=== PATIENT | female | born 1945 | race Caucasian/White ===

== ENCOUNTER 2019-05-09 19:53 | Emergency (ER) | payer MEDICARE, SELFPAY ==
[2019-05-09 19:53] VITALS: BP 207/94; PULSE 78; RESP 18; TEMP 36.8; O2SAT 99; BMI 25.8
== END 2019-05-09 21:29 | disposition left against medical advice (07) ==
PROVIDERS: Emergency Provider Family Medicine; Family Provider Internal Medicine
DX: Z53.21 Procedure and treatment not carried out due to patient leaving prior to being seen by health care provider (principal)
CPT/HCPCS: 99281

== ENCOUNTER 2019-05-12 04:22 | Inpatient (IN) | payer MEDICARE, SELFPAY ==
[2019-05-12] VITALS (8 sets, daily range): BP systolic 152–194; BP diastolic 70–98; PULSE 74–85; RESP 16–18; TEMP 36.7–37.2; O2SAT 95–98; BMI 25.1
--- NOTE | 2019-05-12 04:33 | ED_ITS ---
Entered by Umm Espinoza, acting as scribe for Kam Raya DO HPI - Nausea/Vomiting/Diarrhea General: Chief complaint: Nausea/Vomiting/Diarrhea Stated complaint: NAUSEA, VOMITING, ZACHERY Time Seen by Provider: 05/12/19 04:41 Source: EMS Mode of arrival: EMS Limitations: no limitations History of Present Illness: HPI Narrative: 73 yo f came to the er by [facility] for nausea and vomiting. Onset was 2 days ago. Pt states that she has n/v/d, RLQ and LLQ pain. MD elicited complaint: nausea, vomiting, diarrhea and other (fever) Onset (ago): day(s) (2 days ago) Associated nausea: Yes Pain consistency: constant Severity: mild Quality: sharp Exacerbating factors: none Relieving factors: none Associated symtoms: Reports nausea; Denies anxiety, change in vision, chest pain, dizziness, dysuria, epistaxis, headache(s) or palpitations Review of Systems Const: Reports: fever; Denies: chills Eyes: Denies: change in vision ENMT: Denies: nose bleeds Card: Denies: chest pain or palpitations Resp: Denies: shortness of breath, productive cough, non-productive cough or wheezing GI: Reports: nausea, vomiting and diarrhea : Denies: painful urination Musc: Denies: neck pain, back pain, redness or joint warmth Skin/Breast: Denies: rash, itching or redness Neuro: Denies: headache or dizziness Psych: Denies: anxiety PFSH ED PFSH: Statuses (acute, chronic, etc) shown below reflect problem list status as previously entered and may not be historically accurate Social History Smoking and tobacco status: former smoker Physical Exam Const: GENERAL APPEARANCE: well developed ORIENTATION/CONSCIOUSNESS: Yes oriented to person, Yes oriented to place and Yes oriented to time HENMT: COMMON NORMALS: external ears normal and external nose normal NOSE: external nose normal and no nasal discharge EXTERNAL EAR: Yes external ears normal Eye: COMMON NORMALS: PERRL, EOMs intact bilaterally and conjunctivae normal EYELID: eyelids normal CONJUNCTIVA: Yes conjunctivae normal PUPIL: Yes PERRL Neck/C-Spine: COMMON NORMALS: full ROM GENERAL: No tracheal deviation CERVICAL SPINE: Yes normal cervical lordosis and No cervical spine tenderness Chest: COMMONS NORMALS: inspection of chest normal CHEST: No tenderness Resp: COMMON NORMALS: clear to auscultation bilaterally EFFORT & INSPECTION: No tachypneic, No respiratory distress, No retractions, No uses accessory muscles and No tracheal deviation AUSCULTATION: clear to auscultation bilaterally, no rhonchi, no wheezes and lung sounds not diminished Cardio: COMMON NORMALS: regular rate and regular rhythm RATE: regular rate RHYTHM: regular rhythm HEART SOUNDS: no murmurs PERIPHERAL PULSES: radial pulses present GI: INSPECTION: No abdominal distension AUSCULTATION: No hyperactive bowel sounds and No hypoactive bowel sounds PALPATION: Yes tender Details: LLQ, RLQ, LUQ and RUQ, No guarding, No rigid and No rebound tenderness present PERCUSSION: no dullness to percussion and no tympanic to percussion : COMMON NORMALS: Yes no CVA tenderness BLADDER/KIDNEY EXAM: Yes no CVA tenderness Back/Pelvis: COMMON NORMALS: no CVA tenderness Neuro: SENSORIUM/ORIENTATION: Yes oriented to person, Yes oriented to place and Yes oriented to time Psych: COMMON NORMALS: mental status grossly normal Skin: COMMON NORMALS: no rashes or lesions noted GENERAL SKIN EXAM: no rashes or lesions noted Course ED course: 73-year-old lady with intractable nausea/vomiting/diarrhea/belly pain. She is significantly hypokalemic with a potassium of 2.7. She has a leukocytosis. CT shows fluid-filled loops of small bowel, with some wall thickening, likely a bad enteritis. Given the amount of hypokalemia she has with her findings on CT and symptoms, she will be observed for enteritis. Consultations: Consultation #1: janny Time: 06:29 Vital Signs: Vital signs: Vital Signs Temperature 98.8 F 05/12/19 04:24 Pulse Rate 84 05/12/19 05:43 Respiratory Rate 16 05/12/19 05:43 Blood Pressure 185/98 05/12/19 05:43 Pulse Oximetry 95 05/12/19 05:43 MDM - Nausea/Vomiting/Diarrhea Lab Data: Labs: Lab Results 05/12/19 05/12/19 05/12/19 Range/Units 04:55 04:55 05:38 WBC 12.5 H (4.0-10.0) 10^3/ uL RBC 5.30 (4.1-5.3) 10^6/u L Hgb 15.6 H (11.5-15.3) g/dL Hct 47.0 (37.0-47.0) % MCV 88.7 (81-99) fL MCH 29.4 (28.0-34.0) pg MCHC 33.2 (30.0-36.0) g/dL RDW 14.5 (12.1-15.1) % Plt Count 274 (130-400) 10^3/c mm MPV 9.6 (7.4-10.4) fL Neut % (Auto) 78.4 % Lymph % (Auto) 16.1 % Benson % (Auto) 4.5 % Eos % (Auto) 0.2 % Baso % (Auto) 0.5 % Neut # (Auto) 9.8 H (1.8-7.7) 10^3/u L Lymph # (Auto) 2.0 (0.8-4.8) 10^3/u L Benson # (Auto) 0.6 (0.2-0.9) 10^3/u L Eos # (Auto) 0.0 (0.0-0.8) 10^3/u L Baso # (Auto) 0.1 (0.0-0.1) 10^3/u L Nucleated RBC % (a uto) 0 % Nucleated RBCs # 0.0 /100WBC Sodium 139 (136-145) mmol/L Potassium 2.7 L* (3.5-5.1) mmol/L Chloride 93 L (98-107) mmol/L Carbon Dioxide 24 (22-29) mmol/L Anion Gap 24.7 H (5-19) BUN 13 (8-23) mg/dL Creatinine 0.6 (0.5-0.9) mg/dL Glucose 221 H (74-106) mg/dL Calcium 10.5 (8.5-10.5) mg/dL Total Bilirubin 0.6 (0.15-1.2) mg/dL AST 22 (0-32) U/L ALT 21 (0-33) U/L Alkaline Phosphata se 67 (35-105) IU/L C-Reactive Protein 4.1 (0.0-4.9) mg/L Total Protein 8.2 (6.6-8.7) g/dL Albumin 5.3 H (3.5-5.2) g/dL Globulin 2.9 (1.3-4.6) g/dL Lipase 37 (13-60) U/L Urine Color Yellow (Yellow) Urine Appearance Clear (CLEAR) Urine pH 5 (5-7) Ur Specific Gravit y 1.015 (1.005-1.030) Urine Protein 1+ H (Negative) Urine Glucose (UA) 1+ (Normal) Urine Ketones 2+ H (Negative) Urine Occult Blood 2+ H (Negative) Urine Nitrate Negative (Negative) Urine Bilirubin Neg (NEGATIVE) Urine Urobilinogen Norm (Negative) mg/dL Ur Leukocyte Jelena ase Negative (Negative) Urine RBC 5-10 H (0-2) /hpf Urine WBC 5-10 H (0-5) /hpf Ur Squamous Epith Cells 5-10 H (0-5) Amorphous Sediment Not Reportable Urine Bacteria 1+ H (NONE) Hyaline Casts Rare Urine Mucus Trace Urine Yeast Trace Discharge Plan Discharge Patient Disposition: Placed in Observation Clinical Impression: Gastroenteritis, Hypokalemia due to excessive gastrointestinal loss of potassium Condition: Stable Referrals: Tonio Rubi DO [Family Provider] - Coding Level of Care Code ED Automation Engineering Technician for Chg Fwd The documentation recorded by the Alexis flores Stephanie Lyn, accurately reflects the service I personally performed and the decisions made by Elver thompson Jeremy John, DO May 12, 2019 04:22
--- NOTE | 2019-05-12 04:49 | CTR_ITS ---
PROCEDURE INFORMATION: Exam: CT Abdomen And Pelvis With Contrast Exam date and time: 05/12/2019 5:23 AM Age: 73 years old Clinical indication: Nausea and vomiting; Abdominal pain; Acute; Prior surgery; Surgery date: 6+ months; Surgery type: Hysterectomy, appendectomy; Additional info: Abd pain TECHNIQUE: Imaging protocol: Computed tomography of the abdomen and pelvis with intravenous contrast. Total DLP: 512.23 mGy-cm Radiation optimization: All CT scans at this facility use at least one of these dose optimization techniques: automated exposure control; mA and/or kV adjustment per patient size (includes targeted exams where dose is matched to clinical indication); or iterative reconstruction. Contrast material: [id number]; Contrast volume: 95 ml; Contrast route: 20G; COMPARISON: CT abdomen pelvis w con* [id number] 02/25/2019 2:00 PM FINDINGS: Lungs: There is a 6.5 mm calcified granuloma seen in the left posterior costophrenic recess. Liver: Normal. No mass. Gallbladder and bile ducts: Normal. No calcified stones. No ductal dilation. Pancreas: Normal. No ductal dilation. Spleen: Normal. No splenomegaly. Adrenals: Normal. No mass. Kidneys and ureters: Normal. No hydronephrosis. Stomach and bowel: Nondilated fluid-filled loops of small bowel could represent mild ileus. There is gastric wall thickening although the stomach is nondistended. Appendix: Status post appendectomy. Intraperitoneal space: Unremarkable. No free air. No significant fluid collection. Vasculature: Calcifications are seen within the thoracic and abdominal aorta, iliac and femoral arteries bilaterally. Lymph nodes: Unremarkable. No enlarged lymph nodes. Bladder: Unremarkable as visualized. Reproductive: Status post hysterectomy. Bones/joints: Unremarkable. No acute fracture. Soft tissues: Unremarkable. CT/CT abdomen pelvis w con* [id number] IMPRESSION: 1. Nondilated fluid-filled loops of small bowel may represent a mild ileus. 2. There is mild gastric wall thickening although the stomach is nondistended. 3. Calcified granuloma in the left posterior costophrenic recess. Radiation Dose CTDIVOL = (mGy): DLP = 512.23 (mGy-cm)
[2019-05-12 05:05] LABS: Basophils # 0.1 10^3/uL (0.0-0.1); Basophils % 0.5 %; Eosinophils % 0.2 %; Hemoglobin 15.6 g/dL (11.5-15.3); Lymphocytes % 16.1 %; Mean Corpuscular HGB Conc 33.2 g/dL (30.0-36.0); Mean Corpuscular Hemoglobin 29.4 pg (28.0-34.0); Mean Corpuscular Volume 88.7 fL (81-99); Mean Platelet Volume 9.6 fL (7.4-10.4); Monocytes # 0.6 10^3/uL (0.2-0.9); Monocytes % 4.5 %; Neutrophils # 9.8 10^3/uL (1.8-7.7); Neutrophils % 78.4 %; Nucleated Red Blood Cells % 0 %; Platelet Count 274 10^3/cmm (130-400); Red Cell Distribution Width 14.5 % (12.1-15.1); White Blood Count 12.5 10^3/uL (4.0-10.0)
[2019-05-12 05:17] LABS: Alanine Aminotransferase 21 U/L (0-33); Albumin Level 5.3 g/dL (3.5-5.2); Alkaline Phosphatase 67 IU/L (35-105); Anion Gap 24.7 (5-19); Aspartate Amino Transferase 22 U/L (0-32); Blood Urea Nitrogen 13 mg/dL (8-23); Calcium 10.5 mg/dL (8.5-10.5); Carbon Dioxide 24 mmol/L (22-29); Chloride 93 mmol/L (98-107); Globulin 2.9 g/dL (1.3-4.6); Glucose 221 mg/dL (74-106); Lipase 37 U/L (13-60); Sodium 139 mmol/L (136-145); Total Bilirubin 0.6 mg/dL (0.15-1.2); Total Protein 8.2 g/dL (6.6-8.7)
[2019-05-12] MEDS: morphine 4 mg/mL SDV 1 mL IVP (05:22)
[2019-05-12] MEDS: sodium chloride 0.9% 1,000 ML 999 ML IV (05:23)
[2019-05-12] MEDS: ondansetron 2 mg/ML SDV 2 mL 4 MG IVP (05:23)
[2019-05-12 05:25] LABS: Potassium 2.7 mmol/L (3.5-5.1)
[2019-05-12] MEDS: iohexol 300 mg/mL 100 mL Btl IV (05:48)
[2019-05-12] MEDS: potassium chloride oral liq 20 mEq/15 mL UDC 40 MEQ PO (06:00)
[2019-05-12 06:06] LABS: C Reactive Protein 4.1 mg/L (0.0-4.9)
[2019-05-12 06:09] LABS: Add Urine Microscopic? YES; Bilirubin Urine Neg (NEGATIVE); Blood Urine 2+ (Negative); Glucose Urine UA 1+ (Normal); Ketones Urine 2+ (Negative); Leukocyte Esterase Urine Negative (Negative); Nitrate Urine Negative (Negative); Protein Urine 1+ (Negative); Specific Gravity, Urine 1.015 (1.005-1.030); Urine Appearance Clear (CLEAR); Urine Color Yellow (Yellow); Urobilinogen Urine Norm (Negative); pH Urine 5 (5-7)
[2019-05-12 06:20] LABS: Hyaline Casts Urine RARE; Mucus Urine TRACE
[2019-05-12 06:22] LABS: Bacteria Urine 1+
[2019-05-12 06:23] LABS: Add Urine Culture? Yes
[2019-05-12] MEDS: D5-NS 0.45% + KCL 20 mEq 20 MEQ/1,000 ML BAG 100 MEQ IV ×2 (07:52→17:44)
[2019-05-12] MEDS: metoprolol tartrate 25 mg Tablet PO ×2 (10:29→17:43)
[2019-05-12] MEDS: amlodipine 10 mg Tablet PO (10:29)
[2019-05-12] MEDS: cefTRIAXone 1,000 MG in sodium chloride 0.9% (plus) 50 ML 100 MG IV (10:37)
[2019-05-12] MEDS: chlorthalidone 25 mg Tablet PO (10:37)
--- NOTE | 2019-05-12 12:35 | PM.HP ---
Providers/Chief Complaint Admitting Physician: Shelley Clinton MD Primary Care Provider: ED TEMP Chief Complaint: enteritis,hypokalemia History of Present Illness Kelsey Hall is a 73 year old female with a past medical history of hypertension, depression and anxiety, sciatica on chronic opiate therapy who presents to the emergency room due to complaints of nausea, vomiting and abdominal pain and diarrhea. Patient states that she saw her primary care provider on Tuesday, was diagnosed with upper respiratory tract infection, was sent home on antibiotics, and stated that her respiratory tract symptoms somewhat improved. But roughly 48 hours ago started to develop nausea, vomiting, diarrhea, and diffuse abdominal pain. Denies fevers, chills, lightheadedness, dizziness. But does feel dehydrated. Patient was admitted a few months ago for similar symptoms, was diagnosed with an ileus, improved with IV hydration, and sent home. Patient in addition states that she has right flank pain, with some dysuria. Denies hematuria. Patient's last meal was last night. Review of Systems Const: Denies: fever, chills or change in appetite Eyes: Denies: change in vision ENMT: Denies: nasal congestion Card: Denies: chest pain or palpitations Resp: Denies: shortness of breath or productive cough GI: Reports: abdominal pain, nausea, vomiting and diarrhea; Denies: vomiting blood, difficulty swallowing, bloating, cramping, belching, excessive passing of gas, change in stool character, blood in stool or black tarry stool : Reports: flank pain and painful urination; Denies: difficulty urinating, urinary frequency, urinary urgency, urinary hesitancy or urinary dribbling Musc: Denies: neck pain or back pain Skin/Breast: Denies: rash Neuro: Denies: headache Endo: Denies: excessive urination or excessive thirst Medications/Allergies Allergies Allergy/AdvReac Type Severity Reaction Status Date / Time No Known Allergies Allergy Verified 05/09/19 19:58 Additional Medication Information Additional Medication Information: Morphine extended release 15 mg in the morning, 30 mg at night Metoprolol 25 twice daily Chlorthalidone 25 mg once daily Norvasc 10 mg once daily Klor-Con 40 mg once daily PFSH Acute PFSH: Statuses (acute, chronic, etc) shown below reflect problem list status as previously entered and may not be historically accurate Medical History (Updated 05/12/19 @ 12:44 by Edi Soriano MD) Chronically on opiate therapy (Acute) Depression with anxiety (Acute) Hypertension (Acute) Ileus (Acute) Sciatica (Acute) Surgical History (Updated 05/12/19 @ 12:43 by Edi Soriano MD) H/O bilateral breast reduction surgery (Acute) H/O: hysterectomy (Acute) History of appendectomy (Acute) Family History (Updated 05/12/19 @ 12:42 by Edi Soriano MD) Other CAD (coronary artery disease) Social History (Updated 05/12/19 @ 12:42 by Edi Soriano MD) Smoking and tobacco status: former smoker Alcohol intake: never Substance/Drug Use: never Vitals/I&O/Wt Last Vital Signs Temp 98.0 F 05/12/19 07:43 Pulse 84 05/12/19 07:43 Resp 18 05/12/19 07:43 BP 180/70 05/12/19 07:43 Pulse Ox 97 05/12/19 07:43 Weight last 48 hrs Weight 64.41 kg Physical Exam Const: COMMON NORMALS: no apparent distress and oriented x3 GENERAL APPEARANCE: cooperative and comfortable HENMT: COMMON NORMALS: normocephalic HEAD & SCALP: normocephalic Eye: COMMON NORMALS: PERRL, EOMs intact bilaterally and no papilledema GENERAL EYE: normal appearance of both eyes PUPIL: Yes PERRL DIRECT OPHTHALMOSCOPY: Yes no papilledema Neck/C-Spine: COMMON NORMALS: full ROM, no lymphadenopathy, no JVD and thyroid normal THYROID: thyroid normal Lymph: LYMPHATIC: no lymphadenopathy noted Resp: COMMON NORMALS: normal respiratory effort, no retractions, no use of accessory muscles and clear to auscultation bilaterally AUSCULTATION: clear to auscultation bilaterally Cardio: COMMON NORMALS: no JVD, regular rate, regular rhythm, S1 normal heart sound, S2 normal heart sound, no gallops, no clicks and no murmurs RATE: regular rate RHYTHM: regular rhythm HEART SOUNDS: S1 normal and S2 normal GI: COMMON NORMALS: normal to inspection, nondistended, normoactive bowel sounds, soft to palpation, no hepatosplenomegaly and no masses INSPECTION: Yes abdominal distension AUSCULTATION: Yes normoactive bowel sounds PALPATION: Yes soft, Yes tender (Generalized), No guarding, No rigid and Yes no hepatosplenomegaly Back/Pelvis: GENERAL BACK: Yes CVA tenderness CVA tenderness: left Extremity: COMMON NORMALS: normal to inspection, full ROM and no pedal edema Neuro: COMMON NORMALS: oriented x3, CN's II-XII intact bilaterally, moves all extremities and no focal motor deficits Psych: COMMON NORMALS: mental status grossly normal, thought process normal and cooperative THOUGHT PROCESS: normal thought process Data : 05/12/19 04:55 05/12/19 04:55 CT Abd/Pel: Radiologist's impression: PROCEDURE INFORMATION: Exam: CT Abdomen And Pelvis With Contrast Exam date and time: 05/12/2019 5:23 AM Age: 73 years old Clinical indication: Nausea and vomiting; Abdominal pain; Acute; Prior surgery; Surgery date: 6+ months; Surgery type: Hysterectomy, appendectomy; Additional info: Abd pain TECHNIQUE: Imaging protocol: Computed tomography of the abdomen and pelvis with intravenous contrast. Total DLP: 512.23 mGy-cm Radiation optimization: All CT scans at this facility use at least one of these dose optimization techniques: automated exposure control; mA and/or kV adjustment per patient size (includes targeted exams where dose is matched to clinical indication); or iterative reconstruction. Contrast material: [id number]; Contrast volume: 95 ml; Contrast route: 20G; COMPARISON: CT abdomen pelvis w con* [id number] 02/25/2019 2:00 PM FINDINGS: Lungs: There is a 6.5 mm calcified granuloma seen in the left posterior costophrenic recess. Liver: Normal. No mass. Gallbladder and bile ducts: Normal. No calcified stones. No ductal dilation. Pancreas: Normal. No ductal dilation. Spleen: Normal. No splenomegaly. Adrenals: Normal. No mass. Kidneys and ureters: Normal. No hydronephrosis. Stomach and bowel: Nondilated fluid-filled loops of small bowel could represent mild ileus. There is gastric wall thickening although the stomach is nondistended. Appendix: Status post appendectomy. Intraperitoneal space: Unremarkable. No free air. No significant fluid collection. Vasculature: Calcifications are seen within the thoracic and abdominal aorta, iliac and femoral arteries bilaterally. Lymph nodes: Unremarkable. No enlarged lymph nodes. Bladder: Unremarkable as visualized. Reproductive: Status post hysterectomy. Bones/joints: Unremarkable. No acute fracture. Soft tissues: Unremarkable. CT/CT abdomen pelvis w con* [id number] IMPRESSION: 1. Nondilated fluid-filled loops of small bowel may represent a mild ileus. 2. There is mild gastric wall thickening although the stomach is nondistended. 3. Calcified granuloma in the left posterior costophrenic recess A&P Assessment and plan (1) Ileus: -Ileus likely secondary to adhesions given past surgical history of appendectomy and hysterectomy -Plan: -Continue clear liquid diet -IV fluids -Recheck potassium levels -We will check a C. 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 (6) Hypertension: Status: Acute Code(s): I10 - Essential (primary) hypertension (7) Hypokalemia due to excessive gastrointestinal loss of potassium: Status: Acute Code(s): E87.6 - Hypokalemia (8) Gastroenteritis: Status: Acute Code(s): K52.9 - Noninfective gastroenteritis and colitis, unspecified Attestations Medical Necessity Statement*: Patient requires hospitalization, observation, less than 2 midnights, for ileus, hypokalemia, pyelonephritis Coding Level of Care Code Acute Manager Bar for g Fwd Diagnoses Ileus K56.7 Left flank pain R10.9 Depression with anxiety F41.8 Sciatica M54.30 Chronically on opiate therapy Z79.891 Hypertension I10 Hypokalemia due to excessive gastrointestinal loss of potassium E87.6 Gastroenteritis K52.9
[2019-05-12 12:37] LABS: Estmated Average Glucose 117; Hemoglobin A1C 5.7 % (4.0-6.0)
[2019-05-12 13:08] LABS: Alanine Aminotransferase 18 U/L (0-33); Albumin Level 4.7 g/dL (3.5-5.2); Alkaline Phosphatase 56 IU/L (35-105); Anion Gap 18.1 (5-19); Aspartate Amino Transferase 20 U/L (0-32); Blood Urea Nitrogen 7 mg/dL (8-23); Calcium 9.6 mg/dL (8.5-10.5); Carbon Dioxide 25 mmol/L (22-29); Chloride 99 mmol/L (98-107); Globulin 2.6 g/dL (1.3-4.6); Glucose 179 mg/dL (74-106); Phosphorus 2.7 mg/dL (2.5-4.5); Potassium 3.1 mmol/L (3.5-5.1); Sodium 139 mmol/L (136-145); Total Bilirubin 0.4 mg/dL (0.15-1.2); Total Protein 7.3 g/dL (6.6-8.7)
[2019-05-12] MEDS: morphine ER (12 HR) 30 mg tablet PO (17:43)
[2019-05-13] VITALS (9 sets, daily range): BP systolic 128–173; BP diastolic 68–109; PULSE 58–76; RESP 17–24; TEMP 36.7–37.1; O2SAT 92–97
[2019-05-13] MEDS: D5-NS 0.45% + KCL 20 mEq 20 MEQ/1,000 ML BAG 100 MEQ IV ×3 (03:27→23:19)
[2019-05-13 05:53] LABS: Basophils # 0.1 10^3/uL (0.0-0.1); Basophils % 0.6 %; Eosinophils # 0.2 10^3/uL (0.0-0.8); Eosinophils % 1.9 %; Hematocrit 44.9 % (37.0-47.0); Hemoglobin 14.4 g/dL (11.5-15.3); Lymphocytes # 3.2 10^3/uL (0.8-4.8); Lymphocytes % 35.9 %; Mean Corpuscular HGB Conc 32.1 g/dL (30.0-36.0); Mean Corpuscular Hemoglobin 30.3 pg (28.0-34.0); Mean Corpuscular Volume 94.3 fL (81-99); Mean Platelet Volume 9.7 fL (7.4-10.4); Monocytes # 0.8 10^3/uL (0.2-0.9); Monocytes % 9.1 %; Neutrophils # 4.7 10^3/uL (1.8-7.7); Neutrophils % 52.3 %; Nucleated Red Blood Cells % 0 %; Platelet Count 232 10^3/cmm (130-400); Red Blood Count 4.76 10^6/uL (4.1-5.3); Red Cell Distribution Width 14.8 % (12.1-15.1)
[2019-05-13] MEDS: morphine ER (12 HR) 15 mg Tablet PO (06:06)
[2019-05-13 06:16] LABS: Alanine Aminotransferase 21 U/L (0-33); Albumin Level 4.8 g/dL (3.5-5.2); Alkaline Phosphatase 57 IU/L (35-105); Anion Gap 17.1 (5-19); Aspartate Amino Transferase 28 U/L (0-32); Blood Urea Nitrogen 6 mg/dL (8-23); Calcium 9.6 mg/dL (8.5-10.5); Carbon Dioxide 27 mmol/L (22-29); Chloride 97 mmol/L (98-107); Globulin 3.1 g/dL (1.3-4.6); Glucose 135 mg/dL (74-106); Potassium 3.1 mmol/L (3.5-5.1); Sodium 138 mmol/L (136-145); Total Bilirubin 0.5 mg/dL (0.15-1.2); Total Protein 7.9 g/dL (6.6-8.7)
[2019-05-13] MEDS: chlorthalidone 25 mg Tablet PO (09:09)
[2019-05-13] MEDS: docusate sodium 100 mg Capsule PO (09:09)
[2019-05-13] MEDS: amlodipine 10 mg Tablet PO (09:09)
[2019-05-13] MEDS: metoprolol tartrate 25 mg Tablet PO ×2 (09:09→17:30)
[2019-05-13] MEDS: polyethylene glycol 3350 Pkt 17 gm PO (09:09)
[2019-05-13] MEDS: potassium chloride premix 40 MEQ/100 ML PREMIX 25 MEQ IV (09:15)
[2019-05-13] MEDS: cefTRIAXone 1,000 MG in sodium chloride 0.9% (plus) 50 ML 100 MG IV (10:45)
--- NOTE | 2019-05-13 11:10 | PM.PN ---
Subjective Subjective: Interval history: Patient states that she is doing better this morning, states that she has not had a bowel movement yet, no abdominal pain, no lightheadedness, no dizziness Vitals/I&O/Wt Last Vital Signs Temp 98.2 F 05/13/19 11:03 Pulse 64 05/13/19 11:03 Resp 18 05/13/19 11:03 BP 173/109 05/13/19 11:03 Pulse Ox 96 05/13/19 11:03 05/12/19 05/13/19 05/13/19 22:59 06:59 14:59 Intake Total 1466.667 / 1756.667 971.667 / 2728.334 120 / 120 Balance 1466.667 / 1756.667 971.667 / 2728.334 120 / 120 Weight last 48 hrs Weight 64.41 kg Physical Exam Const: COMMON NORMALS: no apparent distress and oriented x3 GENERAL APPEARANCE: cooperative and comfortable HENMT: COMMON NORMALS: normocephalic HEAD & SCALP: normocephalic Eye: COMMON NORMALS: PERRL, EOMs intact bilaterally and no papilledema GENERAL EYE: normal appearance of both eyes PUPIL: Yes PERRL DIRECT OPHTHALMOSCOPY: Yes no papilledema Neck/C-Spine: COMMON NORMALS: full ROM, no lymphadenopathy, no JVD and thyroid normal THYROID: thyroid normal Lymph: LYMPHATIC: no lymphadenopathy noted Resp: COMMON NORMALS: normal respiratory effort, no retractions, no use of accessory muscles and clear to auscultation bilaterally AUSCULTATION: clear to auscultation bilaterally Cardio: COMMON NORMALS: no JVD, regular rate, regular rhythm, S1 normal heart sound, S2 normal heart sound, no gallops, no clicks and no murmurs RATE: regular rate RHYTHM: regular rhythm HEART SOUNDS: S1 normal and S2 normal GI: COMMON NORMALS: normal to inspection, nondistended, normoactive bowel sounds, soft to palpation, no hepatosplenomegaly and no masses AUSCULTATION: Yes normoactive bowel sounds PALPATION: Yes soft, Yes tender (Generalized), No guarding, No rigid and Yes no hepatosplenomegaly Neuro: COMMON NORMALS: oriented x3 Data : 05/13/19 05:05 05/13/19 05:05 Micro: Microbiology 01/25/20 05:38 Urine Culture - Preliminary Urine,Clean Catch A&P Assessment and plan (1) Ileus: -Ileus likely secondary to adhesions given past surgical history of appendectomy and hysterectomy -Plan: -Transition to soft GI -IV fluids -We will check a C. 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 (6) Hypertension: Status: Acute Code(s): I10 - Essential (primary) hypertension (7) Hypokalemia due to excessive gastrointestinal loss of potassium: Status: Acute Code(s): E87.6 - Hypokalemia (8) Gastroenteritis: Status: Acute Code(s): K52.9 - Noninfective gastroenteritis and colitis, unspecified Attestations Medical Necessity Statement*: Patient requires continued hospitalization due to ileus Coding Level of Care Code Acute Metrology Specialist for [facility] Fwd Diagnoses Ileus K56.7 Left flank pain R10.9 Depression with anxiety F41.8 Sciatica M54.30 Chronically on opiate therapy Z79.891 Hypertension I10 Hypokalemia due to excessive gastrointestinal loss of potassium E87.6 Gastroenteritis K52.9
[2019-05-13] MEDS: labetalol 5 mg/mL SDV 20mL 20 MG IVP (11:17)
--- NOTE | 2019-05-13 11:20 | PC.NURSE ---
PRN labetolol given IVP as ordered for elevated B/P. Will continue to monitor
--- NOTE | 2019-05-13 12:32 | PC.CHAP ---
Pastoral Care Encounter/Spiritual Assessment Type of Contact [] Declined hand cultivator visit [] Patient/Family/Request visit [] Outpatient visit [] Follow-up visit [] Physician referral [] Code/Alert [] Routine visit [] Staff referral [] Actively dying [x] Patient sleeping [] Family support [] [] Out of room [] Palliative care [] [] Receiving care in room [] Pre-surgical visit [] Trauma [] Long length of stay [] ICU visit [] Other: Relational/Emotional Strength [] Patient feels connected with others/family/visitors/staff [] Distress [] Loneliness/isolation [] Abandonment Spirituality of Patient [] Person of Eden [] Attends Baptism of their Eden [] Believes in Prayer [] Reads Bible or Orthodox materials [] There are Spiritual issues to be addressed Clinical Supervisor Interventions [] Prayer [] Active listening [] Non-anxious presence [] Spiritual/emotional support [] Crisis/trauma care [] Spiritual counseling [] Bereavement support [] Provided bereavement packet [] Provided Bible/devotional materials [] Provided toy/stuffed animal, coloring book to patient or family member [] Completed spiritual assessment [] Provided Communion [] Anointing/[place] [] Salvation [] Other: Impact on Illness or Injury [] Angry [] Fearful [] Anxious [] Often cries [] Exhaustion [] Unable to work [] Unable to attend scientologist [] Unable to walk/stand [] Unable to read [] Unable to drive [] Unable to eat/drink [] Unable to sleep [] Unable to be with family [] Other: Summary Patient needs follow up visit. Time spent with patient
[2019-05-13] MEDS: morphine ER (12 HR) 30 mg tablet PO (17:30)
[2019-05-13] MEDS: ondansetron 2 mg/ML SDV 2 mL 4 MG IVP (18:15)
[2019-05-14 04:00] VITALS: BP 115/72; PULSE 61; RESP 24; TEMP 36.9; O2SAT 96
[2019-05-14] MEDS: morphine ER (12 HR) 15 mg Tablet PO (05:35)
[2019-05-14 07:44] VITALS: BP 155/93; PULSE 62; RESP 18; TEMP 37.1; O2SAT 96
[2019-05-14] MEDS: polyethylene glycol 3350 Pkt 17 gm PO (08:26)
[2019-05-14] MEDS: chlorthalidone 25 mg Tablet PO (08:26)
[2019-05-14] MEDS: amlodipine 10 mg Tablet PO (08:26)
[2019-05-14] MEDS: metoprolol tartrate 25 mg Tablet PO (08:26)
[2019-05-14] MEDS: docusate sodium 100 mg Capsule PO (08:26)
[2019-05-14] MEDS: D5-NS 0.45% + KCL 20 mEq 20 MEQ/1,000 ML BAG 100 MEQ IV (08:28)
[2019-05-14] MEDS: cefTRIAXone 1,000 MG in sodium chloride 0.9% (plus) 50 ML 100 MG IV (09:47)
[2019-05-14 10:02] LABS: Basophils # 0.1 10^3/uL (0.0-0.1); Basophils % 0.7 %; Eosinophils # 0.2 10^3/uL (0.0-0.8); Eosinophils % 2.2 %; Hematocrit 43.5 % (37.0-47.0); Hemoglobin 14.1 g/dL (11.5-15.3); Lymphocytes # 2.4 10^3/uL (0.8-4.8); Lymphocytes % 28.4 %; Mean Corpuscular HGB Conc 32.4 g/dL (30.0-36.0); Mean Corpuscular Hemoglobin 30.5 pg (28.0-34.0); Mean Platelet Volume 9.7 fL (7.4-10.4); Monocytes # 0.7 10^3/uL (0.2-0.9); Neutrophils # 5.2 10^3/uL (1.8-7.7); Neutrophils % 60.5 %; Nucleated Red Blood Cells % 0 %; Platelet Count 231 10^3/cmm (130-400); Red Blood Count 4.63 10^6/uL (4.1-5.3); Red Cell Distribution Width 14.6 % (12.1-15.1); White Blood Count 8.6 10^3/uL (4.0-10.0)
[2019-05-14 10:16] LABS: Alanine Aminotransferase 31 U/L (0-33); Albumin Level 4.4 g/dL (3.5-5.2); Alkaline Phosphatase 57 IU/L (35-105); Anion Gap 17.4 (5-19); Aspartate Amino Transferase 35 U/L (0-32); Blood Urea Nitrogen 4 mg/dL (8-23); Calcium 9.4 mg/dL (8.5-10.5); Carbon Dioxide 24 mmol/L (22-29); Chloride 99 mmol/L (98-107); Globulin 3.2 g/dL (1.3-4.6); Glucose 138 mg/dL (74-106); Magnesium 1.9 mg/dL (1.7-2.3); Phosphorus 3.6 mg/dL (2.5-4.5); Potassium 3.4 mmol/L (3.5-5.1); Sodium 137 mmol/L (136-145); Total Bilirubin 0.4 mg/dL (0.15-1.2); Total Protein 7.6 g/dL (6.6-8.7)
[2019-05-14] MEDS: oxybutynin chloride XL 5 MG TABLET PO (11:24)
[2019-05-14 11:30] VITALS: BP 150/71; PULSE 61; RESP 18; TEMP 36.7; O2SAT 97
--- NOTE | 2019-05-14 12:14 | PC.CHAP ---
Pastoral Care Encounter/Spiritual Assessment Type of Contact [] Declined material engineer visit [] Patient/Family/Request visit [] Outpatient visit [x] Follow-up visit [] Physician referral [] Code/Alert [] Routine visit [] Staff referral [] Actively dying [] Patient sleeping [] Family support [] [] Out of room [] Palliative care [] [] Receiving care in room [] Pre-surgical visit [] Trauma [] Long length of stay [] ICU visit [] Other: Relational/Emotional Strength [x] Patient feels connected with others/family/visitors/staff [] Distress [] Loneliness/isolation [] Abandonment Spirituality of Patient [x] Person of Eden [x] Attends Yarsanism of their Eden [x] Believes in Prayer [x] Reads Bible or Mormon materials [] There are Spiritual issues to be addressed Disease Management Nurse Interventions [x] Prayer [x] Active listening [x] Non-anxious presence [] Spiritual/emotional support [] Crisis/trauma care [] Spiritual counseling [] Bereavement support [] Provided bereavement packet [] Provided Bible/devotional materials [] Provided toy/stuffed animal, coloring book to patient or family member [x] Completed spiritual assessment [] Provided Communion [] Anointing/[place] [] Salvation [] Other: Impact on Illness or Injury [] Angry [] Fearful [] Anxious [] Often cries [] Exhaustion [] Unable to work [] Unable to attend uatsdin [] Unable to walk/stand [] Unable to read [] Unable to drive [] Unable to eat/drink [] Unable to sleep [] Unable to be with family [] Other: Summary Retired, lives alone.Solitary life. Patient not too happy with room service (housekeeping) length of time to get help with personal care necessities. Time spent with patient 15 min.
[2019-05-14 12:37] VITALS: BP 150/71; PULSE 61; RESP 18; TEMP 36.7; O2SAT 97
[2019-05-14 15:11] VITALS: BP 150/71; PULSE 61; RESP 18; TEMP 36.7; O2SAT 97
--- NOTE | 2019-05-14 15:11 | PC.NURSE ---
Pt given written and verbal DC instructions. Education done
--- NOTE | 2019-05-14 20:07 | PM.DCS ---
Discharge Providers Date of Admission: 05/13/19 15:25 Date of Discharge: 05/14/19 Attending Provider at Admission: Shelley Clinton MD Attending Provider at Discharge: Edi Soriano MD Primary Care Provider: ED TEMP Diagnoses at Discharge Discharge Diagnosis (1) Ileus: Status: Acute (2) Left flank pain: Status: Acute (3) Depression with anxiety: Status: Acute (4) Sciatica: Status: Acute (5) Chronically on opiate therapy: Status: Acute (6) Hypertension: Status: Acute (7) Hypokalemia due to excessive gastrointestinal loss of potassium: Status: Acute (8) Gastroenteritis: Status: Acute Reason for Visit Reason for Visit: Reason For Visit: enteritis,hypokalemia Hospital Course Discharge Summary: Kelsey Hall is a 73 year old female with a past medical history of hypertension, depression and anxiety, sciatica on chronic opiate therapy who presents to the emergency room due to complaints of nausea, vomiting and abdominal pain and diarrhea. Patient was admitted for ileus likely secondary to adhesions given past surgical history of appendectomy and hysterectomy. She IV fluids, IV electrolytes, her C. difficile is negative, her diet was slowly advanced, she tolerated this well. She was discharged with instructions to drink plenty of electrolyte balance fluids, potassium 60 mEq once daily, use MiraLAX once daily until she has regular bowel movements (her CT of her abdomen shows moderate stool burden likely second to chronic opiates) and then use as needed, with a close follow-up with her primary care provider in 1 to 2 weeks. In addition patient left flank pain, likely secondary to UTI pyelonephritis, was de-escalated to Bactrim for 5 more days,, her urine cultures have been unremarkable so far. Patient also has some gastric wall thickening, patient should follow-up with general surgery for an EGD in 1 month. Physical Exam Const: COMMON NORMALS: no apparent distress and oriented x3 GENERAL APPEARANCE: cooperative and comfortable HENMT: COMMON NORMALS: normocephalic HEAD & SCALP: normocephalic Eye: COMMON NORMALS: PERRL, EOMs intact bilaterally and no papilledema GENERAL EYE: normal appearance of both eyes PUPIL: Yes PERRL DIRECT OPHTHALMOSCOPY: Yes no papilledema Neck/C-Spine: COMMON NORMALS: full ROM, no lymphadenopathy, no JVD and thyroid normal THYROID: thyroid normal Lymph: LYMPHATIC: no lymphadenopathy noted Resp: COMMON NORMALS: normal respiratory effort, no retractions, no use of accessory muscles and clear to auscultation bilaterally AUSCULTATION: clear to auscultation bilaterally Cardio: COMMON NORMALS: no JVD, regular rate, regular rhythm, S1 normal heart sound, S2 normal heart sound, no gallops, no clicks and no murmurs RATE: regular rate RHYTHM: regular rhythm HEART SOUNDS: S1 normal and S2 normal GI: COMMON NORMALS: normal to inspection, nondistended, normoactive bowel sounds, soft to palpation, no hepatosplenomegaly and no masses AUSCULTATION: Yes normoactive bowel sounds PALPATION: Yes soft, No guarding, No rigid and Yes no hepatosplenomegaly Extremity: COMMON NORMALS: normal to inspection, full ROM and no pedal edema Neuro: COMMON NORMALS: oriented x3 Psych: COMMON NORMALS: mental status grossly normal, thought process normal and cooperative THOUGHT PROCESS: normal thought process Discharge Data Data Completed and Pending: Completed Studies During Hospitalization Category Date Time Status CT abdomen pelvis w con* [id number] Urge nt Cat Scan 05/12/19 04:49 Completed Pending at discharge Category Date Time Status Urine Culture Sta t Lab 05/12/19 05:38 Results Labs from last 24 hours 05/14/19 05/14/19 09:35 09:35 WBC 8.6 RBC 4.63 Hgb 14.1 Hct 43.5 MCV 94.0 MCH 30.5 MCHC 32.4 RDW 14.6 Plt Count 231 MPV 9.7 Neut % (Auto) 60.5 Lymph % (Auto) 28.4 [place] % (Auto) 8.0 Eos % (Auto) 2.2 Baso % (Auto) 0.7 Neut # (Auto) 5.2 Lymph # (Auto) 2.4 [place] # (Auto) 0.7 Eos # (Auto) 0.2 Baso # (Auto) 0.1 Nucleated RBC % (a uto) 0 Nucleated RBCs # 0.0 Sodium 137 Potassium 3.4 L Chloride 99 Carbon Dioxide 24 Anion Gap 17.4 BUN 4 L Creatinine 0.6 Glucose 138 H Calcium 9.4 Phosphorus 3.6 Magnesium 1.9 Total Bilirubin 0.4 AST 35 H ALT 31 Alkaline Phosphata se 57 Total Protein 7.6 Albumin 4.4 Globulin 3.2 Vitals: Last Vital Signs Temp 98.0 F 05/14/19 15:11 Pulse 61 05/14/19 15:11 Resp 18 05/14/19 15:11 BP 150/71 05/14/19 15:11 Pulse Ox 97 05/14/19 15:11 Discharge Plan Discharge Patient Disposition: Home, Self-Care Condition: Stable Prescriptions: New polyethylene glycol 3350 [Miralax] 17 gram Powder In Packet 17 g PO DAILY 30 Days Qty: 30 RF: 0 chlorthalidone 25 mg Tablet 25 mg PO DAILY 30 Days Qty: 30 RF: 0 morphine 30 mg Tablet Extended Release 30 mg PO QPM 30 Days Qty: 1 RF: 0 amlodipine 10 mg Tablet 10 mg PO DAILY 30 Days Qty: 30 RF: 0 oxybutynin chloride 5 mg Tablet Extended Release 24hr 5 mg PO DAILY 30 Days Qty: 30 RF: 0 morphine 15 mg Tablet Extended Release 15 mg PO QAM 30 Days Qty: 30 RF: 1 metoprolol tartrate 25 mg Tablet 25 mg PO BID 30 Days Qty: 60 RF: 0 potassium chloride 20 mEq tablet,ER particles/crystals 60 meq PO DAILY 30 Days Qty: 90 RF: 0 ondansetron HCl [Zofran] 4 mg tablet 4 mg PO Q12H PRN (Reason: nausea and vomiting) 30 Days Qty: 60 RF: 0 Bactrim DS 800-160 mg tablet 1 tab PO BID 5 Days Qty: 10 RF: 0 Continued fluoxetine 20 mg Capsule 40 mg PO DAILY RF: 0 fluoxetine 20 mg Capsule 20 mg PO BEDTIME RF: 0 Changed lisinopril 20 mg Tablet 20 mg PO Q12H 30 Days Qty: 60 RF: 0 Discontinued duloxetine 30 mg Capsule,Delayed Release(Dr/Ec) 30 mg PO DAILY RF: 0 Discharge Orders: Discharge Order (Routine); Ordered 05/14/19 Ordered By: Edi Soriano Other Ambulatory Orders: Comprehensive Metabolic Panel (Routine) Timeframe: 2 Days Facility: [facility] - Location: Lab - Main Lab Ordered By: Edi Soriano Referrals: Manolo Gonzalez MD [Physician] - 1 month (You have an appointment with Dr. Clay on May 21 at 915am) Edi Soriano MD [Hospitalist] - 1 month (Call urgent care and make an appointment. [phone]) Tonio Rubi, DO [Family Provider] - (You have an appointment with Dr. Rubi on May 22 at 945am.) Discharge Diet: Advance as tolerated Discharge Activity: Resume usual activity Patient Instructions: Sulfamethoxazole/Trimethoprim (By mouth), Metoprolol (By mouth), Oxybutynin (By mouth), Potassium Chloride (By mouth), Chlorthalidone (By mouth), Amlodipine (By mouth), Ondansetron (By mouth), Polyethylene Glycol 3350 (By mouth), Morphine, Slow Release (By mouth), Dehydration (DC), Ileus (DC) Activity Restrictions/Additional Instructions: -Drink plenty of electrolyte balance fluids -Take antibiotics as prescribed for UTI -Please follow-up with Dr. Gonzalez for EGD -If you have lightheadedness, dizziness, recurrent abdominal pain please come back to emergency room -Please use oxybutynin for incontinence -Please follow-up with primary care provider for better titration of blood pressure medications Discharge Date/Time: 05/14/19 15:13 Discharge Attestations Time Spent in Discharge Care*: less than 30 min Quality Metrics Clinical Quality Measures During this hospital stay, did patient experience: None Coding Level of Care Code Acute Brand Strategist for Chg Fwd Diagnoses Ileus K56.7 Left flank pain R10.9 Depression with anxiety F41.8 Sciatica M54.30 Chronically on opiate therapy Z79.891 Hypertension I10 Hypokalemia due to excessive gastrointestinal loss of potassium E87.6 Gastroenteritis K52.9
== END 2019-05-14 15:13 | disposition home or self-care (01) | DRG 390 ==
LOC: ER 06:32 → MEDSURG 06:58
PROVIDERS: Admitting Provider Internal Medicine; Emergency Provider Emergency Medicine; Family Provider Internal Medicine; Visit Provider Family Medicine
DX: K56.7 Ileus, unspecified (principal); F41.8 Other specified anxiety disorders; E87.6 Hypokalemia; I10 Essential (primary) hypertension; M54.30 Sciatica, unspecified side; Z79.891 Long term (current) use of opiate analgesic; K52.9 Noninfective gastroenteritis and colitis, unspecified
CPT/HCPCS: 12345; 36415; 74177; 80053; 81001; 81003; 83036; 83690; 83735; 84100; 85025; 86140; 87086; 87106; 87493; 96374; 96375; 99282; G0378; J0696; J2270; J2405; J3480; J3490; J7030; Q9967

== ENCOUNTER 2019-05-30 10:53 | Outpatient (CLI) | payer MEDICARE, SELFPAY ==
--- NOTE | 2019-05-30 11:07 | FL_ITS ---
WS: [id number] DOUBLE CONTRAST UPPER GI EXAMINATION HISTORY: ABNORMAL FINDINGS ON CT COMPARISON: CT 05/12/2019. FLUOROSCOPY TIME: 1.5 minutes. Insurance Claims Adjuster film reveals normal distribution of gas throughout the GI tract. Mild constipation. No suspicio us masses or calcifications. Barium mixture traversed normally throughout the esophagus. No filling defects within the stomach. Du odenal bulb was normally distensible and pliable. No wall thickening of the stomach. No gastroesophageal reflux Small reducible hiatal hernia was noted. FL/FL upper GI w air [id number] IMPRESSION: 1. No wall thickening or mucosal thickening of the stomach. 2. Small reducible hiatal hernia. 3. No reflux.
== END 2019-05-30 10:54 | disposition home or self-care (01) ==
LOC: RAD 10:57
PROVIDERS: Family Provider Internal Medicine; PCP Internal Medicine; Visit Provider Surgery
DX: R93.89 Abnormal findings on diagnostic imaging of other specified body structures (principal); K44.9 Diaphragmatic hernia without obstruction or gangrene
CPT/HCPCS: 74246

== ENCOUNTER 2019-11-27 07:33 | Outpatient (CLI) | payer MEDICARE, SELFPAY ==
--- NOTE | 2019-11-27 07:35 | NM_ITS ---
WS: [id number] NUCLEAR MEDICINE HIDA SCAN CLINICAL INFORMATION: RUQ PAIN TECHNIQUE: Following intravenous administration of 7.9 mCi of technetium 99m mebrofenin, images of th e abdomen were obtained over the course of 60 minutes. Next, gallbladder ejection fraction was determ ined by obtaining preprandial and one-hour postprandial images of the gallbladder following oral ana luisa stion of Ensure. COMPARISON: None. FINDINGS: Normal hepatic uptake at 5 minutes. Normal common bile duct. Gallbladder is visualized by 15 minutes. No evidence of acute cholecystitis. Normal small bowel activity. No evidence of choledocholithiasis. Normal hepatic excretion. Gallbladder ejection fraction 96%. No evidence of chronic cholecystitis. NM/NM hepatobiliary w phar* [id number] IMPRESSION: 1. No evidence of acute or chronic cholecystitis. 2. Gallbladder ejection fraction 96% within normal limits.
== END 2019-11-27 07:34 | disposition home or self-care (01) ==
LOC: NM 07:34
PROVIDERS: Family Provider Internal Medicine; PCP Internal Medicine; Visit Provider Internal Medicine
DX: R10.11 Right upper quadrant pain (principal)
CPT/HCPCS: 78227; A9537

== ENCOUNTER 2020-06-11 12:02 | Outpatient (RCR) | payer MEDICARE, MEDICAID, SELFPAY | END 2020-06-15 23:59 | disposition home or self-care (01) | LOC: SPT 12:02 | PROVIDERS: Family Provider Internal Medicine; PCP Internal Medicine; Referring Provider Internal Medicine; Visit Provider Internal Medicine | DX: R53.1 Weakness (principal) | CPT/HCPCS: 97162 ==

== ENCOUNTER 2020-06-16 06:00 | Outpatient (RCR) | payer MEDICARE, SELFPAY | END 2020-07-16 23:59 | disposition home or self-care (01) | LOC: SPT 06:00 | PROVIDERS: PCP Internal Medicine; Referring Provider Internal Medicine; Visit Provider Internal Medicine | DX: R29.898 Other symptoms and signs involving the musculoskeletal system (principal) | CPT/HCPCS: 97110; 97112 ==

== ENCOUNTER 2020-07-17 06:00 | Outpatient (RCR) | payer MEDICARE, MEDICAID, SELFPAY | END 2020-08-15 23:59 | disposition home or self-care (01) | LOC: SPT 06:00 | PROVIDERS: PCP Internal Medicine; Referring Provider Internal Medicine; Visit Provider Internal Medicine | DX: R29.898 Other symptoms and signs involving the musculoskeletal system (principal) | CPT/HCPCS: 97110; 97112 ==

== ENCOUNTER 2020-07-31 14:17 | Outpatient (CLI) | payer MEDICARE, MEDICAID, SELFPAY ==
--- NOTE | 2020-07-31 | XR_ITS ---
WS: [id number] SCREENING DEXA SCAN [employer] CLINICAL INFORMATION: OSTEOPOROSIS COMPARISON: None. FINDINGS: The L1-L4 bone mineral density measures 0.765 g/cm2. This corresponds to a T score score of -3.5 and Z score of -1.8. Left femoral neck bone mineral density measures 0.693 g/cm2. This corresponds to a T score of -2.5 an d Z score of -0.7. Right femoral neck bone mineral density measures 0.711 g/cm2. This corresponds to a T score -2.4of an d Z score of -0.6. Mean femoral neck bone mineral density measures 0.702 g/cm2. This corresponds to a T score of -2.4 an d Z score of -0.7. XR/XR DEXA axial skeleton* [id number] IMPRESSION: Osteoporosis Patient's FRAX calculated 10 year probability for major osteoporotic fracture i s 30.3 % and osteoporotic hip fracture is 11.0%.
== END 2020-07-31 14:18 | disposition home or self-care (01) ==
LOC: RADWPI 14:18
PROVIDERS: PCP Internal Medicine; Visit Provider Internal Medicine
DX: M81.0 Age-related osteoporosis without current pathological fracture (principal)
CPT/HCPCS: 77080

== ENCOUNTER 2020-08-16 06:00 | Outpatient (RCR) | payer MEDICARE, MEDICAID, SELFPAY | END 2020-08-25 23:00 | disposition home or self-care (01) | LOC: SPT 06:00 | PROVIDERS: PCP Internal Medicine; Referring Provider Internal Medicine; Visit Provider Internal Medicine | DX: R29.898 Other symptoms and signs involving the musculoskeletal system (principal) | CPT/HCPCS: 97110; 97112 ==

== ENCOUNTER 2020-12-17 06:00 | Outpatient (RCR) | payer MEDICARE, MEDICAID, SELFPAY | END 2021-01-15 23:59 | disposition home or self-care (01) | LOC: SPT 06:00 | PROVIDERS: PCP Internal Medicine; Referring Provider Orthopaedic Surgery; Visit Provider Orthopaedic Surgery | DX: R53.1 Weakness (principal) | CPT/HCPCS: 97110; 97140; 97161 ==

== ENCOUNTER → 2020-12-17 09:24 | Outpatient (BNVA) | payer MEDICARE, MEDICAID, SELFPAY | PROVIDERS: PCP Internal Medicine; Referring Provider Internal Medicine; Visit Provider Orthopaedic Surgery | DX: S42.252A Displaced fracture of greater tuberosity of left humerus, initial encounter for closed fracture (principal); X58.XXXA Exposure to other specified factors, initial encounter | CPT/HCPCS: 73030 ==

== ENCOUNTER → 2021-01-13 09:52 | Outpatient (BNVA) | payer MEDICARE, MEDICAID, SELFPAY | PROVIDERS: PCP Internal Medicine; Visit Provider Orthopaedic Surgery | DX: S42.252A Displaced fracture of greater tuberosity of left humerus, initial encounter for closed fracture (principal); X58.XXXA Exposure to other specified factors, initial encounter | CPT/HCPCS: 73030 ==

== ENCOUNTER 2021-01-16 06:00 | Outpatient (RCR) | payer MEDICARE, MEDICAID, SELFPAY | END 2021-02-15 23:59 | disposition home or self-care (01) | LOC: SPT 06:00 | PROVIDERS: PCP Internal Medicine; Referring Provider Orthopaedic Surgery; Visit Provider Orthopaedic Surgery | DX: S43.005D Unspecified dislocation of left shoulder joint, subsequent encounter (principal) | CPT/HCPCS: 97110; 97140 ==

== ENCOUNTER 2021-01-16 10:29 | Outpatient (CLI) | payer MEDICARE, MEDICAID, SELFPAY ==
--- NOTE | 2021-01-16 10:34 | MM_ITS ---
WS: [id number] BILATERAL DIGITAL SCREENING MAMMOGRAPHY WITH CAD CLINICAL INFORMATION: SCREENING HISTORY: Screening mammogram. No current complaints. COMPARISON: [id number] TECHNIQUE: Bilateral CC and MLO views. FINDINGS: History of bilateral breast reduction. Scattered fibroglandular densities bilaterally. No suspicious focal mass, asymmetry, calcifications, or architectural distortion. No evidence of malignancy. Incidental punctate calcifications. Vascular calcifications. MM/[place] [id number] IMPRESSION: BI-RADS: 2-Benign FOLLOW UP: 1 Year Follow-up Recommend return to annual screening mammography.
== END 2021-01-16 10:30 | disposition home or self-care (01) ==
LOC: RADSHAW 10:32
PROVIDERS: PCP Internal Medicine; Visit Provider Internal Medicine
DX: Z12.31 Encounter for screening mammogram for malignant neoplasm of breast (principal)
CPT/HCPCS: 77067

== ENCOUNTER → 2021-02-24 09:05 | Outpatient (BNVA) | payer MEDICARE, MEDICAID, SELFPAY | PROVIDERS: PCP Internal Medicine; Visit Provider Orthopaedic Surgery | DX: M54.9 Dorsalgia, unspecified (principal); S42.252D Displaced fracture of greater tuberosity of left humerus, subsequent encounter for fracture with routine healing; X58.XXXD Exposure to other specified factors, subsequent encounter | CPT/HCPCS: 73030 ==

== ENCOUNTER 2021-03-17 06:00 | Outpatient (RCR) | payer MEDICARE, MEDICAID, SELFPAY | END 2021-03-17 23:59 | disposition home or self-care (01) | LOC: SPT 06:00 | PROVIDERS: PCP Internal Medicine; Referring Provider Orthopaedic Surgery; Visit Provider Orthopaedic Surgery | DX: S43.005A Unspecified dislocation of left shoulder joint, initial encounter (principal); X58.XXXA Exposure to other specified factors, initial encounter | CPT/HCPCS: 97161 ==

== ENCOUNTER → 2021-04-06 08:15 | Outpatient (BNVA) | payer MEDICARE, MEDICAID, SELFPAY | PROVIDERS: PCP Internal Medicine; Visit Provider Obstetrics & Gynecology | DX: R30.0 Dysuria (principal); R32 Unspecified urinary incontinence | CPT/HCPCS: 81000; 87077; 87086; 87184 ==

== ENCOUNTER → 2021-04-15 11:42 | Outpatient (BNVA) | payer MEDICARE, MEDICAID, SELFPAY | PROVIDERS: PCP Internal Medicine; Visit Provider Orthopaedic Surgery | DX: S42.252A Displaced fracture of greater tuberosity of left humerus, initial encounter for closed fracture (principal); X58.XXXA Exposure to other specified factors, initial encounter | CPT/HCPCS: 73030 ==

== ENCOUNTER → 2021-04-30 11:13 | Outpatient (BNVA) | payer MEDICARE, MEDICAID, SELFPAY | PROVIDERS: PCP Internal Medicine; Visit Provider Obstetrics & Gynecology | DX: R39.9 Unspecified symptoms and signs involving the genitourinary system (principal) | CPT/HCPCS: 81000 ==

== ENCOUNTER → 2021-05-14 14:43 | Outpatient (BNVA) | payer MEDICARE, MEDICAID, SELFPAY | PROVIDERS: PCP Internal Medicine; Visit Provider Obstetrics & Gynecology | DX: N39.3 Stress incontinence (female) (male) (principal); N81.10 Cystocele, unspecified; N81.6 Rectocele | CPT/HCPCS: 87635 ==

== ENCOUNTER 2021-05-19 15:38 | Observation (INO) | payer MEDICARE, MEDICAID, SELFPAY ==
[2021-05-18 07:56] VITALS: BMI 26.4
--- NOTE | 2021-05-18 08:47 | ECG_ITS ---
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
--- NOTE | 2021-05-18 09:18 | ANES.PREANE2 ---
Pre-Anesthetic Assessment Height/Weight: Height 1.6 m Weight 67.585 kg Operation Date: 05/19/21 09:55 Proposed Procedures p anterior repair [id number]/84999/n39.3/n81.10/n81.6(Not Applicable) - Etelvina Garrison MD s Posterior Repair(Not Applicable) - Etelvina Garrison MD s Sling(Not Applicable) - Etelvina Garrison MD Familial anesthetic complications: None Social No alcohol and No tobacco Exam alert, oriented x 3, clear to auscultation bilaterally and regular rate & rhythm Airway Mallampati: Class II Dentition: partials and other (implants removed) CV/HEM Hypertension None reported Hepatic None reported GI None reported Metabolic None reported Anesthetic Plan ASA status: 3 Anesthesia: General Risk of > 500 ml blood loss (7ml/kg in children): No Medications/Allergies Home Medications Medication Instructions Recorded Confirmed Last Taken Type lisinopril 20 mg tablet 20 mg PO Q12H 30 Days #60 tab 05/14/19 05/18/21 Unknown Rx hydrocodone 5 mg-acetaminophen 325 1 tab PO Q4H PRN 7 Days #30 tab 12/17/20 05/18/21 Unknown Rx mg tablet amlodipine 10 mg tablet 10 mg PO DAILY 04/06/21 05/18/21 Unknown History bupropion HCl 150 mg 24 hr tablet, 150 mg PO QAM 04/06/21 05/18/21 Unknown History extended release fluoxetine 20 mg capsule (Prozac) 40 mg PO DAILY cap 04/06/21 05/18/21 Unknown History metoprolol tartrate 25 mg tablet 12.5 mg PO BID 04/06/21 05/18/21 Unknown History omeprazole 20 mg capsule,delayed 20 mg PO DAILY 04/06/21 05/18/21 Unknown History release polyethylene glycol 3350 17 17 g PO DAILY 04/06/21 05/18/21 Unknown History gram/dose oral powder (Miralax) tolterodine 2 mg tablet (Detrol) 2 mg PO DAILY #30 tab 04/06/21 05/18/21 Unknown Rx clobetasol 0.05 % topical cream 1 applic TOPICAL BID 04/30/21 05/18/21 Unknown History Allergies Allergy/AdvReac Type Severity Reaction Status Date / Time No Known Allergies Allergy Verified 05/18/21 08:50 PFSH Anesthesia Medical History Chronically on opiate therapy Depression with anxiety GERD (gastroesophageal reflux disease) Hepatitis C without hepatic coma Hypertension Ileus Psoriasis Sciatica Tuberculosis Surgical History H/O bilateral breast reduction surgery H/O: hysterectomy History of appendectomy History of cataract surgery Hx of LASIK Family History Grandmother Breast cancer Maternal Denies family history of Diabetes CAD (coronary artery disease) Clotting disorder Hyperlipidemia Chronic kidney disease (CKD) Bleeding disorder Hypertension Stroke Social History Quit status (tobacco): has quit using tobacco Second hand smoke exposure: No Alcohol intake: never Adopted: No Caregiver/support person: No Lives independently: Yes Household members: family Housing: Apartment Marital status: Single service: No Current occupational status: retired Current occupational exposures/hazards: No Pets and animals: No History of recent travel: No Sexually active: No Current gender identity: Female Special sacha needs: No Agree to transfusion: No Financial difficulty paying for basics: Decline to Answer Data Anesthesia Cardiac Studies: No Data to Display
[2021-05-18 09:24] LABS: Basophils # 0.1 10^3/uL (0.0-0.1); Basophils % 0.7 %; Eosinophils # 0.2 10^3/uL (0.0-0.8); Eosinophils % 1.9 %; Hematocrit 39.9 % (37.0-47.0); Hemoglobin 13.1 g/dL (11.5-15.3); Lymphocytes % 24.7 %; Mean Corpuscular HGB Conc 32.8 g/dL (30.0-36.0); Mean Corpuscular Hemoglobin 30.6 pg (28.0-34.0); Mean Corpuscular Volume 93.2 fl (81-99); Mean Platelet Volume 9.5 fL (7.4-10.4); Monocytes # 0.7 10^3/uL (0.2-0.9); Monocytes % 8.9 %; Neutrophils # 5.11 10^3/uL (1.8-7.7); Neutrophils % 63.6 %; Nucleated Red Blood Cells % 0 %; Platelet Count 262 10^3/cmm (130-400); Red Blood Count 4.28 10^6/uL (4.1-5.3); Red Cell Distribution Width 14.6 % (12.1-15.1); White Blood Count 8.1 10^3/uL (4.0-10.0)
[2021-05-18 09:39] LABS: Anion Gap 18.2 (5-19); Blood Urea Nitrogen 20 mg/dL (8-23); Calcium 9.8 mg/dL (8.5-10.5); Carbon Dioxide 22 mmol/L (22-29); Chloride 102 mmol/L (98-107); Creatinine Clr Calc Pharmacy 54.3625; Glucose 145 mg/dL (65-115); Osmolality Calculated 293 mOsm/kg (285-295); Potassium 3.2 mmol/L (3.5-5.1); Sodium 139 mmol/L (136-145)
[2021-05-19] VITALS (17 sets, daily range): BP systolic 104–147; BP diastolic 63–109; PULSE 69–97; RESP 12–18; TEMP 36.2–36.7; O2SAT 15–97; BMI 26.4
--- NOTE | 2021-05-19 10:56 | P.ANESUD_ITS ---
Pre-Anesthetic Update Pre-Anesthetic Assessment: Date of Surgery/Procedure: 05/19/21 Preop Vivi gnosis: cystocele, rectocele, stress incontinence Proposed Procedure: Operation Date: 05/19/21 09:55 Proposed Procedures p anterior repair [id number]/75770/n39.3/n81.10/n81.6(Not Applicable) - Etelvina Garrison MD s Posterior Repair(Not Applicable) - Etelvina Garrison MD s Sling(Not Applicable) - Etelvina Garrison MD Any changes to Pre-Anesthetic Assessment?: No Last Intake: Intake Last Liquid Date 05/18/21 Last Liquid Time 23:00 Last Solid Date 05/18/21 Last Solid Time 23:00 Labs Last 48hrs: Short CBC 05/18/21 Range/Units 09:10 WBC 8.1 (4.0-10.0) 10^3/ uL Hgb 13.1 (11.5-15.3) g/dL Hct 39.9 (37.0-47.0) % MCV 93.2 (81-99) fl Plt Count 262 (130-400) 10^3/c mm Neut % (Auto) 63.6 % Neut # (Auto) 5.11 (1.8-7.7) 10^3/u L BMP 05/18/21 09:10 Sodium 139 Potassium 3.2 L Chloride 102 Carbon Dioxide 22 BUN 20 Creatinine 0.8 Glucose 145 H Calcium 9.8 Vitals: Temperature 97.4 F L 05/19/21 10:06 Temperature Source Temporal Artery S can 05/19/21 10:06 Pulse Rate 71 05/19/21 10:06 Respiratory Rate 16 05/19/21 10:06 Blood Pressure 141/81 05/19/21 10:06 Blood Pressure Ivana n 101 05/19/21 10:06 Pulse Oximetry 96 05/19/21 10:06 Oxygen Delivery Me thod 05/19/21 10:06 Exam: Pre-Anes Outpt Exam: alert, oriented x 3, clear to auscultation bilaterally and regular rate & rhythm Cardiac Studies: No Data to Display
--- NOTE | 2021-05-19 12:18 | P.HPUD_ITS ---
Surgery/Procedure H&P Update DATE OF PROCEDURE: May 19, 2021 DATE H&P PERFORMED: 05/14/21 H&P UPDATE INFORMATION: I have reviewed H&P completed within last 30 days, I have examined patient prior to procedure and No changes to prior documentation PREOP DIAGNOSIS: cystocele, rectocele, stress incontinence PRIMARY INDICATION FOR PROCEDURE: The patient has symptommatic cystocele and rectocele with mixed urinary i ncontinence with majority stress incontinence PLANNED PROCEDURE: Operation Date: 05/19/21 09:55 Proposed Procedures p anterior repair [id number]/n39.3/n81.10/n81.6(Not Applicable) - Etelvina Grarison MD s Posterior Repair(Not Applicable) - Etelvina Garrison MD s Sling(Not Applicable) - Etelvina Garrison MD Related Problem List Diagnoses (1) Cystocele: (2) Stress incontinence: (3) Rectocele:
[2021-05-19] MEDS: phenazopyridine 100 mg Tablet 200 MG PO (12:53)
[2021-05-19] MEDS: CELEcoxib 200 mg Capsule 400 MG PO (12:54)
[2021-05-19] MEDS: gabapentin 300 mg Capsule PO (12:55)
[2021-05-19] MEDS: acetaminophen 1,000 MG/100 ML PIGGYBACK 400 MG IV (12:59)
[2021-05-19] MEDS: ketorolac 30 mg/mL INJ IVP ×3 (13:01→21:25)
[2021-05-19 14:02] LABS: Basophils # 0.1 10^3/uL (0.0-0.1); Eosinophils # 0.1 10^3/uL (0.0-0.8); Eosinophils % 1.6 %; Hematocrit 36.7 % (37.0-47.0); Hemoglobin 12.1 g/dL (11.5-15.3); Lymphocytes # 1.8 10^3/uL (0.8-4.8); Lymphocytes % 28.7 %; Mean Corpuscular Hemoglobin 30.7 pg (28.0-34.0); Mean Corpuscular Volume 93.1 fl (81-99); Mean Platelet Volume 9.9 fL (7.4-10.4); Monocytes # 0.5 10^3/uL (0.2-0.9); Monocytes % 8.1 %; Neutrophils # 3.79 10^3/uL (1.8-7.7); Neutrophils % 60.4 %; Nucleated Red Blood Cells % 0 %; Platelet Count 237 10^3/cmm (130-400); Red Blood Count 3.94 10^6/uL (4.1-5.3); Red Cell Distribution Width 14.6 % (12.1-15.1); White Blood Count 6.3 10^3/uL (4.0-10.0)
[2021-05-19 14:26] LABS: Anion Gap 14.7 (5-19); Blood Urea Nitrogen 18 mg/dL (8-23); Calcium 8.2 mg/dL (8.5-10.5); Carbon Dioxide 25 mmol/L (22-29); Chloride 104 mmol/L (98-107); Creatinine Clr Calc Pharmacy 54.3625; Glucose 106 mg/dL (65-115); Osmolality Calculated 292 mOsm/kg (285-295); Potassium 3.7 mmol/L (3.5-5.1); Sodium 140 mmol/L (136-145)
--- NOTE | 2021-05-19 14:32 | P.OP_ITS ---
Operative Report Date of procedure: May 19, 2021 Pre-op diagnosis: Preop Diagnosis cystocele, rectocele, stress incontinence Post-op diagnosis: same Post-op findings: grade 1 cystocele, grade 1 rectocele, stress incontinence. Small vaginal foreign body in right vaginal sidewall. Procedure done: mid urethral sling, cystoscopy and removal of vaginal foreign body Implants: mid urethral sling Specimens removed/disposition: small vaginal sidewall foreign body sent to pathology Surgeon: umberto Anesthesia: General Estimated blood loss (mL): 5 IV fluids (mL): 800 Urine output (mL): 150 Complications: none Brief History: The patient presented with complaints of vaginal pain and urinary incontinence. She has to wear a diaper due to the severe nature of her incontinence. She reports that when her bladder was full, then she wasn't able to void. She wanted surgery to resolve her problem Procedure: The patient was taken to the operating room where general anesthesia was administered and found to be adequate. She was prepped and draped in the normal sterile fashion in the dorsal lithotomy position in [facility]. A salas catheter was placed. A weighted speculum was placed into the vagina and an Allis clamp was placed approximately 2 cm below the urethra and another placed approximately 3 cm distal from that. An incision was made between the 2. The tissue was sharply and bluntly dissected along the pubic ramus bilaterally. On palpation of the right vaginal side wall, there was a small, sharp mass palpated. I was able to free the mass which appeared to be a stone of some sort. It was sent to pathology. The sling was then placed on the left first by going through the incision and attaching the sling to the obturator foramen membrane . The right side was performed in a similar fashion, placing the applicator through the incision and attaching to the obturator foramen membrane. The Salas catheter was removed and the cystoscope advanced into the bladder. Pyridium was given and bilateral spill of orange fluid was noted from both ureteral orifices. There was no mesh noted to be in the bladder. The sling was tightened until there was no leakage with valsalva. The tag of suture was trimmed. The incision was repaired with 2-0 Vicryl in a running locked fashion. Vaginal packing was placed. The patient tolerated the procedure well. Sponge lap and needle counts were correct x3. She was taken to the recovery room in stable condition.
--- NOTE | 2021-05-19 14:51 | SUR.PHASEI ---
RECEIVED PATIENT FROM OR STAFF . PATIENT A+OX3 AIRWAY PATENT MEDICATED FOR PAIN BY NURSE FURNITURE DUSTER.NSR ON MONITOR. DARK URINE IN ROSALES.
[2021-05-19] MEDS: fentaNYL 50 mcg/mL INJ 2mL IVP (15:11)
[2021-05-19] MEDS: dextrose 5%-lactated ringers 1,000 ML 125 ML IV (16:20)
[2021-05-19] MEDS: lisinopril 20 mg Tablet PO (16:31)
--- NOTE | 2021-05-19 17:19 | ANE.PACU2 ---
Inpatient post-anesthesia follow up: Airway intact: Yes Vital signs: Temperature 97.8 F Pulse Rate 87 Respiratory Rate 17 Blood Pressure 129/85 Pulse Oximetry 95 Oxygen Delivery Me thod Room Air Oxygen Flow Rate Fraction of Inspir ed Oxygen Hydration adequate: Yes Nausea and vomiting: No Pain level: 6 Mental status: Baseline
[2021-05-19] MEDS: docusate sodium 100 mg Capsule PO (19:22)
[2021-05-19] MEDS: metoprolol tartrate 25 mg Tablet 12.5 MG PO (19:22)
[2021-05-20] MEDS: dextrose 5%-lactated ringers 1,000 ML 125 ML IV (00:04)
[2021-05-20] MEDS: ketorolac 30 mg/mL INJ IVP (02:56)
[2021-05-20] MEDS: HYDROcodone-acetaminophen 5-325 mg Tablet PO (03:47)
[2021-05-20 04:00] VITALS: BP 120/58; PULSE 68; TEMP 36.7; O2SAT 96
[2021-05-20 05:34] LABS: Hematocrit 33.8 % (37.0-47.0); Hemoglobin 10.8 g/dL (11.5-15.3); Mean Corpuscular Hemoglobin 30.9 pg (28.0-34.0); Mean Corpuscular Volume 96.8 fl (81-99); Mean Platelet Volume 9.3 fL (7.4-10.4); Platelet Count 182 10^3/cmm (130-400); Red Blood Count 3.49 10^6/uL (4.1-5.3); Red Cell Distribution Width 14.6 % (12.1-15.1); White Blood Count 7.2 10^3/uL (4.0-10.0)
[2021-05-20] MEDS: buPROPion XL (24 HR) 150 mg Tablet PO (06:13)
--- NOTE | 2021-05-20 07:04 | P.DS_ITS ---
Discharge Providers Date of Admission: 05/19/21 15:38 Date of Discharge: May 20, 2021 Attending Provider at Admission: Etelvina Garrison MD Attending Provider at Discharge: Etelvina Garrison MD Primary Care Provider: Tonio Rubi DO Diagnoses at Discharge Discharge Diagnosis (1) Cystocele: Status: Acute (2) Stress incontinence: Status: Acute (3) Rectocele: Status: Acute Reason for Visit Reason for Visit: stress icontinence, cystocele, rectocele Hospital Course Hospital Course The patient was admitted for surgery. she did well postoperatively and was ready for discharge. Physical Exam Narrative: EXAM NARRATIVE: The patient is doing well this morning. Packing and catheter have been removed. She verbalizes no complaints this morning Const: COMMON NORMALS: no acute distress, average body habitus, patient oriented x3, no limitations, healthy appearing, alert and well nourished GENERAL APPEARANCE: cooperative, comfortable, well kempt and well developed ORIENTATION/CONSCIOUSNESS: Yes awake, Yes oriented to person, Yes oriented to place and Yes oriented to time Resp: COMMON NORMALS: normal respiratory effort EFFORT & INSPECTION: Yes able to speak in complete sentences GI: COMMON NORMALS: Soft to palpation and non-tender PALPATION: Yes Soft to palpation : COMMON NORMALS: Yes normal external appearance and Yes normal appearance of the vagina Extremity: COMMON NORMALS: no calf tenderness Neuro: COMMON NORMALS: patient oriented x3 SENSORIUM/ORIENTATION: Yes alert, Yes oriented to person, Yes oriented to place and Yes oriented to time Psych: APPEARANCE: Yes well kempt Urinary Catheter Management: Black: Cath Placed During This Visit: yes, but has since been removed by the nurse Reason for Continuing Indwelling Catheter: Decision to DC Catheter Urinary Catheter Date of Insertion: 05/19/21 Urinary Catheter Time of Insertion: 13:39 Date Urinary Catheter Removed: 05/20/21 Time Urinary Catheter Discontinued: 06:15 Discharge Data Studies Completed and Pending Pending at discharge Category Date Time Status ES surgery / GI images Routine Exams 05/19/21 12:14 Ordered Pathology: Surgical [PTH] Routine Pth 05/19/21 14:38 Ordered Laboratory Results WBC 7.2 10^3/uL (4.0-10.0) 05/20/21 05:17 RBC 3.49 10^6/uL (4.1-5.3) L 05/20/21 05:17 Hgb 10.8 g/dL (11.5-15.3) L 05/20/21 05:17 Hct 33.8 % (37.0-47.0) L 05/20/21 05:17 MCV 96.8 fl (81-99) 05/20/21 05:17 MCH 30.9 pg (28.0-34.0) 05/20/21 05:17 MCHC 32.0 g/dL (30.0-36.0) 05/20/21 05:17 RDW 14.6 % (12.1-15.1) 05/20/21 05:17 Plt Count 182 10^3/cmm (130-400) 05/20/21 05:17 MPV 9.3 fL (7.4-10.4) 05/20/21 05:17 Neut % (Auto) 60.4 % 05/19/21 12:55 Lymph % (Auto) 28.7 % 05/19/21 12:55 [place] % (Auto) 8.1 % 05/19/21 12:55 Eos % (Auto) 1.6 % 05/19/21 12:55 Baso % (Auto) 1.0 % 05/19/21 12:55 Neut # (Auto) 3.79 10^3/uL (1.8-7.7) 05/19/21 12:55 Lymph # (Auto) 1.8 10^3/uL (0.8-4.8) 05/19/21 12:55 [place] # (Auto) 0.5 10^3/uL (0.2-0.9) 05/19/21 12:55 Eos # (Auto) 0.1 10^3/uL (0.0-0.8) 05/19/21 12:55 Baso # (Auto) 0.1 10^3/uL (0.0-0.1) 05/19/21 12:55 Nucleated RBC % (auto) 0 % 05/19/21 12:55 Nucleated RBCs # 0.0 /100WBC 05/19/21 12:55 Sodium 140 mmol/L (136-145) 05/19/21 12:55 Potassium 3.7 mmol/L (3.5-5.1) 05/19/21 12:55 Chloride 104 mmol/L (98-107) 05/19/21 12:55 Carbon Dioxide 25 mmol/L (22-29) 05/19/21 12:55 Anion Gap 14.7 (5-19) 05/19/21 12:55 BUN 18 mg/dL (8-23) 05/19/21 12:55 Creatinine 0.6 mg/dL (0.5-0.9) 05/19/21 12:55 GFR Calculation Not Reportable 05/19/21 12:55 Glucose 106 mg/dL (65-115) 05/19/21 12:55 Calculated Osmolality 292 mOsm/kg (285-295) 05/19/21 12:55 Calcium 8.2 mg/dL (8.5-10.5) L 05/19/21 12:55 Vitals Last Vital Signs Temp 98.0 F 05/20/21 04:00 Pulse 68 05/20/21 04:00 Resp 18 05/19/21 22:34 BP 120/58 05/20/21 04:00 Pulse Ox 96 05/20/21 04:00 Discharge Plan Discharge Patient Disposition: Home Condition: Stable Prescriptions: New ibuprofen 800 mg Tablet 800 mg PO Q8H Qty: 40 0RF hydrocodone-acetaminophen 5-325 mg Tablet 1 tab PO Q4H PRN (Reason: Moderate To Severe Pain) Qty: 30 0RF docusate sodium 100 mg Capsule 100 mg PO BID Qty: 60 0RF Continued polyethylene glycol 3350 [Miralax] 17 gram/dose powder 17 g PO DAILY 0RF metoprolol tartrate 25 mg tablet 12.5 mg PO BID 0RF omeprazole 20 mg capsule,delayed release(DR/EC) 20 mg PO DAILY 0RF bupropion HCl 150 mg tablet extended release 24 hr 150 mg PO QAM 0RF fluoxetine [Prozac] 20 mg capsule 40 mg PO DAILY 0RF amlodipine 10 mg tablet 10 mg PO DAILY 0RF tolterodine [Detrol] 2 mg tablet 2 mg PO DAILY Qty: 30 3RF clobetasol 0.05 % cream 1 applic topical BID 0RF lisinopril 20 mg Tablet 20 mg PO Q12H 30 Days Qty: 60 0RF Discharge Orders: Discharge Order (Routine); Ordered 05/20/21 Ordered By: Etelvina Garrison Patient Instructions: Opioid Safety Discharge Attestations Time Spent in Discharge Care*: less than 30 min Quality Metrics Clinical Quality Measures [ No reported AMI, CVA or VTE this stay] Coding Level of Care Code Acute Chg FW DC note Diagnoses Cystocele Stress incontinence N39.3 Rectocele N81.6
[2021-05-20] MEDS: metoprolol tartrate 25 mg Tablet 12.5 MG PO (08:34)
[2021-05-20] MEDS: fluoxetine 20 mg Capsule 40 MG PO (08:34)
[2021-05-20] MEDS: amlodipine 10 mg Tablet PO (08:35)
[2021-05-20] MEDS: docusate sodium 100 mg Capsule PO (08:35)
[2021-05-20] MEDS: pantoprazole DR 40 mg Tablet PO (08:35)
[2021-05-20 14:00] VITALS: BP 112/73; PULSE 120; RESP 18; TEMP 36.9
== END 2021-05-20 14:10 | disposition home or self-care (01) ==
LOC: OBGYN 15:39
PROVIDERS: Admitting Provider Obstetrics & Gynecology; PCP Internal Medicine; Visit Provider Obstetrics & Gynecology
PROC: (CPT 57288; 2021-05-19 09:45)
PROC: 0TJB8ZZ Inspection of Bladder, Via Natural or Artificial Opening Endoscopic (ICD-10-PCS; CPT 52000; 2021-05-19 09:45)
DX: N39.3 Stress incontinence (female) (male) (principal); N81.6 Rectocele; N81.10 Cystocele, unspecified; T19.2XXA Foreign body in vulva and vagina, initial encounter; X58.XXXA Exposure to other specified factors, initial encounter; I10 Essential (primary) hypertension; Z79.891 Long term (current) use of opiate analgesic; Z86.19 Personal history of other infectious and parasitic diseases; Z80.3 Family history of malignant neoplasm of breast; Z87.891 Personal history of nicotine dependence
CPT/HCPCS: 57288; 57415; 36415; 51702; 51798; 80048; 85025; 85027; 88300; 93005; C1713; G0378; J0690; J1885; J1940; J3010; J3490

== ENCOUNTER 2021-05-26 12:19 | Outpatient (CLI) | payer MEDICARE, MEDICAID, SELFPAY ==
[2021-05-26 12:36] VITALS: BP 115/79; PULSE 77; RESP 18; TEMP 36.5; O2SAT 98
[2021-05-26] MEDS: denosumab 60 mg SDV SUBCUT (12:40)
[2021-05-26 12:53] VITALS: BP 108/68; PULSE 73; RESP 18; TEMP 36.7; O2SAT 97
== END 2021-05-26 12:20 | disposition home or self-care (01) ==
LOC: ONCMED 12:24
PROVIDERS: PCP Internal Medicine; Visit Provider Internal Medicine
DX: M81.0 Age-related osteoporosis without current pathological fracture (principal)
CPT/HCPCS: 96372; J0897

== ENCOUNTER 2021-06-05 08:57 | Outpatient (CLI) | payer MEDICARE, MEDICAID, SELFPAY ==
--- NOTE | 2021-06-05 09:03 | MR_ITS ---
WS: [id number] MRI LEFT SHOULDER HISTORY: Fell 6 months ago with fracture greater tuberosity. COMPARISON: LEFT shoulder radiograph 04/15/2021 TECHNIQUE: Multiplanar sequences of the shoulder joint are submitted. Study was terminated early due to patient's pain and motion. Mild AC joint hypertrophy with arthritic changes encroaching upon the rotator cuff. Fluid in the suba cromial and subdeltoid bursa. No os acromion. There is increased fluid within the biceps tendon sheat h. The biceps tendon remains in normal position. There is mild muscle atrophy involving the supraspinatus and infraspinatus muscles. Supraspinatus ten don is completely torn and retracted nearly to the medial head of the humerus. There is increased T2 signal in the expected location of the distal supraspinatus tendon. Humeral head is high riding and n early abuts the undersurface of the acromion. Subscapularis tendon is intact. Only limited visualizat ion of the infraspinatus tendon. I think the majority infraspinatus tendon is intact. Small joint effusion at the humeral head. Narrowing of the glenohumeral joint. Moderate irregularity involving the cortical surface. No acute fracture is identified. MR/MR shoulder LT wo con* [id number] IMPRESSION: 1. Quality of this examination is limited by motion artifact. Study was termin ated early. 2. Complete tear of the supraspinatus tendon with retraction to nearly the med ial humeral head. 3. Mild AC joint arthritis. 4. Increase fluid in the biceps tendon sheath. 5. High riding humeral head and moderate glenohumeral joint arthritis.
== END 2021-06-05 08:58 | disposition home or self-care (01) ==
PROVIDERS: PCP Internal Medicine; Visit Provider Orthopaedic Surgery
DX: S42.252A Displaced fracture of greater tuberosity of left humerus, initial encounter for closed fracture (principal); X58.XXXA Exposure to other specified factors, initial encounter; M75.122 Complete rotator cuff tear or rupture of left shoulder, not specified as traumatic; M19.012 Primary osteoarthritis, left shoulder
CPT/HCPCS: 73221

== ENCOUNTER → 2021-06-19 13:33 | Outpatient (BNVA) | payer MEDICARE, MEDICAID, SELFPAY | PROVIDERS: PCP Internal Medicine; Visit Provider Obstetrics & Gynecology | DX: N39.46 Mixed incontinence (principal) | CPT/HCPCS: 81000 ==

== ENCOUNTER → 2021-07-22 10:54 | Outpatient (BNVA) | payer MEDICARE, MEDICAID, SELFPAY | PROVIDERS: PCP Internal Medicine; Visit Provider Orthopaedic Surgery | DX: S42.252D Displaced fracture of greater tuberosity of left humerus, subsequent encounter for fracture with routine healing (principal); M75.102 Unspecified rotator cuff tear or rupture of left shoulder, not specified as traumatic; X58.XXXD Exposure to other specified factors, subsequent encounter | CPT/HCPCS: 99213 ==

== ENCOUNTER 2021-11-10 07:59 | Day surgery (SDC) | payer MEDICARE, MEDICAID, SELFPAY ==
[2021-11-09 11:36] VITALS: BMI 25.3
[2021-11-10] VITALS (7 sets, daily range): BP systolic 101–135; BP diastolic 56–86; PULSE 73–87; RESP 16–19; TEMP 36.3–37.3; O2SAT 91–96
--- NOTE | 2021-11-10 08:32 | W.PM.OPSUD ---
Surgery/Procedure H&P Update DATE OF PROCEDURE: November 10, 2021 DATE H&P PERFORMED: 11/05/21 H&P UPDATE INFORMATION: I have reviewed H&P completed within last 30 days, I have examined patient prior to procedure and No changes to prior documentation PREOP DIAGNOSIS: eroded suture PLANNED PROCEDURE: Operation Date: 11/10/21 09:20 Proposed Procedures p Pelvic exam under anesthesia 24563,T81.89XA(Not Applicable) - Etelvnia Garrison MD Related Problem List Diagnoses (1) Eroded suture:
[2021-11-10] MEDS: acetaminophen 1,000 MG/100 ML PIGGYBACK 400 MG IV (08:42)
[2021-11-10] MEDS: sodium chloride 0.9% 1,000 ML 30 ML IV (08:42)
[2021-11-10 09:19] LABS: Basophils # 0.1 10^3/uL (0.0-0.1); Basophils % 1.4 %; Eosinophils # 0.6 10^3/uL (0.0-0.8); Eosinophils % 7.2 %; Hematocrit 40.8 % (37.0-47.0); Hemoglobin 13.2 g/dL (11.5-15.3); Lymphocytes # 1.9 10^3/uL (0.8-4.8); Mean Corpuscular HGB Conc 32.4 g/dL (30.0-36.0); Mean Corpuscular Hemoglobin 31.6 pg (28.0-34.0); Mean Corpuscular Volume 97.6 fl (81-99); Mean Platelet Volume 9.5 fL (7.4-10.4); Monocytes # 0.7 10^3/uL (0.2-0.9); Monocytes % 9.3 %; Neutrophils # 4.58 10^3/uL (1.8-7.7); Nucleated Red Blood Cells % 0 %; Platelet Count 258 10^3/cmm (130-400); Red Blood Count 4.18 10^6/uL (4.1-5.3); Red Cell Distribution Width 14.6 % (12.1-15.1); White Blood Count 7.9 10^3/uL (4.0-10.0)
[2021-11-10 09:32] LABS: Blood Urea Nitrogen 16 mg/dL (8-23); Calcium 9.3 mg/dL (8.5-10.5); Carbon Dioxide 26 mmol/L (22-29); Chloride 97 mmol/L (98-107); Glucose 131 mg/dL (65-115); Osmolality Calculated 291 mOsm/kg (285-295); Sodium 139 mmol/L (136-145)
[2021-11-10 09:38] LABS: Anion Gap 19.1 (5-19); Potassium 3.1 mmol/L (3.5-5.1)
--- NOTE | 2021-11-10 09:48 | ANES.PREANE2 ---
Pre-Anesthetic Assessment Height/Weight: Height 1.6 m Weight 64.864 kg Temp Pulse Resp BP Pulse Ox 97.4 F L 73 18 135/74 96 11/10/21 08:29 11/10/21 08:29 11/10/21 08:29 11/10/21 08:29 11/10/21 08:29 Preop Diagnosis: eroded suture Operation Date: 11/10/21 09:20 Proposed Procedures p Pelvic exam under anesthesia 86118,T81.89XA(Not Applicable) - Etelvina Garrison MD Familial anesthetic complications: NOne Was Beta Khushboo taken within 24 hours: N/A Was Clonidine taken within 24 hours: N/A Last intake: Intake Last Liquid Date 11/09/21 Last Liquid Time 23:00 Last Solid Date 11/09/21 Last Solid Time 23:00 Social No alcohol and No tobacco Exam alert, oriented x 3, clear to auscultation bilaterally and regular rate & rhythm Airway Mallampati: Class II Dentition: false CV/HEM Hypertension GI hx ileus Anesthetic Plan ASA status: 3 Anesthesia: MAC Risk of > 500 ml blood loss (7ml/kg in children): No Medications/Allergies Home Medications Medication Instructions Recorded Confirmed Last Taken Type bupropion HCl 150 mg 24 hr tablet, 150 mg PO QAM 04/06/21 11/10/21 11/09/21 History extended release fluoxetine 20 mg capsule (Prozac) 40 mg PO DAILY cap 04/06/21 11/10/21 11/09/21 History clobetasol 0.05 % topical cream 1 applic TOPICAL BID 04/30/21 11/09/21 05/17/21 History losartan 25 mg tablet 25 mg PO DAILY 11/05/21 11/10/21 11/09/21 History amlodipine 10 mg tablet 10 mg PO DAILY 11/09/21 11/10/21 11/09/21 History hydrochlorothiazide 12.5 mg capsule 12.5 mg PO QAM 11/09/21 11/10/21 11/09/21 History oxybutynin chloride 5 mg tablet 10 mg PO BID 11/09/21 11/10/21 11/09/21 History Allergies Allergy/AdvReac Type Severity Reaction Status Date / Time No Known Allergies Allergy Verified 11/09/21 11:33 Current Medications Generic Name Dose Route Start Last Admin Trade Name Freq PRN Reason Stop Dose Admin Sodium Chloride 1,000 mls @ 30 mls/hr 11/10/21 08:15 11/10/21 08:42 Sodium Chloride 0.9% IV 11/11/21 08:14 30 mls/hr .Q24H JARAD Administration PFSH Anesthesia Medical History Chronically on opiate therapy Depression with anxiety GERD (gastroesophageal reflux disease) Hepatitis C without hepatic coma Hypertension Ileus Psoriasis Sciatica Tuberculosis Surgical History H/O bilateral breast reduction surgery H/O: hysterectomy History of appendectomy History of cataract surgery Hx of LASIK Family History Grandmother Breast cancer Maternal Denies family history of Diabetes CAD (coronary artery disease) Clotting disorder Hyperlipidemia Chronic kidney disease (CKD) Bleeding disorder Hypertension Stroke Data Anesthesia : 11/10/21 08:35 11/10/21 08:35 Short CBC 11/10/21 Range/Units 08:35 WBC 7.9 (4.0-10.0) 10^3/uL Hgb 13.2 (11.5-15.3) g/dL Hct 40.8 (37.0-47.0) % MCV 97.6 (81-99) fl Plt Count 258 (130-400) 10^3/cmm Neut % (Auto) 58.0 % Neut # (Auto) 4.58 (1.8-7.7) 10^3/uL BMP 11/10/21 08:35 Sodium 139 Potassium 3.1 L Chloride 97 L Carbon Dioxide 26 BUN 16 Creatinine 0.7 Glucose 131 H Calcium 9.3 Cardiac Studies: No Data to Display
--- NOTE | 2021-11-10 11:27 | PM.OP ---
Operative Report Date of procedure: November 10, 2021 Pre-op diagnosis: Preop Diagnosis eroded suture Post-op diagnosis: same Post-op findings: normal vagina Procedure done: exam under anesthesia with removal of piece of suture. Normal vaginal exam after procedure Specimens removed/disposition: none Pathology: none sent Surgeon: Etelvina Garrison Anesthesia: MAC Estimated blood loss (mL): 0 IV fluids (mL): 400 Urine output (mL): 200 Complications: none Condition: stable Disposition: PACU Procedure: The patient was taken to the operating room where monitored anesthesia was administered to be adequate. She was prepped in the normal sterile fashion. A weighted speculum was placed into the vagina and the piece of suture identified. It was grasped with a peon and clipped with the [place] scissors. Exam after the procedure showed no palpable suture and a normal contour of the vagina. The patient tolerated the procedure well. Sponge lap and needle counts were correct x3. She was taken to the recovery room in stable condition.
--- NOTE | 2021-11-10 11:28 | SUR.PHASEI ---
1117 PT TO PACU AWAKE ALERT TALKATIVE DENIES PAIN ABDOMEN IS SOFT, NO DRESSING NOTED MONITOR IS SR NO ECTOPY IV TO LT WRIST #20 JELCO WITH NS 500ML UP AT KVO RATE PER GRAVITY, PT ID BANDS TO RT WRIST PT ID'D WITH 2 IDENTIFIERS, BILATERAL SCDS ON
--- NOTE | 2021-11-10 11:31 | P.DS_ITS ---
Discharge Providers Date of Admission: 11/10/21 Date of Discharge: November 10, 2021 Attending Provider at Discharge: Etelvina Garrison MD Primary Care Provider: Tonio Rubi DO Diagnoses at Discharge Discharge Diagnosis (1) Eroded suture: Status: Acute Reason for Visit Reason for Visit: Eroded Suture Hospital Course Hospital Course The patient was admitted for surgery. She did well postoperatively and was ready for discharge. Physical Exam Urinary Catheter Management: Straight: Cath Placed During This Visit: no Discharge Data Studies Completed and Pending Laboratory Results WBC 7.9 10^3/uL (4.0-10.0) 11/10/21 08:35 RBC 4.18 10^6/uL (4.1-5.3) 11/10/21 08:35 Hgb 13.2 g/dL (11.5-15.3) 11/10/21 08:35 Hct 40.8 % (37.0-47.0) 11/10/21 08:35 MCV 97.6 fl (81-99) 11/10/21 08:35 MCH 31.6 pg (28.0-34.0) 11/10/21 08:35 MCHC 32.4 g/dL (30.0-36.0) 11/10/21 08:35 RDW 14.6 % (12.1-15.1) 11/10/21 08:35 Plt Count 258 10^3/cmm (130-400) 11/10/21 08:35 MPV 9.5 fL (7.4-10.4) 11/10/21 08:35 Neut % (Auto) 58.0 % 11/10/21 08:35 Lymph % (Auto) 24.0 % 11/10/21 08:35 [place] % (Auto) 9.3 % 11/10/21 08:35 Eos % (Auto) 7.2 % 11/10/21 08:35 Baso % (Auto) 1.4 % 11/10/21 08:35 Neut # (Auto) 4.58 10^3/uL (1.8-7.7) 11/10/21 08:35 Lymph # (Auto) 1.9 10^3/uL (0.8-4.8) 11/10/21 08:35 [place] # (Auto) 0.7 10^3/uL (0.2-0.9) 11/10/21 08:35 Eos # (Auto) 0.6 10^3/uL (0.0-0.8) 11/10/21 08:35 Baso # (Auto) 0.1 10^3/uL (0.0-0.1) 11/10/21 08:35 Nucleated RBC % (auto) 0 % 11/10/21 08:35 Nucleated RBCs # 0.0 /100WBC 11/10/21 08:35 Sodium 139 mmol/L (136-145) 11/10/21 08:35 Potassium 3.1 mmol/L (3.5-5.1) L 11/10/21 08:35 Chloride 97 mmol/L (98-107) L 11/10/21 08:35 Carbon Dioxide 26 mmol/L (22-29) 11/10/21 08:35 Anion Gap 19.1 (5-19) H 11/10/21 08:35 BUN 16 mg/dL (8-23) 11/10/21 08:35 Creatinine 0.7 mg/dL (0.5-0.9) 11/10/21 08:35 GFR Calculation Not Reportable 11/10/21 08:35 Glucose 131 mg/dL (65-115) H 11/10/21 08:35 Calculated Osmolality 291 mOsm/kg (285-295) 11/10/21 08:35 Calcium 9.3 mg/dL (8.5-10.5) 11/10/21 08:35 Vitals Last Vital Signs Temp 99.2 F 11/10/21 11:17 Pulse 80 11/10/21 11:25 Resp 17 11/10/21 11:25 BP 105/59 11/10/21 11:25 Pulse Ox 91 11/10/21 11:25 Discharge Plan Discharge Patient Disposition: Home Condition: Stable Prescriptions: Continued bupropion HCl 150 mg tablet extended release 24 hr 150 mg PO QAM 0RF fluoxetine [Prozac] 20 mg capsule 40 mg PO DAILY 0RF Rx Instructions: take 1 in bedtime clobetasol 0.05 % cream 1 applic topical BID 0RF losartan 25 mg tablet 25 mg PO DAILY 0RF amlodipine 10 mg Tablet 10 mg PO DAILY 0RF oxybutynin chloride 5 mg tablet 10 mg PO BID 0RF hydrochlorothiazide 12.5 mg Capsule 12.5 mg PO QAM 0RF Discharge Orders: Discharge Order (Routine); Ordered 11/10/21 Ordered By: Etelvina Garrison Discharge Attestations Time Spent in Discharge Care*: less than 30 min Quality Metrics Clinical Quality Measures [ No reported AMI, CVA or VTE this stay] Coding Level of Care Code Acute Chg FW DC note Diagnoses Eroded suture T81.89XA
--- NOTE | 2021-11-10 13:59 | ANE.PACU2 ---
Inpatient post-anesthesia follow up: Airway intact: Yes Vital signs: Temperature 98.8 F Pulse Rate 84 Respiratory Rate 16 Blood Pressure 109/56 Pulse Oximetry 91 Oxygen Delivery Me thod Room Air Oxygen Flow Rate 8 Fraction of Inspir ed Oxygen Hydration adequate: Yes Nausea and vomiting: No Pain level: 1 Mental status: Baseline
== END 2021-11-10 12:29 | disposition home or self-care (01) ==
PROVIDERS: PCP Internal Medicine; Visit Provider Obstetrics & Gynecology
PROC: 8E0UXY7 Examination of Female Reproductive System (ICD-10-PCS; CPT 57410; principal; 2021-11-10 09:20)
DX: T81.89XA Other complications of procedures, not elsewhere classified, initial encounter (principal); I10 Essential (primary) hypertension; Z86.19 Personal history of other infectious and parasitic diseases
CPT/HCPCS: 57410; 36415; 51702; 80048; 85025; J2704; J3010; J7030

== ENCOUNTER 2021-12-02 12:40 | Outpatient (CLI) | payer MEDICARE, MEDICAID, SELFPAY ==
[2021-12-02 12:49] VITALS: BP 133/81; PULSE 80; RESP 18; TEMP 36.7; O2SAT 97
[2021-12-02] MEDS: denosumab 60 mg SDV SUBCUT (12:56)
[2021-12-02 13:03] VITALS: BP 126/67; PULSE 71; RESP 18; TEMP 36.6; O2SAT 96
== END 2021-12-02 12:41 | disposition home or self-care (01) ==
PROVIDERS: PCP Internal Medicine; Visit Provider Internal Medicine
DX: M81.0 Age-related osteoporosis without current pathological fracture (principal)
CPT/HCPCS: 96372; J0897

== ENCOUNTER → 2021-12-16 08:37 | Outpatient (BNVA) | payer MEDICARE, MEDICAID, SELFPAY | PROVIDERS: PCP Internal Medicine; Visit Provider Nurse Practitioner Family | DX: N39.41 Urge incontinence (principal); N39.0 Urinary tract infection, site not specified | CPT/HCPCS: 51798; 81003; 99203 ==

== ENCOUNTER → 2022-02-23 13:34 | Outpatient (BNVA) | payer MEDICARE, MEDICAID, SELFPAY | PROVIDERS: PCP Internal Medicine; Visit Provider Urology | DX: N39.46 Mixed incontinence (principal); N39.0 Urinary tract infection, site not specified; R33.9 Retention of urine, unspecified; R10.9 Unspecified abdominal pain; Z87.440 Personal history of urinary (tract) infections | CPT/HCPCS: 51798; 52000; 81003; 87077; 87086; 87186; 99214 ==

== ENCOUNTER → 2022-03-10 10:31 | Outpatient (BNVA) | payer MEDICARE, MEDICAID, SELFPAY | PROVIDERS: PCP Internal Medicine; Visit Provider Urology | DX: N39.41 Urge incontinence (principal); N30.20 Other chronic cystitis without hematuria; R33.8 Other retention of urine; R33.9 Retention of urine, unspecified | CPT/HCPCS: 81003; 99213 ==

== ENCOUNTER → 2022-04-07 13:49 | Outpatient (BNVA) | payer MEDICARE, MEDICAID, SELFPAY | PROVIDERS: PCP Internal Medicine; Visit Provider Urology | DX: N39.46 Mixed incontinence (principal); R33.8 Other retention of urine; Z87.440 Personal history of urinary (tract) infections; K59.09 Other constipation; N39.0 Urinary tract infection, site not specified | CPT/HCPCS: 51798; 81003; 99213 ==

== ENCOUNTER 2022-04-18 06:00 | Outpatient (RCR) | payer MEDICARE, MEDICAID, SELFPAY | END 2022-05-18 23:59 | disposition home or self-care (01) | LOC: SPT 06:00 | PROVIDERS: PCP Internal Medicine; Visit Provider Internal Medicine | DX: N39.498 Other specified urinary incontinence (principal); R29.6 Repeated falls | CPT/HCPCS: 97110; 97530 ==

== ENCOUNTER 2022-05-19 06:00 | Outpatient (RCR) | payer MEDICARE, MEDICAID, SELFPAY | END 2022-06-15 23:59 | disposition home or self-care (01) | LOC: SPT 06:00 | PROVIDERS: PCP Internal Medicine; Visit Provider Internal Medicine | DX: R29.6 Repeated falls (principal); N39.46 Mixed incontinence | CPT/HCPCS: 97110 ==

== ENCOUNTER 2022-06-16 06:00 | Outpatient (RCR) | payer MEDICARE, MEDICAID, SELFPAY | END 2022-07-16 23:59 | disposition home or self-care (01) | LOC: SPT 06:00 | PROVIDERS: PCP Internal Medicine; Visit Provider Internal Medicine | DX: R29.6 Repeated falls (principal); N39.46 Mixed incontinence | CPT/HCPCS: 97110 ==

== ENCOUNTER 2022-06-28 11:02 | Oncology outpatient (recurring) (ONCR) | payer MEDICARE, MEDICAID, SELFPAY ==
[2022-06-28 11:20] VITALS: BP 115/73; PULSE 91; RESP 16; TEMP 36.4; O2SAT 96
[2022-06-28] MEDS: denosumab 60 mg SDV SUBCUT (11:24)
== END 2022-07-16 23:59 | disposition home or self-care (01) ==
PROVIDERS: PCP Internal Medicine; Visit Provider Internal Medicine
DX: M81.0 Age-related osteoporosis without current pathological fracture (principal); Z79.899 Other long term (current) drug therapy
CPT/HCPCS: 96372; J0897

== ENCOUNTER → 2022-07-02 12:10 | Outpatient (BNVA) | payer MEDICARE, MEDICAID, SELFPAY | PROVIDERS: PCP Internal Medicine; Visit Provider Podiatrist Foot & Ankle Surgery | DX: S93.402A Sprain of unspecified ligament of left ankle, initial encounter (principal); M21.372 Foot drop, left foot; X58.XXXA Exposure to other specified factors, initial encounter | CPT/HCPCS: 99203 ==

== ENCOUNTER 2022-07-12 13:10 | Outpatient (CLI) | payer MEDICARE, MEDICAID, SELFPAY ==
--- NOTE | 2022-07-12 13:20 | MR_ITS ---
WS: [id number] MRI LUMBAR SPINE WITH CONTRAST TECHNIQUE: Sagittal T1, T2 and STIR imaging. Axial T1 and T2 imaging. Post gadolinium imaging was obt ained. CLINICAL INFORMATION: RIGHT LEG WEAKNESS COMPARISON: MRI 2018 FINDINGS: Mild lumbar curve. No acute compression. No high-grade central canal stenosis. L1-L2: Mild annular bulging. Mild facet arthropathy. Spinal canal foramen are patent. L2-L3: Mild annular bulging with slight effacement of the ventral thecal sac. Mild facet arthropathy. Small LEFT foraminal protrusion with mild LEFT foraminal narrowing. This is slightly progressed comp ared to previous. L3-L4: Mild annular bulging with slight narrowing of the subarticular recess bilaterally. Small LEFT foraminal protrusion with mild LEFT foraminal narrowing. This is unchanged from previous. L4-L5: Mild annular bulging with impingement RIGHT subarticular recess and traversing RIGHT L5 nerve root. This appears progressed compared to previous. Mild facet arthropathy. Mild RIGHT foraminal narr owing. LEFT foramen is patent. L5-S1: Mild annular bulging with slight effacement of ventral thecal sac. Mild facet arthropathy. Spi nal canal and foramen are patent. Visualized pelvic bony structures: Normal. Paravertebral soft tissues: Normal. MR/MR lumbar spine wo/w con [id number] IMPRESSION: 1. Mild annular bulging L4-L5 impinges the RIGHT subarticular recess and trave rsing RIGHT L5 nerve root. Recommend correlation with RIGHT L5 nerve root sympt oms. This is slightly progressed compared to previous. Mild RIGHT L4-L5 foramin al narrowing. 2. Small LEFT foraminal protrusion L2-L3 and L3-L4 with mild LEFT foraminal na rrowing at these levels respectively. This appears slightly progressed at L2-L3 compared to previous.
[2022-07-12] MEDS: gadobenate dimeglumine 20 mL vial IV (14:06)
== END 2022-07-12 13:11 | disposition home or self-care (01) ==
LOC: RAD 13:15
PROVIDERS: PCP Internal Medicine; Visit Provider Internal Medicine
DX: R53.1 Weakness (principal); M51.26 Other intervertebral disc displacement, lumbar region
CPT/HCPCS: 72158; A9577

== ENCOUNTER → 2022-07-13 08:50 | Outpatient (BNVA) | payer MEDICARE, MEDICAID, SELFPAY | PROVIDERS: PCP Internal Medicine; Referring Provider Internal Medicine; Visit Provider Specialist | DX: G24.8 Other dystonia (principal); I69.398 Other sequelae of cerebral infarction; G62.9 Polyneuropathy, unspecified | CPT/HCPCS: 99205 ==

== ENCOUNTER → 2022-07-13 08:50 | Outpatient (BNVA) | payer MEDICARE, MEDICAID, SELFPAY | PROVIDERS: PCP Internal Medicine; Referring Provider Internal Medicine; Visit Provider Specialist | DX: I63.9 Cerebral infarction, unspecified (principal); R53.83 Other fatigue; I69.398 Other sequelae of cerebral infarction; R25.2 Cramp and spasm; R29.90 Unspecified symptoms and signs involving the nervous system; G24.9 Dystonia, unspecified; G62.9 Polyneuropathy, unspecified; G82.20 Paraplegia, unspecified | CPT/HCPCS: 36415; 82607; 82746; 85651 ==

== ENCOUNTER → 2022-07-15 13:45 | Outpatient (BNVA) | payer MEDICARE, MEDICAID, SELFPAY | PROVIDERS: PCP Internal Medicine; Visit Provider Urology | DX: R33.8 Other retention of urine (principal) | CPT/HCPCS: 51798; 99213 ==

== ENCOUNTER 2022-07-17 06:00 | Outpatient (RCR) | payer MEDICARE, MEDICAID, SELFPAY | END 2022-08-15 23:59 | disposition home or self-care (01) | LOC: SPT 06:00 | PROVIDERS: PCP Internal Medicine; Visit Provider Internal Medicine | DX: R29.6 Repeated falls (principal); N39.46 Mixed incontinence | CPT/HCPCS: 97110 ==

== ENCOUNTER → 2022-07-20 13:05 | Outpatient (BNVA) | payer MEDICARE, MEDICAID, SELFPAY | PROVIDERS: PCP Internal Medicine; Referring Provider Internal Medicine; Visit Provider Orthopaedic Surgery | DX: M48.062 Spinal stenosis, lumbar region with neurogenic claudication (principal) | CPT/HCPCS: 99204 ==

== ENCOUNTER 2022-08-02 08:53 | Outpatient (CLI) | payer MEDICARE, MEDICAID, SELFPAY ==
--- NOTE | 2022-08-02 08:45 | MR_ITS ---
WS: [id number] MRI CERVICAL SPINE NONCONTRAST TECHNIQUE: Sagittal T1, T2 and STIR imaging. Axial T2, gradient, and fiesta imaging. CLINICAL INFORMATION: I69.398 - Other sequelae of cerebral infarction COMPARISON: None. FINDINGS: Multiple chronic lacunar infarcts partially visualized in the cerebellum. Straightening of the normal cervical lordosis. Slight anterolisthesis C5-C6 and C6-C7. Cord signal is normal. No high-grade central canal stenosis. C2-C3: Mild facet arthropathy. Mild RIGHT and no significant LEFT foraminal narrowing. Spinal canal i s patent. C3-C4: Disc osteophytic ridging. Moderate facet arthropathy. Mild bilateral bony foraminal narrowing. C4-C5: Disc osteophyte complex endplate ridging. Moderate facet arthropathy. Mild bilateral bony fora carolynn narrowing. C5-C6: Slight anterolisthesis. Moderate LEFT and no significant RIGHT foraminal narrowing. Moderate f acet arthropathy. Spinal canal is patent. C6-C7: RIGHT pericentral disc osteophyte protrusion. Spinal canal is patent. Mild facet arthropathy. Mild LEFT and no RIGHT foraminal narrowing. Spinal canal is patent. C7-T1: Normal. Visualized brain stem structures: Normal. Prevertebral soft tissues: Normal. MR/MR cervical spin wo con* [id number] IMPRESSION: 1. Straightening of the normal cervical lordosis. Slight anterolisthesis C5 on C6 and C6 on C7. 2. Cord signal is normal. 3. Tiny RIGHT pericentral disc osteophyte protrusion C6-C7. Spinal canal remai ns patent. 4. Mild to moderate bony foraminal narrowing worse at bilateral C3-C4, LEFT C5 -C6, and LEFT C6-C7 5. Mild to moderate facet arthropathy worse at C3-C4, C4-C5, and C5-C6.
--- NOTE | 2022-08-02 09:30 | MR_ITS ---
WS: [id number] MRI THORACIC SPINE WITHOUT CONTRAST TECHNIQUE: Sagittal T1, T2 and STIR imaging. Axial T2 imaging. Noncontrast imaging obtained. CLINICAL INFORMATION: I69.398 - Other sequelae of cerebral infarction COMPARISON: None. FINDINGS: Mild thoracic kyphosis. No acute compression. No high-grade central canal stenosis. Cord signal is no rmal. Mild to moderate facet arthropathy lower thoracic spine. Normal caliber thoracic aorta. Adrenal glands are normal. Normal paravertebral soft tissues. Mild chr onic anterior wedging worse at T6-T8. Tiny shallow central protrusion T7-T8. Mild disc bulging in the lower thoracic spine at T10-T11 T11-T 12. Small esophageal hiatal hernia. MR/MR thoracic spin wo con* [id number] IMPRESSION: 1. Mild thoracic kyphosis. No acute compression. No high-grade central canal s tenosis. Cord signal is normal. 2. Mild chronic anterior wedging worse at T6-T8. 3. Tiny shallow central protrusion T7-T8. Mild disc bulging in the lower thora cic spine at T10-T11 and T11-T12. 4. Mild to moderate facet arthropathy lower thoracic spine.
--- NOTE | 2022-08-02 10:15 | MR_ITS ---
WS: [id number] MRI HEAD WITHOUT CONTRAST TECHNIQUE: Sagittal T1, T2 axial, T2 axial FLAIR, axial and coronal T1 images, axial susceptibility w eighted imaging, axial diffusion weighted images, and coronal T2 images were obtained. CLINICAL INFORMATION: I63.9 - Cerebral infarction, unspecified COMPARISON: MRI 2018 FINDINGS: No evidence of restricted diffusion to suggest acute ischemia. Ventricular system and basal cisterns are patent. Moderate small vessel changes. Moderate parenchymal volume loss. Small vessel changes in the reece. Tiny chronic lacunar infarcts in the cerebellum. Normal vascular flow voids at the skull base. No extra-axial fluid collections. Normal posterior nasopharynx. Normal parapharyngeal fat. Chronic lacunar infarct adjacent to the LEFT frontal horn. No hemosiderin on susceptibly weighted images. Moderate symmetric atrophy temporal lob es and hippocampal formations. Normal optic chiasm and pituitary infundibulum. No other suspicious fi ndings. MR/MR head wo con* [id number] IMPRESSION: 1. No evidence of restricted diffusion to suggest acute ischemia. 2. Moderate small vessel changes with moderate parenchymal volume loss. Small vessel changes in the reece. 3. Small vessel changes and parenchymal volume loss progressed compared to 4 1 3,018. 4. Tiny chronic lacunar infarcts in the cerebellum bilaterally. 5. Moderate symmetric atrophy temporal lobes and hippocampal formations. 6. No hemosiderin on susceptibly weighted images.
== END 2022-08-02 08:54 | disposition home or self-care (01) ==
LOC: RAD 08:58
PROVIDERS: PCP Internal Medicine; Visit Provider Specialist
DX: I69.398 Other sequelae of cerebral infarction (principal); R25.2 Cramp and spasm; I63.9 Cerebral infarction, unspecified; M40.294 Other kyphosis, thoracic region; M51.24 Other intervertebral disc displacement, thoracic region; M51.34 Other intervertebral disc degeneration, thoracic region; M50.223 Other cervical disc displacement at C6-C7 level; M47.812 Spondylosis without myelopathy or radiculopathy, cervical region
CPT/HCPCS: 70551; 72141; 72146

== ENCOUNTER → 2022-08-10 11:23 | Outpatient (BNVA) | payer MEDICARE, MEDICAID, SELFPAY | PROVIDERS: PCP Internal Medicine; Visit Provider Orthopaedic Surgery | DX: M48.062 Spinal stenosis, lumbar region with neurogenic claudication (principal) | CPT/HCPCS: 99214 ==

== ENCOUNTER → 2022-08-12 09:21 | Outpatient (BNVA) | payer MEDICARE, MEDICAID, SELFPAY | PROVIDERS: PCP Internal Medicine; Visit Provider Anesthesiology Pain Medicine | DX: M48.062 Spinal stenosis, lumbar region with neurogenic claudication (principal); M47.814 Spondylosis without myelopathy or radiculopathy, thoracic region; G62.9 Polyneuropathy, unspecified | CPT/HCPCS: 99205 ==

== ENCOUNTER 2022-08-16 06:00 | Outpatient (RCR) | payer MEDICARE, MEDICAID, SELFPAY | END 2022-09-15 15:21 | disposition home or self-care (01) | LOC: SPT 06:00 | PROVIDERS: PCP Internal Medicine; Visit Provider Internal Medicine | DX: N39.498 Other specified urinary incontinence (principal); R29.6 Repeated falls | CPT/HCPCS: 97110 ==

== ENCOUNTER 2022-08-16 14:41 | Outpatient (CLI) | payer MEDICARE, MEDICAID, SELFPAY ==
--- NOTE | 2022-08-16 14:15 | USCV_ITS ---
Kelsey Hall Age: 77 Gender: F : 1945 Exam Date: 08/16/2022 15:01 Ordering Phys: Eric Tamayo DO Technologist: AMBER [place]am Location[place] [facility] [place]: RT LEG PAIN, SWELLING, REDNESS Risk Factors: Previous Vascular Surgery: RIGHT LEFT BP: 116.0 / 65.00 BP: 105.0/ 72.00 0 0 Waveform Velocity (cm/s) Velocity (cm/s) Waveform Triphasic 76.3 Iliac Prox Triphasic 75.1 Iliac Mid Triphasic 69.5 Iliac Distal Triphasic DIRECTORY ASSISTANCE OPERATOR 83.7 Triphasic 74.3 SFA Prox Triphasic 83.7 SFA Mid Triphasic 58.2 SFA Dist Triphasic 49.7 POP Triphasic 74.3 DOG POUND ATTENDANT Triphasic 54.7 DPA 1.2 ALEJANDRO FINDINGS Resting ALEJANDRO 1.2 on the right side Normal arterial Doppler waveforms and velocities Intimal thickening in the femoral and iliac arteries CONCLUSIONS No evidence of any significant arterial obstruction, on the right side. Intimal thickening and minimal plaques in the iliac and femoral arteries on the right side Dr Dahiana Boyle MD [facility] (Electronically Signed) Final Date: 17 Aug 2022 19:12 S
== END 2022-08-16 14:42 | disposition home or self-care (01) ==
PROVIDERS: PCP Internal Medicine; Visit Provider Orthopaedic Surgery
DX: M79.604 Pain in right leg (principal); M79.89 Other specified soft tissue disorders
CPT/HCPCS: 93926

== ENCOUNTER → 2022-09-06 12:43 | Outpatient (BNVA) | payer MEDICARE, MEDICAID, SELFPAY | PROVIDERS: PCP Internal Medicine; Visit Provider Anesthesiology Pain Medicine | DX: M54.16 Radiculopathy, lumbar region (principal); M48.062 Spinal stenosis, lumbar region with neurogenic claudication | CPT/HCPCS: 64483; 64484; J1100; J3490 ==

== ENCOUNTER → 2022-09-20 13:05 | Outpatient (BNVA) | payer MEDICARE, MEDICAID, SELFPAY | PROVIDERS: PCP Internal Medicine; Visit Provider Anesthesiology Pain Medicine | DX: M54.16 Radiculopathy, lumbar region (principal); M48.062 Spinal stenosis, lumbar region with neurogenic claudication | CPT/HCPCS: 64483; 64484; J1100; J3490 ==

== ENCOUNTER → 2022-10-04 10:53 | Outpatient (BNVA) | payer MEDICARE, MEDICAID, SELFPAY | PROVIDERS: PCP Internal Medicine; Visit Provider Anesthesiology Pain Medicine | DX: Z09 Encounter for follow-up examination after completed treatment for conditions other than malignant neoplasm (principal); M48.062 Spinal stenosis, lumbar region with neurogenic claudication; M47.814 Spondylosis without myelopathy or radiculopathy, thoracic region; G62.9 Polyneuropathy, unspecified | CPT/HCPCS: 99214 ==

== ENCOUNTER → 2022-10-11 10:03 | Outpatient (BNVA) | payer MEDICARE, MEDICAID, SELFPAY | PROVIDERS: PCP Internal Medicine; Visit Provider Urology | DX: N39.0 Urinary tract infection, site not specified (principal); N39.46 Mixed incontinence; K59.09 Other constipation | CPT/HCPCS: 81003; 99213 ==

== ENCOUNTER → 2022-10-14 10:20 | Outpatient (BNVA) | payer MEDICARE, MEDICAID, SELFPAY | PROVIDERS: PCP Internal Medicine; Visit Provider Specialist | DX: G24.8 Other dystonia (principal); M48.062 Spinal stenosis, lumbar region with neurogenic claudication; G62.9 Polyneuropathy, unspecified; G82.20 Paraplegia, unspecified; M47.12 Other spondylosis with myelopathy, cervical region; Z86.73 Personal history of transient ischemic attack (TIA), and cerebral infarction without residual deficits | CPT/HCPCS: 64642; 99215; J0585 ==

== ENCOUNTER → 2022-11-01 14:50 | Outpatient (BNVA) | payer MEDICARE, MEDICAID, SELFPAY | PROVIDERS: PCP Internal Medicine; Visit Provider Anesthesiology Pain Medicine | DX: M54.16 Radiculopathy, lumbar region (principal); M48.062 Spinal stenosis, lumbar region with neurogenic claudication; G62.9 Polyneuropathy, unspecified; M47.814 Spondylosis without myelopathy or radiculopathy, thoracic region | CPT/HCPCS: 64483; 64484; J1100; J3490 ==

== ENCOUNTER → 2022-11-16 09:56 | Outpatient (BNVA) | payer MEDICARE, MEDICAID, SELFPAY | PROVIDERS: PCP Internal Medicine; Visit Provider Anesthesiology Pain Medicine | DX: M51.17 Intervertebral disc disorders with radiculopathy, lumbosacral region (principal); M48.062 Spinal stenosis, lumbar region with neurogenic claudication; G62.9 Polyneuropathy, unspecified; M47.814 Spondylosis without myelopathy or radiculopathy, thoracic region | CPT/HCPCS: 99214 ==

== ENCOUNTER → 2022-12-07 10:19 | Outpatient (BNVA) | payer MEDICARE, MEDICAID, SELFPAY | PROVIDERS: PCP Internal Medicine; Visit Provider Orthopaedic Surgery | DX: M48.062 Spinal stenosis, lumbar region with neurogenic claudication (principal); Z79.891 Long term (current) use of opiate analgesic; Z01.818 Encounter for other preprocedural examination | CPT/HCPCS: 36415; 72100; 80053; 83036; 85025; 99214 ==

== ENCOUNTER → 2022-12-21 10:08 | Outpatient (BNVA) | payer MEDICARE, MEDICAID, SELFPAY | PROVIDERS: PCP Internal Medicine; Visit Provider Anesthesiology Pain Medicine | DX: M48.062 Spinal stenosis, lumbar region with neurogenic claudication (principal); G62.9 Polyneuropathy, unspecified; M47.814 Spondylosis without myelopathy or radiculopathy, thoracic region | CPT/HCPCS: 99214 ==

== ENCOUNTER → 2023-01-05 09:37 | Outpatient (BNVA) | payer MEDICARE, MEDICAID, SELFPAY | PROVIDERS: PCP Internal Medicine; Visit Provider Family Medicine | DX: Z01.818 Encounter for other preprocedural examination (principal); Z79.899 Other long term (current) drug therapy | CPT/HCPCS: 80048 ==

== ENCOUNTER → 2023-01-06 16:02 | Outpatient (BNVA) | payer MEDICARE, MEDICAID, SELFPAY | PROVIDERS: PCP Internal Medicine; Visit Provider Family Medicine | DX: Z01.818 Encounter for other preprocedural examination (principal); Z79.899 Other long term (current) drug therapy | CPT/HCPCS: 81003; 87077; 87086; 87184 ==

== ENCOUNTER 2023-01-07 17:01 | Observation (INO) | payer MEDICARE, MEDICAID, SELFPAY ==
[2023-01-06 10:33] VITALS: BMI 24.3
[2023-01-07] VITALS (21 sets, daily range): BP systolic 99–157; BP diastolic 60–94; PULSE 70–99; RESP 12–26; TEMP 36.1–36.8; O2SAT 90–100
--- NOTE | 2023-01-07 | XR_ITS ---
WS: [id number] XR lumbar spine 1V [id number] REASON FOR EXAM: OR PIC, Decompression at L4-5 FINDINGS: Surgical instrument overlying the left L4-L5 interspace. IMPRESSION: Intraoperative localization in the lumbar spine as above.
--- NOTE | 2023-01-07 09:40 | W.PM.OPSUD ---
Surgery/Procedure H&P Update DATE OF PROCEDURE: January 07, 2023 DATE H&P PERFORMED: 01/05/22 H&P UPDATE INFORMATION: I have reviewed H&P completed within last 30 days, I have examined patient prior to procedure and No changes to prior documentation PREOP DIAGNOSIS: Lumbar stenosis with neurogenic claudication PLANNED PROCEDURE: Operation Date: 01/07/23 11:25 Proposed Procedures p Standing on the left , 00221:bilateral decompression at L4-5, M48.062: Lumbar stenosis with neurogenic claudication(Bilateral) - Eric Tamayo DO
--- NOTE | 2023-01-07 10:19 | ANES.PREANE2 ---
Pre-Anesthetic Assessment Height/Weight: Height 1.6 m Weight 62.142 kg Temp Pulse Resp BP Pulse Ox O2 Del Method 97.6 F 84 18 133/94 95 Room Air 01/07/23 09:56 01/07/23 09:56 01/07/23 09:56 01/07/23 09:56 01/07/23 09:56 01/07/23 10:00 Preop Diagnosis: Lumbar stenosis with neurogenic claudication Operation Date: 01/07/23 11:25 Proposed Procedures p Standing on the left , [address]:bilateral decompression at L4-5, M48.062: Lumbar stenosis with neurogenic claudication(Bilateral) - Eric Tamayo, DO Was Beta Khushboo taken within 24 hours: N/A Was Clonidine taken within 24 hours: N/A Last intake: Intake Last Liquid Date 01/06/23 Last Liquid Time 21:00 Last Solid Date 01/06/23 Last Solid Time 21:00 Social No alcohol and No tobacco Exam alert, oriented x 3, clear to auscultation bilaterally and regular rate & rhythm Airway Submandibular: within normal limits Cervical ROM: within normal limits Mallampati: Class II Dentition: false Comments: Comments: Upper & lower dentures History/ROS No significant history except as noted and No significant complaints CV/HEM Hypertension Neuropsych Depression Anesthetic Plan ASA status: 3 Anesthesia: General Risk of > 500 ml blood loss (7ml/kg in children): No Medications/Allergies Home Medications Medication Instructions Recorded Confirmed Last Taken Type bupropion HCl 150 mg 24 hr tablet, 150 mg PO QAM 04/06/21 01/07/23 01/06/23 History extended release fluoxetine 20 mg capsule (Prozac) 40 mg PO DAILY 04/06/21 01/07/23 01/06/23 History clobetasol 0.05 % topical cream 1 applic topical BID 04/30/21 01/07/23 01/06/23 History losartan 25 mg tablet 25 mg PO DAILY 11/05/21 01/07/23 01/06/23 History amlodipine 10 mg tablet 10 mg PO DAILY 11/09/21 01/07/23 01/06/23 20:00 History hydrochlorothiazide 12.5 mg capsule 12.5 mg PO QAM 11/09/21 01/07/23 01/06/23 History oxybutynin chloride 5 mg tablet 10 mg PO BID 11/09/21 01/07/23 01/06/23 History methenamine hippurate 1 gram tablet 1 g PO BID Recurrent UTI #60 tabs 04/07/22 01/07/23 01/06/23 Rx Ottobeileen AFO #1 ea 07/02/22 01/07/23 Unknown Rx magnesium oxide 500 mg capsule 500 mg PO DAILY 10/11/22 01/07/23 01/06/23 History potassium chloride 20 mEq 20 meq PO DAILY 10/11/22 01/07/23 01/06/23 History tablet,extended release onabotulinumtoxinA 100 unit 400 unit SUBCUT ONCE #4 ea 12/16/22 01/07/23 01/06/23 Rx solution for injection (Botox) Allergies Allergy/AdvReac Type Severity Reaction Status Date / Time No Known Allergies Allergy Verified 01/06/23 10:31 [facility] Anesthesia Medical History Chronically on opiate therapy Depression with anxiety GERD (gastroesophageal reflux disease) Hepatitis C without hepatic coma Hypertension Ileus Incomplete bladder emptying Psoriasis Recurrent UTI Sciatica Tuberculosis Surgical History H/O bilateral breast reduction surgery H/O: hysterectomy History of appendectomy History of bladder suspension procedure History of cataract surgery Hx of LASIK Family History Grandmother Breast cancer Maternal Mother , IN HER 50'S No problems noted. Father , IN HIS 50'S Yellow fever Denies family history of Diabetes CAD (coronary artery disease) Clotting disorder Hyperlipidemia Chronic kidney disease (CKD) Bleeding disorder Hypertension Stroke Social History Smoking and tobacco status: former smoker Alcohol intake: never Substance/Drug Use: never Lives independently: Yes Household members: spouse Marital status: Current occupational status: retired Do you think of yourself as: Straight/Heterosexual Data Anesthesia Cardiac Studies: No Data to Display
[2023-01-07] MEDS: sodium chloride 0.9% 1,000 ML 30 ML IV (10:23)
[2023-01-07] MEDS: ceFAZolin 2,000 MG in sodium chloride 0.9% (plus) 50 ML 100 MG IV (12:20)
[2023-01-07] MEDS: lidocaine-epi 1% 20 mL INJ INJECTION (12:58)
--- NOTE | 2023-01-07 13:36 | P.OP_ITS ---
Operative Report Date of procedure: January 07, 2023 Pre-op diagnosis: Lumbar stenosis with neurogenic claudication Post-op diagnosis: same Procedure done: L4-5 laminectomy with partial facetectomies Surgeon: Eric Tamayo DO Qa Reviewer: None Estimated blood loss (mL): 10 Procedure: L4-5 laminectomy with partial facetectomies Patient is brought to the operative suite. After undergoing anesthesia they are placed in the prone position. All areas of impingement are well padded. Patient is then prepped and draped in the normal sterile fashion. A skin incision is made over the L4-5 level. This is confirmed under c-arm guidance. A series of dilators are passed and the tubular retractor is docked on the L4 lamina. A bovie is used to clear the soft tissue off the lamina and the L 4/5 facet joint. A high speed gerson is then used to perform the laminectomy and take down the medial aspect of the L 4/5 facet joint. A kerrison rongeure was then used to take down the remaining lamina and smooth the edged of the laminectomy up to the point where the ligamentum flavum attaches. Attention was then brought to the medial aspect of the facet joint. The remaining medial aspect of the superior and inferior aspect of the facet joint w ere taken down with the kerrison from the pedicle of L4 to L 5. The facet joint had significant hypertrophy. Attention was then brought to the Ligamentum Flavum. The ligament was taken down from the lamina of L4 to L5 and out medially to the remaining facet joint. The ligament was thick. The dura was then exposed. The dura was in good repair. The L4 nerve was then traced with a curette out the L4/5 foramen and found to be adequately decompressed. The L5 nerve was traced with a curette around the L5 pedicle. The lateral recess was opened with a kerrison helping to further decompress the L5 nerve. The tubular retractor was then tilted to the contralateral side. The bovie was used to take down the soft tissue on the spinous process. The high speed gerson was used to take down the spinous process and then the contralateral lamina of L4. The kerrison rongeur was used to take down the remaining lamina to the point where the ligamentum flavum attached and the ligamentum flavum was taken down from L4 to L5. The kerrison rongeur was then used to reach across and take down the medial aspect of the contralateral L4/5 facet joint.The currete was used to trace the contralateral L4 nerve out the L4 foramen to make sure it was decompressed adequatesly and the L5 was traced around the L5 pedicle. The lateral recess was opened further with the kerrison to ensure the L5 is adequately decompressed. Wound is then irrigated copiously with saline and surgiflo is used to stop any bleeding. The tubular retractor is removed and the wound is closed with vicryl and monocryl suture. Glue is then used to protect the wound. A sterile dressing is then placed. Patient was then placed in the supine position and transferred to the PACU in stable condition.
[2023-01-07] MEDS: ipratropium-albuterol 3 mL Neb INHALATION (13:41)
--- NOTE | 2023-01-07 13:55 | ANE.PACU2 ---
Inpatient post-anesthesia follow up: Airway intact: Yes Vital signs: Temperature 97.6 F Pulse Rate 84 Respiratory Rate 18 Blood Pressure 133/94 Pulse Oximetry 95 Oxygen Delivery Me thod Room Air Oxygen Flow Rate 6 Fraction of Inspir ed Oxygen Hydration adequate: Yes Nausea and vomiting: No Pain level: 1 Mental status: Baseline
[2023-01-07] MEDS: fentaNYL 50 mcg/mL INJ 2mL IVP (13:58)
--- NOTE | 2023-01-07 16:06 | SUR.PHASEII ---
16:00 O2 sat 90% on room air.Pt still with c/o back pain. Doctor Belkis informed. OK to admit observation for pain control and low O2 saturation. Family informed.
--- NOTE | 2023-01-07 16:26 | SUR.PHASEII ---
16:26 REPORT CALLED TO MIKY AWAD. PATIENT ALERT AND ORIENTED. INFORMED OF ADMISSION. RESTING WITHEYES CLOSED BUT AWAKES AND STATES STILL WITH BACK PAIN. ROM AND SENSATION ALL 4 EXTREMITIES.
[2023-01-07] MEDS: oxybutynin 5 mg Tablet 10 MG PO (18:05)
[2023-01-07] MEDS: HYDROcodone-acetaminophen 5-325 mg Tablet PO ×2 (18:05→23:00)
[2023-01-08] VITALS (8 sets, daily range): BP systolic 90–120; BP diastolic 47–70; PULSE 72–81; RESP 15–18; TEMP 36.6–37.2; O2SAT 90–96
[2023-01-08] MEDS: buPROPion XL (24 HR) 150 mg Tablet PO (05:52)
[2023-01-08] MEDS: hydroCHLOROthiazide 25 mg Tablet 12.5 MG PO (05:53)
[2023-01-08] MEDS: HYDROcodone-acetaminophen 5-325 mg Tablet PO ×3 (05:54→16:40)
--- NOTE | 2023-01-08 08:25 | PM.PN ---
Subjective Subjective: Patient was admitted yesterday because of pain and inability to keep sats above 92% without oxygen. At this point she is off her nasal cannula and appears to be satting well. At this point she is still having back pain. Patient also is retaining urine. At this point she has a Black in Vitals/I&O/Wt Last Vital Signs Temp 98.3 F 01/08/23 07:43 Pulse 73 01/08/23 07:43 Resp 16 01/08/23 07:43 BP 96/57 01/08/23 07:43 Pulse Ox 93 01/08/23 07:43 O2 Del Method Room Air 01/08/23 04:00 O2 Flow Rate 2 01/07/23 19:30 01/07/23 01/08/23 01/08/23 22:59 06:59 14:59 Intake Total 1240 / 1315 120 / 120 Output Total 400 / 402 250 / 652 Balance 840 / 913 -250 / 663 120 / 120 Weight last 48 hrs Weight 137 lb Physical Exam Narrative: She has 5 5 strength Urinary Catheter Management: Black: Cath Placed During This Visit: yes Reason for Continuing Indwelling Catheter: Acute Urinary Retention or Obstruction Urinary Catheter Date of Insertion: 01/07/23 Urinary Catheter Time of Insertion: 18:56 A&P Assessment and plan (1) Encounter for postoperative care: Patient is status post L4-5 laminectomy with partial facetectomies. Plan at this point is to remove the Black and see if she can urinate without the Black. If she cannot we will place a Black back. We will plan on discharging with the Black she is to be discharged today. Attestations Medical Necessity Statement*: Okay to discharge today Coding Level of Care Code Acute Code for Chg Fwd Diagnoses Encounter for postoperative care Z48.89
--- NOTE | 2023-01-08 08:28 | PM.DCS ---
Discharge Providers Date of Admission: 01/07/23 17:01 Date of Discharge: January 08, 2023 Attending Provider at Admission: Eric Tamayo DO Attending Provider at Discharge: Eric Tamayo DO Primary Care Provider: Tonio Rubi DO Diagnoses at Discharge Discharge Diagnosis (1) Encounter for postoperative care: Status: Acute Reason for Visit Reason for Visit: M48.062 Hospital Course Hospital Course Patient was admitted for pain control and inability keep her sats above 92%. This point she is doing well she did have retention of urine and Black was placed. We will attempt to remove the Black and see if she can urinate on her own. If not we will place the Black back. Physical Exam Urinary Catheter Management: Black: Cath Placed During This Visit: yes Reason for Continuing Indwelling Catheter: Acute Urinary Retention or Obstruction Urinary Catheter Date of Insertion: 01/07/23 Urinary Catheter Time of Insertion: 18:56 Discharge Data Studies Completed and Pending Completed Studies During Hospitalization Category Date Time Status XR lumbar spine 1V 16108 Routine Exams 01/07/23 Completed Vitals Last Vital Signs Temp 98.3 F 01/08/23 07:43 Pulse 73 01/08/23 07:43 Resp 16 01/08/23 07:43 BP 96/57 01/08/23 07:43 Pulse Ox 93 01/08/23 07:43 O2 Del Method Room Air 01/08/23 04:00 O2 Flow Rate 2 01/07/23 19:30 Discharge Plan Discharge Patient Disposition: Home Condition: Stable Prescriptions: New hydrocodone-acetaminophen 5-325 mg tablet 1 - 2 tab PO .Q4-6H Qty: 40 0RF Continued bupropion HCl 150 mg tablet extended release 24 hr 150 mg PO QAM fluoxetine [Prozac] 20 mg capsule 40 mg PO DAILY Rx Instructions: take 1 in bedtime clobetasol 0.05 % cream 1 applic topical BID (DME) Bran GRIMM See Rx Instructions .Route .MEDSUPPLY Qty: 1 0RF Rx Instructions: As directed by ISABELLA&O losartan 25 mg tablet 25 mg PO DAILY methenamine hippurate 1 gram tablet 1 g PO BID Qty: 60 12RF Rx Instructions: 1 pill twice a day with 1 g vitamin C each dose magnesium oxide 500 mg capsule 500 mg PO DAILY potassium chloride 20 mEq tablet extended release 20 meq PO DAILY Botox 100 unit recon soln 400 unit SUBCUT ONCE Qty: 4 0RF amlodipine 10 mg Tablet 10 mg PO DAILY oxybutynin chloride 5 mg tablet 10 mg PO BID hydrochlorothiazide 12.5 mg Capsule 12.5 mg PO QAM Discharge Orders: Discharge Order (Routine); Ordered 01/08/23 Ordered By: Eric Tamayo Referrals: Eric Tamayo, DO [Physician] - Discharge Diet: Advance as tolerated Discharge Activity: Limit activity as instructed Patient Instructions: Post Anesthesia Care Activity Restrictions/Additional Instructions: Thank you for [facility] for your care! The following is a list of instructions, from your provider, to follow upon your discharge to ensure you have the optimal recovery from your recent injury orsurgery. Follow-up care is a guillaume part of your treatment and safety. Be sure to make and go to all appointments, and call your doctor if you are having problems. If you do not already have a follow-up appointment made, call Dr. Tamayo office in the next 1-3 days to make follow up appointment for 2 weeks at [phone]. It is also a good idea to know your test results and keep a list of the medicines you take. Medications will be prescribed for you at your provider's discretion. These medications are to be used as instructed; if they are taken more often that prescribed they will not be refilled early and in most cases will not be refilled at all. > When a refill is needed,you should contact kacey torres 2-3 business days before your prescription runs out. Medications will NOT be refilled by client care consultant providers after hours! > Many pain medications contain Tylenol (Acetaminophen). Do not consume more than 4,000 mg of Tylenol per day in total with any combination ofmedications. > Pain medications can cause constipation. Please use an over the counter stool softener as directed, while taking pain medications. Consulty our local pharmacist with questions or recommendations on stool softeners. If constipation persists, contact our office or your primary care provider. > While under our care,you are not to receive pain medications or other controlled substances from any other provider unless our office is notified and approves. Any attempts to do so will result in refusal to prescribe any further pain medications and possible dismissal from our practice. ? Your wound and/or dressing should remain clean and dry for 2 days after surgery. On postoperative day 2 (48 hours after your surgery) the dressing (if present) should be removed and it is okay to shower and get the incision wet. Pad dry afterwards. No further dressing should be required from that point on. Do not put any creams or ointments on theincision > It is normal for there to be a small amount of discharge (bloody or blood tinged) present from a surgical wound for the first 1-3days. > The wound should be examined twice a day for signs of infection. Mild redness or bruising is to be expected but indications that an infection maybe starting would include; An increase in redness, swelling, or discharge, a foul odor present around the incision, and/or a fever greater than 101 ?F ? Showering is permitted, however we ask that you do not take a bath, sit in a whirlpool / Jacuzzi, or go swimming for 1 month. For only the first 2 days after surgery, lt wilt be necessary for you to cover your wound/dressing with plastic and tape to keep it dry. ? Walking is essential for the healing process after surgery. We would like you to slowly advance your walking. This should be done on relatively flat clear ground (inside or out) or can be done on a treadmill. Remember this goal does not have to happen all at once, slowly increase your distance and duration. This can be broken into more more than one walk per day as tolerated. Patients who walk as directed after surgery rarely require Physical Therapy. In the unlikely event this issue arises your provider will direct hospital staff to make the appropriate arrangements. ? No lifting over 5 pounds {a gallon of milk) or bending/twisting until further notice. Each of these activities places an unnecessary amount of stress onto the body and can impede the delicate healing process. > Instead of bending at the waist, keep your back straight and bend at the knees. > Instead of twisting your torso, keep your back straight and turn your entire body with your feet. ? You may sleep in any position which makes you comfortable. Many patients find comfort sleeping in a reclining chair. It is not abnormal to have difficulty sleeping for the first several weeks following your surgery. We recommend trying Benadry! or Tylenol PM as directed to help with your sleeping difficulties. Both medications are over the counter and available withoutprescription. ? NO SMOKING!!! Smoking dramatically increases the probability of developing postoperative wound infections. ? Common complaints after lumbar and/or thoracic spine surgery include, but are not limited to: numbness and/or tingling in the legs, pain around the incision and surrounding tissues, muscle spasms, or stiffness of the middle to low back. Contact our office if these symptoms persist or if an acute change occurs. ? No driving for the first 3-5days, and not while taking narcotics until seen at your follow-up appointment and cleared. There are no restrictions for riding on short trips, however if you take a longer trip, arrangements should be made to make regular stops to get out of the vehicle and stretch . ? Swelling is an unfortunate event that will take place with any surgery and is the primary source of your postoperative discomfort. While walking and regular approved activities helps control inflammation, there are additional steps you can take to minimizeswelling. > Place ice over the surgical site and surrounding tissue for twenty minutes, followed by applying a low/medium heat (heating pad) for an additional twenty minutes every 1-2 hours as needed for painrelief. > You may use of over the counter anti-inflammatory medications (Ibuprofen, Motrin, Aleve, Advil, etc) as directed on the package label. These types of medicines wm significantly reduce the amount of discomfort you experience after surgery from swelling. It should be noted that if you have and allergy to any of these medications, or a history of ulcers or kidney disease you should consult you primary care provider prior to starting these medications. Discharge Attestations Time Spent in Discharge Care*: less than 30 min Quality Metrics Clinical Quality Measures [ No reported AMI, CVA or VTE this stay] Coding Level of Care Code Acute Code for Chg Fwd Diagnoses Encounter for postoperative care Z48.89
[2023-01-08] MEDS: oxybutynin 5 mg Tablet 10 MG PO ×2 (08:45→16:39)
[2023-01-08] MEDS: losartan 50 mg Tablet 25 MG PO (08:45)
[2023-01-08] MEDS: amlodipine 10 mg Tablet PO (08:45)
[2023-01-08] MEDS: potassium chloride ER 20 mEq Tablet PO (08:45)
[2023-01-08] MEDS: fluoxetine 20 mg Capsule 40 MG PO (09:02)
[2023-01-09 04:00] VITALS: BP 103/63; PULSE 78; RESP 18; TEMP 37.2; O2SAT 92
[2023-01-09] MEDS: hydroCHLOROthiazide 25 mg Tablet 12.5 MG PO (05:24)
[2023-01-09] MEDS: buPROPion XL (24 HR) 150 mg Tablet PO (05:24)
[2023-01-09] MEDS: HYDROcodone-acetaminophen 5-325 mg Tablet PO ×3 (05:24→14:18)
[2023-01-09 08:00] VITALS: BP 100/61; PULSE 61; RESP 16; TEMP 37.6; O2SAT 96
[2023-01-09] MEDS: losartan 50 mg Tablet 25 MG PO (09:25)
[2023-01-09] MEDS: oxybutynin 5 mg Tablet 10 MG PO ×2 (09:25→17:03)
[2023-01-09] MEDS: potassium chloride ER 20 mEq Tablet PO (09:25)
[2023-01-09] MEDS: fluoxetine 20 mg Capsule 40 MG PO (09:26)
[2023-01-09] MEDS: amlodipine 10 mg Tablet PO (09:26)
[2023-01-09 12:00] VITALS: BP 90/60; PULSE 87; RESP 16; O2SAT 94
[2023-01-09 16:00] VITALS: BP 94/59; PULSE 74; RESP 16; TEMP 36.8; O2SAT 89
--- NOTE | 2023-01-09 16:07 | P.PN_ITS ---
Subjective Subjective: Patient set up for 2 hours today doing well pain controlled with most part. Planning on going to the long term tomorrow. Vitals/I&O/Wt Last Vital Signs Temp 99.7 F H 01/09/23 08:00 Pulse 87 01/09/23 12:00 Resp 16 01/09/23 12:00 BP 90/60 01/09/23 12:00 Pulse Ox 94 01/09/23 12:00 O2 Del Method Room Air 01/08/23 08:51 O2 Flow Rate 2 01/07/23 19:30 01/09/23 01/09/23 01/09/23 06:59 14:59 22:59 Intake Total 120 / 960 480 / 480 Balance 120 / 960 480 / 480 Physical Exam Narrative: Resting comfortably in bed Urinary Catheter Management: Black: Cath Placed During This Visit: yes Reason for Continuing Indwelling Catheter: Acute Urinary Retention or Obstruction Urinary Catheter Date of Insertion: 01/09/23 Urinary Catheter Time of Insertion: 04:35 A&P Assessment and plan (1) Encounter for postoperative care: Postop day 2 lumbar decompression. Plan to go to long term tomorrow. Attestations Medical Necessity Statement*: Pain control Coding Level of Care Code Acute Code for Chg Fwd Diagnoses Encounter for postoperative care Z48.89
[2023-01-09 19:23] VITALS: BP 96/62; PULSE 82; RESP 18; TEMP 37; O2SAT 90
[2023-01-09 23:19] VITALS: BP 117/68; PULSE 83; RESP 17; TEMP 37.3; O2SAT 90
[2023-01-10 03:58] VITALS: BP 117/71; PULSE 85; RESP 17; TEMP 36.9; O2SAT 90
[2023-01-10] MEDS: buPROPion XL (24 HR) 150 mg Tablet PO (05:28)
[2023-01-10] MEDS: hydroCHLOROthiazide 25 mg Tablet 12.5 MG PO (05:28)
[2023-01-10 07:15] VITALS: BP 107/67; PULSE 80; RESP 16; TEMP 37.1; O2SAT 92
[2023-01-10] MEDS: fluoxetine 20 mg Capsule 40 MG PO (09:48)
[2023-01-10] MEDS: potassium chloride ER 20 mEq Tablet PO (09:48)
[2023-01-10] MEDS: amlodipine 10 mg Tablet PO (09:48)
[2023-01-10] MEDS: oxybutynin 5 mg Tablet 10 MG PO ×2 (09:48→17:51)
[2023-01-10] MEDS: HYDROcodone-acetaminophen 5-325 mg Tablet PO ×2 (09:48→14:11)
[2023-01-10] MEDS: losartan 50 mg Tablet 25 MG PO (09:49)
[2023-01-10 12:00] VITALS: BP 98/62; PULSE 84; RESP 15; TEMP 37; O2SAT 92
[2023-01-10 16:00] VITALS: BP 92/52; PULSE 74; RESP 15; TEMP 37; O2SAT 89
[2023-01-10 19:45] VITALS: BP 94/60; PULSE 80; RESP 16; TEMP 37.6; O2SAT 94
[2023-01-11 00:37] VITALS: BP 111/68; PULSE 78; RESP 16; TEMP 36.9; O2SAT 92
[2023-01-11 03:29] VITALS: BP 104/64; PULSE 75; RESP 17; TEMP 37.2; O2SAT 94
[2023-01-11] MEDS: hydroCHLOROthiazide 25 mg Tablet 12.5 MG PO (05:28)
[2023-01-11] MEDS: buPROPion XL (24 HR) 150 mg Tablet PO (05:28)
--- NOTE | 2023-01-11 07:47 | P.DS_ITS ---
Discharge Providers Date of Admission: 01/07/23 17:01 Date of Discharge: January 11, 2023 Attending Provider at Admission: Eric Tamayo DO Attending Provider at Discharge: Eric Tamayo DO Primary Care Provider: Tonio Rubi DO Diagnoses at Discharge Discharge Diagnosis (1) Encounter for postoperative care: Status: Acute Reason for Visit Reason for Visit: M48.062 Hospital Course Hospital Course Patient was admitted for pain control and inability keep her sats above 92%. This point she is doing well she did have retention of urine and Black was placed. We will attempt to remove the Black and see if she can urinate on her own. If not we will place the Black back. She is having confusion and pain control issues this is why we sent her to the snf Physical Exam Urinary Catheter Management: Black: Cath Placed During This Visit: yes Reason for Continuing Indwelling Catheter: Acute Urinary Retention or Obstruction Urinary Catheter Date of Insertion: 01/09/23 Urinary Catheter Time of Insertion: 04:35 Discharge Data Studies Completed and Pending Completed Studies During Hospitalization Category Date Time Status XR lumbar spine 1V [id number] Routine Exams 01/07/23 Completed Vitals Last Vital Signs Temp 98.9 F 01/11/23 03:29 Pulse 75 01/11/23 03:29 Resp 17 01/11/23 03:29 BP 104/64 01/11/23 03:29 Pulse Ox 94 01/11/23 03:29 O2 Del Method Room Air 01/11/23 03:29 O2 Flow Rate 2 01/07/23 19:30 Discharge Plan Discharge Patient Disposition: Xfer SNF Condition: Stable Prescriptions: New hydrocodone-acetaminophen 5-325 mg tablet 1 - 2 tab PO .Q4-6H Qty: 40 0RF Continued bupropion HCl 150 mg tablet extended release 24 hr 150 mg PO QAM fluoxetine [Prozac] 20 mg capsule 40 mg PO DAILY Rx Instructions: take 1 in bedtime clobetasol 0.05 % cream 1 applic topical BID (DME) Bran AFO See Rx Instructions .Route .MEDSUPPLY Qty: 1 0RF Rx Instructions: As directed by ISABELLA&O losartan 25 mg tablet 25 mg PO DAILY methenamine hippurate 1 gram tablet 1 g PO BID Qty: 60 12RF Rx Instructions: 1 pill twice a day with 1 g vitamin C each dose magnesium oxide 500 mg capsule 500 mg PO DAILY potassium chloride 20 mEq tablet extended release 20 meq PO DAILY Botox 100 unit recon soln 400 unit SUBCUT ONCE Qty: 4 0RF amlodipine 10 mg Tablet 10 mg PO DAILY oxybutynin chloride 5 mg tablet 10 mg PO BID hydrochlorothiazide 12.5 mg Capsule 12.5 mg PO QAM Discharge Orders: Discharge Order (Routine); Ordered 01/11/23 Ordered By: Eric Tamayo Referrals: [facility] [Outside] Eric Tamayo DO [Physician] - 01/18/23 10:30 am () Tonio Rubi DO [Primary Care Provider] - 01/10/23 10:00 am Discharge Diet: Advance as tolerated Discharge Activity: Limit activity as instructed Patient Instructions: Hydrocodone/Acetaminophen (By mouth), Kyphoplasty (DC), Post Anesthesia Care Activity Restrictions/Additional Instructions: Thank you for [facility] for your care! The following is a list of instructions, from your provider, to follow upon your discharge to ensure you have the optimal recovery from your recent injury orsurgery. Follow-up care is a guillaume part of your treatment and safety. Be sure to make and go to all appointments, and call your doctor if you are having problems. If you do not already have a follow-up appointment made, call Dr. Tamayo office in the next 1-3 days to make follow up appointment for 2 weeks at [phone]. It is also a good idea to know your test results and keep a list of the medicines you take. Medications will be prescribed for you at your provider's discretion. These medications are to be used as instructed; if they are taken more often that prescribed they will not be refilled early and in most cases will not be refilled at all. > When a refill is needed,you should contact kacey torres 2-3 business days before your prescription runs out. Medications will NOT be refilled by waterfront director providers after hours! > Many pain medications contain Tylenol (Acetaminophen). Do not consume more than 4,000 mg of Tylenol per day in total with any combination ofmedications. > Pain medications can cause constipation. Please use an over the counter stool softener as directed, while taking pain medications. Consulty our local pharmacist with questions or recommendations on stool softeners. If constipation persists, contact our office or your primary care provider. > While under our care,you are not to receive pain medications or other controlled substances from any other provider unless our office is notified and approves. Any attempts to do so will result in refusal to prescribe any further pain medications and possible dismissal from our practice. ? Your wound and/or dressing should remain clean and dry for 2 days after surgery. On postoperative day 2 (48 hours after your surgery) the dressing (if present) should be removed and it is okay to shower and get the incision wet. Pad dry afterwards. No further dressing should be required from that point on. Do not put any creams or ointments on theincision > It is normal for there to be a small amount of discharge (bloody or blood tinged) present from a surgical wound for the first 1-3days. > The wound should be examined twice a day for signs of infection. Mild redness or bruising is to be expected but indications that an infection maybe starting would include; An increase in redness, swelling, or discharge, a foul odor present around the incision, and/or a fever greater than 101 ?F ? Showering is permitted, however we ask that you do not take a bath, sit in a whirlpool / Jacuzzi, or go swimming for 1 month. For only the first 2 days after surgery, lt wilt be necessary for you to cover your wound/dressing with plastic and tape to keep it dry. ? Walking is essential for the healing process after surgery. We would like you to slowly advance your walking. This should be done on relatively flat clear ground (inside or out) or can be done on a treadmill. Thao mber this goal does not have to happen all at once, slowly increase your distance and duration. This can be broken into more more than one walk per day as tolerated. Patients who walk as directed after surgery rarely require Physical Therapy. In the unlikely event this issue arises your provider will direct hospital staff to make the appropriate arrangements. ? No lifting over 5 pounds {a gallon of milk) or bending/twisting until further notice. Each of these activities places an unnecessary amount of stress onto the body and can impede the delicate healing process. > Instead of bending at the waist, keep your back straight and bend at the knees. > Instead of twisting your torso, keep your back straight and turn your entire body with your feet. ? You may sleep in any position which makes you comfortable. Many patients find comfort sleeping in a reclining chair. It is not abnormal to have difficulty sleeping for the first several weeks following your surgery. We recommend trying Benadry! or Tylenol PM as directed to help with your sleeping difficulties. Both medications are over the counter and available withoutprescription. ? NO SMOKING!!! Smoking dramatically increases the probability of developing postoperative wound infections. ? Common complaints after lumbar and/or thoracic spine surgery include, but are not limited to: numbness and/or tingling in the legs, pain around the incision and surrounding tissues, muscle spasms, or stiffness of the middle to low back. Contact our office if these symptoms persist or if an acute change occurs. ? No driving for the first 3-5days, and not while taking narcotics until seen at your follow-up appointment and cleared. There are no restrictions for riding on short trips, however if you take a longer trip, arrangements should be made to make regular stops to get out of the vehicle and stretch . ? Swelling is an unfortunate event that will take place with any surgery and is the primary source of your postoperative discomfort. While walking and regular approved activities helps control inflammation, there are additional steps you can take to minimizeswelling. > Place ice over the surgical site and surrounding tissue for twenty minutes, followed by applying a low/medium heat (heating pad) for an additional twenty minutes every 1-2 hours as needed for painrelief. > You may use of over the counter anti-inflammatory medications (Ibuprofen, Motrin, Aleve, Advil, etc) as directed on the package label. These types of medicines wm significantly reduce the amount of discomfort you experience after surgery from swelling. It should be noted that if you have and allergy to any of these medications, or a history of ulcers or kidney disease you should consult you primary care provider prior to starting these medications. Discharge Attestations Time Spent in Discharge Care*: less than 30 min Quality Metrics Clinical Quality Measures [ No reported AMI, CVA or VTE this stay] Coding Level of Care Code Acute Code for Chg Fwd Diagnoses Encounter for postoperative care Z48.89
[2023-01-11 08:00] VITALS: BP 96/57; PULSE 70; RESP 19; TEMP 36.4; O2SAT 92
[2023-01-11] MEDS: oxybutynin 5 mg Tablet 10 MG PO (08:44)
[2023-01-11] MEDS: fluoxetine 20 mg Capsule 40 MG PO (08:44)
[2023-01-11] MEDS: potassium chloride ER 20 mEq Tablet PO (08:44)
[2023-01-11] MEDS: HYDROcodone-acetaminophen 5-325 mg Tablet PO (08:45)
[2023-01-11 08:59] VITALS: BP 96/57
[2023-01-11 10:06] LABS: SARS Covid-2 Antigen negative (Negative)
[2023-01-11 11:26] VITALS: BP 103/66; PULSE 80; RESP 19; TEMP 36.2; O2SAT 94
== END 2023-01-11 12:17 | disposition skilled nursing facility (03) ==
LOC: MEDSURG 17:01
PROVIDERS: Admitting Provider Orthopaedic Surgery; PCP Internal Medicine; Visit Provider Orthopaedic Surgery
PROC: (CPT 63005; principal; 2023-01-07 11:25)
DX: M48.062 Spinal stenosis, lumbar region with neurogenic claudication (principal); Z48.89 Encounter for other specified surgical aftercare; I10 Essential (primary) hypertension; K21.9 Gastro-esophageal reflux disease without esophagitis; Z86.19 Personal history of other infectious and parasitic diseases; Z87.891 Personal history of nicotine dependence
CPT/HCPCS: 63047; 51702; 72020; 76000; 87426; 97110; 97116; 97161; 97166; 97530; 97535; A7003; G0378; J0690; J1100; J2405; J2704; J2710; J3010; J3490; J7030

== ENCOUNTER → 2023-01-18 15:06 | Outpatient (BNVA) | payer MEDICARE, MEDICAID, SELFPAY | PROVIDERS: PCP Internal Medicine; Visit Provider Orthopaedic Surgery | DX: Z47.89 Encounter for other orthopedic aftercare (principal) | CPT/HCPCS: 99024 ==

== ENCOUNTER → 2023-01-27 13:29 | Outpatient (BNVA) | payer MEDICARE, MEDICAID, SELFPAY | PROVIDERS: PCP Internal Medicine; Visit Provider Specialist | DX: G24.8 Other dystonia (principal); G82.20 Paraplegia, unspecified | CPT/HCPCS: 64642 ==

== ENCOUNTER → 2023-02-15 11:25 | Outpatient (BNVA) | payer MEDICARE, MEDICAID, SELFPAY | PROVIDERS: PCP Internal Medicine; Visit Provider Orthopaedic Surgery | DX: M79.672 Pain in left foot (principal); Z47.89 Encounter for other orthopedic aftercare | CPT/HCPCS: 99024; 99213 ==

== ENCOUNTER → 2023-02-21 10:28 | Outpatient (BNVA) | payer MEDICARE, MEDICAID, SELFPAY | PROVIDERS: PCP Internal Medicine; Visit Provider Anesthesiology Pain Medicine | DX: M48.062 Spinal stenosis, lumbar region with neurogenic claudication (principal); G62.9 Polyneuropathy, unspecified; M47.814 Spondylosis without myelopathy or radiculopathy, thoracic region | CPT/HCPCS: 99214 ==

== ENCOUNTER → 2023-03-01 10:23 | Outpatient (BNVA) | payer MEDICARE, MEDICAID, SELFPAY | PROVIDERS: PCP Internal Medicine; Visit Provider Podiatrist Foot & Ankle Surgery | DX: M79.672 Pain in left foot (principal); M21.372 Foot drop, left foot; M25.372 Other instability, left ankle | CPT/HCPCS: 73630; 99213 ==

== ENCOUNTER → 2023-04-05 13:04 | Outpatient (BNVA) | payer MEDICARE, MEDICAID, SELFPAY | PROVIDERS: PCP Internal Medicine; Visit Provider Orthopaedic Surgery | DX: M48.062 Spinal stenosis, lumbar region with neurogenic claudication (principal); Z47.89 Encounter for other orthopedic aftercare | CPT/HCPCS: 72100; 99024 ==

== ENCOUNTER 2023-04-28 10:52 | Outpatient (RCR) | payer OTHER, MEDICAID, SELFPAY | END 2023-05-12 23:59 | disposition home or self-care (01) | LOC: SPT 10:52 | PROVIDERS: PCP Internal Medicine; Visit Provider Orthopaedic Surgery | DX: G82.20 Paraplegia, unspecified (principal); R26.9 Unspecified abnormalities of gait and mobility; M62.81 Muscle weakness (generalized); G24.8 Other dystonia; G62.9 Polyneuropathy, unspecified | CPT/HCPCS: 64642; 97110; 97161; 99213 ==

== ENCOUNTER 2023-05-12 18:29 | Emergency (ER) | payer OTHER, MEDICAID, SELFPAY ==
[2023-05-12 18:34] VITALS: BP 129/78; PULSE 90; O2SAT 98; BMI 21.6
[2023-05-12 18:42] VITALS: BP 129/78; PULSE 89; RESP 18; O2SAT 93
--- NOTE | 2023-05-12 18:53 | ED_ITS ---
HPI - Back Pain/Injury General: Chief Complaint: Back Pain/Injury Stated Complaint: back pain Time Seen by Provider: 05/12/23 18:32 History of Present Illness: Patient presents to the ER by EMS with complaints of low back pain since falling multiple times today. Patient denies hitting her head or neck pain loss of consciousness etc. Patient does have a history of disc surgery in her low back approximately a year ago. Patient's back was significantly better up until she fell today. Patient fell multiple times today. Patient does see Dr. Diop secondary to neurologic disorders and gait disturbances. EMS gave the patient 100 mcg of fentanyl on route and patient's pain is much improved currently. Review of Systems General: Reports: 10 or more systems reviewed and unremarkable except in HPI and below PFSH ED PFSH: Medical History Incomplete bladder emptying Recurrent UTI Tuberculosis Psoriasis GERD (gastroesophageal reflux disease) Hepatitis C without hepatic coma Depression with anxiety Ileus Sciatica Chronically on opiate therapy Hypertension Surgical History History of bladder suspension procedure History of cataract surgery Hx of LASIK H/O: hysterectomy History of appendectomy H/O bilateral breast reduction surgery Family History Grandmother Breast cancer Maternal Mother , IN HER 50'S No problems noted. Father , IN HIS 50'S Yellow fever Denies family history of Diabetes CAD (coronary artery disease) Clotting disorder Hyperlipidemia Chronic kidney disease (CKD) Bleeding disorder Hypertension Stroke Social History Smoking and tobacco/nicotine status: former use of tobacco/nicotine Alcohol intake: never Substance/Drug Use: never Lives independently: Yes Household members: spouse Marital status: Current occupational status: retired Do you think of yourself as: Straight/Heterosexual Physical Exam Const: COMMON NORMALS: no acute distress, average body habitus, patient oriented x3, no limitations, healthy appearing, alert and well nourished HENMT: COMMON NORMALS: normocephalic, atraumatic, hearing grossly normal bilaterally, external ears normal, EAC's normal, Normal external nose present, moist oral mucous membranes and oropharynx normal HEAD & SCALP: normocephalic and atraumatic NOSE: Normal external nose present EXTERNAL EAR: Yes external ears normal EXTERNAL AUDITORY CANAL: EAC's normal Neck/C-Spine: COMMON NORMALS: full ROM, no lymphadenopathy, supple, no meningeal signs, no JVD and Thyroid normal THYROID: Thyroid normal Chest: COMMONS NORMALS: normal inspection of the chest and normal palpation of entire chest wall Resp: COMMON NORMALS: normal respiratory effort, No retractions, No use of accessory muscles and clear to auscultation bilaterally AUSCULTATION: clear to auscultation bilaterally Cardio: COMMON NORMALS: no JVD, regular rate, regular rhythm, S1 normal heart sound present, S2 normal heart sound present, No gallops present (Cardio), No clicks present (Cardio) and No murmurs present (Cardio) RATE: regular rate RHYTHM: regular rhythm HEART SOUNDS: S1 normal heart sound present and S2 normal heart sound present GI: COMMON NORMALS: Normal to inspection, nondistended, normoactive bowel sounds present, Soft to palpation, non-tender, No hepatosplenomegaly present and no masses PALPATION: Yes Soft to palpation and Yes No hepatosplenomegaly present Back/Pelvis: OTHER: Tenderness to palpation over lumbar spine paraspinals.. No obvious crepitus deformity or point tenderness. Neuro: COMMON NORMALS: patient oriented x3 SENSORIUM/ORIENTATION: Yes alert MENINGEAL SIGNS: Yes no meningeal signs Course Vital Signs: Vital signs: Vital Signs Pulse Rate 87 05/12/23 22:07 Respiratory Rate 18 05/12/23 18:42 Blood Pressure 123/67 05/12/23 22:07 Pulse Oximetry 95 05/12/23 22:07 Oxygen Delivery Me thod Room Air 05/12/23 22:07 Oxygen Flow Rate 2 05/12/23 18:34 MDM - Back Pain/Injury Medical Decision Making Patient had lumbar spine x-ray that showed probable L3 vertebral compression fracture, lumbar spine CT showed the same thing as well as some spinal stenosis. UA showed patient has urinary tract infection. Patient was given Cipro 500 mg p.o. in ER for this. Patient be discharged home with a prescription for hyd rocodone and Cipro. Patient to follow-up with her PCP within the next 7 days for further evaluation and treatment. Differential Diagnosis Unlikely lumbar radiculopathy, sciatica, strain of lumbar region, renal colic, pyelonephritis, thoracic back pain, AAA or discitis Medical Records I reviewed the patient's medical records. Labs I reviewed the patient's lab results. Radiology Impressions Lumbar Spine X-Ray 05/12/23 18:53 IMPRESSION: 1. L3 vertebral body compression fracture suspected without retropulsion of bony fragments, CT could further characterize this. 2. Multilevel sviu-fw-rqaaohvc largely posterior disc space narrowing throughout spine. 3. Scattered vascular calcifications. 4. Mild lumbar spine dextrocurvature. Lumbar Spine CT 05/12/23 21:37 IMPRESSION: 1. L3 vertebral body compression fracture involving the superior endplate without retropulsion of bony fragments appears acute. 2. Constipation. 3. L1-L2 broad-based disc bulge with mild spinal canal narrowing. 4. L2-L3 broad-based disc bulge with mild spinal canal and bilateral foraminal narrowing. 5. L3-L4 broad-based disc bulge with moderate spinal canal and yfpq-uy-taturivv bilateral foraminal narrowing. 6. L4-L5 broad-based disc bulge with moderate spinal canal bilateral foraminal narrowing. Laboratory Results Urine Color Yellow (Yellow) 05/12/23 19:03 Urine Appearance Cloudy (CLEAR) A 05/12/23 19:03 Urine pH 7 (5-7) 05/12/23 19:03 Ur Specific Henderson 1.015 (1.005-1.030) 05/12/23 19:03 Urine Protein Neg (Negative) 05/12/23 19:03 Urine Glucose (UA) Norm (Normal) 05/12/23 19:03 Urine Ketones 1+ (Negative) H 05/12/23 19:03 Urine Blood 2+ (Negative) H 05/12/23 19:03 Urine Nitrate Positive (Negative) H 05/12/23 19:03 Urine Bilirubin Neg (Negative) 05/12/23 19:03 Urine Urobilinogen Norm mg/dL (Negative) 05/12/23 19:03 Ur Leukocyte Esterase Negative (Negative) 05/12/23 19:03 Urine RBC 0-4 /hpf (0-2) H 05/12/23 19:03 Urine WBC 5-10 /hpf (0-5) H 05/12/23 19:03 Ur Squamous Epith Cells 0-4 /hpf (0-5) H 05/12/23 19:03 Triple Phos Crystals 5-10 /hpf H 05/12/23 19:03 Amorphous Sediment Trace /hpf 05/12/23 19:03 Urine Bacteria 4+ /hpf (NONE) H 05/12/23 19:03 Urine Mucus 1+ /hpf 05/12/23 19:03 All radiology interpretation(s) finalized by discharge Discharge Plan Discharge Patient Disposition: Home Clinical Impression: Closed compression fracture of lumbar vertebra Qualifiers: Encounter type: initial encounter Lumbar vertebra fracture level: L3 Qualified Code(s): S32.030A - Wedge compression fracture of third lumbar vertebra, initial encounter for closed fracture Urinary tract infection Qualifiers: Urinary tract infection type: acute cystitis Hematuria presence: with hematuria Qualified Code(s): N30.01 - Acute cystitis with hematuria Condition: Stable Prescriptions: New ciprofloxacin HCl 500 mg tablet 500 mg PO Q12H Qty: 20 0RF hydrocodone-acetaminophen 5-325 mg tablet 1 tab PO Q8H PRN (Reason: pain) Qty: 14 0RF No Action bupropion HCl 150 mg tablet extended release 24 hr 150 mg PO QAM fluoxetine [Prozac] 20 mg capsule 40 mg PO DAILY Rx Instructions: take 1 in bedtime clobetasol 0.05 % cream 1 applic topical BID (DME) Ottobeileen AFO See Rx Instructions .Route .MEDSUPPLY Qty: 1 0RF Rx Instructions: As directed by ISABELLA&O (DME) FAITH balance brace See Rx Instructions .Route .MEDSUPPLY Qty: 1 0RF Rx Instructions: As directed losartan 25 mg tablet 25 mg PO DAILY methenamine hippurate 1 gram tablet 1 g PO BID Qty: 60 12RF Rx Instructions: 1 pill twice a day with 1 g vitamin C each dose magnesium oxide 500 mg capsule 500 mg PO DAILY potassium chloride 20 mEq tablet extended release 20 meq PO DAILY Botox 100 unit recon soln 400 unit IM ONCE Qty: 4 0RF amlodipine 10 mg Tablet 10 mg PO DAILY oxybutynin chloride 5 mg tablet 10 mg PO BID hydrochlorothiazide 12.5 mg Capsule 12.5 mg PO QAM hydrocodone-acetaminophen 5-325 mg tablet 1 - 2 tab PO .Q4-6H Qty: 40 0RF hydrocodone-acetaminophen 5-325 mg tablet 1 - 2 tab PO .Q4-6H Qty: 40 0RF Discharge Orders: Discharge ED (Routine); Ordered 05/12/23 Ordered By: Ross Adan Referrals: Tonio Rubi DO [Primary Care Provider] - 1 week Patient Instructions: Vertebral Compression Fracture (ED), Opioid Safety, Pain Management, Urinary Tract Infection - Women Activity Restrictions/Additional Instructions: Your x-rays and CT scan showed an L3 compression fracture of your lumbar vertebra, your urinalysis showed you do have a urinary tract infection. Please take all your medicine as directed. Please follow-up with your family practice physician within next 7 days for further evaluation and treatment. 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
--- NOTE | 2023-05-12 18:53 | XRR_ITS ---
PROCEDURE INFORMATION: Exam: XR Lumbosacral Spine Exam date and time: 05/12/2023 7:20 PM Age: 77 years old Clinical indication: Low back pain; Additional info: Fall, back pain, HX of surgery TECHNIQUE: Imaging protocol: Radiologic exam of the lumbosacral spine. Views: 2 or 3 views. COMPARISON: CR XR hip BI m 5V wo/w pel* [id number] 12/01/2020 12:01 PM FINDINGS: Bones/joints: L3 vertebral body compression fracture suspected without retropulsion of bony fragments, CT could further characterize this. Multilevel ziux-tt-qqdqxoxe largely posterior disc space narrowing throughout spine. Mild lumbar spine dextrocurvature. Soft tissues: Unremarkable. Vasculature: Scattered vascular calcifications. XR/XR lumbar spine 2-3V* [id number] IMPRESSION: 1. L3 vertebral body compression fracture suspected without retropulsion of bony fragments, CT could further characterize this. 2. Multilevel tmzi-fi-jdwiwpoi largely posterior disc space narrowing throughout spine. 3. Scattered vascular calcifications. 4. Mild lumbar spine dextrocurvature.
--- NOTE | 2023-05-12 19:06 | PC.NURSE ---
Patient helped onto bedpan to urinate. Patient's briefs also changed. Pt settled back into bed, 2 side rails up, and call light with in reach with no current needs at this time.
[2023-05-12 19:23] LABS: Specific Gravity, Urine 1.015 (1.005-1.030); Urine Appearance Cloudy (CLEAR); Urine Color Yellow (Yellow); pH Urine 7 (5-7)
[2023-05-12 19:24] LABS: Add Urine Microscopic? YES; Bilirubin Urine Neg (Negative); Blood Urine 2+ (Negative); Glucose Urine UA Norm (Normal); Ketones Urine 1+ (Negative); Leukocyte Esterase Urine Negative (Negative); Nitrate Urine Positive (Negative); Protein Urine Neg (Negative); Urobilinogen Urine Norm (Negative)
[2023-05-12 19:26] LABS: Add Urine Culture? Yes; Amorphous Sediment Urine TRACE /hpf; Bacteria Urine 4+ /hpf; Mucus Urine 1+ /hpf; RBC Urine 0-4 /hpf (0-2); Squamous Epithelial Cell Urine 0-4 /hpf (0-5)
[2023-05-12 20:25] VITALS: BP 118/75; PULSE 84; O2SAT 94
--- NOTE | 2023-05-12 21:37 | CTR_ITS ---
PROCEDURE INFORMATION: Exam: CT Lumbar Spine Without Contrast Exam date and time: 05/12/2023 9:57 PM Age: 77 years old Clinical indication: Abnormal findings; Abnormal xray or scan of thoracolumbar spine; Prior surgery; Surgery date: 1-6 months; Surgery type: Patient says she had surgery on her low back in December 2022- doesnt know what kind; Additional info: Abnormal l3 on xray, fall lbp TECHNIQUE: Imaging protocol: Computed tomography of the lumbar spine without contrast. Radiation optimization: All CT scans at this facility use at least one of these dose optimization techniques: automated exposure control; mA and/or kV adjustment per patient size (includes targeted exams where dose is matched to clinical indication); or iterative reconstruction. COMPARISON: MR lumbar spine wo/w con [id number] 07/12/2022 1:36 PM RADIATION DOSE METRICS: Total DLP (mGy-cm): 422.72 FINDINGS: Bones/joints: L3 vertebral body compression fracture involving the superior endplate without retropulsion of bony fragments appears acute. L1-L2: L1-L2 broad-based disc bulge with mild spinal canal narrowing. L2-L3: L2-L3 broad-based disc bulge with mild spinal canal and bilateral foraminal narrowing. L3-L4: L3-L4 broad-based disc bulge with moderate spinal canal and cegl-bn-wuwusyey bilateral foraminal narrowing. L4-L5: L4-L5 broad-based disc bulge with moderate spinal canal bilateral foraminal narrowing. L5-S1: No significant disc bulge or herniation. No severe spinal canal stenosis. No significant neural foraminal narrowing. Stomach and bowel: Constipation. Soft tissues: Unremarkable. CT/CT lumbar spine wo con* [id number] IMPRESSION: 1. L3 vertebral body compression fracture involving the superior endplate without retropulsion of bony fragments appears acute. 2. Constipation. 3. L1-L2 broad-based disc bulge with mild spinal canal narrowing. 4. L2-L3 broad-based disc bulge with mild spinal canal and bilateral foraminal narrowing. 5. L3-L4 broad-based disc bulge with moderate spinal canal and olxz-zb-kgqoyvnw bilateral foraminal narrowing. 6. L4-L5 broad-based disc bulge with moderate spinal canal bilateral foraminal narrowing.
[2023-05-12 22:07] VITALS: BP 123/67; PULSE 87; O2SAT 95
--- NOTE | 2023-05-12 23:19 | PC.NURSE ---
When explaining to patient that patient was up for discharge, patient stated that she couldn't have her son Leonides take her home because she wasn't able to walk and she wouldn't be able to pee at home. This nurse educated the patient that she was up for discharge, that she would be able to call the fire department for a lift assist into the home, and that she would be sent home with a bedpan if she wanted. This nurse spoke with son Leonides on the phone and explained all of these things; Leonides verbalized understanding. Son to come fruit picker patient and help transport home.
[2023-05-12] MEDS: ciprofloxacin 500 mg Tablet PO (23:38)
[2023-05-12] MEDS: HYDROcodone-acetaminophen 5-325 mg Tablet 1 TAB PO (23:47)
--- NOTE | 2023-05-16 12:54 | PC.SOCIAL ---
ER information faxed to [facility] @ this time per Desiree @ [facility] request.
== END 2023-05-13 00:45 | disposition home or self-care (01) ==
PROVIDERS: Emergency Provider Emergency Medicine; PCP Internal Medicine
DX: S32.030A Wedge compression fracture of third lumbar vertebra, initial encounter for closed fracture (principal); N30.01 Acute cystitis with hematuria; Z87.891 Personal history of nicotine dependence; Z87.440 Personal history of urinary (tract) infections; Z86.19 Personal history of other infectious and parasitic diseases; I10 Essential (primary) hypertension; W19.XXXA Unspecified fall, initial encounter
CPT/HCPCS: 72100; 72131; 81001; 87077; 87086; 87186; 99284

== ENCOUNTER → 2023-05-17 11:00 | Outpatient (BNVA) | payer OTHER, MEDICAID, SELFPAY | PROVIDERS: PCP Internal Medicine; Visit Provider Orthopaedic Surgery | DX: S32.030A Wedge compression fracture of third lumbar vertebra, initial encounter for closed fracture (principal); X58.XXXA Exposure to other specified factors, initial encounter | CPT/HCPCS: 36415; 80053; 85025; 99214 ==

== ENCOUNTER 2023-05-20 08:24 | Day surgery (SDC) | payer MEDICARE, MEDICAID, SELFPAY ==
[2023-05-20] VITALS (14 sets, daily range): BP systolic 130–164; BP diastolic 75–93; PULSE 82–100; RESP 13–19; TEMP 36.1–37.2; O2SAT 93–97
--- NOTE | 2023-05-20 | XR_ITS ---
WS: [id number] XR lumbar spine 1V [id number] REASON FOR EXAM: YOSEF PICS FINDINGS: Vertebroplasty of L3 from right posterior oblique approach. Methylmethacrylate extends transversely across the full width of the vertebral body. IMPRESSION: Vertebroplasty L3 as above.
[2023-05-20] MEDS: scopolamine 1.5 Patch 1 PATCH TRANSDERMA (09:14)
[2023-05-20] MEDS: sodium chloride 0.9% 1,000 ML 30 ML IV (09:14)
--- NOTE | 2023-05-20 09:27 | ANES.PREANE2 ---
Pre-Anesthetic Assessment Height/Weight: Height 1.6 m Weight 54.885 kg Temp Pulse Resp BP Pulse Ox O2 Del Method 98.9 F 82 18 135/83 96 Room Air 05/20/23 08:30 05/20/23 08:30 05/20/23 08:30 05/20/23 08:30 05/20/23 08:30 05/20/23 08:54 Preop Diagnosis: L3 compression fracture Operation Date: 05/20/23 10:10 Proposed Procedures p Kyphoplasty/L3(Not Applicable) - Eric Tamayo, Familial anesthetic complications: None Was Beta Khushboo taken within 24 hours: N/A Was Clonidine taken within 24 hours: N/A Last intake: Intake Last Liquid Date 05/19/23 Last Liquid Time 23:45 Last Solid Date 05/19/23 Last Solid Time 23:45 Social No alcohol and No tobacco Exam alert, oriented x 3, clear to auscultation bilaterally and regular rate & rhythm Airway Mallampati: Class II Dentition: other (No олег) CV/HEM Hypertension Neuropsych Cerebrovascular Accident Anesthetic Plan ASA status: 2 Anesthesia: General Risk of > 500 ml blood loss (7ml/kg in children): No Medications/Allergies Home Medications Medication Instructions Recorded Confirmed Last Taken Type bupropion HCl 150 mg 24 hr tablet, 150 mg PO QAM 04/06/21 05/19/23 01/06/23 History extended release fluoxetine 20 mg capsule (Prozac) 40 mg PO DAILY 04/06/21 05/20/23 05/19/23 History clobetasol 0.05 % topical cream 1 applic topical BID 04/30/21 05/19/23 01/06/23 History losartan 25 mg tablet 25 mg PO DAILY 11/05/21 05/19/23 01/06/23 History amlodipine 10 mg tablet 10 mg PO DAILY 11/09/21 05/20/23 05/19/23 History hydrochlorothiazide 12.5 mg capsule 12.5 mg PO QAM 11/09/21 05/20/23 05/19/23 History oxybutynin chloride 5 mg tablet 10 mg PO BID 11/09/21 05/20/23 05/19/23 History methenamine hippurate 1 gram tablet 1 g PO BID Recurrent UTI #60 tabs 04/07/22 05/20/23 05/19/23 Rx [place] AFO #1 ea 07/02/22 05/19/23 Unknown Rx magnesium oxide 500 mg capsule 500 mg PO DAILY 10/11/22 05/20/23 05/19/23 History potassium chloride 20 mEq 20 meq PO DAILY 10/11/22 05/20/23 05/19/23 History tablet,extended release hydrocodone 5 mg-acetaminophen 325 1 - 2 tab PO .Q4-6H #40 tabs 01/07/23 05/20/23 05/19/23 Rx mg tablet FAITH balance brace #1 ea 03/01/23 05/19/23 Unknown Rx ciprofloxacin HCl 500 mg tablet 500 mg PO Q12H #20 tabs 05/12/23 05/20/23 05/19/23 Rx Allergies Allergy/AdvReac Type Severity Reaction Status Date / Time No Known Allergies Allergy Verified 05/20/23 08:38 Current Medications Generic Name Dose Route Start Last Admin Trade Name Freq PRN Reason Stop Dose Admin Sodium Chloride 1,000 mls @ 30 mls/hr 05/20/23 08:30 05/20/23 09:14 Sodium Chloride 0.9% IV 05/21/23 08:29 30 mls/hr .Q24H JARAD Administration PFSH Anesthesia Medical History Incomplete bladder emptying Recurrent UTI Tuberculosis Psoriasis GERD (gastroesophageal reflux disease) Hepatitis C without hepatic coma Depression with anxiety Ileus Sciatica Chronically on opiate therapy Hypertension Surgical History History of bladder suspension procedure History of cataract surgery Hx of LASIK H/O: hysterectomy History of appendectomy H/O bilateral breast reduction surgery Family History Grandmother Breast cancer Maternal Mother , IN HER 50'S No problems noted. Father , IN HIS 50'S Yellow fever Denies family history of Diabetes CAD (coronary artery disease) Clotting disorder Hyperlipidemia Chronic kidney disease (CKD) Bleeding disorder Hypertension Stroke Social History Smoking and tobacco/nicotine status: former use of tobacco/nicotine Alcohol intake: never Substance/Drug Use: never Lives independently: Yes Household members: spouse Marital status: Current occupational status: retired Do you think of yourself as: Straight/Heterosexual Data Anesthesia Cardiac Studies: No Data to Display
[2023-05-20] MEDS: fentaNYL 50 mcg/mL INJ 2mL IVP ×4 (09:31→12:56)
--- NOTE | 2023-05-20 09:52 | ANES.PREANE2 ---
Pre-Anesthetic Assessment Height/Weight: Height 1.6 m Weight 54.885 kg Temp Pulse Resp BP Pulse Ox O2 Del Method 98.9 F 82 18 135/83 96 Room Air 05/20/23 08:30 05/20/23 08:30 05/20/23 08:30 05/20/23 08:30 05/20/23 08:30 05/20/23 08:54 Preop Diagnosis: L3 compression fracture Operation Date: 05/20/23 10:10 Proposed Procedures p Kyphoplasty/L3(Not Applicable) - Eric Tamayo, Familial anesthetic complications: None Was Beta Khushboo taken within 24 hours: N/A Was Clonidine taken within 24 hours: N/A Last intake: Intake Last Liquid Date 05/19/23 Last Liquid Time 23:45 Last Solid Date 05/19/23 Last Solid Time 23:45 Social No alcohol and No tobacco Exam alert, oriented x 3, clear to auscultation bilaterally and regular rate & rhythm Airway Mallampati: Class II Dentition: other (no teeth) CV/HEM Hypertension Neuropsych Cerebrovascular Accident Anesthetic Plan ASA status: 3 Anesthesia: General Risk of > 500 ml blood loss (7ml/kg in children): No Medications/Allergies Home Medications Medication Instructions Recorded Confirmed Last Taken Type bupropion HCl 150 mg 24 hr tablet, 150 mg PO QAM 04/06/21 05/19/23 01/06/23 History extended release fluoxetine 20 mg capsule (Prozac) 40 mg PO DAILY 04/06/21 05/20/23 05/19/23 History clobetasol 0.05 % topical cream 1 applic topical BID 04/30/21 05/19/23 01/06/23 History losartan 25 mg tablet 25 mg PO DAILY 11/05/21 05/19/23 01/06/23 History amlodipine 10 mg tablet 10 mg PO DAILY 11/09/21 05/20/23 05/19/23 History hydrochlorothiazide 12.5 mg capsule 12.5 mg PO QAM 11/09/21 05/20/23 05/19/23 History oxybutynin chloride 5 mg tablet 10 mg PO BID 11/09/21 05/20/23 05/19/23 History methenamine hippurate 1 gram tablet 1 g PO BID Recurrent UTI #60 tabs 04/07/22 05/20/23 05/19/23 Rx [place] AFO #1 ea 07/02/22 05/19/23 Unknown Rx magnesium oxide 500 mg capsule 500 mg PO DAILY 10/11/22 05/20/23 05/19/23 History potassium chloride 20 mEq 20 meq PO DAILY 10/11/22 05/20/23 05/19/23 History tablet,extended release hydrocodone 5 mg-acetaminophen 325 1 - 2 tab PO .Q4-6H #40 tabs 01/07/23 05/20/23 05/19/23 Rx mg tablet FAITH balance brace #1 ea 03/01/23 05/19/23 Unknown Rx ciprofloxacin HCl 500 mg tablet 500 mg PO Q12H #20 tabs 05/12/23 05/20/23 05/19/23 Rx Allergies Allergy/AdvReac Type Severity Reaction Status Date / Time No Known Allergies Allergy Verified 05/20/23 08:38 Current Medications Generic Name Dose Route Start Last Admin Trade Name Freq PRN Reason Stop Dose Admin Fentanyl 50 mcg 05/20/23 08:30 05/20/23 09:31 Fentanyl 50 Mcg/Ml Inj 2ml IVP 50 mcg Q10M PRN Administration Preop Pain Sodium Chloride 1,000 mls @ 30 mls/hr 05/20/23 08:30 05/20/23 09:14 Sodium Chloride 0.9% IV 05/21/23 08:29 30 mls/hr .Q24H JARAD Administration PFSH Anesthesia Medical History Incomplete bladder emptying Recurrent UTI Tuberculosis Psoriasis GERD (gastroesophageal reflux disease) Hepatitis C without hepatic coma Depression with anxiety Ileus Sciatica Chronically on opiate therapy Hypertension Surgical History History of bladder suspension procedure History of cataract surgery Hx of LASIK H/O: hysterectomy History of appendectomy H/O bilateral breast reduction surgery Family History Grandmother Breast cancer Maternal Mother , IN HER 50'S No problems noted. Father , IN HIS 50'S Yellow fever Denies family history of Diabetes CAD (coronary artery disease) Clotting disorder Hyperlipidemia Chronic kidney disease (CKD) Bleeding disorder Hypertension Stroke Social History Smoking and tobacco/nicotine status: former use of tobacco/nicotine Alcohol intake: never Substance/Drug Use: never Lives independently: Yes Household members: spouse Marital status: Current occupational status: retired Do you think of yourself as: Straight/Heterosexual Data Anesthesia Cardiac Studies: No Data to Display
--- NOTE | 2023-05-20 11:07 | W.PM.OPSUD ---
Surgery/Procedure H&P Update DATE OF PROCEDURE: May 20, 2023 DATE H&P PERFORMED: 05/17/23 H&P UPDATE INFORMATION: I have reviewed H&P completed within last 30 days, I have examined patient prior to procedure and No changes to prior documentation PREOP DIAGNOSIS: L3 compression fracture PLANNED PROCEDURE: Operation Date: 05/20/23 10:10 Proposed Procedures p Kyphoplasty/L3(Not Applicable) - Eric Tamayo, DO
[2023-05-20] MEDS: ceFAZolin 2,000 MG in sodium chloride 0.9% (plus) 50 ML 100 MG IV (11:47)
[2023-05-20] MEDS: lidocaine-epi 1% 20 mL INJ INJECTION (12:12)
--- NOTE | 2023-05-20 12:42 | PM.OP ---
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 Biplanar fluoroscopy was brought in to identify the L3 compression fracture. Patient was then prepped and draped normal sterile fashion. Skin incision made of the L3 pedicle. The awl was inserted using AP and lateral fluoroscopy through the pedicle on the left side. Once the awl was inserted then the drill was inserted followed by the balloon. Balloon was inflated and then deflated. Drip was then removed. Then the void that was created from the cement. There is a good fill of cement throughout the vertebral body. AP lateral fluoroscopy ensured the cement was in good position. Wounds irrigated closed with nylon stitch. Sterile dressings applied patient transferred to PACU in stable condition.
[2023-05-20] MEDS: HYDROmorphone 1 mg/mL INJ 1 mL 0.5 MG IVP (13:03)
--- NOTE | 2023-05-20 14:01 | PM.PACU ---
PACU note Narrative: patient following commands but will not verbalize. Moves all extremeties. Had received narcotics in PACU approximately 30 minutes ago. Will attempt to give narcan and see if she improves. If not would plan on stroke activation. Exam: somnolent, arousable
--- NOTE | 2023-05-20 14:05 | PM.PACU ---
PACU note Narrative: upon telling patient that we were going to administer something to reverse the narcotic, she began talking to the nurse. Upon my arrival again she was conversant, able to tell me her name and . When I asked her why she had not responded to me 5 minutes ago she said I don't know . No further diagnostic intervention planned.
[2023-05-20] MEDS: HYDROcodone-acetaminophen 5-325 mg Tablet 2 TAB PO (14:09)
--- NOTE | 2023-05-20 15:04 | PC.NURSE ---
upon receiving pt from pacu pt was not responding verballu, followed directions, normal gaze, vss. Anesthesia notified. After his assessment we agreed to try narcan and if that did not illicit a verbal respinse from pt we would activate a stroke alert. I informed pt that I was going to reverse all of her pain medication if she did not tell me her name. She promptly gave me her name, and location. narcan was wasted and anesthesia notified of pts improvement.
--- NOTE | 2023-05-20 15:08 | ANE.PACU2 ---
Inpatient post-anesthesia follow up: Vital signs: Temperature 97.5 F Pulse Rate 84 Respiratory Rate 18 Blood Pressure 130/81 Pulse Oximetry 96 Oxygen Delivery Me thod Room Air Oxygen Flow Rate 2 Fraction of Inspir ed Oxygen Hydration adequate: Yes Nausea and vomiting: No Pain level: controlled Mental status: Baseline Additional Comments: no apparent anesthetic complications noted.
== END 2023-05-20 14:50 | disposition home or self-care (01) ==
PROVIDERS: PCP Internal Medicine; Visit Provider Orthopaedic Surgery
PROC: (CPT 22514; principal; 2023-05-20 10:00)
DX: S32.030A Wedge compression fracture of third lumbar vertebra, initial encounter for closed fracture (principal); X58.XXXA Exposure to other specified factors, initial encounter; I10 Essential (primary) hypertension; Z86.73 Personal history of transient ischemic attack (TIA), and cerebral infarction without residual deficits; Z87.891 Personal history of nicotine dependence; Z86.19 Personal history of other infectious and parasitic diseases
CPT/HCPCS: 22514; 72020; 76000; J0690; J1100; J1170; J2405; J2704; J3010; J3490; J7030

== ENCOUNTER 2023-05-20 23:52 | Emergency (ER) | payer OTHER, MEDICAID, SELFPAY ==
[2023-05-20 23:56] VITALS: BP 141/78; PULSE 75; RESP 16; TEMP 36.8; O2SAT 92
[2023-05-21] MEDS: HYDROcodone-acetaminophen 5-325 mg Tablet 1 TAB PO (00:38)
--- NOTE | 2023-05-21 00:38 | W.ED.EXTPRO ---
HPI - Extremity Problem General: Chief complaint: Extremity Injury, Lower Stated complaint: LEG PAIN Time Seen by Provider: 05/20/23 23:58 History of Present Illness: Patient presents to the ER today by EMS from the longterm. Patient is unsure why she is even here. Patient says she had kyphoplasty today. Nursing stated the longterm when they gave report stated that her leg felt heavy and numb. When patient was asked about this he said well they put concrete in the back and needs the heart and doesnt it patient has good sensation and good movement of her lower extremity at this time. Patient is asking for Sprite. Review of Systems General: Reports: 10 or more systems reviewed and unremarkable except in HPI and below PFSH ED PFSH: Medical History Incomplete bladder emptying Recurrent UTI Tuberculosis Psoriasis GERD (gastroesophageal reflux disease) Hepatitis C without hepatic coma Depression with anxiety Ileus Sciatica Chronically on opiate therapy Hypertension Surgical History History of bladder suspension procedure History of cataract surgery Hx of LASIK H/O: hysterectomy History of appendectomy H/O bilateral breast reduction surgery Family History Grandmother Breast cancer Maternal Mother , IN HER 50'S No problems noted. Father , IN HIS 50'S Yellow fever Denies family history of Diabetes CAD (coronary artery disease) Clotting disorder Hyperlipidemia Chronic kidney disease (CKD) Bleeding disorder Hypertension Stroke Social History Smoking and tobacco/nicotine status: former use of tobacco/nicotine Alcohol intake: never Substance/Drug Use: never Lives independently: Yes Household members: spouse Marital status: Current occupational status: retired Do you think of yourself as: Straight/Heterosexual Physical Exam Const: COMMON NORMALS: no acute distress, average body habitus, patient oriented x3, no limitations, healthy appearing, alert and well nourished Neck/C-Spine: COMMON NORMALS: no JVD Chest: COMMONS NORMALS: normal inspection of the chest and normal palpation of entire chest wall Resp: COMMON NORMALS: normal respiratory effort, No retractions, No use of accessory muscles and clear to auscultation bilaterally AUSCULTATION: clear to auscultation bilaterally Cardio: COMMON NORMALS: no JVD, regular rate, regular rhythm, S1 normal heart sound present, S2 normal heart sound present, No gallops present (Cardio), No clicks present (Cardio) and No murmurs present (Cardio) RATE: regular rate RHYTHM: regular rhythm HEART SOUNDS: S1 normal heart sound present and S2 normal heart sound present GI: COMMON NORMALS: Normal to inspection, nondistended, normoactive bowel sounds present, Soft to palpation, non-tender, No hepatosplenomegaly present and no masses PALPATION: Yes Soft to palpation and Yes No hepatosplenomegaly present Extremity: NARRATIVE EXTREMITY EXAM: Patient has good range of motion and sensation in her bilateral lower extremities. Neuro: COMMON NORMALS: patient oriented x3 SENSORIUM/ORIENTATION: Yes alert Course Vital Signs: Vital signs: Vital Signs Temperature 98.2 F 05/20/23 23:56 Pulse Rate 75 05/20/23 23:56 Respiratory Rate 16 05/20/23 23:56 Blood Pressure 141/78 05/20/23 23:56 Pulse Oximetry 92 05/20/23 23:56 Oxygen Delivery Me thod Room Air 05/20/23 23:56 MDM - Extremity (Nontraumatic) Medical Decision Making Patient kyphoplasty today done on her lumbar vertebra. custodial sent her over here for further evaluation. She is declining any complaints at this time. Except that she wants a Sprite and a pain pill. Patient was given a Sprite and hydrocodone 5 mg pill and will be discharged back to the longterm. Differential Diagnosis Unlikely herpes zoster, gout, cellulitis, superficial thrombophlebitis, deep venous thrombosis of upper extremity, lower extremity edema or deep vein thrombosis of lower extremity Medical Records I reviewed the patient's medical records. Lab Data I reviewed the patient's lab results. No radiology studies performed this visit Discharge Plan Discharge Patient Disposition: Home Clinical Impression: Closed compression fracture of L3 vertebra Qualifiers: Encounter type: sequela Qualified Code(s): S32.030S - Wedge compression fracture of third lumbar vertebra, sequela Condition: Stable Prescriptions: No Action bupropion HCl 150 mg tablet extended release 24 hr 150 mg PO QAM fluoxetine [Prozac] 20 mg capsule 40 mg PO DAILY Rx Instructions: take 1 in bedtime clobetasol 0.05 % cream 1 applic topical BID (DME) [place] AFO See Rx Instructions .Route .MEDSUPPLY Qty: 1 0RF Rx Instructions: As directed by ISABELLA&O (DME) MARCELL balance brace See Rx Instructions .Route .MEDSUPPLY Qty: 1 0RF Rx Instructions: As directed losartan 25 mg tablet 25 mg PO DAILY methenamine hippurate 1 gram tablet 1 g PO BID Qty: 60 12RF Rx Instructions: 1 pill twice a day with 1 g vitamin C each dose magnesium oxide 500 mg capsule 500 mg PO DAILY potassium chloride 20 mEq tablet extended release 20 meq PO DAILY hydrocodone-acetaminophen 5-325 mg tablet 1 - 2 tab PO .Q4-6H PRN (Reason: pain) 7 Days Qty: 40 0RF amlodipine 10 mg Tablet 10 mg PO DAILY oxybutynin chloride 5 mg tablet 10 mg PO BID hydrochlorothiazide 12.5 mg Capsule 12.5 mg PO QAM hydrocodone-acetaminophen 5-325 mg tablet 1 - 2 tab PO .Q4-6H Qty: 40 0RF ciprofloxacin HCl 500 mg tablet 500 mg PO Q12H Qty: 20 0RF Discharge Orders: Discharge ED (Routine); Ordered 05/21/23 Ordered By: Ross Adan Referrals: Tonio Rubi DO [Primary Care Provider] - 1 week Patient Instructions: Opioid Safety, Pain Management Activity Restrictions/Additional Instructions: Please take your pain medicine as directed. Please follow-up with your physician as previously recommended. Coding Level of Care Code ED Slot Supervisor for Umair Sorto
[2023-05-21 01:14] VITALS: BP 122/77; PULSE 76; RESP 16; O2SAT 92
== END 2023-05-21 01:41 | disposition home or self-care (01) ==
PROVIDERS: Emergency Provider Emergency Medicine; PCP Internal Medicine
DX: S32.030A Wedge compression fracture of third lumbar vertebra, initial encounter for closed fracture (principal); Z87.891 Personal history of nicotine dependence; Z86.19 Personal history of other infectious and parasitic diseases; I10 Essential (primary) hypertension; X58.XXXA Exposure to other specified factors, initial encounter
CPT/HCPCS: 99283

== ENCOUNTER → 2023-06-03 08:41 | Outpatient (BNVA) | payer MEDICARE, MEDICAID, SELFPAY | PROVIDERS: PCP Internal Medicine; Visit Provider Orthopaedic Surgery | DX: Z47.89 Encounter for other orthopedic aftercare; M25.552 Pain in left hip | CPT/HCPCS: 73502; 99214 ==

== ENCOUNTER 2023-06-06 08:44 | Inpatient (IN) | payer OTHER, MEDICAID, SELFPAY ==
[2023-06-06] VITALS (13 sets, daily range): BP systolic 126–155; BP diastolic 75–89; PULSE 90–102; RESP 16–19; TEMP 36.4–37; O2SAT 93–98; BMI 21.0
--- NOTE | 2023-06-06 08:49 | XRR_ITS ---
PROCEDURE INFORMATION: Exam: XR Left Hip Exam date and time: 06/06/2023 9:00 AM Age: 77 years old Clinical indication: Injury or trauma; Fall; Blunt trauma (contusions or hematomas); Left; Hip TECHNIQUE: Imaging protocol: Radiologic exam of the left hip. Views: 2 or 3 views hip with pelvis when performed. COMPARISON: CR XR hip LT 2-3V wo/w pel* [id number] 06/03/2023 10:11 AM FINDINGS: Bones/joints: There is fracture of the left proximal femur. Stebbins bones are osteopenic. Soft tissues: Unremarkable. XR/XR hip LT 2-3V wo/w pel* [id number] IMPRESSION: Fracture of the left proximal femur.
--- NOTE | 2023-06-06 09:27 | XRR_ITS ---
PROCEDURE INFORMATION: Exam: XR Chest Exam date and time: 06/06/2023 9:31 AM Age: 77 years old Clinical indication: Cough and dyspnea; Additional info: Dyspnea/cough TECHNIQUE: Imaging protocol: Radiologic exam of the chest. Views: 1 view. COMPARISON: CR XR chest 2V* [id number] 12/07/2021 4:12 PM FINDINGS: Lungs: Unremarkable. No consolidation. Pleural spaces: Unremarkable. No pleural effusion. No pneumothorax. Heart/Mediastinum: Unremarkable. No cardiomegaly. Bones/joints: The bones are osteopenic. XR/XR chest 1V portable [id number] IMPRESSION: No acute cardiopulmonary disease.
--- NOTE | 2023-06-06 09:36 | ECG_ITS ---
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 Measurements Intervals [place] Rate: 86 P: 64 AK: 187 QRS: 45 QRSD: 75 T: 43 QT: 389 QTc: 467 Interpretive Statements SINUS RHYTHM Compared to ECG 05/18/2021 09:03:52 No significant changes Electronically Signed On 06-06-2023 9:48:52 SWITCHBOARD MANAGER by Jayjay Mari M.D. [email or web address]
[2023-06-06 09:43] LABS: Basophils # 0.1 10^3/uL (0.0-0.1); Basophils % 0.5 %; Eosinophils % 0.3 %; Hematocrit 40.7 % (36-47); Lymphocytes # 1.8 10^3/uL (0.8-4.8); Lymphocytes % 14.6 %; Mean Corpuscular HGB Conc 31.7 g/dL (30-55); Mean Corpuscular Hemoglobin 29.5 pg (27-33); Mean Corpuscular Volume 92.9 fl (85-98); Mean Platelet Volume 10.3 fL (7.4-10.4); Monocytes # 0.8 10^3/uL (0.2-0.9); Monocytes % 6.4 %; Neutrophils # 9.77 10^3/uL (1.8-7.7); Neutrophils % 77.7 %; Nucleated Red Blood Cells % 0 %; Platelet Count 305 10^3/cmm (157-399); Red Blood Count 4.38 10^6/uL (3.85-5.65); Red Cell Distribution Width 15.1 % (12.1-15.1); White Blood Count 12.58 10^3/uL (3.29-11.43)
[2023-06-06 09:53] LABS: INR 1.09 (0.8-1.2); Partial Thromboplastin Time 25.7 SECONDS (23.9-36.7)
--- NOTE | 2023-06-06 09:55 | ED_ITS ---
HPI - Extremity Problem 2 General: Chief complaint: Extremity Injury, Lower Stated complaint: left hip pain post fall Time Seen by Provider: 06/06/23 08:49 Source: patient Mode of arrival: ambulatory History of Present Illness: 77-year-old female presents emergency ro om via EMS had a ground-level mechanical fall she leaned back against a door it was not supported in any way she lost her balance and went down she is a severe pain in her left hip. She denies striking her head no loss consciousness MD Complaint: joint pain Associated symptoms: Deny arthralgias, chest pain, fever(s), myalgias, rash or short of breath Review of Systems 2 Const: Denies: fever(s) Card: Denies: chest pain Resp: Denies: dyspnea GI: Denies: abdominal pain : Denies: dysuria, urinary frequency or urinary urgency Musc: Denies: neck pain or back pain Skin/Breast: Denies: rash PFSH ED 2 PFSH: Medical History Incomplete bladder emptying Recurrent UTI Tuberculosis Psoriasis GERD (gastroesophageal reflux disease) Hepatitis C without hepatic coma Depression with anxiety Ileus Sciatica Chronically on opiate therapy Hypertension Surgical History History of bladder suspension procedure History of cataract surgery Hx of LASIK H/O: hysterectomy History of appendectomy H/O bilateral breast reduction surgery Family History Grandmother Breast cancer Maternal Mother , IN HER 50'S No problems noted. Father , IN HIS 50'S Yellow fever Denies family history of Diabetes CAD (coronary artery disease) Clotting disorder Hyperlipidemia Chronic kidney disease (CKD) Bleeding disorder Hypertension Stroke Social History Smoking and tobacco/nicotine status: former use of tobacco/nicotine Alcohol intake: never Substance/Drug Use: never Lives independently: Yes Household members: spouse Marital status: Current occupational status: retired Do you think of yourself as: Straight/Heterosexual Physical Exam 2 Const: COMMON NORMALS: no acute distress GENERAL APPEARANCE: cooperative and comfortable ORIENTATION/CONSCIOUSNESS: Yes awake, Yes oriented to person, Yes oriented to place and Yes oriented to time HENMT: COMMON NORMALS: normocephalic, atraumatic and hearing grossly normal bilaterally HEAD & SCALP: normocephalic and atraumatic Resp: COMMON NORMALS: normal respiratory effort, No retractions, No use of accessory muscles and clear to auscultation bilaterally AUSCULTATION: clear to auscultation bilaterally Cardio: COMMON NORMALS: regular rate, regular rhythm and No murmurs present (Cardio) RATE: regular rate RHYTHM: regular rhythm GI: COMMON NORMALS: Soft to palpation and No hepatosplenomegaly present A USCULTATION: Yes normoactive bowel sounds PALPATION: Yes Soft to palpation, No Tenderness to palpation present (GI), No Guarding due to palpation present (GI) and Yes No hepatosplenomegaly present Extremity: COMMON NORMALS: normal to inspection, capillary refill normal, no clubbing, cyanosis or edema, no calf tenderness and no pedal edema Neuro: SENSORIUM/ORIENTATION: Yes oriented to person, Yes oriented to place and Yes oriented to time Skin: COMMON NORMALS: no rashes or lesions noted GENERAL SKIN EXAM: no rashes or lesions noted Course 2 Vital Signs: Vital signs: Vital Signs Temperature 97.6 F 06/06/23 08:47 Pulse Rate 100 06/06/23 10:40 Respiratory Rate 18 06/06/23 11:50 Blood Pressure 151/89 06/06/23 11:19 Pulse Oximetry 95 06/06/23 11:50 Oxygen Delivery Me thod Room Air 06/06/23 11:19 MDM - Extremity (Nontraumatic) Medical Decision Making Plain film looks like fracture of the base of the femoral neck patient was holding her left hip flexed and knee flexed and for comfort. Under conscious sedation the leg was extended and placed in a knee immobilizer CT done shows it actually has an intertrochanteric fracture. Prior to this had discussed Dr. Hoffman she has that we reduce it and get the CT. Will admit she has eaten just an hour or 2 before she got here plan is to do this potentially do procedure tomorrow hospitalist admit Medical Records I reviewed the patient's medical records. Lab Data I reviewed the patient's lab results. 06/06/23 08:55 06/06/23 08:55 Radiology Impressions Hip/Pelvis X-Ray 06/06/23 08:49 IMPRESSION: Fracture of the left proximal femur. Chest X-Ray 06/06/23 09:27 IMPRESSION: No acute cardiopulmonary disease. Laboratory Results WBC 12.58 10^3/uL (3.29-11.43) H 06/06/23 08:55 RBC 4.38 10^6/uL (3.85-5.65) 06/06/23 08:55 Hgb 12.90 g/dL (11.27-16.99) 06/06/23 08:55 Hct 40.7 % (36-47) 06/06/23 08:55 MCV 92.9 fl (85-98) 06/06/23 08:55 MCH 29.5 pg (27-33) 06/06/23 08:55 MCHC 31.7 g/dL (30-55) 06/06/23 08:55 RDW 15.1 % (12.1-15.1) 06/06/23 08:55 Plt Count 305 10^3/cmm (157-399) 06/06/23 08:55 MPV 10.3 fL (7.4-10.4) 06/06/23 08:55 Neut % (Auto) 77.7 % 06/06/23 08:55 Lymph % (Auto) 14.6 % 06/06/23 08:55 Creek % (Auto) 6.4 % 06/06/23 08:55 Eos % (Auto) 0.3 % 06/06/23 08:55 Baso % (Auto) 0.5 % 06/06/23 08:55 Neut # (Auto) 9.77 10^3/uL (1.8-7.7) H 06/06/23 08:55 Lymph # (Auto) 1.8 10^3/uL (0.8-4.8) 06/06/23 08:55 Creek # (Auto) 0.8 10^3/uL (0.2-0.9) 06/06/23 08:55 Eos # (Auto) 0.0 10^3/uL (0.0-0.8) 06/06/23 08:55 Baso # (Auto) 0.1 10^3/uL (0.0-0.1) 06/06/23 08:55 Nucleated RBC % (auto) 0 % 06/06/23 08:55 Nucleated RBCs # 0.0 /100WBC 06/06/23 08:55 PT 14.40 SECONDS (12.1-14.9) 06/06/23 08:55 INR 1.09 (0.8-1.2) 06/06/23 08:55 APTT 25.7 SECONDS (23.9-36.7) 06/06/23 08:55 Sodium 140 mmol/L (136-145) 06/06/23 08:55 Potassium 3.5 mmol/L (3.5-5.1) 06/06/23 08:55 Chloride 101 mmol/L (98-107) 06/06/23 08:55 Carbon Dioxide 26 mmol/L (22-29) 06/06/23 08:55 Anion Gap 16.5 (5-19) 06/06/23 08:55 BUN 13 mg/dL (8-23) 06/06/23 08:55 Creatinine 0.6 mg/dL (0.5-0.9) 06/06/23 08:55 GFR Calculation Not Reportable 06/06/23 08:55 Glucose 116 mg/dL (65-115) H 06/06/23 08:55 Calculated Osmolality 291 mOsm/kg (285-295) 06/06/23 08:55 Calcium 8.5 mg/dL (8.5-10.5) 06/06/23 08:55 Total Bilirubin 0.2 mg/dL (0.15-1.2) 06/06/23 08:55 AST 21 U/L (0-32) 06/06/23 08:55 ALT 18 U/L (0-33) 06/06/23 08:55 Alkaline Phosphatase 138 U/L (35-105) H 06/06/23 08:55 Total Protein 6.9 g/dL (6.6-8.7) 06/06/23 08:55 Albumin 3.9 g/dL (3.5-5.2) 06/06/23 08:55 Globulin 3.0 g/dL (1.3-4.6) 06/06/23 08:55 All radiology interpretation(s) finalized by discharge Discharge Plan Discharge Patient Disposition: Admitted As Inpatient Admit Provider: Timo Johnson Clinical Impression: Closed intertrochanteric fracture of left hip Condition: Stable Coding Level of Care Code ED 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
--- NOTE | 2023-06-06 09:57 | CT_ITS ---
WS: [id number] NONCONTRAST CT LEFT HIP TECHNIQUE: Noncontrast CT LEFT hip with coronal and sagittal reformatted images. CLINICAL INFORMATION: fx L hip COMPARISON: None. DLP: 268.[address] scans at [facility] use at least one of these dose optimization techniques: automated e xposure control; mA and/or kV adjustment per patient size (includes targeted exams where dose is matc hed to clinical indication); or iterative reconstruction. FINDINGS: Slightly comminuted intertrochanteric LEFT hip fracture. Slight varus angulation. Mild anterior angul ation of the proximal fragment with slight impaction. Slightly comminuted greater trochanteric fractu re component. Soft tissue edema about the LEFT hip. Normal LEFT pubic rami. Normal LEFT acetabulum. Black catheter. IMPRESSION: 1. Slightly comminuted intertrochanteric LEFT hip fracture.
[2023-06-06 10:00] LABS: Alanine Aminotransferase 18 U/L (0-33); Albumin Level 3.9 g/dL (3.5-5.2); Alkaline Phosphatase 138 U/L (35-105); Anion Gap 16.5 (5-19); Aspartate Amino Transferase 21 U/L (0-32); Blood Urea Nitrogen 13 mg/dL (8-23); Calcium 8.5 mg/dL (8.5-10.5); Carbon Dioxide 26 mmol/L (22-29); Chloride 101 mmol/L (98-107); Creatinine Clr Calc Pharmacy 47.7369; Glucose 116 mg/dL (65-115); Osmolality Calculated 291 mOsm/kg (285-295); Potassium 3.5 mmol/L (3.5-5.1); Sodium 140 mmol/L (136-145); Total Bilirubin 0.2 mg/dL (0.15-1.2); Total Protein 6.9 g/dL (6.6-8.7)
--- NOTE | 2023-06-06 10:21 | P.HP_ITS ---
Providers/Chief Complaint 2 Admitting Physician: Timo Johnson MD Primary Care Provider: Tonio Rubi DO Chief Complaint: left hip pain post fall History of Present Illness Kelsey Hall is a 77 year old female currently residing at [facility] [place] who presents to the hospital after mechanical fall. She is not for sure if she has any other injuries. She denies any syncope. She had received some pain medicine when I had evaluated her. From the emergency department note, she apparently fell after leaning up against the door. She denied striking her head or having any head or neck pain. I discussed her case with the nursing facility as well who confirms the above report. Did have a kyphoplasty, L3, on May 20. Currently on some prednisone for back pain. This is a tapered dose. Review of Systems 2 General: Reports: 10 or more systems reviewed and unremarkable except in HPI and below Card: Denies: chest pain Resp: Denies: dyspnea Medications/Allergies Home Medications Medication Instructions Recorded Confirmed Last Taken Type bupropion HCl 150 mg 24 hr tablet, 150 mg PO QAM 04/06/21 06/03/23 01/06/23 History extended release fluoxetine 20 mg capsule (Prozac) 40 mg PO DAILY 04/06/21 06/03/23 05/19/23 History clobetasol 0.05 % topical cream 1 applic topical BID 04/30/21 06/03/23 01/06/23 History losartan 25 mg tablet 25 mg PO DAILY 11/05/21 06/03/23 01/06/23 History amlodipine 10 mg tablet 10 mg PO DAILY 11/09/21 06/03/23 05/19/23 History hydrochlorothiazide 12.5 mg capsule 12.5 mg PO QAM 11/09/21 06/03/23 05/19/23 History oxybutynin chloride 5 mg tablet 10 mg PO BID 11/09/21 06/03/23 05/19/23 History methenamine hippurate 1 gram tablet 1 g PO BID Recurrent UTI #60 tabs 04/07/22 06/03/23 05/19/23 Rx [place] AFO #1 ea 07/02/22 06/03/23 Unknown Rx magnesium oxide 500 mg capsule 500 mg PO DAILY 10/11/22 06/03/23 05/19/23 History potassium chloride 20 mEq 20 meq PO DAILY 10/11/22 06/03/2305/19/24 History tablet,extended release hydrocodone 5 mg-acetaminophen 325 1 - 2 tab PO .Q4-6H #40 tabs 01/07/23 06/03/23 05/19/23 Rx mg tablet FAITH balance brace #1 ea 03/01/23 06/03/23 Unknown Rx ciprofloxacin HCl 500 mg tablet 500 mg PO Q12H #20 tabs 05/12/23 06/03/23 05/19/23 Rx hydrocodone 5 mg-acetaminophen 325 1 - 2 tab PO .Q4-6H PRN pain 7 05/20/23 06/03/23 Unknown Rx mg tablet days #40 tabs prednisone 20 mg tablet 20 mg PO DAILY #15 tabs 06/03/23 06/03/23 Unknown Rx Allergies Allergy/AdvReac Type Severity Reaction Status Date / Time No Known Allergies Allergy Verified 06/06/23 08:54 PFSH Acute 2 PFSH: Medical History Incomplete bladder emptying Recurrent UTI Tuberculosis Psoriasis GERD (gastroesophageal reflux disease) Hepatitis C without hepatic coma Depression with anxiety Ileus Sciatica Chronically on opiate therapy Hypertension Surgical History History of bladder suspension procedure History of cataract surgery Hx of LASIK H/O: hysterectomy History of appendectomy H/O bilateral breast reduction surgery Family History Grandmother Breast cancer Maternal Mother , IN HER 50'S No problems noted. Father , IN HIS 50'S Yellow fever Denies family history of Diabetes CAD (coronary artery disease) Clotting disorder Hyperlipidemia Chronic kidney disease (CKD) Bleeding disorder Hypertension Stroke Social History Smoking and tobacco/nicotine status: former use of tobacco/nicotine Alcohol intake: never Substance/Drug Use: never Lives independently: Yes Household members: spouse Marital status: Current occupational status: retired Do you think of yourself as: Straight/Heterosexual Vitals/I&O/Wt Last Vital Signs Temp 97.6 F 06/06/23 08:47 Pulse 92 06/06/23 08:47 BP 151/89 06/06/23 08:47 Pulse Ox 94 06/06/23 08:47 O2 Del Method Room Air 06/06/23 08:47 Weight last 48 hrs Weight 53.977 kg Physical Exam 2 Narrative: General exam is a white female, who is just received narcotics, that is able to tell me she has some left hip pain. HEENT: Atraumatic normocephalic. Oropharynx clear. Neck is supple no lymphadenopathy thyromegaly Cardiovascular regular rate and rhythm, no murmur Lungs clear no wheezing or crackles Abdomen is soft, positive bowel sounds, no obvious organomegaly Extremities no cyanosis clubbing or edema. She has her left leg flexed, and under her right. Distal pulses intact Skin no rash Neuro no obvious focal deficits Data 06/06/23 08:55 06/06/23 08:55 Other Labs: EKG demonstrates normal sinus rhythm, normal axis, no acute changes per my read Chest x-ray no infiltrate. I reviewed this personally Pelvis x-ray lef proximal femur fracture. I reviewed this personally CMP is normal with exception of alk phos of 138 Urinalysis is ordered and pending A&P Assessment and plan (1) Closed left hip fracture: Patient presents with mechanical fall, sustaining left hip fracture CT is going to be performed to guide surgery Orthopedic consultation Pain control Nausea control Hydration No direct contraindications to surgery (2) Hypertension: Will evaluate her medications. Likely hold losartan prior to surgery. (3) Recurrent UTI: Check urinalysis. If UTI is present initiate antibiotics, in the form of ceftriaxone Plan Other medical problems as outlined in past medical history. She was recently on steroids for some back pain. Considering this has been a short taper dose will discontinue at this time. Allow natural , after reviewing nursing facility records, and speaking with television newscast director at [facility] for DVT prophylaxis. Pharmacological anticoagulation to occur after discussion with orthopedics. As she might be a candidate for spinal anesthesia, and I do not know the exact timing of her surgery, we will hold off on pharmacological currently. Attestations 2 Medical Necessity Statement*: Will need greater than 2 midnight stay for evaluation and treatment of hip fracture Diagnoses Closed left hip fracture S72.002A Hypertension I10 Recurrent UTI N39.0 Time Spent (min) 45
[2023-06-06] MEDS: fentaNYL 50 mcg/mL INJ 2mL 25 MCG IVP (10:27)
[2023-06-06] MEDS: etomidate 2 mg/mL INJ SDV 10 mL 10 MG IVP (10:27)
--- NOTE | 2023-06-06 10:44 | PC.PHAR ---
PT IS FROM [facility] [place] 06/06/23
[2023-06-06 11:13] LABS: Add Urine Microscopic? YES; Bacteria Urine 1+ /hpf; Bilirubin Urine Neg (Negative); Blood Urine Neg (Negative); Glucose Urine UA Norm (Normal); Ketones Urine 1+ (Negative); Leukocyte Esterase Urine 1+ (Negative); Nitrate Urine Negative (Negative); Protein Urine Neg (Negative); RBC Urine 0-4 /hpf (0-2); Squamous Epithelial Cell Urine 0-4 /hpf (0-5); Sulfosalicylic Acid Urine Positive (Negative); Urine Appearance Cloudy (CLEAR); Urine Color Yellow (Yellow); Urobilinogen Urine 1 mg/dL (Negative); WBC Urine 0-4 /hpf (0-5); pH Urine 8 (5-7)
[2023-06-06 11:14] LABS: Add Urine Culture? No; Amorphous Sediment Urine 4+ /hpf
[2023-06-06] MEDS: morphine 4 mg/mL SDV 1 mL 2 MG IVP ×3 (11:50→23:33)
[2023-06-06] MEDS: sodium chloride 0.9% 1,000 ML 75 ML IV (11:50)
[2023-06-06] MEDS: oxyCODONE 5 mg IR Tab/Cap PO ×2 (13:16→19:39)
--- NOTE | 2023-06-06 13:35 | P.CONIM_ITS ---
Providers/Reason For Consult 2 Consulting Physician/Specialty*: Yasmin Reeves MD Reason for Consult*: Intertrochanteric fracture left hip Requesting Physician: MD Tomas Cunningham MD Attending Physician: Timo Johnson MD Primary Care Provider: Tonio Rubi DO History of Present Illness History of Present Illness Kelsey Hall is a 77 year old female who resides at [facility]. She presented to the hospital following a mechanical fall. According to the patient, she thought that she was leaning up against the wall or a door, and she fell as there was no wall or door present. She denied hitting her head. She had a kyphoplasty on May 20, and she is currently taking prednisone for back pain. This is a prednisone taper. She presented to the emergency department with the hip in a flexed position and the knee flexed as well. This was able to be straightened following sedation. Initial imaging demonstrated what appeared to be an intertrochanteric hip fracture on lateral, but AP was not able to be interpreted. Therefore, a CT scan was obtained and demonstrated an intertrochanteric hip fracture. On my review of the imaging, I have some concern that there may be a subcapital component as well, but this is nondisplaced. Review of Systems 2 General: Reports: 10 or more systems reviewed and unremarkable except in HPI and below Const: Denies: fever(s) Eyes: Denies: photophobia Card: Denies: chest pain Resp: Denies: dyspnea GI: Denies: abdominal pain : Denies: dysuria, urinary frequency or urinary urgency Musc: Denies: neck pain, back pain or joint warmth Skin/Breast: Denies: rash Medications/Allergies Home Medications Medication Instructions Recorded Confirmed Last Taken Type bupropion HCl 150 mg 24 hr tablet, 150 mg PO QAM 04/06/21 06/06/23 01/06/23 History extended release fluoxetine 20 mg capsule (Prozac) See Rx Instructions .Route .COMPLEX 04/06/21 06/06/23 05/19/23 History clobetasol 0.05 % topical cream 1 applic topical BID 04/30/21 06/06/23 01/06/23 History [place] AFO #1 ea 07/02/22 06/06/23 Unknown Rx FAITH balance brace #1 ea 03/01/23 06/06/23 Unknown Rx hydrocodone 5 mg-acetaminophen 325 1 - 2 tab PO .Q4-6H PRN pain 7 05/20/23 06/06/23 Unknown Rx mg tablet days #40 tabs amlodipine 5 mg tablet 5 mg PO DAILY 06/06/23 06/06/23 Unknown History bisacodyl 10 mg rectal suppository 10 mg MO DAILY PRN Constipation 06/06/23 06/06/23 Unknown History (Dulcolax (bisacodyl)) halobetasol propionate 0.01 1 applic topical BID 06/06/23 06/06/23 Unknown History %-tazarotene 0.045 % lotion (Duobrii) magnesium hydroxide 400 mg/5 mL 30 ml PO DAILY PRN Constipation 06/06/23 06/06/23 Unknown History oral suspension (Milk of Magnesia) magnesium oxide 400 mg PO DAILY 06/06/23 06/06/23 Unknown History omeprazole 20 mg capsule,delayed 20 mg PO DAILY 06/06/23 06/06/23 Unknown History release prednisone 20 mg tablet See Rx Instructions .Route .COMPLEX 06/06/23 06/06/23 Unknown History sodium phosphates 19 gram-7 118 ml MO DAILY PRN Constipation 06/06/23 06/06/23 Unknown History gram/118 mL enema (Fleet Enema) solifenacin 5 mg tablet 5 mg PO DAILY 06/06/23 06/06/23 Unknown History Allergies Allergy/AdvReac Type Severity Reaction Status Date / Time No Known Allergies Allergy Verified 06/06/23 08:54 Current Medications Generic Name Dose Route Start Last Admin Trade Name Freq PRN Reason Stop Dose Admin Sodium Chloride 1,000 mls @ 75 mls/hr 06/06/23 11:34 06/06/23 11:50 Sodium Chloride 0.9% IV 75 mls/hr .[id number] JARAD Administration Morphine Sulfate 2 mg 06/06/23 11:34 06/06/23 11:50 Morphine 4 Mg/Ml Sdv 1 Ml IVP 2 mg Q4H PRN Administration SEVERE PAIN Oxycodone HCl 5 mg 06/06/23 11:34 06/06/23 13:16 Oxycodone 5 Mg Ir Tab/Cap PO 5 mg Q6H PRN Administration SEVERE PAIN PFSH Acute 2 PFSH: Medical History Incomplete bladder emptying Recurrent UTI Tuberculosis Psoriasis GERD (gastroesophageal reflux disease) Hepatitis C without hepatic coma Depression with anxiety Ileus Sciatica Chronically on opiate therapy Hypertension Surgical History History of bladder suspension procedure History of cataract surgery Hx of LASIK H/O: hysterectomy History of appendectomy H/O bilateral breast reduction surgery Family History Grandmother Breast cancer Maternal Mother , IN HER 50'S No problems noted. Father , IN HIS 50'S Yellow fever Denies family history of Diabetes CAD (coronary artery disease) Clotting disorder Hyperlipidemia Chronic kidney disease (CKD) Bleeding disorder Hypertension Stroke Social History Smoking and tobacco/nicotine status: former use of tobacco/nicotine Alcohol intake: never Substance/Drug Use: never Lives independently: Yes Household members: spouse Marital status: Current occupational status: retired Do you think of yourself as: Straight/Heterosexual Dietary Habits: Current diet type/program: regular Caffeine: Yes High- fat food intake: 2 times daily Daily servings fruits/vegetables: 0-1 Daily servings of milk/calcium: 0-1 Eating out: rarely or never Reads food labels: usually or always During the past year weight has: remained stable Exercise: What type of physical activity do you participate in?: walking P hysical activity functional status: independent ambulation How many days of moderate to strenuous exercise, like a brisk walk, did you do in the last 7 days: 2 Safety: Seatbelt use: always Helmet use: No Drive intoxicated or ride with intoxicated intermodal owner operator truck driver?: never Home Safety: Water heater temperature set < 120 degrees: No Working smoke detector in home: Yes Fire extinguisher in home: No Carbon monoxide detector in home: Yes Firearms in home: Yes NHANES Social Connection/Isolation: Are you now , , , , never or living with a partner?: In a typical week, how many times do you talk on the telephone with family, friends, or neighbors?: Three or More Times per Week How often do you get together with friends or relatives?: Three or More Times per Week Do you belong to any clubs or organizations such as jain groups unions, fraternal or athletic groups, or school groups?: No Social isolation score (0-1 are the most socially isolated patients): 2 Social isolation score reviewed/action taken: No Vitals/I&O/Wt Last Vital Signs Temp 98.4 F 06/06/23 12:00 Pulse 92 06/06/23 12:00 Resp 18 06/06/23 13:16 BP 131/75 06/06/23 12:00 Pulse Ox 95 06/06/23 13:16 O2 Del Method Room Air 06/06/23 12:51 Weight last 48 hrs Weight 127 lb Weight 119 lb Physical Exam 2 Const: COMMON NORMALS: no acute distress, average body habitus, patient oriented x3 and alert GENERAL APPEARANCE: cooperative and comfortable O RIENTATION/CONSCIOUSNESS: Yes awake HENMT: COMMON NORMALS: normocephalic and atraumatic HEAD & SCALP: n ormocephalic and atraumatic Eye: GENERAL EYE: appearance normal, both eyes and all related structures Chest: COMMONS NORMALS: normal inspection of the chest Resp: COMMON NORMALS: normal respiratory effort EFFORT & INSPECTION: Yes able to speak in complete sentences and Yes symmetric chest movement Extremity: LEFT LOWER EXTREMITY: Yes hip joint (Pain with any examination of the hip.) Left hip: Yes inspection (No significant bruising.), Yes palpation (Pain to light touch.), Yes ROM (Not evaluated secondary to fracture.) and Yes neurovascular exam (Intact distally.) Neuro: COMMON NORMALS: patient oriented x3 SENSORIUM/ORIENTATION: Yes alert Psych: COMMON NORMALS: mental status grossly normal APPEARANCE: Yes grossly normal ATTITUDE: Yes calm and Yes engaged ATTENTION/CONCENTRATION: Yes attention grossly intact Skin: COMMON NORMALS: no rashes or lesions noted GENERAL SKIN EXAM: no rashes or lesions noted Urinary Catheter Management: Black: Cath Placed During This Visit: yes Urinary Catheter Date of Insertion: 06/06/23 Urinary Catheter Time of Insertion: 10:38 Data 06/06/23 08:55 06/06/23 08:[address]: My impression: CT is evaluated and interpreted by me. The CT demonstrates an intertrochanteric hip fracture. There is some concern that there may be some extension into the subcapital area, but this is nondisplaced. This fracture primarily involves the intertrochanteric area with some displacement. Xray Ortho: My impression: X-rays were evaluated, and it was difficult to assess the left hip as the patient held her leg in a flexed position at the hip and knee. Lateral demonstrated what appeared to be an intertrochanteric hip fracture. It was obvious there was a hip fracture on AP, but it was impossible to determine whether this was subcapital or intertrochanteric. Therefore, the above CT was requested. A&P Assessment and plan (1) Closed intertrochanteric fracture of left hip: Kelsey Hall is a 77 year old female who resides at [facility]. She presented to the hospital following a mechanical fall. According to the patient, she thought that she was leaning up against the wall or a door, and she fell as there was no wall or door present. She denied hitting her head. She had a kyphoplasty on May 20, and she is currently taking prednisone for back pain. This is a prednisone taper. She presented to the emergency department with the hip in a flexed position and the knee flexed as well. This was able to be straightened following sedation. Initial imaging demonstrated what appeared to be an intertrochanteric hip fracture on lateral, but AP was not able to be interpreted. Therefore, a CT scan was obtained and demonstrated an intertrochanteric hip fracture. On my review of the imaging, I have some concern that there may be a subcapital component as well, but this is nondisplaced. After discussion with the patient, we have elected to proceed with trochanteric nail. She is in agreement with this. Risks and complications were discussed with the patient. Consents will be signed, and questions were answered. The patient will likely be scheduled for surgery tomorrow given that she has no medical issues to preclude proceeding with surgical intervention. Qualifiers: Encounter type: initial encounter Fracture alignment: displaced Qualified Code(s): S72.142A - Displaced intertrochanteric fracture of left femur, initial encounter for closed fracture Coding Level of Care Code 88577 Diagnoses Closed displaced intertrochanteric fracture of left femur, initial encounter S72.142A Encounter type: initial encounter Fracture alignment: displaced
[2023-06-06] MEDS: cyclobenzaprine 10 mg Tablet PO (15:33)
[2023-06-06] MEDS: docusate sodium 100 mg Capsule PO (17:20)
[2023-06-06] MEDS: fluoxetine 20 mg Capsule PO (20:51)
[2023-06-07] VITALS (35 sets, daily range): BP systolic 84–141; BP diastolic 50–84; PULSE 73–105; RESP 10–24; TEMP 36.4–37.6; O2SAT 89–100
[2023-06-07] MEDS: sodium chloride 0.9% 1,000 ML 75 ML IV (01:00)
[2023-06-07] MEDS: cyclobenzaprine 10 mg Tablet PO ×2 (02:21→13:27)
[2023-06-07] MEDS: oxyCODONE 5 mg IR Tab/Cap PO ×2 (03:42→10:04)
[2023-06-07 04:30] LABS: Basophils % 0.2 %; Eosinophils % 0.1 %; Hematocrit 37.3 % (36-47); Lymphocytes # 1.4 10^3/uL (0.8-4.8); Lymphocytes % 12.7 %; Mean Corpuscular HGB Conc 31.9 g/dL (30-55); Mean Corpuscular Hemoglobin 29.7 pg (27-33); Mean Platelet Volume 9.6 fL (7.4-10.4); Monocytes # 0.9 10^3/uL (0.2-0.9); Monocytes % 7.9 %; Neutrophils # 8.72 10^3/uL (1.8-7.7); Neutrophils % 78.6 %; Nucleated Red Blood Cells % 0 %; Platelet Count 198 10^3/cmm (157-399); Red Blood Count 4.01 10^6/uL (3.85-5.65); Red Cell Distribution Width 14.9 % (12.1-15.1); White Blood Count 11.08 10^3/uL (3.29-11.43)
[2023-06-07 04:54] LABS: Albumin Level 3.7 g/dL (3.5-5.2); Alkaline Phosphatase 124 U/L (35-105); Aspartate Amino Transferase 12 U/L (0-32); Blood Urea Nitrogen 10 mg/dL (8-23); Calcium 8.2 mg/dL (8.5-10.5); Carbon Dioxide 26 mmol/L (22-29); Chloride 101 mmol/L (98-107); Creatinine Clr Calc Pharmacy 49.0436; Globulin 2.6 g/dL (1.3-4.6); Glucose 112 mg/dL (65-115); Magnesium 2.1 mg/dL (1.7-2.3); Osmolality Calculated 286 mOsm/kg (285-295); Sodium 138 mmol/L (136-145); Total Bilirubin 0.3 mg/dL (0.15-1.2); Total Protein 6.3 g/dL (6.6-8.7)
[2023-06-07] MEDS: fluoxetine 20 mg Capsule 40 MG PO (05:05)
[2023-06-07] MEDS: buPROPion XL (24 HR) 150 mg Tablet PO (05:05)
[2023-06-07 05:06] LABS: Alanine Aminotransferase 16 U/L (0-33)
[2023-06-07] MEDS: morphine 4 mg/mL SDV 1 mL 2 MG IVP ×2 (07:44→13:27)
[2023-06-07] MEDS: pantoprazole DR 40 mg Tablet PO (07:44)
[2023-06-07] MEDS: amlodipine 5 mg Tablet PO (07:44)
--- NOTE | 2023-06-07 07:50 | PC.NURSE ---
Verbal order received from Dr. Gregg Johnson to increase NS to 100mls/hr
--- NOTE | 2023-06-07 08:39 | P.PN_ITS ---
Subjective 2 Subjective: Some pain this morning. Denies any other complaints. Surgery planned for today. Medications: Reviewed: Yes Vitals/I&O/Wt Last Vital Signs Temp 97.8 F 06/07/23 08:00 Pulse 80 06/07/23 08:00 Resp 15 06/07/23 08:00 BP 141/81 06/07/23 08:00 Pulse Ox 95 06/07/23 08:00 O2 Del Method Room Air 06/07/23 08:00 06/06/23 06/07/23 06/07/23 22:59 06:59 14:59 Intake Total 360 / 360 987.5 / 1347.5 512.5 / 512.5 Output Total 800 / 800 800 / 1600 Balance -440 / -440 187.5 / -252.5 512.5 / 512.5 Weight last 48 hrs Weight 57.606 kg Weight 57.606 kg Weight 53.977 kg Physical Exam 2 Narrative: General exam is a white female, no distress Neck is supple no lymphadenopathy thyromegaly Cardiovascular regular rate and rhythm, no murmur Lungs clear no wheezing or crackles Abdomen is soft, positive bowel sounds, no obvious organomegaly Extremities no cyanosis clubbing or edema. Knee immobilizer noted Urinary Catheter Management: Black: Cath Placed During This Visit: yes Reason for Continuing Indwelling Catheter: Other Urinary Catheter Date of Insertion: 06/06/23 Urinary Catheter Time of Insertion: 10:38 Data 06/07/23 04:23 06/07/23 04:23 A&P Assessment and plan (1) Closed left hip fracture: Patient presents with mechanical fall, sustaining left hip fracture Orthopedic consultation appreciated Pain control Nausea control Hydration No direct contraindications to surgery Surgery planned for today CBC, BMP tomorrow to evaluate electrolytes following surgery and to evaluate for postoperative anemia. (2) Hypertension: Hold losartan prior to surgery (3) Recurrent UTI: Urinalysis with 0-4 white blood cells on evaluation Plan Other medical problems as outlined in past medical history. She was recently on steroids for some back pain. Considering this has been a short taper dose this was discontinued on admission Allow natural , after reviewing nursing facility records, and speaking with director of graduate medical education at [facility] for DVT prophylaxis. Pharmacological anticoagulation to occur after surgery Attestations 2 Medical Necessity Statement*: Needs continued hospital stay for definitive treatment of hip fracture Diagnoses Closed left hip fracture S72.002A Hypertension I10 Recurrent UTI N39.0 Time Spent (min) 21
--- NOTE | 2023-06-07 09:40 | PC.CHAP ---
Pastoral Care Encounter/Spiritual Assessment Type of Contact [] Declined fig caprifier visit [] Patient/Family/Request visit [] Outpatient visit [] Follow-up visit [] Physician referral [] Code/Alert [x] Routine visit [] Staff referral [] Actively dying [] Patient sleeping [] Family support [] [] Out of room [] Palliative care [] [] Receiving care in room [] Pre-surgical visit [] Trauma [] Long length of stay [] ICU visit [] Other: Relational/Emotional Strength [x] Patient feels connected with others/family/visitors/staff [] Distress [] Loneliness/isolation [] Abandonment Spirituality of Patient [x] Person of Eden [] Attends Sabianist of their Eden [x] Believes in Prayer [] Reads Bible or Mandaeism materials [] There are Spiritual issues to be addressed Gravel Screener Interventions [x] Prayer [x] Active listening [] Non-anxious presence [x] Spiritual/emotional support [] Crisis/trauma care [] Spiritual counseling [] Bereavement support [] Provided bereavement packet [] Provided Bible/devotional materials [] Provided toy/stuffed animal, coloring book to patient or family member [] Provided Communion [] Anointing/[place] [] Salvation [x] Completed spiritual assessment [] Other: Impact on Illness or Injury [] Angry [] Fearful [] Anxious [] Often cries [] Exhaustion [] Unable to work [] Unable to attend taoism [] Unable to walk/stand [] Unable to read [] Unable to drive [] Unable to eat/drink [] Unable to sleep [] Unable to be with family [] Patient intubated [] Other: Summary Time spent with patient 5 min
[2023-06-07] MEDS: sodium chloride 0.9% 1,000 ML 100 ML IV (13:27)
--- NOTE | 2023-06-07 14:35 | PC.NURSE ---
Patient to surgery at this time.
[2023-06-07] MEDS: sodium chloride 0.9% 1,000 ML 30 ML IV (14:47)
[2023-06-07] MEDS: acetaminophen 1,000 MG/100 ML PIGGYBACK 400 MG IV (14:47)
[2023-06-07] MEDS: pregabalin 150 mg Capsule 300 MG PO (14:50)
[2023-06-07] MEDS: CELEcoxib 200 mg Capsule 400 MG PO (14:50)
[2023-06-07] MEDS: gabapentin 300 mg Capsule PO (14:50)
--- NOTE | 2023-06-07 14:57 | PC.NURSE ---
pt was 92% on room air. o2 at 2 l nasal cannula put on pt.
--- NOTE | 2023-06-07 15:03 | P.ANESASSM_ITS ---
Pre-Anesthetic Assessment Height/Weight: Height 1.6 m Weight 57.606 kg Temp Pulse Resp BP Pulse Ox O2 Del Method O2 Flow Rate 98.3 F 97 18 125/74 97 Nasal Cannula 2 06/07/23 14:56 06/07/23 14:56 06/07/23 14:56 06/07/23 14:56 06/07/23 14:56 06/07/23 14:56 06/07/23 14:56 Operation Date: 06/07/23 15:15 Proposed Procedures p GAMMA NAIL(Not Applicable) - Yasmin Reeves MD Familial anesthetic complications: None Was Beta Khushboo taken within 24 hours: N/A Was Clonidine taken within 24 hours: N/A Last intake: > 8 hrs Social No alcohol and No tobacco Exam alert, oriented x 3, clear to auscultation bilaterally and regular rate & rhythm Airway Mallampati: Class II Dentition: other (no teeth) CV/HEM Hypertension GI Gastroesophageal Reflux Disease Neuropsych Cerebrovascular Accident spastic diplegia lower extremities Anesthetic Plan ASA status: 3 Anesthesia: General Risk of > 500 ml blood loss (7ml/kg in children): No Medications/Allergies Home Medications Medication Instructions Recorded Confirmed Last Taken Type bupropion HCl 150 mg 24 hr tablet, 150 mg PO QAM 04/06/21 06/06/23 01/06/23 History extended release fluoxetine 20 mg capsule (Prozac) See Rx Instructions .Route .COMPLEX 04/06/21 06/06/23 05/19/23 History clobetasol 0.05 % topical cream 1 applic topical BID 04/30/21 06/06/23 01/06/23 History [place] AFO #1 ea 07/02/22 06/06/23 Unknown Rx FAITH balance brace #1 ea 03/01/23 06/06/23 Unknown Rx hydrocodone 5 mg-acetaminophen 325 1 - 2 tab PO .Q4-6H PRN pain 7 05/20/23 06/06/23 Unknown Rx mg tablet days #40 tabs amlodipine 5 mg tablet 5 mg PO DAILY 06/06/23 06/06/23 Unknown History bisacodyl 10 mg rectal suppository 10 mg AR DAILY PRN Constipation 06/06/23 06/06/23 Unknown History (Dulcolax (bisacodyl)) halobetasol propionate 0.01 1 applic topical BID 06/06/23 06/06/23 Unknown History %-tazarotene 0.045 % lotion (Duobrii) magnesium hydroxide 400 mg/5 mL 30 ml PO DAILY PRN Constipation 06/06/23 06/06/23 Unknown History oral suspension (Milk of Magnesia) magnesium oxide 400 mg PO DAILY 06/06/23 06/06/23 Unknown History omeprazole 20 mg capsule,delayed 20 mg PO DAILY 06/06/23 06/06/23 Unknown History release prednisone 20 mg tablet See Rx Instructions .Route .COMPLEX 06/06/23 06/06/23 Unknown History sodium phosphates 19 gram-7 118 ml AR DAILY PRN Constipation 06/06/23 06/06/23 Unknown History gram/118 mL enema (Fleet Enema) solifenacin 5 mg tablet 5 mg PO DAILY 06/06/23 06/06/23 Unknown History Allergies Allergy/AdvReac Type Severity Reaction Status Date / Time No Known Allergies Allergy Verified 06/06/23 08:54 Current Medications Generic Name Dose Route Start Last Admin Trade Name Freq PRN Reason Stop Dose Admin Amlodipine Besylate 5 mg 06/07/23 09:00 06/07/23 07:44 Amlodipine 5 Mg Tablet PO 5 mg DAILY JARAD Administration Bupropion HCl 150 mg 06/07/23 06:00 06/07/23 05:05 Bupropion Xl (24 Hr) 150 Mg Tablet PO 150 mg QAM JARAD Administration Cyclobenzaprine HCl 10 mg 06/06/23 14:34 06/07/23 13:27 Cyclobenzaprine 10 Mg Tablet PO 10 mg TID PRN Administration MUSCLE SPASMS Docusate Sodium 100 mg 06/06/23 18:00 06/07/23 07:45 Docusate Sodium 100 Mg Capsule PO Not Given BID JARAD Fluoxetine HCl 40 mg 06/07/23 06:00 06/07/23 05:05 Fluoxetine 20 Mg Capsule PO 40 mg QAM JARAD Administration Fluoxetine HCl 20 mg 06/06/23 21:00 06/06/23 20:51 Fluoxetine 20 Mg Capsule PO 20 mg BEDTIME JARAD Administration Sodium Chloride 1,000 mls @ 100 mls/hr 06/06/23 11:34 06/07/23 13:27 Sodium Chloride 0.9% IV 100 mls/hr .Q10H JARAD Administration Sodium Chloride 1,000 mls @ 30 mls/hr 06/07/23 14:45 06/07/23 14:47 Sodium Chloride 0.9% IV 06/08/23 14:44 30 mls/hr .Q24H JARAD Administration Morphine Sulfate 2 mg 06/06/23 11:34 06/07/23 13:27 Morphine 4 Mg/Ml Sdv 1 Ml IVP 2 mg Q4H PRN Administration SEVERE PAIN Oxycodone HCl 5 mg 06/06/23 11:34 06/07/23 10:04 Oxycodone 5 Mg Ir Tab/Cap PO 5 mg Q6H PRN Administration SEVERE PAIN Pantoprazole Sodium 40 mg 06/07/23 09:00 06/07/23 07:[address] 40 Mg Tablet PO 40 mg DAILY JARAD Administration PFSH Anesthesia Medical History Incomplete bladder emptying Recurrent UTI Tuberculosis Psoriasis GERD (gastroesophageal reflux disease) Hepatitis C without hepatic coma Depression with anxiety Ileus Sciatica Chronically on opiate therapy Hypertension Surgical History History of bladder suspension procedure History of cataract surgery Hx of LASIK H/O: hysterectomy History of appendectomy H/O bilateral breast reduction surgery Family History Grandmother Breast cancer Maternal Mother , IN HER 50'S No problems noted. Father , IN HIS 50'S Yellow fever Denies family history of Diabetes CAD (coronary artery disease) Clotting disorder Hyperlipidemia Chronic kidney disease (CKD) Bleeding disorder Hypertension Stroke Social History Smoking and tobacco/nicotine status: former use of tobacco/nicotine Alcohol intake: never Substance/Drug Use: never Lives independently: Yes Household members: spouse Marital status: Current occupational status: retired Do you think of yourself as: Straight/Heterosexual Data Anesthesia 06/07/23 04:23 06/07/23 04:23 Short CBC 06/06/23 06/07/23 Range/Units 08:55 04:23 WBC 12.58 H 11.08 (3.29-11.43) 10^3/uL Hgb 12.90 11.90 (11.27-16.99) g/dL Hct 40.7 37.3 (36-47) % MCV 92.9 93.0 (85-98) fl Plt Count 305 198 D (157-399) 10^3/cmm Neut % (Auto) 77.7 78.6 % Neut # (Auto) 9.77 H 8.72 H (1.8-7.7) 10^3/uL BMP 06/06/23 06/07/23 08:55 04:23 Sodium 140 138 Potassium 3.5 4.0 Chloride 101 101 Carbon Dioxide 26 26 BUN 13 10 Creatinine 0.6 0.5 Glucose 116 H 112 Calcium 8.5 8.2 L Liver Function 06/06/23 06/07/23 Range/Units 08:55 04:23 Total Bilirubin 0.2 0.3 (0.15-1.2) mg/dL AST 21 12 (0-32) U/L ALT 18 16 (0-33) U/L Alkaline Phosphatase 138 H 124 H (35-105) U/L Albumin 3.9 3.7 (3.5-5.2) g/dL Urine 06/06/23 Range/Units 10:25 Urine Color Yellow (Yellow) Urine Appearance Cloudy A (CLEAR) Urine pH 8 H (5-7) Ur Specific [place] 1.010 (1.005-1.030) Urine Protein Neg (Negative) Urine Glucose (UA) Norm (Normal) Urine Ketones 1+ H (Negative) Urine Nitrate Negative (Negative) Urine Bilirubin Neg (Negative) Ur Leukocyte Esterase 1+ H (Negative) Urine RBC 0-4 H (0-2) /hpf Urine WBC 0-4 H (0-5) /hpf Coags 06/06/23 08:55 PT 14.40 INR 1.09 APTT 25.7 Cardiac Studies: 2 No Data to Display
--- NOTE | 2023-06-07 15:44 | P.HPUD_ITS ---
Surgery/Procedure H&P Update DATE OF PROCEDURE: June 07, 2023 DATE H&P PERFORMED: 06/06/23 H&P UPDATE INFORMATION: I have reviewed H&P completed within last 30 days, I have examined patient prior to procedure, No changes to prior documentation and H&P is in [facility] [place] on date indicated PLANNED PROCEDURE: Operation Date: 06/07/23 15:15 Proposed Procedures p GAMMA NAIL(Not Applicable) - Ysamin Reeves MD Related Problem List Diagnoses (1) Closed intertrochanteric fracture of left hip: Qualifiers: Encounter type: initial encounter Fracture alignment: displaced Qualified Code(s): S72.142A - Displaced intertrochanteric fracture of left femur, initial encounter for closed fracture
[2023-06-07] MEDS: ceFAZolin 2,000 MG in sodium chloride 0.9% (plus) 50 ML 100 MG IV (15:46)
[2023-06-07] MEDS: BUPivacaine 0.5% INJ 10 mL INJECTION (16:31)
[2023-06-07] MEDS: lidocaine-epi 1% 20 mL INJ 10 ML INJECTION (16:31)
[2023-06-07] MEDS: ceFAZolin 1,000 mg SDV 1000 MG IRRIGATION (16:31)
--- NOTE | 2023-06-07 16:55 | XR_ITS ---
WS: [id number] Examination: XR hip LT 2-3V wo/w pel* [id number] Reason for Exam: OR PICS Date: June 07, 2023 Comparison: None. Findings: 2 intraoperative images were obtained with 143.3 seconds of fluoroscopy. The dap is 0.379 mGy/sq cm. IMPRESSION: Images demonstrate fixation of the intertrochanteric fracture which appears well aligned Please see intraoperative note for full explanation of findings and the procedure.
--- NOTE | 2023-06-07 17:11 | PM.OP ---
Operative Report Date of procedure: June 07, 2023 Pre-op diagnosis: Left intertrochanteric hip fracture, displaced Post-op diagnosis: Left intertrochanteric hip fracture, displaced Post-op findings: Left intertrochanteric hip fracture with slight comminution Procedure done: Open reduction internal fixation left intertrochanteric hip fracture Implants: The [place] gamma 3 trochanteric nail system with a size 11 mm x 180 mm x 125 degree gamma 3 trochanteric nail with a 10.5 mm x 80 mm lag screw and a 5 mm x 32.5 mm fully threaded distal locking screw Specimens removed/disposition: None Surgeon: Yasmin Reeves MD Field Test Engineer: None Anesthesia: General (Per LMA, ASA 3) Estimated blood loss (mL): 50 IV fluids (mL): 1,000 Urine output (mL): 200 Complications: None Findings: Slightly comminuted left intertrochanteric hip fracture Condition: stable Disposition: PACU (Then return to floor for postoperative rehabilitation and pain management.) Brief History: Kelsey Hall is a 77 year old female who resides at [facility] [place] [facility] [place]. She presented to the hospital following a mechanical fall. According to the patient, she thought that she was leaning up against the wall or a door, and she fell as there was no wall or door present. She denied hitting her head. She had a kyphoplasty on May 20, and she is currently taking prednisone for back pain. This is a prednisone taper. She presented to the emergency department with the hip in a flexed position and the knee flexed as well. This was able to be straightened following sedation. Initial imaging demonstrated what appeared to be an intertrochanteric hip fracture on lateral, but AP was not able to be interpreted. Therefore, a CT scan was obtained and demonstrated an intertrochanteric hip fracture. On my review of the imaging, I have some concern that there may be a subcapital component as well, but this is nondisplaced. Plans for the surgical procedure were discussed with the patient. She was consented for the surgery given the opportunity to ask questions. Consents were signed and questions were answered. Procedure: Patient is brought to the operating theater. After undergoing adequate general anesthesia per LMA, ASA 3, the patient was transferred to the fracture table, positioned on the table and fluoroscopic guidance obtained throughout the surgical procedure. Prior to the commencement of the surgical procedure, a surgical pause was performed. At the time of the surgical pause, we confirmed the site and side of surgery as well as preoperative surgical markings and appropriate and timely administration of IV antibiotics, Ancef 2 g. Availability of equipment was also confirmed. Fluoroscopy was used to confirm the fracture was appropriately reduced in both AP and lateral planes. An incision was then made slightly above the greater trochanter to allow access to the greater trochanter. An awl was used to enter the greater trochanter and a guidewire was subsequently placed. Once the guidewire was confirmed to be in appropriate position in AP and lateral planes, reaming was accomplished over this to allow for the proximal diameter of the nail. Guidewire was then removed, an attempt was made to pass the trochanteric nail. It was too tight in the femoral canal, and therefore reaming was required. The reamers were opened and reaming was accomplished to a size 13 to allow for passage of the size 11 x 125 degree nail. An 11 mm x 180 mm x 125 degree nail was placed into appropriate position with positioning being confirmed in AP and lateral planes on the x-ray. It passed without difficulty. Guidewire was then passed through the jigging system into the femoral head. We wanted to be center or slightly inferior and posterior to center. Guidewire was placed into appropriate position. Once the guidewire was in appropriate position and this position was confirmed by x-ray. This was then measured and we chose a 80 mm lag screw. We reamed to allow for the lag screw to be placed. The 80 mm lag screw was then passed into the femoral head through the trochanteric nail. This was passed uneventfully and again position was confirmed in AP and lateral planes. Compression was obtained under fluoroscopic guidance. The set screw was then placed in position, tightened completely, and subsequently backed off one-quarter turn. The construct was left in position and attention was directed distally. Cannulas were again used to determine appropriate placement for the distal screw. This was placed in position without difficulty. It was measured off of the drill. The appropriate length screw was then obtained and placed in position without difficulty. Once the screw was in position, we confirmed appropriate placement of the components, and we removed the jigging system. Attention was then directed to closure. The hip was copiously irrigated with normal saline with antibiotics. Following this it was dried and closed. Tensor fascia brandyn was closed proximally with 0 Vicryl in an interrupted fashion. Subcutaneous tissues were closed with 2-0 Monocryl, and the skin was closed with a continuous 3-0 Monocryl subcuticular stitch. This was then covered with Tegaderm. The patient was removed from the fracture table and returned to recovery in satisfactory condition. The patient will be discharged to the floor for postoperative rehabilitation and pain management. There were no specimens obtained. Related Problem List Diagnoses (1) Closed intertrochanteric fracture of left hip:
[2023-06-07] MEDS: naloxone 0.4 mg/ml SDV 0.200000000000000011 MG IVP ×2 (17:25→19:17)
--- NOTE | 2023-06-07 19:50 | ANE.PACU2 ---
Inpatient post-anesthesia follow up: Airway intact: Yes Vital signs: Temperature 97.8 F Pulse Rate 94 Respiratory Rate 17 Blood Pressure 103/70 Pulse Oximetry 96 Oxygen Delivery Me thod [ Nasal Cannula Current Rate & Del michelle] Oxygen Delivery Me thod Nasal Cannula Oxygen Flow Rate [ Current Rate 3 & Delivery] Oxygen Flow Rate 3 Fraction of Inspir ed Oxygen Hydration adequate: Yes Nausea and vomiting: Yes Pain level: 1 Mental status: Altered (resting arouses to voice and stimuli)
--- NOTE | 2023-06-07 20:09 | CTR_ITS ---
PROCEDURE INFORMATION: Exam: CT Head Without Contrast Exam date and time: 06/07/2023 8:26 PM Age: 77 years old Clinical indication: Altered mental status/memory loss; Prior surgery; Surgery date: Post-operative (0-2 days); Surgery type: Hip; Additional info: Post opt mental staus change and unequal pupils. , Pupils unequal and dilated. Barely reactive. TECHNIQUE: Imaging protocol: Computed tomography of the head without contrast. Radiation optimization: All CT scans at this facility use at least one of these dose optimization techniques: automated exposure control; mA and/or kV adjustment per patient size (includes targeted exams where dose is matched to clinical indication); or iterative reconstruction. COMPARISON: MR head wo con* [id number] 08/02/2022 10:21 AM RADIATION DOSE METRICS: Total DLP (mGy-cm): 1145.1 FINDINGS: Brain: Subcortical and periventricular white matter changes consistent with small-vessel ischemic disease in the appropriate clinical setting. Small-vessel ischemic disease. Cerebral ventricles: No ventriculomegaly. Paranasal sinuses: Visualized sinuses are unremarkable. No fluid levels. Mastoid air cells: Visualized mastoid air cells are well aerated. Bones/joints: Unremarkable. No acute fracture. Soft tissues: Unremarkable. CT/CT head wo con* [id number] IMPRESSION: 1. No acute intracranial abnormality. 2. Small-vessel ischemic disease.
--- NOTE | 2023-06-07 20:12 | PC.NURSE ---
This nurse assessed the pt upon arrival from pacu. The pt only responds to painful stimuli and will not obey any commands or open eyes. Upon further assessment pupils are noted to be unequal and barely reactive. pt is on 3l nasal cannula saturating in the low 90s, placed on cont pulse ox. Dr. Jones was immediately notified and orders were received for a stat head CT w/o contrast, acucheck NOW, and ABG. RT was notified and assesed the pt. Charge nurse was also notified of the pts current condition. Orders were received to not a code stroke by Dr. Brown at this time.
[2023-06-07 20:15] LABS: ABG PCO2 40.5 mmHg (35-45); ABG PH Result 7.37 (7.35-7.45); Alveolar-Arterial Oxygen Gradi 4.8 mmHg (5-10); Arterial Blood Gas Hematocrit 34.3 % (37-47); Blood Gas Allen Test Pos; Blood Gas Sample Site Radial, right; Blood Gas Sample Type Arterial; Carboxyhemoglobin 0.7 %THgb (0.4-20.1); HCO3 ABG 23.2 mmol/L (22-26); HGB O2 Sat 91.1 % (95-100); Ionized Calcium Level - ABG 1.1 mmol/L (1.1-1.4); Methemoglobin 0.6 % (0.4-1.5); Oxygen Device NC; Oxygen Saturation ABG 92.4; PO2 ABG 63.6 mmHg (80.0-100.0); Potassium Level - ABG 3.3 mmol/L (3.5-5.0); Total Hemoglobin 11.2 g/dL (12-16)
[2023-06-07 20:27] LABS: Glucose Point of Care 137 mg/dL (70-110)
[2023-06-07] MEDS: naloxone 0.4 mg/ml SDV 0.100000000000000006 MG IVP (21:35)
--- NOTE | 2023-06-07 22:58 | PC.NURSE ---
This nurse called pts sonLeonides to report pts condition since surgery. All questions and concerns were answered.
[2023-06-08] VITALS (8 sets, daily range): BP systolic 97–120; BP diastolic 52–76; PULSE 75–96; RESP 16–19; TEMP 36.5–36.6; O2SAT 91–96
[2023-06-08] MEDS: ceFAZolin 2,000 MG in sodium chloride 0.9% (plus) 50 ML 100 MG IV ×3 (00:37→16:16)
[2023-06-08 05:12] LABS: Basophils % 0.3 %; Eosinophils # 0.1 10^3/uL (0.0-0.8); Eosinophils % 0.8 %; Hematocrit 31.3 % (36-47); Lymphocytes % 9.9 %; Mean Corpuscular Hemoglobin 29.7 pg (27-33); Mean Corpuscular Volume 95.7 fl (85-98); Monocytes # 0.5 10^3/uL (0.2-0.9); Monocytes % 4.8 %; Neutrophils # 8.04 10^3/uL (1.8-7.7); Neutrophils % 83.9 %; Nucleated Red Blood Cells % 0 %; Platelet Count 146 10^3/cmm (157-399); Red Blood Count 3.27 10^6/uL (3.85-5.65); Red Cell Distribution Width 15.1 % (12.1-15.1); White Blood Count 9.59 10^3/uL (3.29-11.43)
[2023-06-08 05:35] LABS: Anion Gap 11.7 (5-19); Blood Urea Nitrogen 9 mg/dL (8-23); Calcium 7.4 mg/dL (8.5-10.5); Carbon Dioxide 26 mmol/L (22-29); Chloride 105 mmol/L (98-107); Creatinine Clr Calc Pharmacy 49.0436; Glucose 109 mg/dL (65-115); Osmolality Calculated 287 mOsm/kg (285-295); Potassium 3.7 mmol/L (3.5-5.1); Sodium 139 mmol/L (136-145)
[2023-06-08] MEDS: sodium chloride 0.9% 1,000 ML 100 ML IV ×2 (05:43→16:16)
--- NOTE | 2023-06-08 07:11 | PC.NURSE ---
Pt opens eyes to verbal stimuli this morning. Bilateral pupils are reactive to light, brisk. Slightly dilated at this time. [place] are equal and strong. Pt's speech is still garbled most of the time. Am able to understand when she says yes and no . Will continue to monitor closely.
[2023-06-08] MEDS: aspirin 325 mg EC Tablet PO (08:30)
[2023-06-08] MEDS: docusate sodium 100 mg Capsule PO ×2 (08:31→17:08)
[2023-06-08] MEDS: pantoprazole DR 40 mg Tablet PO (08:31)
--- NOTE | 2023-06-08 08:57 | PM.PN ---
Subjective Subjective: Patient reports she is doing well. No complaints this morning. Following surgery yesterday she was lethargic, and a CT of her head was done and an ABG. Lethargy was likely secondary to medication effect which is since resolved. She reports some left hip pain. Medications: Reviewed: Yes Vitals/I&O/Wt Last Vital Signs Temp 97.8 F 06/08/23 08:00 Pulse 95 06/08/23 08:00 Resp 16 06/08/23 08:00 BP 108/60 06/08/23 08:00 Pulse Ox 95 06/08/23 08:00 O2 Del Method Nasal Cannula 06/08/23 08:00 O2 Flow Rate 3 06/08/23 07:09 06/07/23 06/08/23 06/08/23 22:59 06:59 14:59 Intake Total 1400 / 2400.0 1050 / 3450.0 0 / 0 Output Total 950 / 950 300 / 1250 Balance 450 / 1450.0 750 / 2200.0 0 / 0 Weight last 48 hrs Weight 60.838 kg Weight 57.606 kg Weight 57.606 kg Physical Exam Narrative: General exam is a white female, conversant and alert Neck is supple no lymphadenopathy thyromegaly Cardiovascular regular rate and rhythm, no murmur Lungs clear no wheezing or crackles Abdomen is soft, positive bowel sounds, no obvious organomegaly Extremities no cyanosis clubbing or edema. Left hip with dressing clean and dry. Dorsiflexion of the left foot without difficulty Urinary Catheter Management: Black: Cath Placed During This Visit: yes Reason for Continuing Indwelling Catheter: Other Urinary Catheter Date of Insertion: 06/06/23 Urinary Catheter Time of Insertion: 10:38 Data 06/08/23 04:45 06/08/23 04:45 A&P Assessment and plan (1) Closed left hip fracture: Patient presents with mechanical fall, sustaining left hip fracture Orthopedic consultation appreciated Pain control She is postoperative day #1 status post ORIF CBC, BMP tomorrow to evaluate electrolytes following surgery and to evaluate for postoperative anemia. (2) Hypertension: Continue to hold losartan (3) Recurrent UTI: Urinalysis with 0-4 white blood cells on evaluation Plan Acute postoperative blood loss anemia. Hemoglobin 9.7 this morning. No need for transfusion. Patient asymptomatic. Recheck tomorrow. Other medical problems as outlined in past medical history. She was recently on steroids for some back pain. Considering this has been a short taper dose this was discontinued on admission Allow natural , after reviewing nursing facility records, and speaking with music education director at [facility] for DVT prophylaxis. Surgery is placed on aspirin, full dose following hip surgery for DVT prophylaxis. Continue SCDs. Attestations Medical Necessity Statement*: Needs continued hospital stay for close monitoring following hip fracture surgery, with need for therapy sessions, close monitoring of hemoglobin. Diagnoses Closed left hip fracture S72.002A Hypertension I10 Recurrent UTI N39.0 Time Spent (min) 24
[2023-06-08] MEDS: oxyCODONE 5 mg IR Tab/Cap PO (11:02)
[2023-06-08] MEDS: acetaminophen 500 mg Tablet 1000 MG PO ×2 (12:08→20:45)
--- NOTE | 2023-06-08 13:18 | PC.SOCIAL ---
Pg 2 IMM Explained to pt Pg 2 IMM. No questions voiced. Provided pt a copy. Initialed, dated, & timed a copy & placed in chart.
--- NOTE | 2023-06-08 13:52 | P.PN_ITS ---
Vitals/I&O/Wt Last Vital Signs Temp 97.8 F 06/08/23 08:00 Pulse 95 06/08/23 08:00 Resp 18 06/08/23 11:02 BP 120/76 06/08/23 10:57 Pulse Ox 94 06/08/23 11:02 O2 Del Method Nasal Cannula 06/08/23 08:00 O2 Flow Rate 3 06/08/23 07:09 06/07/23 06/08/23 06/08/23 22:59 06:59 14:59 Intake Total 1400 / 2400.0 1050 / 3450.0 170 / 170 Output Total 950 / 950 300 / 1250 Balance 450 / 1450.0 750 / 2200.0 170 / 170 Weight last 48 hrs Weight 134 lb 2 oz Weight 127 lb Physical Exam 2 Urinary Catheter Management: Black: Cath Placed During This Visit: yes, but has since been removed by the nurse Reason for Continuing Indwelling Catheter: Perioperative Use in Selected Surgeries Urinary Catheter Date of Insertion: 06/06/23 Urinary Catheter Time of Insertion: 10:38 Date Urinary Catheter Removed: 06/08/23 Time Urinary Catheter Discontinued: 09:47 Data 06/09/23 05:06 06/09/23 05:06 Attestations 2 Medical Necessity Statement*: Postoperative care following open reduction internal fixation left hip fracture Coding Level of Care Code Acute Code for Chg Noreen
--- NOTE | 2023-06-08 14:32 | PC.NURSE ---
Pt has only voided very small amounts since salas removed this am. Unable to void on BSC x2 times. Bladder scan shows 560ml residual. Dr. Johnson advised. Will replace salas.
[2023-06-08] MEDS: fluoxetine 20 mg Capsule PO (20:46)
[2023-06-09] VITALS (7 sets, daily range): BP systolic 112–124; BP diastolic 66–74; PULSE 80–89; RESP 16–19; TEMP 36.4–36.7; O2SAT 93–97
[2023-06-09] MEDS: oxyCODONE 5 mg IR Tab/Cap PO ×2 (02:22→08:33)
[2023-06-09] MEDS: sodium chloride 0.9% 1,000 ML 100 ML IV (02:51)
[2023-06-09] MEDS: acetaminophen 500 mg Tablet 1000 MG PO (04:12)
[2023-06-09] MEDS: buPROPion XL (24 HR) 150 mg Tablet PO (05:21)
[2023-06-09] MEDS: fluoxetine 20 mg Capsule 40 MG PO (05:21)
[2023-06-09 05:35] LABS: Basophils % 0.3 %; Eosinophils # 0.2 10^3/uL (0.0-0.8); Hematocrit 29.6 % (36-47); Lymphocytes # 1.2 10^3/uL (0.8-4.8); Lymphocytes % 15.9 %; Mean Corpuscular HGB Conc 32.1 g/dL (30-55); Mean Corpuscular Hemoglobin 29.8 pg (27-33); Mean Corpuscular Volume 92.8 fl (85-98); Mean Platelet Volume 10.6 fL (7.4-10.4); Monocytes # 0.6 10^3/uL (0.2-0.9); Monocytes % 7.6 %; Neutrophils # 5.53 10^3/uL (1.8-7.7); Neutrophils % 73.7 %; Nucleated Red Blood Cells % 0 %; Platelet Count 148 10^3/cmm (157-399); Red Blood Count 3.19 10^6/uL (3.85-5.65); Red Cell Distribution Width 15.1 % (12.1-15.1)
[2023-06-09 05:53] LABS: Anion Gap 14.1 (5-19); Blood Urea Nitrogen 8 mg/dL (8-23); Calcium 7.6 mg/dL (8.5-10.5); Carbon Dioxide 25 mmol/L (22-29); Chloride 104 mmol/L (98-107); Creatinine Clr Calc Pharmacy 50.9221; Glucose 113 mg/dL (65-115); Osmolality Calculated 289 mOsm/kg (285-295); Potassium 3.1 mmol/L (3.5-5.1); Sodium 140 mmol/L (136-145)
[2023-06-09] MEDS: pantoprazole DR 40 mg Tablet PO (08:32)
[2023-06-09] MEDS: potassium chloride ER 20 mEq Tablet 40 MEQ PO (08:32)
[2023-06-09] MEDS: aspirin 325 mg EC Tablet PO (08:32)
[2023-06-09] MEDS: docusate sodium 100 mg Capsule PO (08:32)
[2023-06-09] MEDS: amlodipine 5 mg Tablet PO (08:33)
--- NOTE | 2023-06-09 09:15 | P.DS_ITS ---
Discharge Providers Date of Admission: 06/06/23 11:34 Date of Discharge: June 09, 2023 Attending Provider at Admission: Timo Johnson MD Attending Provider at Discharge: Timo Johnson MD Primary Care Provider: Tonio Rubi DO Diagnoses at Discharge Discharge Diagnosis (1) Closed left hip fracture: Status: Acute (2) Hypertension: Status: Acute (3) Recurrent UTI: Status: Acute Reason for Visit Reason for Visit: left hip pain post fall Hospital Course Hospital Course Kelsey is a 77-year-old white female currently residing in a nursing facility who was brought in for fall and sustaining a left hip fracture. She had no loss of consciousness, no other obvious injuries during this mechanical fall. Orthopedics was consulted, and ORIF occurred on June 07. Postsurgery was complicated by lethargy. ABG and CT scan head were performed with no concerning findings and this was thought to be secondary to medication effect. She returned to her baseline mental status, continue to recover, and was ready for discharge by June 09. Discharge hemoglobin 9.5. She was given opportunity ask questions, and agreed with the plan. Orthopedics intends her to use aspirin as her DVT prophylaxis, 325 mg daily for 1 month. Physical Exam Narrative: General exam no distress Neck is supple Cardiovascular regular rate and rhythm Lungs clear Abdomen is soft Extremities no cyanosis clubbing edema, left hip dressing clean and dry Urinary Catheter Management: Black: Cath Placed During This Visit: yes, but has since been removed by the nurse Reason for Continuing Indwelling Catheter: Acute Urinary Retention or Obstruction Urinary Catheter Date of Insertion: 06/08/23 Urinary Catheter Time of Insertion: 15:02 Date Urinary Catheter Removed: 06/08/23 Time Urinary Catheter Discontinued: 09:47 Discharge Data Studies Completed and Pending Completed Studies During Hospitalization Category Date Time Status CT head wo con* 60609 Routine Cat Scan 06/07/23 20:[address] hip LT wo con* 10965 Stat Cat Scan 06/06/23 09:57 Completed XR chest 1V portable [id number] Stat Exams 06/06/23 09:27 Completed XR hip LT 2-3V wo/w pel* [id number] Routine Exams 06/07/23 16:55 Completed XR hip LT 2-3V wo/w pel* [id number] Stat Exams 06/06/23 08:49 Completed Pending at discharge Category Date Time Status SARS Covid-2 Antigen Stat Lab 06/09/23 08:00 Received Radiology Impressions Chest X-Ray 06/06/23 09:27 IMPRESSION: No acute cardiopulmonary disease. Head CT 06/07/23 20:09 IMPRESSION: 1. No acute intracranial abnormality. 2. Small-vessel ischemic disease. Laboratory Results WBC 7.50 10^3/uL (3.29-11.43) 06/09/23 05:06 RBC 3.19 10^6/uL (3.85-5.65) L 06/09/23 05:06 Hgb 9.50 g/dL (11.27-16.99) L 06/09/23 05:06 Hct 29.6 % (36-47) L 06/09/23 05:06 MCV 92.8 fl (85-98) 06/09/23 05:06 MCH 29.8 pg (27-33) 06/09/23 05:06 MCHC 32.1 g/dL (30-55) 06/09/23 05:06 RDW 15.1 % (12.1-15.1) 06/09/23 05:06 Plt Count 148 10^3/cmm (157-399) L 06/09/23 05:06 MPV 10.6 fL (7.4-10.4) H 06/09/23 05:06 Neut % (Auto) 73.7 % 06/09/23 05:06 Lymph % (Auto) 15.9 % 06/09/23 05:06 [place] % (Auto) 7.6 % 06/09/23 05:06 Eos % (Auto) 2.0 % 06/09/23 05:06 Baso % (Auto) 0.3 % 06/09/23 05:06 Neut # (Auto) 5.53 10^3/uL (1.8-7.7) 06/09/23 05:06 Lymph # (Auto) 1.2 10^3/uL (0.8-4.8) 06/09/23 05:06 [place] # (Auto) 0.6 10^3/uL (0.2-0.9) 06/09/23 05:06 Eos # (Auto) 0.2 10^3/uL (0.0-0.8) 06/09/23 05:06 Baso # (Auto) 0.0 10^3/uL (0.0-0.1) 06/09/23 05:06 Nucleated RBC % (auto) 0 % 06/09/23 05:06 Nucleated RBCs # 0.0 /100WBC 06/09/23 05:06 PT 14.40 SECONDS (12.1-14.9) 06/06/23 08:55 INR 1.09 (0.8-1.2) 06/06/23 08:55 APTT 25.7 SECONDS (23.9-36.7) 06/06/23 08:55 Specimen Type Arterial 06/07/23 20:04 Sample Site Radial, right 06/07/23 20:04 ABG pH 7.37 (7.35-7.45) 06/07/23 20:04 ABG pCO2 40.5 mmHg (35-45) 06/07/23 20:04 ABG pO2 63.6 mmHg (80.0-100.0) L 06/07/23 20:04 ABG HCO3 23.2 mmol/L (22-26) 06/07/23 20:04 ABG O2 Saturation 92.4 06/07/23 20:04 ABG Base Excess -2.0 mmol/L (-2.0-2.0) 06/07/23 20:04 Aung Test Pos 06/07/23 20:04 A-a O2 Gradient 4.8 mmHg (5-10) L 06/07/23 20:04 Hematocrit 34.3 % (37-47) L 06/07/23 20:04 Hgb O2 Saturation 91.1 % (95-100) L 06/07/23 20:04 Carboxyhemoglobin 0.7 %THgb (0.4-20.1) 06/07/23 20:04 Methemoglobin 0.6 % (0.4-1.5) 06/07/23 20:04 Total Hemoglobin 11.2 g/dL (12-16) L 06/07/23 20:04 Sodium 139.0 mmol/L (131-143) 06/07/23 20:04 Potassium 3.3 mmol/L (3.5-5.0) L 06/07/23 20:04 Glucose 128.0 mg/dL (70-115) H 06/07/23 20:04 Ionized Calcium 1.1 mmol/L (1.1-1.4) 06/07/23 20:04 O2 Delivery Device Nc 06/07/23 20:04 O2 Liters/Min 2.0 % 06/07/23 20:04 Software Lead ID [email or web address] 06/07/23 20:04 Sodium 140 mmol/L (136-145) 06/09/23 05:06 Potassium 3.1 mmol/L (3.5-5.1) L 06/09/23 05:06 Chloride 104 mmol/L (98-107) 06/09/23 05:06 Carbon Dioxide 25 mmol/L (22-29) 06/09/23 05:06 Anion Gap 14.1 (5-19) 06/09/23 05:06 BUN 8 mg/dL (8-23) 06/09/23 05:06 Creatinine 0.5 mg/dL (0.5-0.9) 06/09/23 05:06 GFR Calculation Not Reportable 06/09/23 05:06 Glucose 113 mg/dL (65-115) 06/09/23 05:06 POC Glucose 137 mg/dL (70-110) H 06/07/23 20:13 Calculated Osmolality 289 mOsm/kg (285-295) 06/09/23 05:06 Calcium 7.6 mg/dL (8.5-10.5) L 06/09/23 05:06 Magnesium 2.1 mg/dL (1.7-2.3) 06/07/23 04:23 Total Bilirubin 0.3 mg/dL (0.15-1.2) 06/07/23 04:23 AST 12 U/L (0-32) 06/07/23 04:23 ALT 16 U/L (0-33) 06/07/23 04:23 Alkaline Phosphatase 124 U/L (35-105) H 06/07/23 04:23 Total Protein 6.3 g/dL (6.6-8.7) L 06/07/23 04:23 Albumin 3.7 g/dL (3.5-5.2) 06/07/23 04:23 Globulin 2.6 g/dL (1.3-4.6) 06/07/23 04:23 Urine Color Yellow (Yellow) 06/06/23 10:25 Urine Appearance Cloudy (CLEAR) A 06/06/23 10:25 Urine pH 8 (5-7) H 06/06/23 10:25 Ur Specific [place] 1.010 (1.005-1.030) 06/06/23 10:25 Urine Protein Neg (Negative) 06/06/23 10:25 Urine Glucose (UA) Norm (Normal) 06/06/23 10:25 Urine Ketones 1+ (Negative) H 06/06/23 10:25 Urine Blood Neg (Negative) 06/06/23 10:25 Urine Nitrate Negative (Negative) 06/06/23 10:25 Urine Bilirubin Neg (Negative) 06/06/23 10:25 Prot Sulfosalicylic Acd Positive (Negative) 06/06/23 10:25 Urine Urobilinogen 1 mg/dL (Negative) H 06/06/23 10:25 Ur Leukocyte Esterase 1+ (Negative) H 06/06/23 10:25 Urine RBC 0-4 /hpf (0-2) H 06/06/23 10:25 Urine WBC 0-4 /hpf (0-5) H 06/06/23 10:25 Ur Squamous Epith Cells 0-4 /hpf (0-5) H 06/06/23 10:25 Triple Phos Crystals 5-10 /hpf H 06/06/23 10:25 Amorphous Sediment 4+ /hpf 06/06/23 10:25 Urine Bacteria 1+ /hpf (NONE) H 06/06/23 10:25 Vitals Last Vital Signs Temp 97.8 F 06/09/23 07:29 Pulse 80 06/09/23 07:29 Resp 16 06/09/23 08:33 BP 124/71 06/09/23 07:29 Pulse Ox 97 06/09/23 07:29 O2 Del Method Room Air 06/09/23 07:29 O2 Flow Rate 2 06/08/23 14:01 Discharge Plan Discharge Patient Disposition: Xfer SNF Condition: Stable Prescriptions: New aspirin 325 mg Tablet,Delayed Release (Dr/Ec) 325 mg PO DAILY Qty: 30 0RF docusate sodium 100 mg Capsule 100 mg PO BID Qty: 60 0RF oxycodone 5 mg Tablet 5 mg PO Q6H PRN (Reason: Severe Pain) Qty: 20 0RF Continued bupropion HCl 150 mg tablet extended release 24 hr 150 mg PO QAM fluoxetine [Prozac] 20 mg capsule See Rx Instructions .ROUTE .COMPLEX Rx Instructions: TAKE 2 CAPSULES (40 MG) IN THE MORNING AND 1 CAPSULE (20MG) AT BEDTIME. clobetasol 0.05 % cream 1 applic topical BID (DME) [place] AFO See Rx Instructions .Route .MEDSUPPLY Qty: 1 0RF Rx Instructions: As directed by ISABELLA&O (DME) FAITH balance brace See Rx Instructions .Route .MEDSUPPLY Qty: 1 0RF Rx Instructions: As directed hydrocodone-acetaminophen 5-325 mg tablet 1 - 2 tab PO .Q4-6H PRN (Reason: pain) 7 Days Qty: 40 0RF Milk of Magnesia 400 mg/5 mL Suspension 30 ml PO DAILY PRN (Reason: Constipation) Dulcolax (bisacodyl) 10 mg Suppository 10 mg [place] DAILY PRN (Reason: Constipation) Fleet Enema 19-7 gram/118 mL Enema 118 ml [place] DAILY PRN (Reason: Constipation) omeprazole 20 mg Capsule,Delayed Release(Dr/Ec) 20 mg PO DAILY solifenacin 5 mg tablet 5 mg PO DAILY magnesium oxide 400 mg magnesium Tablet 400 mg PO DAILY Duobrii 0.01-0.045 % Lotion 1 applic TOPICAL BID Discontinued prednisone 20 mg tablet See Rx Instructions .ROUTE .COMPLEX Rx Instructions: TAKE 3 TABLETS BY MOUTH DAILY FOR 3 DAYS, 2 TABLETS DAILY FOR 2 DAYS, 1 TABLET DAILY FOR 2 DAYS, THEN DISCONTINUE amlodipine 5 mg Tablet 5 mg PO DAILY Discharge Orders: Discharge Order (Routine); Ordered 06/09/23 Ordered By: Timo Johnson Referrals: [facility] [Outside] Yasmin Reeves MD [Physician] - 06/21/23 8:00 am Tonio Rubi DO [Primary Care Provider] - 4-7 days Discharge Diet: Cardiac Discharge Activity: Limit activity as instructed Activity Restrictions/Additional Instructions: Transfer to [facility] facility Follow-up with primary care provider there in 3 to 5 days Aspirin 3 and 25 mg daily for 30 days Norvasc has been discontinued Check with orthopedics prior to discharge, further instructions and weightbearing per them as well as follow-up. Discharge Attestations Time Spent in Discharge Care*: greater than 30 min Quality Metrics Clinical Quality Measures [ No reported AMI, CVA or VTE this stay] Coding Level of Care Code 68432 Total time (in minutes) for Discharge: 34 Diagnoses Closed left hip fracture S72.002A Hypertension I10 Recurrent UTI N39.0
[2023-06-09 09:29] LABS: SARS Covid-2 Antigen negative (Negative)
== END 2023-06-09 11:58 | disposition skilled nursing facility (03) | DRG 482 ==
LOC: ER 09:57 → MEDSURG 12:46
PROVIDERS: Specialist; Student in an Organized Health Care Education/Training Program; Admitting Provider Internal Medicine; Emergency Provider Family Medicine; PCP Internal Medicine; Visit Provider Internal Medicine
PROC: 0QH736Z Insertion of Intramedullary Internal Fixation Device into Left Upper Femur, Percutaneous Approach (ICD-10-PCS; CPT 27245; principal; 2023-06-07 14:55)
DX: S72.142A Displaced intertrochanteric fracture of left femur, initial encounter for closed fracture (principal); W18.30XA Fall on same level, unspecified, initial encounter; Y92.129 Unspecified place in nursing home as the place of occurrence of the external cause; R33.9 Retention of urine, unspecified; L40.9 Psoriasis, unspecified; K21.9 Gastro-esophageal reflux disease without esophagitis; F41.9 Anxiety disorder, unspecified; F32.A Depression, unspecified; I10 Essential (primary) hypertension; Z66 Do not resuscitate; Z11.52 Encounter for screening for COVID-19; Z86.19 Personal history of other infectious and parasitic diseases; Z87.891 Personal history of nicotine dependence; Z87.440 Personal history of urinary (tract) infections
CPT/HCPCS: 36415; 36416; 36600; 51702; 70450; 71045; 73502; 73700; 76000; 80048; 80051; 80053; 81001; 82330; 82805; 82962; 83735; 85014; 85018; 85025; 85610; 85730; 87426; 93005; 94762; 94799; 96374; 97110; 97161; 97167; 97530; 97760; 99285; C1713; C1776; J0131; J0690; J2270; J2310; J2405; J2704; J3010; J3490; J7030; P9045

== ENCOUNTER → 2023-06-21 08:07 | Outpatient (BNVA) | payer OTHER, MEDICAID, SELFPAY | PROVIDERS: PCP Internal Medicine; Visit Provider Orthopaedic Surgery | DX: S72.142A Displaced intertrochanteric fracture of left femur, initial encounter for closed fracture (principal); Z98.890 Other specified postprocedural states; X58.XXXA Exposure to other specified factors, initial encounter | CPT/HCPCS: 99024 ==

== ENCOUNTER → 2023-06-29 10:14 | Outpatient (BNVA) | payer OTHER, MEDICAID, SELFPAY | PROVIDERS: PCP Internal Medicine; Visit Provider Specialist | DX: M21.372 Foot drop, left foot; M25.372 Other instability, left ankle; Z98.890 Other specified postprocedural states | CPT/HCPCS: 72100; 73502; 99024; 99213 ==

== ENCOUNTER 2023-08-01 07:38 | Emergency (ER) | payer OTHER, MEDICAID, SELFPAY ==
[2023-08-01 07:41] VITALS: BP 151/100; PULSE 100; RESP 18; TEMP 36.7; O2SAT 95; BMI 19.8
--- NOTE | 2023-08-01 07:42 | CT_ITS ---
WS: [id number] CT ABDOMEN PELVIS TECHNIQUE: Contrast-enhanced CT of the abdomen and pelvis with coronal and sagittal reformatted image s. CLINICAL INFORMATION: abd pain COMPARISON: CT 05/12/2019 DLP: 506.[address] scans at [facility] use at least one of these dose optimization techniques: automated e xposure control; mA and/or kV adjustment per patient size (includes targeted exams where dose is matc hed to clinical indication); or iterative reconstruction. FINDINGS: Black catheter. Mild diffuse bladder wall thickening with enhancement. Delayed imaging demonstrates d istention of the bladder with polyploid filling defects in the dorsal bladder just into the bladder w all suspicious for TCC/neoplasm. Recommend further evaluation with cystoscopy and urology consultatio n. Largest lesion measures 1.7 cm. Emphysematous changes in the lung bases. Bibasilar atelectasis. Calcified granuloma LEFT lower lobe. Mild diffuse fatty infiltration of the liver. Normal portal vein and splenic vein. Hepatomegaly. Norm al gallbladder. Splenic granulomas. Small esophageal hiatal hernia. Fatty atrophy of the pancreas. Ce liac and SMA are patent. Moderate aortic atheromatous disease. Normal caliber abdominal aorta. Adrena l glands are normal. Normal renal parenchymal enhancement. No hydronephrosis. Normal sigmoid colon. Prior postoperative changes vertebroplasty L3 with chronic retropulsion of the posterior superior cortex with moderate central canal stenosis. Lumbar scoliosis. Postoperative changes LEFT hip. Osteoporosis. IMPRESSION: 1. Filling defects in the dorsal bladder suspicious for polypoid neoplasm. Recommend further evaluat ion with cystoscopy and urology consultation. 2. Black catheter. Diffuse bladder wall thickening suspicious for cystitis. 3. No hydronephrosis in either kidney. 4. Lumbar scoliosis with chronic compression fracture and vertebroplasty at L3 with moderate central canal stenosis. 5. Hepatomegaly with diffuse fatty infiltration. 6. No other acute findings. Notified Tomas Yu DO at 08/01/2023 10:17 AM.
--- NOTE | 2023-08-01 07:44 | W.ED.GENADLT ---
HPI - General Adult General: Chief complaint: Vaginal Bleeding Stated complaint: Vaginal Bleeding Time Seen by Provider: 08/01/23 07:42 History of Present Illness: 78-year-old female presents emergency room chief complaint of suspected vaginal bleeding. Patient has a history of previous hysterectomy several decades ago. She is awake and alert she woke this morning to fair amount of blood in the depends. It is clotted. She denies any abdominal pain mild suprapubic discomfort no fever sweats or chills PFSH ED PFSH: Medical History Incomplete bladder emptying Recurrent UTI Tuberculosis Psoriasis GERD (gastroesophageal reflux disease) Hepatitis C without hepatic coma Depression with anxiety Ileus Sciatica Chronically on opiate therapy Hypertension Surgical History History of bladder suspension procedure History of cataract surgery Hx of LASIK H/O: hysterectomy History of appendectomy H/O bilateral breast reduction surgery Family History Grandmother Breast cancer Maternal Mother , IN HER 50'S No problems noted. Father , IN HIS 50'S Yellow fever Denies family history of Diabetes CAD (coronary artery disease) Clotting disorder Hyperlipidemia Chronic kidney disease (CKD) Bleeding disorder Hypertension Stroke Social History Smoking and tobacco/nicotine status: former use of tobacco/nicotine Alcohol intake: never Substance/Drug Use: never Lives independently: Yes Household members: spouse Marital status: Current occupational status: retired Do you think of yourself as: Straight/Heterosexual Course Vital Signs: Vital signs: Vital Signs Temperature 98.0 F 08/01/23 07:41 Pulse Rate 100 08/01/23 11:10 Respiratory Rate 18 08/01/23 11:10 Blood Pressure 150/100 08/01/23 11:10 Pulse Oximetry 95 08/01/23 11:10 Oxygen Delivery Me thod Room Air 08/01/23 07:41 MDM - General Adult Medical Decision Making Lady is actually covered from the bladder. Place Black there is a large amount of blood present were able to irrigate it aggressively and got it down to really nothing more than slightly pink-tinged fluid. Will leave the Black in to prevent bladder outlet obstruction from clots. CT shows polyps in the bladder. Will discharge patient back her hemoglobin is fine there is no sign of infection urine will be cultured she will need to see urology for cystoscopy. Discussed with her attending Dr. Rubi so he is aware of the plan and why the patient will be sent back with a Black. Medical Records I reviewed the patient's medical records. Lab Data I reviewed the patient's lab results. 08/01/23 08:00 08/01/23 08:00 Laboratory Results WBC 6.61 10^3/uL (3.29-11.43) 08/01/23 08:00 RBC 4.52 10^6/uL (3.85-5.65) 08/01/23 08:00 Hgb 13.20 g/dL (11.27-16.99) 08/01/23 08:00 Hct 41.6 % (36-47) 08/01/23 08:00 MCV 92.0 fl (85-98) 08/01/23 08:00 MCH 29.2 pg (27-33) 08/01/23 08:00 MCHC 31.7 g/dL (30-55) 08/01/23 08:00 RDW 16.0 % (12.1-15.1) H 08/01/23 08:00 Plt Count 225 10^3/cmm (157-399) 08/01/23 08:00 MPV 9.3 fL (7.4-10.4) 08/01/23 08:00 Neut % (Auto) 66.9 % 08/01/23 08:00 Lymph % (Auto) 22.2 % 08/01/23 08:00 [place] % (Auto) 8.5 % 08/01/23 08:00 Eos % (Auto) 1.4 % 08/01/23 08:00 Baso % (Auto) 0.8 % 08/01/23 08:00 Neut # (Auto) 4.43 10^3/uL (1.8-7.7) 08/01/23 08:00 Lymph # (Auto) 1.5 10^3/uL (0.8-4.8) 08/01/23 08:00 [place] # (Auto) 0.6 10^3/uL (0.2-0.9) 08/01/23 08:00 Eos # (Auto) 0.1 10^3/uL (0.0-0.8) 08/01/23 08:00 Baso # (Auto) 0.1 10^3/uL (0.0-0.1) 08/01/23 08:00 Nucleated RBC % (auto) 0 % 08/01/23 08:00 Nucleated RBCs # 0.0 /100WBC 08/01/23 08:00 PT 14.00 SECONDS (12.1-14.9) 08/01/23 08:00 INR 1.04 (0.8-1.2) 08/01/23 08:00 APTT 26.1 SECONDS (23.9-36.7) 08/01/23 08:00 Sodium 141 mmol/L (136-145) 08/01/23 08:00 Potassium 3.7 mmol/L (3.5-5.1) 08/01/23 08:00 Chloride 101 mmol/L (98-107) 08/01/23 08:00 Carbon Dioxide 30 mmol/L (22-29) H 08/01/23 08:00 Anion Gap 13.7 (5-19) 08/01/23 08:00 BUN 14 mg/dL (8-23) 08/01/23 08:00 Creatinine 0.6 mg/dL (0.5-0.9) 08/01/23 08:00 GFR Calculation Not Reportable 08/01/23 08:00 Glucose 113 mg/dL (65-115) 08/01/23 08:00 Calculated Osmolality 293 mOsm/kg (285-295) 08/01/23 08:00 Calcium 8.8 mg/dL (8.5-10.5) 08/01/23 08:00 Total Bilirubin 0.3 mg/dL (0.15-1.2) 08/01/23 08:00 AST 20 U/L (0-32) 08/01/23 08:00 ALT 15 U/L (0-33) 08/01/23 08:00 Alkaline Phosphatase 103 U/L (35-105) 08/01/23 08:00 Total Protein 6.5 g/dL (6.6-8.7) L 08/01/23 08:00 Albumin 3.9 g/dL (3.5-5.2) 08/01/23 08:00 Globulin 2.6 g/dL (1.3-4.6) 08/01/23 08:00 Urine Color Red (Yellow) A 08/01/23 08:46 Urine Appearance Turbid (CLEAR) A 08/01/23 08:46 Urine pH 8 (5-7) H 08/01/23 08:46 Ur Specific [place] 1.015 (1.005-1.030) 08/01/23 08:46 Urine Protein 1+ (Negative) H 08/01/23 08:46 Urine Glucose (UA) Norm (Normal) 08/01/23 08:46 Urine Ketones Negative (Negative) 08/01/23 08:46 Urine Blood 3+ (Negative) H 08/01/23 08:46 Urine Nitrate Negative (Negative) 08/01/23 08:46 Urine Bilirubin Neg (Negative) 08/01/23 08:46 Urine Urobilinogen Neg mg/dL (Negative) 08/01/23 08:46 Ur Leukocyte Esterase Trace (Negative) H 08/01/23 08:46 Urine RBC Too numerous to cnt /hpf (0-2) H 08/01/23 08:46 Urine WBC Not Reportable 08/01/23 08:46 Ur Squamous Epith Cells Not Reportable 08/01/23 08:46 Amorphous Sediment Not Reportable 08/01/23 08:46 Urine Bacteria Not Reportable 08/01/23 08:46 All radiology interpretation(s) finalized by discharge Discharge Plan Discharge Patient Disposition: Home Clinical Impression: Bladder polyp, Hematuria Condition: Stable Prescriptions: No Action bupropion HCl 150 mg tablet extended release 24 hr 150 mg PO QAM fluoxetine [Prozac] 20 mg capsule See Rx Instructions .ROUTE .COMPLEX Rx Instructions: TAKE 2 CAPSULES (40 MG) IN THE MORNING AND 1 CAPSULE (20MG) AT BEDTIME. clobetasol 0.05 % cream 1 applic topical BID ([facility]) [place] AFO See Rx Instructions .Route .MEDSUPPLY Qty: 1 0RF Rx Instructions: As directed by ISABELLA&O ([facility]) [place] balance brace See Rx Instructions .Route .MEDSUPPLY Qty: 1 0RF Rx Instructions: As directed magnesium hydroxide [Milk of Magnesia] 400 mg/5 mL Suspension 30 ml PO DAILY PRN (Reason: Constipation) bisacodyl [Dulcolax (bisacodyl)] 10 mg Suppository [address] DAILY PRN (Reason: Constipation) Fleet Enema 19-7 gram/118 mL Enema [address] DAILY PRN (Reason: Constipation) omeprazole 20 mg Capsule,Delayed Release(Dr/Ec) 20 mg PO DAILY solifenacin 5 mg tablet 5 mg PO DAILY magnesium oxide 400 mg magnesium Tablet 400 mg PO DAILY Duobrii 0.01-0.045 % Lotion 1 applic TOPICAL BID aspirin 325 mg Tablet,Delayed Release (Dr/Ec) 325 mg PO DAILY Qty: 30 0RF docusate sodium 100 mg Capsule 100 mg PO BID Qty: 60 0RF oxycodone 5 mg Tablet 5 mg PO Q6H PRN (Reason: Severe Pain) Qty: 20 0RF Xtampza ER 9 mg Cap,Sprinkl,Er12hr(Dont Crush) 9 mg PO BID Rx Instructions: must administer with a meal/food Discharge Orders: Discharge ED (Routine); Ordered 08/01/23 Ordered By: Tomas Yu Referrals: Tonio Rubi DO [Primary Care Provider] - Discharge Diet: Usual diet Discharge Activity: Increase activity as tolerated Patient Instructions: Opioid Safety, Pain Management Activity Restrictions/Additional Instructions: Thank you for choosing [facility] for your healthcare needs today. Please realize this is an emergency room and that we are providing you with a medical screening exam and this may not be complete and all inclusive of all the testing and or work up that you may need to determine your ailment or severity of your illness. It is very important that you follow up as instructed or that you return to the Emergency Department should you have concerns or if your condition changes or worsens in any way. You were seen today for bleeding in the perineum. On evaluation it appears to discomfort in the bladder. CT shows bladder polyps these need to be further evaluated by urology. To prevent bladder outlet obstruction recommend that the Black stay in place. There is no sign of infection at this time. Your hemoglobin is stable you can safely be discharged home your primary care doctor should make arrangements for you to see urology to further evaluate the bladder polyp seen on the CT. Coding Level of Care Code ED [employer] for Umair Sorto
[2023-08-01 08:12] LABS: Basophils # 0.1 10^3/uL (0.0-0.1); Basophils % 0.8 %; Eosinophils # 0.1 10^3/uL (0.0-0.8); Eosinophils % 1.4 %; Hematocrit 41.6 % (36-47); Lymphocytes # 1.5 10^3/uL (0.8-4.8); Lymphocytes % 22.2 %; Mean Corpuscular HGB Conc 31.7 g/dL (30-55); Mean Corpuscular Hemoglobin 29.2 pg (27-33); Mean Platelet Volume 9.3 fL (7.4-10.4); Monocytes # 0.6 10^3/uL (0.2-0.9); Monocytes % 8.5 %; Neutrophils # 4.43 10^3/uL (1.8-7.7); Neutrophils % 66.9 %; Nucleated Red Blood Cells % 0 %; Platelet Count 225 10^3/cmm (157-399); Red Blood Count 4.52 10^6/uL (3.85-5.65); White Blood Count 6.61 10^3/uL (3.29-11.43)
[2023-08-01 08:32] LABS: INR 1.04 (0.8-1.2)
[2023-08-01 08:33] LABS: Partial Thromboplastin Time 26.1 SECONDS (23.9-36.7)
[2023-08-01 08:40] LABS: Alanine Aminotransferase 15 U/L (0-33); Albumin Level 3.9 g/dL (3.5-5.2); Alkaline Phosphatase 103 U/L (35-105); Anion Gap 13.7 (5-19); Aspartate Amino Transferase 20 U/L (0-32); Blood Urea Nitrogen 14 mg/dL (8-23); Calcium 8.8 mg/dL (8.5-10.5); Carbon Dioxide 30 mmol/L (22-29); Chloride 101 mmol/L (98-107); Creatinine Clr Calc Pharmacy 45.8299; Globulin 2.6 g/dL (1.3-4.6); Glucose 113 mg/dL (65-115); Osmolality Calculated 293 mOsm/kg (285-295); Potassium 3.7 mmol/L (3.5-5.1); Sodium 141 mmol/L (136-145); Total Bilirubin 0.3 mg/dL (0.15-1.2); Total Protein 6.5 g/dL (6.6-8.7)
[2023-08-01 09:07] VITALS: RESP 16; O2SAT 95
[2023-08-01] MEDS: morphine 4 mg/mL SDV 1 mL 2 MG IVP (09:07)
[2023-08-01] MEDS: iohexol 350 mg/mL 500 mL Btl (per mL) IV (09:44)
[2023-08-01 10:38] LABS: Specific Gravity, Urine 1.015 (1.005-1.030); Urine Appearance Turbid (CLEAR); Urine Color Red (Yellow); pH Urine 8 (5-7)
[2023-08-01 10:39] LABS: Add Urine Microscopic? YES; Bilirubin Urine Neg (Negative); Blood Urine 3+ (Negative); Glucose Urine UA Norm (Normal); Ketones Urine Negative (Negative); Leukocyte Esterase Urine Trace (Negative); Nitrate Urine Negative (Negative); Protein Urine 1+ (Negative); RBC Urine TOO NUMEROUS TO CNT /hpf (0-2); Urobilinogen Urine Neg (Negative)
[2023-08-01 10:40] LABS: Add Urine Culture? Yes
--- NOTE | 2023-08-01 11:08 | PC.NURSE ---
report and dc instructions given to NH nurse
[2023-08-01 11:10] VITALS: BP 150/100; PULSE 100; RESP 18; O2SAT 95
== END 2023-08-01 11:12 | disposition home or self-care (01) ==
PROVIDERS: Emergency Provider Family Medicine; PCP Internal Medicine
DX: D41.4 Neoplasm of uncertain behavior of bladder (principal); R31.9 Hematuria, unspecified; Z79.82 Long term (current) use of aspirin; Z87.891 Personal history of nicotine dependence; Z86.19 Personal history of other infectious and parasitic diseases; I10 Essential (primary) hypertension
CPT/HCPCS: 51702; 74177; 80053; 81001; 85025; 85610; 85730; 87077; 87086; 87186; 96374; 99285; J2270; Q9967

== ENCOUNTER → 2023-08-02 08:31 | Outpatient (BNVA) | payer OTHER, MEDICAID, SELFPAY | PROVIDERS: PCP Internal Medicine; Visit Provider Orthopaedic Surgery | DX: Z98.890 Other specified postprocedural states (principal) | CPT/HCPCS: 99024 ==

== ENCOUNTER 2023-08-04 14:55 | Outpatient (CLI) | payer OTHER, MEDICAID, SELFPAY ==
--- NOTE | 2023-08-04 16:45 | MR_ITS ---
WS: [id number] MRI LUMBAR SPINE 07/12/2022 HISTORY: Low back pain hip pain. COMPARISON: 07/12/2022 TECHNIQUE: Sagittal and axial multisequence imaging is submitted. Patient was in significant pain during this examination and the study time was reduced. RIGHT curvature of the lumbar spine and increased lordosis. Patient has a known severe burst fracture at L3 and prior vertebroplasty. Retrolisthesis of the posterior superior endplate by 4.7 mm. No db ow edema is definitely identified within the vertebral body. No acute fractures. Remaining disc spaces are well preserved. Conus terminates normally at L1-2 disc level. L1-L2: Mild annular disc bulging with a shallow central disc protrusion. Mild facet arthritis. No veronica nosis. L2-L3: Marked annular disc bulging is asymmetric to the LEFT. Disc encroaching upon the ventral theca l sac and the LEFT foramen. Significant progression of the LEFT foraminal broad-based disc protrusion . Nearly completely effacing the fat in the LEFT foramen with contact on the LEFT L2 and L3 nerve graham ts. Greatest contact on the LEFT L2 nerve root. Facet joint arthritis. Mild RIGHT foraminal stenosis. L3-L4: Mild annular disc bulging with a LEFT foraminal disc protrusion mild disc encroachment upon th e LEFT subarticular recess and LEFT foramen. Very mild bilateral subarticular recess and LEFT foramin al stenosis. L4-L5: Mild annular disc bulging with ligamentum flavum and facet arthritis. There is very mild impin gement upon the subarticular recesses and the traversing L5 nerve roots. Mild bilateral foraminal veronica nosis and facet arthritis. L5-S1: Mild annular disc bulging. Mild facet arthritis. No stenosis. IMPRESSION: 1. Known burst fracture of L3 with from prior vertebroplasty, stable. Retrolisthesis of the posterio r superior endplate by 4.7 mm. 2. L2-3: Marked asymmetric disc bulging greatest to the LEFT. Significant progression of disc diseas e and stenosis since the prior study. Large LEFT foraminal disc protrusion causing severe LEFT forami nal stenosis and contact on the LEFT 2 and L3 nerve roots. Mild RIGHT foraminal stenosis. 3. L3-4: Shallow LEFT foraminal disc protrusion with encroachment upon the LEFT subarticular recess and LEFT foramen. Mild bilateral subarticular recess and LEFT foraminal stenosis. 4. L4-5: Mild impingement upon the subarticular recesses and traversing L5 nerve roots. Mild bilater al foraminal stenosis.
== END 2023-08-04 14:56 | disposition home or self-care (01) ==
LOC: RAD 14:56
PROVIDERS: PCP Internal Medicine; Visit Provider Orthopaedic Surgery
DX: Z98.890 Other specified postprocedural states (principal); S32.031D Stable burst fracture of third lumbar vertebra, subsequent encounter for fracture with routine healing; X58.XXXD Exposure to other specified factors, subsequent encounter; M51.36 Other intervertebral disc degeneration, lumbar region; M48.061 Spinal stenosis, lumbar region without neurogenic claudication
CPT/HCPCS: 72148

== ENCOUNTER → 2023-08-11 14:26 | Outpatient (BNVA) | payer OTHER, MEDICAID, SELFPAY | PROVIDERS: PCP Internal Medicine; Visit Provider Orthopaedic Surgery | DX: M21.372 Foot drop, left foot; Z98.890 Other specified postprocedural states; M48.062 Spinal stenosis, lumbar region with neurogenic claudication | CPT/HCPCS: 99214 ==

== ENCOUNTER 2023-08-17 14:22 | Outpatient (CLI) | payer OTHER, MEDICAID, SELFPAY ==
--- NOTE | 2023-08-17 14:30 | MRR_ITS ---
PROCEDURE INFORMATION: Exam: MR Left Lower Extremity Joint Without and With Contrast; Ankle Exam date and time: 08/17/2023 2:50 PM Age: 78 years old Clinical indication: Pain; Ankle; Left; Additional info: Foot drop TECHNIQUE: Imaging protocol: Magnetic resonance imaging of the left lower extremity without and with contrast. Exam focused on the ankle. Contrast material: MULTIHANCE; Contrast volume: 10 ml; Contrast route: INTRAVENOUS (IV); COMPARISON: CR XR ankle LT min 3V* [id number] 06/16/2022 2:30 PM FINDINGS: Bones/joints: There is a nondisplaced oblique fracture through the medial malleolus and nondisplaced oblique fracture through the distal fibula. There is flattening of the articular surface and bony edema but no osteochondral defect best seen on series 801 image 7 and 8. There is a nondisplaced fracture of the medial cuneiform bone. There is patchy bone marrow edema in the 1st metatarsal neck compatible with contusion or microtrabecular fracture. There is mild bony edema in the intermediate and lateral cuneiform bones and base of the 2nd through 4th metatarsals compatible with bony contusions. There is a bony contusion in the calcaneus and cuboid at the calcaneocuboid joint. There is some mild bony contusion of the medial talus and navicular bone at the talonavicular joint. The Lisfranc joint alignment is intact. No dislocation. Bone marrow fat signal intensity is preserved and there is no osteomyelitis. LIGAMENTS: Distal tibiofibular syndesmosis: Unremarkable. No tear. Anterior talofibular ligament: Unremarkable. No tear. Posterior talofibular ligament: Unremarkable. No tear. Calcaneofibular ligament: Unremarkable. No tear. Deltoid ligament complex: Unremarkable. No tear. TENDONS: Flexor tendons of foot: Unremarkable as visualized. Tibialis posterior tendon: There is mild distal tibialis posterior tendinopathy but no split or tear. Peroneal tendons: There is moderate tendinopathy of the peroneus longus and brevis tendons with tendon enlargement, flattening and increased signal in the substance with mild surrounding tenosynovitis but no complete split or tear. Extensor tendons of foot: Unremarkable as visualized. Tibialis anterior tendon: Unremarkable as visualized. Achilles tendon: There is mild distal Achilles tendinopathy with enlargement and increased signal of the tendon but no tear. Tarsal canal (Sinus tarsi): Unremarkable. Normal signal of the fat. Tarsal tunnel: Unremarkable. Soft tissues: There is abundant subcutaneous edema surrounding the ankle and midfoot. No soft tissue fluid collection or abscess. Plantar fascia: Plantar fascia is unremarkable. MR/MR ankle LT wo/w con [id number] IMPRESSION: 1. Multiple nondisplaced fractures, incomplete fractures and bony contusions in the ankle, midfoot and forefoot. This could reflect recent trauma but the multiple fractures and locations may indicate insufficiency fractures. No dislocation. Lisfranc joint alignment is intact. 2. The most prominent fractures are the nondisplaced oblique fracture through the medial malleolus, distal fibula and medial cuneiform bone. 3. There is moderate tendinopathy of the peroneus longus and brevis tendons with tendon enlargement, flattening and increased signal in the substance with mild surrounding tenosynovitis but no complete split or tear. Mild to moderate Achilles tendinopathy and mild tibialis posterior tendinopathy. No tendon tear or retraction.
[2023-08-17] MEDS: gadobenate dimeglumine 20 mL vial IV (15:17)
== END 2023-08-17 14:23 | disposition home or self-care (01) ==
LOC: RAD 14:22
PROVIDERS: PCP Internal Medicine; Visit Provider Orthopaedic Surgery
DX: M21.372 Foot drop, left foot (principal); S82.55XA Nondisplaced fracture of medial malleolus of left tibia, initial encounter for closed fracture; S82.832A Other fracture of upper and lower end of left fibula, initial encounter for closed fracture; S92.245A Nondisplaced fracture of medial cuneiform of left foot, initial encounter for closed fracture; X58.XXXA Exposure to other specified factors, initial encounter
CPT/HCPCS: 73723; A9577

== ENCOUNTER → 2023-08-25 16:53 | Outpatient (BNVA) | payer OTHER, MEDICAID, SELFPAY | PROVIDERS: PCP Internal Medicine; Visit Provider Orthopaedic Surgery | DX: S92.902D Unspecified fracture of left foot, subsequent encounter for fracture with routine healing (principal); X58.XXXD Exposure to other specified factors, subsequent encounter | CPT/HCPCS: 73610; 73630; 99214 ==

== ENCOUNTER 2023-09-17 01:50 | Emergency (ER) | payer OTHER, MEDICAID, SELFPAY ==
[2023-09-17 01:51] VITALS: BP 160/127; PULSE 93; RESP 16; TEMP 37; O2SAT 91; BMI 19.5
--- NOTE | 2023-09-17 01:56 | ED_ITS ---
HPI - Female Genitourinary General: Chief complaint: Urogenital-Female Stated complaint: blood in urine Time Seen by Provider: 09/17/23 01:53 History of Present Illness: 78-year-old female sent in with gross he maturia. [facility] Patient was seen in the ER for urinalysis as they cannot obtain one tonight. Associated symptoms: Deny abdominal pain or nausea Review of Systems Const: Denies: fever(s) or chills Card: Denies: chest pain or palpitations Resp: Denies: dyspnea or productive cough GI: Denies: abdominal pain, nausea or vomiting : Reports: other (Black catheter in place with hematuria) Psych: Reports: other (History of dementia) PFSH ED PFSH: Medical History Incomplete bladder emptying Recurrent UTI Tuberculosis Psoriasis GERD (gastroesophageal reflux disease) Hepatitis C without hepatic coma Depression with anxiety Ileus Sciatica Chronically on opiate therapy Hypertension Surgical History History of bladder suspension procedure History of cataract surgery Hx of LASIK H/O: hysterectomy History of appendectomy H/O bilateral breast reduction surgery Family History Grandmother Breast cancer Maternal Mother , IN HER 50'S No problems noted. Father , IN HIS 50'S Yellow fever Denies family history of Diabetes CAD (coronary artery disease) Clotting disorder Hyperlipidemia Chronic kidney disease (CKD) Bleeding disorder Hypertension Stroke Social History Smoking and tobacco/nicotine status: former use of tobacco/nicotine Alcohol intake: never Substance/Drug Use: never Lives independently: Yes Household members: spouse Marital status: Current occupational status: retired Do you think of yourself as: Straight/Heterosexual Physical Exam Const: COMMON NORMALS: no acute distress and alert Resp: COMMON NORMALS: clear to auscultation bilaterally AUSCULTATION: clear to auscultation bilaterally Cardio: COMMON NORMALS: regular rate and regular rhythm RATE: regular rate RHYTHM: regular rhythm : OTHER: Black catheter in place with gross hematuria Neuro: SENSORIUM/ORIENTATION: Yes alert Psych: COMMON NORMALS: cooperative Course Vital Signs: Vital signs: Vital Signs Temperature 98.6 F 09/17/23 01:51 Pulse Rate 93 09/17/23 01:51 Respiratory Rate 16 09/17/23 01:51 Blood Pressure 160/127 09/17/23 01:51 Pulse Oximetry 91 09/17/23 01:51 Oxygen Delivery Me thod Room Air 09/17/23 01:51 MDM - Female Medical Decision Making Patient's Black catheter was exchanged. Upon removal found to have a clot. New Black catheter was placed and is draining appropriately. Patient likely with a urinary tract infection will start on Keflex x 7 days. They should be sure they flush her catheter and monitor to ensure it continues to drain at the nursing facility. Patient was stable and discharged back home. No radiology studies performed this visit Discharge Plan Discharge Patient Disposition: Home Clinical Impression: Urinary tract infection, Hematuria, gross Condition: Stable Prescriptions: New cephalexin 500 mg capsule 500 mg PO Q6H 7 Days Qty: 28 0RF No Action bupropion HCl 150 mg tablet extended release 24 hr 150 mg PO QAM fluoxetine [Prozac] 20 mg capsule See Rx Instructions .ROUTE .COMPLEX Rx Instructions: TAKE 2 CAPSULES (40 MG) IN THE MORNING AND 1 CAPSULE (20MG) AT BEDTIME. clobetasol 0.05 % cream 1 applic topical BID ([facility] [place] AFO See Rx Instructions .Route .MEDSUPPLY Qty: 1 0RF Rx Instructions: As directed by ISABELLA&O ([facility] [place] MARCELL balance brace See Rx Instructions .Route .MEDSUPPLY Qty: 1 0RF Rx Instructions: As directed Botox 100 unit recon soln 400 unit IM Q90D Qty: 4 0RF Rx Instructions: Left gastrocnemius [id number],Left gastrocnemius [id number],Left [id number],Left tibialis [id number] magnesium hydroxide [Milk of Magnesia] 400 mg/5 mL Suspension 30 ml PO DAILY PRN (Reason: Constipation) bisacodyl [Dulcolax (bisacodyl)] 10 mg Suppository 10 mg CO DAILY PRN (Reason: Constipation) Fleet Enema 19-7 gram/118 mL Enema 118 ml CO DAILY PRN (Reason: Constipation) omeprazole 20 mg Capsule,Delayed Release(Dr/Ec) 20 mg PO DAILY solifenacin 5 mg tablet 5 mg PO DAILY magnesium oxide 400 mg magnesium Tablet 400 mg PO DAILY Duobrii 0.01-0.045 % Lotion 1 applic TOPICAL BID aspirin 325 mg Tablet,Delayed Release (Dr/Ec) 325 mg PO DAILY Qty: 30 0RF docusate sodium 100 mg Capsule 100 mg PO BID Qty: 60 0RF oxycodone 5 mg Tablet 5 mg PO Q6H PRN (Reason: Severe Pain) Qty: 20 0RF Xtampza ER 9 mg Cap,Sprinkl,Er12hr(Dont Crush) 9 mg PO BID Rx Instructions: must administer with a meal/food Discharge Orders: Discharge ED (Routine); Ordered 09/17/23 Ordered By: Eric Edgar Referrals: Tonio Rubi DO [Primary Care Provider] - Discharge Diet: Advance as tolerated Discharge Activity: Resume usual activity Patient Instructions: Hematuria - Female, Urinary Tract Infection in Women (DC), Opioid Safety, Pain Management Activity Restrictions/Additional Instructions: Please follow-up with your primary care provider and urologist next week. Coding Level of Care Code ED Shell [employer]onder for Umair Sorto
[2023-09-17] MEDS: sodium chloride 0.9% 500 ML IV (04:18)
--- NOTE | 2023-09-17 05:35 | PC.NURSE ---
[facility] salas catheter removed per MD verbal order
[2023-09-17 05:47] LABS: Add Urine Microscopic? YES; Bilirubin Urine Neg (Negative); Blood Urine 3+ (Negative); Glucose Urine UA Norm (Normal); Ketones Urine Negative (Negative); Leukocyte Esterase Urine 1+ (Negative); Nitrate Urine Positive (Negative); Protein Urine 3+ (Negative); Sulfosalicylic Acid Urine Positive (Negative); Urine Appearance Turbid (CLEAR); Urine Color Other (Yellow); Urobilinogen Urine Neg (Negative); pH Urine 8 (5-7)
[2023-09-17 05:48] LABS: Add Urine Culture? Yes; Bacteria Urine 3+ /hpf; Mucus Urine 2+ /hpf; RBC Urine TOO NUMEROUS TO CNT /hpf (0-2); WBC Urine 15-25 /hpf (0-5)
[2023-09-17] MEDS: oxyCODONE 5 mg IR Tab/Cap PO (05:51)
[2023-09-17 07:06] VITALS: BP 150/100; PULSE 98; O2SAT 92
--- NOTE | 2023-09-17 10:00 | PC.NURSE ---
REPORT CALLED BACK TO [facility]. [facility] STAFF NOTIFIED THAT EMS LEFT WITHOUT DISCHARGE PAPERWORK. DISCHARGE PAPERWORK WAS FAXED OVER TO [facility] BY [employer] DRIVER. PRESCRIPTION CALLED INTO [facility] BY THIS NURSE PER REQUEST FROM [facility] STAFF.
== END 2023-09-17 09:19 | disposition home or self-care (01) ==
PROVIDERS: Emergency Provider Student in an Organized Health Care Education/Training Program; PCP Internal Medicine
DX: N39.0 Urinary tract infection, site not specified (principal); R31.0 Gross hematuria; Z79.82 Long term (current) use of aspirin; Z87.891 Personal history of nicotine dependence; Z86.19 Personal history of other infectious and parasitic diseases; I10 Essential (primary) hypertension; Z87.440 Personal history of urinary (tract) infections
CPT/HCPCS: 51702; 81001; 87077; 87086; 87186; 96360; 96361; 99284; J7040

== ENCOUNTER 2023-09-17 14:25 | Emergency (ER) | payer OTHER, MEDICAID, SELFPAY ==
[2023-09-17] VITALS (13 sets, daily range): BP systolic 127–163; BP diastolic 70–139; PULSE 94–119; RESP 15–22; O2SAT 91–96
--- NOTE | 2023-09-17 14:37 | ECG_ITS ---
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 Measurements Intervals Phillips Rate: 99 P: 62 WV: 181 QRS: 219 QRSD: 85 T: 49 QT: 382 QTc: 492 Interpretive Statements SINUS RHYTHM INDETERMINATE AXIS LEFT POSTERIOR FASCICULAR BLOCK [QRS AXIS > 109, INFERIOR Q] Compared to ECG 06/06/2023 09:36:46 Indeterminate axis now present Left posterior fascicular block now present Electronically Signed On 09-18-2023 11:37:33 CDT by Bhanu Fiore M.D. [email or web address]
--- NOTE | 2023-09-17 14:37 | XRR_ITS ---
PROCEDURE INFORMATION: Exam: XR Chest Exam date and time: 09/17/2023 2:44 PM Age: 78 years old Clinical indication: Cough and dyspnea; Additional info: Dyspnea/cough TECHNIQUE: Imaging protocol: Radiologic exam of the chest. Views: 1 view. COMPARISON: CR XR chest 1V portable [id number] 06/06/2023 9:31 AM FINDINGS: Lungs: Unremarkable. No consolidation. Pleural spaces: Unremarkable. No pleural effusion. No pneumothorax. Heart/Mediastinum: Cardiac silhouette is mildly enlarged. Bones/joints: Unremarkable. XR/XR chest 1V portable [id number] IMPRESSION: Mild cardiomegaly otherwise negative chest.
--- NOTE | 2023-09-17 14:38 | CTR_ITS ---
PROCEDURE INFORMATION: Exam: CT Abdomen And Pelvis Without Contrast Exam date and time: 09/17/2023 2:50 PM Age: 78 years old Clinical indication: Other: Blood in urine; Additional info: Flank pain TECHNIQUE: Imaging protocol: Computed tomography of the abdomen and pelvis without contrast. Radiation optimization: All CT scans at this facility use at least one of these dose optimization techniques: automated exposure control; mA and/or kV adjustment per patient size (includes targeted exams where dose is matched to clinical indication); or iterative reconstruction. COMPARISON: CT abdomen pelvis w con* [id number] 08/01/2023 9:24 AM RADIATION DOSE METRICS: Total DLP (mGy-cm): 332.57 FINDINGS: Lungs: Calcified granuloma left lung base otherwise lung bases are clear. Liver: Hepatomegaly with mild fatty infiltration redemonstrated.. No mass. Gallbladder and bile ducts: Normal. No calcified stones. No ductal dilation. Pancreas: Unremarkable. Main pancreatic duct is not significantly dilated. Spleen: Normal. No splenomegaly. Adrenal glands: Normal. No mass. Kidneys and ureters: Kidneys are unremarkable. No masses, calculi hydronephrosis. Stomach and bowel: Moderate degree of retained stool throughout the large bowel that may reflect some degree of constipation. Appendix: No evidence of appendicitis. Intraperitoneal space: Unremarkable. No free air. No significant fluid collection. Vasculature: Scattered atherosclerotic changes of the abdominal aorta and iliac vessels. No aortic aneurysm. Lymph nodes: Unremarkable. No enlarged lymph nodes. Urinary bladder: There is a Black catheter balloon within the urinary bladder which is somewhat collapsed limiting assessment. However a there is irregular diffuse bladder wall thickening extending along the bladder wall that may be neoplastic or inflammatory in nature. There is also increased intraluminal density within the urinary bladder that may be due to retained blood products. Reproductive: Unremarkable as visualized. Bones/joints: Severe biconcave compression fracture with retropulsion of the superior endplate L3 vertebral body unchanged. There is some spinal stenosis at this level. There is a cephalomedullary nail within the left hip. Soft tissues: Unremarkable. CT/CT kidney stone [id number] IMPRESSION: 1. Limited assessment of the urinary bladder with Black catheter balloon in place. There is some degree of irregular bladder wall thickening present that may be inflammatory or neoplastic in nature. There is also high density intraluminal fluid within the bladder lumen suggestive of retained blood products. 2. Unremarkable CT examination of the kidneys. 3. Moderate degree of retained stool throughout the large bowel. Please correlate for constipation. 4. 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
[2023-09-17 15:50] LABS: Basophils # 0.1 10^3/uL (0.0-0.1); Basophils % 0.8 %; Eosinophils # 0.1 10^3/uL (0.0-0.8); Eosinophils % 1.2 %; Hematocrit 38.1 % (36-47); Lymphocytes # 1.1 10^3/uL (0.8-4.8); Lymphocytes % 12.3 %; Mean Corpuscular HGB Conc 31.8 g/dL (30-55); Mean Corpuscular Hemoglobin 28.7 pg (27-33); Mean Corpuscular Volume 90.5 fl (85-98); Mean Platelet Volume 9.5 fL (7.4-10.4); Monocytes # 0.7 10^3/uL (0.2-0.9); Monocytes % 7.7 %; Neutrophils # 6.95 10^3/uL (1.8-7.7); Neutrophils % 77.8 %; Nucleated Red Blood Cells % 0 %; Platelet Count 266 10^3/cmm (157-399); Red Blood Count 4.21 10^6/uL (3.85-5.65); Red Cell Distribution Width 15.8 % (12.1-15.1); White Blood Count 8.94 10^3/uL (3.29-11.43)
[2023-09-17 16:04] LABS: INR 1.04 (0.8-1.2)
[2023-09-17 16:05] LABS: Partial Thromboplastin Time 28.7 SECONDS (23.9-36.7)
[2023-09-17 16:10] LABS: Alanine Aminotransferase 10 U/L (0-33); Albumin Level 3.7 g/dL (3.5-5.2); Alkaline Phosphatase 135 U/L (35-105); Anion Gap 16.7 (5-19); Aspartate Amino Transferase 14 U/L (0-32); Blood Urea Nitrogen 13 mg/dL (8-23); Carbon Dioxide 25 mmol/L (22-29); Chloride 99 mmol/L (98-107); Glucose 103 mg/dL (65-115); Osmolality Calculated 284 mOsm/kg (285-295); Potassium 3.7 mmol/L (3.5-5.1); Sodium 137 mmol/L (136-145); Total Bilirubin 0.3 mg/dL (0.15-1.2); Total Protein 6.7 g/dL (6.6-8.7)
--- NOTE | 2023-09-17 16:29 | ED_ITS ---
Documented by User: Tomas Yu DO 09/17/23 18:15 HPI - Female Genitourinary 2 General: Chief complaint: Urogenital-Female Stated complaint: BLEEDING IN AND AROUND CATH Time Seen by Provider: 09/17/23 14:37 Source: patient Mode of arrival: EMS History of Present Illness: 78-year-old female returns to the emerge ncy room from skilled nursing. She was here overnight had some difficulty with catheter sounds like they have exchanged her cath she is having significant amount of hematuria again. She was discharged return to the emergency room no fever sweats or chills previous ER note reviewed. Patient is aware she is at the hospital but cannot give much other history. She complains of discomfort suprapubic region. No fever. Initially was a large amount of blood in the Black catheter. Onset (ago): hour(s) Urinary symptoms: Hematuria Associated symptoms: Deny abdominal pain or fevers/chills Review of Systems 2 Const: Denies: fever(s) or chills Card: Denies: chest pain Resp: Denies: dyspnea GI: Denies: abdominal pain : Reports: difficulty voiding and hematuria Musc: Denies: neck pain or back pain PFSH ED 2 PFSH: Medical History Incomplete bladder emptying Recurrent UTI Tuberculosis Psoriasis GERD (gastroesophageal reflux disease) Hepatitis C without hepatic coma Depression with anxiety Ileus Sciatica Chronically on opiate therapy Hypertension Surgical History History of bladder suspension procedure History of cataract surgery Hx of LASIK H/O: hysterectomy History of appendectomy H/O bilateral breast reduction surgery Family History Grandmother Breast cancer Maternal Mother , IN HER 50'S No problems noted. Father , IN HIS 50'S Yellow fever Denies family history of Diabetes CAD (coronary artery disease) Clotting disorder Hyperlipidemia Chronic kidney disease (CKD) Bleeding disorder Hypertension Stroke Social History Smoking and tobacco/nicotine status: former use of tobacco/nicotine Alcohol intake: never Substance/Drug Use: never Lives independently: Yes Household members: spouse Marital status: Current occupational status: retired Do you think of yourself as: Straight/Heterosexual Physical Exam 2 Const: COMMON NORMALS: no acute distress GENERAL APPEARANCE: cooperative ORIENTATION/CONSCIOUSNESS: Yes awake and Yes confused HENMT: COMMON NORMALS: normocephalic, atraumatic and hearing grossly normal bilaterally HEAD & SCALP: normocephalic and atraumatic Resp: COMMON NORMALS: normal respiratory effort, No retractions, No use of accessory muscles and clear to auscultation bilaterally AUSCULTATION: clear to auscultation bilaterally Cardio: COMMON NORMALS: regular rate, regular rhythm and No murmurs present (Cardio) RATE: regular rate RHYTHM: regular rhythm GI: COMMON NORMALS: Soft to palpation and No hepatosplenomegaly present A USCULTATION: Yes normoactive bowel sounds PALPATION: Yes Soft to palpation, No Tenderness to palpation present (GI), No Guarding due to palpation present (GI) and Yes No hepatosplenomegaly present Extremity: COMMON NORMALS: normal to inspection, capillary refill normal, no clubbing, cyanosis or edema, no calf tenderness and no pedal edema Skin: COMMON NORMALS: no rashes or lesions noted GENERAL SKIN EXAM: no rashes or lesions noted Course 2 Vital Signs: Vital signs: Vital Signs Pulse Rate 102 H 09/17/23 20:45 Respiratory Rate 18 09/17/23 20:45 Blood Pressure 127/85 09/17/23 20:45 Pulse Oximetry 93 09/17/23 20:45 Oxygen Delivery Me thod Nasal Cannula 09/17/23 14:35 Oxygen Flow Rate 2 09/17/23 14:[address] [facility] - Female Medical Decision Making Care signed out to Dr. Raya at change of shift. See final notes for diagnosis and disposition. Medical Records I reviewed the patient's medical records. Lab Data I reviewed the patient's lab results. 09/17/23 15:44 09/17/23 15:44 Radiology Impressions Chest X-Ray 09/17/23 14:37 IMPRESSION: Mild cardiomegaly otherwise negative chest. Abdomen/Pelvis CT 09/17/23 14:38 IMPRESSION: 1. Limited assessment of the urinary bladder with Black catheter balloon in place. There is some degree of irregular bladder wall thickening present that may be inflammatory or neoplastic in nature. There is also high density intraluminal fluid within the bladder lumen suggestive of retained blood products. 2. Unremarkable CT examination of the kidneys. 3. Moderate degree of retained stool throughout the large bowel. Please correlate for constipation. 4. 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 Laboratory Results WBC 8.94 10^3/uL (3.29-11.43) 09/17/23 15:44 RBC 4.21 10^6/uL (3.85-5.65) 09/17/23 15:44 Hgb 12.10 g/dL (11.27-16.99) 09/17/23 15:44 Hct 38.1 % (36-47) 09/17/23 15:44 MCV 90.5 fl (85-98) 09/17/23 15:44 MCH 28.7 pg (27-33) 09/17/23 15:44 MCHC 31.8 g/dL (30-55) 09/17/23 15:44 RDW 15.8 % (12.1-15.1) H 09/17/23 15:44 Plt Count 266 10^3/cmm (157-399) 09/17/23 15:44 MPV 9.5 fL (7.4-10.4) 09/17/23 15:44 Neut % (Auto) 77.8 % 09/17/23 15:44 Lymph % (Auto) 12.3 % 09/17/23 15:44 [place] % (Auto) 7.7 % 09/17/23 15:44 Eos % (Auto) 1.2 % 09/17/23 15:44 Baso % (Auto) 0.8 % 09/17/23 15:44 Neut # (Auto) 6.95 10^3/uL (1.8-7.7) 09/17/23 15:44 Lymph # (Auto) 1.1 10^3/uL (0.8-4.8) 09/17/23 15:44 [place] # (Auto) 0.7 10^3/uL (0.2-0.9) 09/17/23 15:44 Eos # (Auto) 0.1 10^3/uL (0.0-0.8) 09/17/23 15:44 Baso # (Auto) 0.1 10^3/uL (0.0-0.1) 09/17/23 15:44 Nucleated RBC % (auto) 0 % 09/17/23 15:44 Nucleated RBCs # 0.0 /100WBC 09/17/23 15:44 PT 13.90 SECONDS (12.1-14.9) 09/17/23 15:44 INR 1.04 (0.8-1.2) 09/17/23 15:44 APTT 28.7 SECONDS (23.9-36.7) 09/17/23 15:44 Sodium 137 mmol/L (136-145) 09/17/23 15:44 Potassium 3.7 mmol/L (3.5-5.1) 09/17/23 15:44 Chloride 99 mmol/L (98-107) 09/17/23 15:44 Carbon Dioxide 25 mmol/L (22-29) 09/17/23 15:44 Anion Gap 16.7 (5-19) 09/17/23 15:44 BUN 13 mg/dL (8-23) 09/17/23 15:44 Creatinine 0.5 mg/dL (0.5-0.9) 09/17/23 15:44 GFR Calculation Not Reportable 09/17/23 15:44 Glucose 103 mg/dL (65-115) 09/17/23 15:44 Calculated Osmolality 284 mOsm/kg (285-295) L 09/17/23 15:44 Calcium 9.0 mg/dL (8.5-10.5) 09/17/23 15:44 Total Bilirubin 0.3 mg/dL (0.15-1.2) 09/17/23 15:44 AST 14 U/L (0-32) 09/17/23 15:44 ALT 10 U/L (0-33) 09/17/23 15:44 Alkaline Phosphatase 135 U/L (35-105) H 09/17/23 15:44 Total Protein 6.7 g/dL (6.6-8.7) 09/17/23 15:44 Albumin 3.7 g/dL (3.5-5.2) 09/17/23 15:44 Globulin 3.0 g/dL (1.3-4.6) 09/17/23 15:44 All radiology interpretation(s) finalized by discharge Discharge Plan Discharge Patient Disposition: Home Clinical Impression: Hematuria, gross Condition: Stable Prescriptions: New Pyridium 100 mg tablet 100 mg PO Q8H Qty: 6 0RF No Action bupropion HCl 150 mg tablet extended release 24 hr 150 mg PO QAM fluoxetine [Prozac] 20 mg capsule See Rx Instructions .ROUTE .COMPLEX Rx Instructions: TAKE 2 CAPSULES (40 MG) IN THE MORNING AND 1 CAPSULE (20MG) AT BEDTIME. clobetasol 0.05 % cream 1 applic topical BID (DME) Bran GRIMM See Rx Instructions .Route .MEDSUPPLY Qty: 1 0RF Rx Instructions: As directed by ISABELLA&O ([facility] [place]) FAITH balance brace See Rx Instructions .Route .MEDSUPPLY Qty: 1 0RF Rx Instructions: As directed Botox 100 unit recon soln 400 unit IM Q90D Qty: 4 0RF Rx Instructions: Left gastrocnemius ,Left gastrocnemius [id number],Left [id number],Left tibialis [id number] magnesium hydroxide [Milk of Magnesia] 400 mg/5 mL Suspension 30 ml PO DAILY PRN (Reason: Constipation) bisacodyl [Dulcolax (bisacodyl)] 10 mg Suppository 10 mg ND DAILY PRN (Reason: Constipation) Fleet Enema 19-7 gram/118 mL Enema 118 ml ND DAILY PRN (Reason: Constipation) omeprazole 20 mg Capsule,Delayed Release(Dr/Ec) 20 mg PO DAILY solifenacin 5 mg tablet 5 mg PO DAILY magnesium oxide 400 mg magnesium Tablet 400 mg PO DAILY Duobrii 0.01-0.045 % Lotion 1 applic TOPICAL BID aspirin 325 mg Tablet,Delayed Release (Dr/Ec) 325 mg PO DAILY Qty: 30 0RF docusate sodium 100 mg Capsule 100 mg PO BID Qty: 60 0RF oxycodone 5 mg Tablet 5 mg PO Q6H PRN (Reason: Severe Pain) Qty: 20 0RF Xtampza ER 9 mg Cap,Sprinkl,Er12hr(Dont Crush) 9 mg PO BID Rx Instructions: must administer with a meal/food cephalexin 500 mg capsule 500 mg PO Q6H 7 Days Qty: 28 0RF Discharge Orders: Discharge ED (Routine); Ordered 09/17/23 Ordered By: Kam Raya Referrals: Tonio Rubi DO [Primary Care Provider] - 1-3 days Patient Instructions: Black Catheter Placement and Care (ED), Hematuria (ED), Opioid Safety, Pain Management Activity Restrictions/Additional Instructions: Please flush the three-way Black catheter with 500 mL normal saline every shift x 48 hours, then discontinue. Use the Pyridium as needed. Return for worsening bleeding despite treatment, fever, any other concerning symptoms. Follow-up with your doctor next week. Coding Level of Care Code ED Sleeve Sewer for Chg Fwd Documented by User: Kam Raya DO 09/17/23 23:31 HPI - Female Genitourinary 2 General: Chief complaint: Urogenital-Female Stated complaint: BLEEDING IN AND AROUND CATH Time Seen by Provider: 09/17/23 14:37 PFSH ED 2 PFSH: Medical History Incomplete bladder emptying Recurrent UTI Tuberculosis Psoriasis GERD (gastroesophageal reflux disease) Hepatitis C without hepatic coma Depression with anxiety Ileus Sciatica Chronically on opiate therapy Hypertension Surgical History History of bladder suspension procedure History of cataract surgery Hx of LASIK H/O: hysterectomy History of appendectomy H/O bilateral breast reduction surgery Family History Grandmother Breast cancer Maternal Mother , IN HER 50'S No problems noted. Father , IN HIS 50'S Yellow fever Denies family history of Diabetes CAD (coronary artery disease) Clotting disorder Hyperlipidemia Chronic kidney disease (CKD) Bleeding disorder Hypertension Stroke Social History Smoking and tobacco/nicotine status: former use of tobacco/nicotine Alcohol intake: never Substance/Drug Use: never Lives independently: Yes Household members: spouse Marital status: Current occupational status: retired Do you think of yourself as: Straight/Heterosexual Course 2 Vital Signs: Vital signs: Vital Signs Pulse Rate 102 H 09/17/23 20:45 Respiratory Rate 18 09/17/23 20:45 Blood Pressure 127/85 09/17/23 20:45 Pulse Oximetry 93 09/17/23 20:45 Oxygen Delivery Me thod Nasal Cannula 09/17/23 14:35 Oxygen Flow Rate 2 09/17/23 14:35 MDM - Female Medical Decision Making Care signed out to Dr. Raya at change of shift. See final notes for diagnosis and disposition. Patient checked out to me at shift change. 6 L of fluid have been put through this lady is following, through [facility]. Urine is now clear, with minimal clots. I talked to the PCP on-call. We discussed allowing her to go back to the skilled nursing with a flush through the catheter every shift for the next 48 hours. Orders will be written for this. She will continue the Keflex. Laboratory is not significantly changed. Prior to the patient's transport back to the nursing facility, the patient pulled her catheter with balloon intact. She did have a mild amount of bleeding which is now controlled. Three-way Black was replaced without complication. Irrigation was continued until her transport showing only a very tiny amount of clot with otherwise clear urine. Lab Data 09/17/23 15:44 09/17/23 15:44 Radiology Impressions Chest X-Ray 09/17/23 14:37 IMPRESSION: Mild cardiomegaly otherwise negative chest. Abdomen/Pelvis CT 09/17/23 14:38 IMPRESSION: 1. Limited assessment of the urinary bladder with Black catheter balloon in place. There is some degree of irregular bladder wall thickening present that may be inflammatory or neoplastic in nature. There is also high density intraluminal fluid within the bladder lumen suggestive of retained blood products. 2. Unremarkable CT examination of the kidneys. 3. Moderate degree of retained stool throughout the large bowel. Please correlate for constipation. 4. 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 Laboratory Results WBC 8.94 10^3/uL (3.29-11.43) 09/17/23 15:44 RBC 4.21 10^6/uL (3.85-5.65) 09/17/23 15:44 Hgb 12.10 g/dL (11.27-16.99) 09/17/23 15:44 Hct 38.1 % (36-47) 09/17/23 15:44 MCV 90.5 fl (85-98) 09/17/23 15:44 MCH 28.7 pg (27-33) 09/17/23 15:44 MCHC 31.8 g/dL (30-55) 09/17/23 15:44 RDW 15.8 % (12.1-15.1) H 09/17/23 15:44 Plt Count 266 10^3/cmm (157-399) 09/17/23 15:44 MPV 9.5 fL (7.4-10.4) 09/17/23 15:44 Neut % (Auto) 77.8 % 09/17/23 15:44 Lymph % (Auto) 12.3 % 09/17/23 15:44 [place] % (Auto) 7.7 % 09/17/23 15:44 Eos % (Auto) 1.2 % 09/17/23 15:44 Baso % (Auto) 0.8 % 09/17/23 15:44 Neut # (Auto) 6.95 10^3/uL (1.8-7.7) 09/17/23 15:44 Lymph # (Auto) 1.1 10^3/uL (0.8-4.8) 09/17/23 15:44 [place] # (Auto) 0.7 10^3/uL (0.2-0.9) 09/17/23 15:44 Eos # (Auto) 0.1 10^3/uL (0.0-0.8) 09/17/23 15:44 Baso # (Auto) 0.1 10^3/uL (0.0-0.1) 09/17/23 15:44 Nucleated RBC % (auto) 0 % 09/17/23 15:44 Nucleated RBCs # 0.0 /100WBC 09/17/23 15:44 PT 13.90 SECONDS (12.1-14.9) 09/17/23 15:44 INR 1.04 (0.8-1.2) 09/17/23 15:44 APTT 28.7 SECONDS (23.9-36.7) 09/17/23 15:44 Sodium 137 mmol/L (136-145) 09/17/23 15:44 Potassium 3.7 mmol/L (3.5-5.1) 09/17/23 15:44 Chloride 99 mmol/L (98-107) 09/17/23 15:44 Carbon Dioxide 25 mmol/L (22-29) 09/17/23 15:44 Anion Gap 16.7 (5-19) 09/17/23 15:44 BUN 13 mg/dL (8-23) 09/17/23 15:44 Creatinine 0.5 mg/dL (0.5-0.9) 09/17/23 15:44 GFR Calculation Not Reportable 09/17/23 15:44 Glucose 103 mg/dL (65-115) 09/17/23 15:44 Calculated Osmolality 284 mOsm/kg (285-295) L 09/17/23 15:44 Calcium 9.0 mg/dL (8.5-10.5) 09/17/23 15:44 Total Bilirubin 0.3 mg/dL (0.15-1.2) 09/17/23 15:44 AST 14 U/L (0-32) 09/17/23 15:44 ALT 10 U/L (0-33) 09/17/23 15:44 Alkaline Phosphatase 135 U/L (35-105) H 09/17/23 15:44 Total Protein 6.7 g/dL (6.6-8.7) 09/17/23 15:44 Albumin 3.7 g/dL (3.5-5.2) 09/17/23 15:44 Globulin 3.0 g/dL (1.3-4.6) 09/17/23 15:44 Discharge Plan Discharge Patient Disposition: Home Clinical Impression: Hematuria, gross Condition: Stable Prescriptions: New Pyridium 100 mg tablet 100 mg PO Q8H Qty: 6 0RF No Action bupropion HCl 150 mg tablet extended release 24 hr 150 mg PO QAM fluoxetine [Prozac] 20 mg capsule See Rx Instructions .ROUTE .COMPLEX Rx Instructions: TAKE 2 CAPSULES (40 MG) IN THE MORNING AND 1 CAPSULE (20MG) AT BEDTIME. clobetasol 0.05 % cream 1 applic topical BID ([facility] [place]) Bran AFO See Rx Instructions .Route .MEDSUPPLY Qty: 1 0RF Rx Instructions: As directed by ISABELLA&O ([facility] [place]) MARCELL barrientos See Rx Instructions .Route .MEDSUPPLY Qty: 1 0RF Rx Instructions: As directed Botox 100 unit recon soln 400 unit IM Q90D Qty: 4 0RF Rx Instructions: Left gastrocnemius [id number],Left gastrocnemius [id number],Left [id number],Left tibialis [id number] magnesium hydroxide [Milk of Magnesia] 400 mg/5 mL Suspension 30 ml PO DAILY PRN (Reason: Constipation) bisacodyl [Dulcolax (bisacodyl)] 10 mg Suppository 10 mg ND DAILY PRN (Reason: Constipation) Fleet Enema 19-7 gram/118 mL Enema 118 ml ND DAILY PRN (Reason: Constipation) omeprazole 20 mg Capsule,Delayed Release(Dr/Ec) 20 mg PO DAILY solifenacin 5 mg tablet 5 mg PO DAILY magnesium oxide 400 mg magnesium Tablet 400 mg PO DAILY Duobrii 0.01-0.045 % Lotion 1 applic TOPICAL BID aspirin 325 mg Tablet,Delayed Release (Dr/Ec) 325 mg PO DAILY Qty: 30 0RF docusate sodium 100 mg Capsule 100 mg PO BID Qty: 60 0RF oxycodone 5 mg Tablet 5 mg PO Q6H PRN (Reason: Severe Pain) Qty: 20 0RF Xtampza ER 9 mg Cap,Sprinkl,Er12hr(Dont Crush) 9 mg PO BID Rx Instructions: must administer with a meal/food cephalexin 500 mg capsule 500 mg PO Q6H 7 Days Qty: 28 0RF Discharge Orders: Discharge ED (Routine); Ordered 09/17/23 Ordered By: Kam Raya Referrals: Tonio Rubi DO [Primary Care Provider] - 1-3 days Patient Instructions: Black Catheter Placement and Care (ED), Hematuria (ED), Opioid Safety, Pain Management Activity Restrictions/Additional Instructions: Please flush the three-way Black catheter with 500 mL normal saline every shift x 48 hours, then discontinue. Use the Pyridium as needed. Return for worsening bleeding despite treatment, fever, any other concerning symptoms. Follow-up with your doctor next week. Coding Level of Care Code ED Sleeve Sewer for Umair Sorto
[2023-09-17] MEDS: sodium chloride 0.9% 1,000 ML 999 ML XX ×3 (18:14→18:35)
[2023-09-17] MEDS: haloperidol inj 5 mg/mL INJ 1 mL 3 MG IVP (19:58)
== END 2023-09-17 22:36 | disposition home or self-care (01) ==
PROVIDERS: Family Medicine; Emergency Provider Emergency Medicine; PCP Internal Medicine
DX: R31.0 Gross hematuria (principal); Z79.82 Long term (current) use of aspirin; Z87.891 Personal history of nicotine dependence; Z86.19 Personal history of other infectious and parasitic diseases; I10 Essential (primary) hypertension
CPT/HCPCS: 71045; 74176; 80053; 85025; 85610; 85730; 93005; 96361; 96374; 99285; J1630; J7030

== ENCOUNTER → 2023-09-28 10:12 | Outpatient (BNVA) | payer OTHER, MEDICAID, SELFPAY | PROVIDERS: PCP Internal Medicine; Visit Provider Podiatrist Foot & Ankle Surgery | DX: M21.372 Foot drop, left foot (principal) | CPT/HCPCS: 99213 ==

== ENCOUNTER → 2023-11-15 12:30 | Outpatient (BNVA) | payer OTHER, MEDICAID, SELFPAY | PROVIDERS: PCP Internal Medicine | DX: M21.372 Foot drop, left foot (principal); G62.9 Polyneuropathy, unspecified; G24.9 Dystonia, unspecified; M48.062 Spinal stenosis, lumbar region with neurogenic claudication | CPT/HCPCS: 95909; 95910 ==

== ENCOUNTER → 2023-11-24 10:21 | Outpatient (BNVA) | payer OTHER, MEDICAID, SELFPAY | PROVIDERS: PCP Internal Medicine; Visit Provider Orthopaedic Surgery | DX: M48.062 Spinal stenosis, lumbar region with neurogenic claudication (principal); M21.372 Foot drop, left foot | CPT/HCPCS: 99214 ==

== ENCOUNTER → 2023-12-23 09:04 | Outpatient (BNVA) | payer OTHER, MEDICAID, SELFPAY | PROVIDERS: PCP Internal Medicine; Referring Provider Internal Medicine; Visit Provider Specialist | DX: G24.9 Dystonia, unspecified (principal); G62.9 Polyneuropathy, unspecified; M48.062 Spinal stenosis, lumbar region with neurogenic claudication; G82.20 Paraplegia, unspecified; G81.12 Spastic hemiplegia affecting left dominant side | CPT/HCPCS: 64642; 99214; 99215; J0585 ==

== ENCOUNTER 2024-02-26 12:00 | Emergency (ER) | payer OTHER, MEDICAID, SELFPAY ==
[2024-02-26 12:10] VITALS: BP 158/78; PULSE 71; RESP 16; TEMP 36.9; O2SAT 95; BMI 24.7
--- NOTE | 2024-02-26 12:30 | W.ED.BACK ---
HPI - Back Pain/Injury General: Chief Complaint: Back Pain/Injury Stated Complaint: back pain Time Seen by Provider: 02/26/24 12:01 History of Present Illness: This patient is an 78-year-old white female who presents to the emergency department with low back pain that radiates into the left buttock. Patient states she had surgery on her back about a month ago. She is on Xtampza ER as well as 5 mg oxycodone tablets twice daily as needed. These medications are not helping with the pain. Related Data Home Medications Medication Instructions Recorded Confirmed bupropion HCl 150 mg 24 hr tablet, 150 mg PO QAM 04/06/21 12/23/23 extended release fluoxetine 20 mg capsule (Prozac) See Rx Instructions .Route .COMPLEX 04/06/21 12/23/23 clobetasol 0.05 % topical cream 1 applic topical BID 04/30/21 12/23/23 bisacodyl 10 mg rectal suppository 10 mg NH DAILY PRN Constipation 06/06/23 12/23/23 (Dulcolax (bisacodyl)) halobetasol propionate 0.01 1 applic topical BID 06/06/23 12/23/23 %-tazarotene 0.045 % lotion (Duobrii) magnesium hydroxide 400 mg/5 mL 30 ml PO DAILY PRN Constipation 06/06/23 12/23/23 oral suspension (Milk of Magnesia) magnesium oxide 400 mg PO DAILY 06/06/23 12/23/23 omeprazole 20 mg capsule,delayed 20 mg PO DAILY 06/06/23 12/23/23 release sodium phosphates 19 gram-7 118 ml NH DAILY PRN Constipation 06/06/23 12/23/23 gram/118 mL enema (Fleet Enema) solifenacin 5 mg tablet 5 mg PO DAILY 06/06/23 12/23/23 oxycodone myristate 9 mg capsule 9 mg PO BID 08/01/23 12/23/23 sprinkle extended release 12 hr(DON'T CRUSH) (Xtampza ER) Previous Rx's Medication Instructions Recorded [place] AFO #1 ea 07/02/22 FAITH balance brace #1 ea 03/01/23 aspirin 325 mg tablet,delayed 325 mg PO DAILY #30 tabs 06/09/23 release docusate sodium 100 mg capsule 100 mg PO BID #60 caps 06/09/23 oxycodone 5 mg tablet 5 mg PO Q6H PRN Severe Pain #20 06/09/23 tabs phenazopyridine 100 mg tablet 100 mg PO Q8H 6 doses #6 tabs 09/17/23 (Pyridium) onabotulinumtoxinA 100 unit 500 unit IM Q90D #5 ea 12/23/23 solution for injection (Botox) oxycodone-acetaminophen 5 mg-325 1 tab PO Q4H PRN pain #30 tabs 02/26/24 mg tablet Allergies Allergy/AdvReac Type Severity Reaction Status Date / Time No Known Allergies Allergy Verified 12/23/23 09:12 Review of Systems General: Reports: 10 or more systems reviewed and unremarkable except in HPI and below Musc: Reports: back pain PFSH ED PFSH: Medical History Incomplete bladder emptying Recurrent UTI Tuberculosis Psoriasis GERD (gastroesophageal reflux disease) Hepatitis C without hepatic coma Depression with anxiety Ileus Sciatica Chronically on opiate therapy Hypertension Surgical History History of bladder suspension procedure History of cataract surgery Hx of LASIK H/O: hysterectomy History of appendectomy H/O bilateral breast reduction surgery Family History Grandmother Breast cancer Maternal Mother , IN HER 50'S No problems noted. Father , IN HIS 50'S Yellow fever Denies family history of Diabetes CAD (coronary artery disease) Clotting disorder Hyperlipidemia Chronic kidney disease (CKD) Bleeding disorder Hypertension Stroke Social History Smoking and tobacco/nicotine status: former use of tobacco/nicotine Alcohol intake: never Substance/Drug Use: never Lives independently: Yes Household members: spouse Marital status: Current occupational status: retired Do you think of yourself as: Straight/Heterosexual Physical Exam Const: COMMON NORMALS: no acute distress, patient oriented x3 and no limitations GENERAL APPEARANCE: cooperative and comfortable HENMT: COMMON NORMALS: normocephalic, atraumatic, Normal nasal mucous membranes and turbinates present, moist oral mucous membranes and oropharynx normal HEAD & SCALP: normal to inspection, normocephalic and atraumatic FACE & SINUS: normal facial exam NOSE: Normal nasal mucous membranes and turbinates present Eye: COMMON NORMALS: Equal, round and reactive pupils present, EOMs intact bilaterally and conjunctivae normal GENERAL EYE: appearance normal, both eyes and all related structures CONJUNCTIVA: Yes conjunctivae normal PUPIL: Yes Equal, round and reactive pupils present Neck/C-Spine: COMMON NORMALS: supple and no JVD Chest: COMMONS NORMALS: normal inspection of the chest Resp: COMMON NORMALS: normal respiratory effort and clear to auscultation bilaterally AUSCULTATION: clear to auscultation bilaterally Cardio: COMMON NORMALS: no JVD, regular rate, regular rhythm, No gallops present (Cardio), No murmurs present (Cardio) and No rub (Cardio) RATE: regular rate RHYTHM: regular rhythm GI: COMMON NORMALS: Normal to inspection, nondistended, normoactive bowel sounds present, Soft to palpation and non-tender AUSCULTATION: Yes normoactive bowel sounds PALPATION: Yes Soft to palpation : COMMON NORMALS: Yes no CVA tenderness BLADDER/KIDNEY EXAM: Yes no CVA tenderness Back/Pelvis: COMMON NORMALS: no CVA tenderness and thoracic and lumbar spine normal to inspection Extremity: COMMON NORMALS: normal to inspection Neuro: COMMON NORMALS: patient oriented x3 and CN's II-XII intact bilaterally Psych: COMMON NORMALS: mental status grossly normal, Normal thought process present and cooperative THOUGHT PROCESS: Normal thought process present Skin: COMMON NORMALS: no rashes or lesions noted, turgor normal and no jaundice GENERAL SKIN EXAM: no rashes or lesions noted and turgor normal Course Vital Signs: Vital signs: Vital Signs Temperature 98.5 F 02/26/24 12:10 Pulse Rate 71 02/26/24 12:10 Respiratory Rate 16 02/26/24 12:10 Blood Pressure 158/78 02/26/24 12:10 Pulse Oximetry 95 02/26/24 12:10 Oxygen Delivery Me thod Room Air 02/26/24 12:10 MDM - Back Pain/Injury Medical Decision Making Patient did not appear to be in any significant distress at this time. We did give her 6 mg of morphine IM for her pain. I did write a prescription for oxycodone 5 mg tablets to be given every 4 hours as needed for pain. Recommend follow-up with primary care provider and/or spine surgeon for ongoing management of her chronic back pain. [facility] in stable condition. No radiology studies performed this visit Discharge Plan Discharge Patient Disposition: Home Clinical Impression: Back pain Qualifiers: Back pain location: low back pain Chronicity: chronic Back pain laterality: midline Sciatica presence: with sciatica Sciatica laterality: sciatica of left side Qualified Code(s): M54.42 - Lumbago with sciatica, left side Condition: Stable Prescriptions: New oxycodone-acetaminophen 5-325 mg tablet 1 tab PO Q4H PRN (Reason: pain) Qty: 30 0RF No Action bupropion HCl 150 mg tablet extended release 24 hr 150 mg PO QAM fluoxetine [Prozac] 20 mg capsule See Rx Instructions .ROUTE .COMPLEX Rx Instructions: TAKE 2 CAPSULES (40 MG) IN THE MORNING AND 1 CAPSULE (20MG) AT BEDTIME. clobetasol 0.05 % cream 1 applic topical BID [place] [place] See Rx Instructions .Route .MEDSUPPLY Qty: 1 0RF Rx Instructions: As directed by ISABELLA&O [place] [place] FAITH balance brace See Rx Instructions .Route .MEDSUPPLY Qty: 1 0RF Rx Instructions: As directed Botox 100 unit recon soln 500 unit IM Q90D Qty: 5 0RF Rx Instructions: Left gastrocnemius ,Left gastrocnemius [id number],Left [id number],Left tibialis [id number] Pyridium 100 mg tablet 100 mg PO Q8H Qty: 6 0RF magnesium hydroxide [Milk of Magnesia] 400 mg/5 mL Suspension 30 ml PO DAILY PRN (Reason: Constipation) bisacodyl [Dulcolax (bisacodyl)] 10 mg Suppository 10 mg NH DAILY PRN (Reason: Constipation) Fleet Enema 19-7 gram/118 mL Enema 118 ml NH DAILY PRN (Reason: Constipation) omeprazole 20 mg Capsule,Delayed Release(Dr/Ec) 20 mg PO DAILY solifenacin 5 mg tablet 5 mg PO DAILY magnesium oxide 400 mg magnesium Tablet 400 mg PO DAILY Duobrii 0.01-0.045 % Lotion 1 applic TOPICAL BID aspirin 325 mg Tablet,Delayed Release (Dr/Ec) 325 mg PO DAILY Qty: 30 0RF docusate sodium 100 mg Capsule 100 mg PO BID Qty: 60 0RF oxycodone 5 mg Tablet 5 mg PO Q6H PRN (Reason: Severe Pain) Qty: 20 0RF Xtampza ER 9 mg Cap,Sprinkl,Er12hr(Dont Crush) 9 mg PO BID Rx Instructions: must administer with a meal/food Discharge Orders: Discharge ED (Routine); Ordered 02/26/24 Ordered By: Kian Lemus Referrals: Tonio Rubi DO [Primary Care Provider] - Patient Instructions: Chronic Back Pain (DC), Opioid Safety, Pain Management Activity Restrictions/Additional Instructions: Please contact patient's primary care provider and/or back surgeon for ongoing management of her chronic back pain. 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
--- NOTE | 2024-02-26 12:48 | PC.NURSE ---
attempted to contact [facility] to get report from a nurse and did not get an answer @ [phone]
--- NOTE | 2024-02-26 12:52 | PC.NURSE ---
spoke with FINN Angel at [facility] @ [phone]. when staff answered the phone this RN asked for report and FINN Angel stated what are you wanting this RN asked why pt was sent and asked for any relevant background information. [facility] staff stated that pt is there d/t a back surgery, pt then suffered a fall causing a hip fx. pt refuses to get out of bed and is 'bed bound' according to the jail. pt refuses therapy, and staff states i guess she 'hits the pain pills really hard'. son told jail that at one time pt was taking 600/650mg of morphine. pt was not able to get oxy at the jail on tuesday d/t them being out and was not able to have any on tuesday until the afternoon when their medication dispenser was refilled. staff states that once pt had found out it was 'restocked' all she was doing was asking for pain meds. pt was given oxycodone 5 at 0300 this morning and then tamsa at 0800. jail states that pt will need to be arranged a ride back to facility.
[2024-02-26 13:10] VITALS: O2SAT 94
[2024-02-26] MEDS: morphine 4 mg/mL SDV 1 mL 6 MG IM (13:10)
[2024-02-26] MEDS: ondansetron 4 MG Tablet PO (13:10)
[2024-02-26 14:52] VITALS: BP 135/79; PULSE 69; RESP 16; O2SAT 92
== END 2024-02-26 14:44 | disposition home or self-care (01) ==
PROVIDERS: Emergency Provider Emergency Medicine
DX: M54.42 Lumbago with sciatica, left side (principal); Z79.82 Long term (current) use of aspirin; Z87.891 Personal history of nicotine dependence; I10 Essential (primary) hypertension
CPT/HCPCS: 96372; 99284; J2270; Q0162

== ENCOUNTER → 2024-06-04 10:49 | Outpatient (BNVA) | payer OTHER, MEDICAID, SELFPAY | PROVIDERS: PCP Internal Medicine; Visit Provider Podiatrist Foot & Ankle Surgery | DX: I73.9 Peripheral vascular disease, unspecified (principal); L60.3 Nail dystrophy; M21.372 Foot drop, left foot; M20.5X2 Other deformities of toe(s) (acquired), left foot | CPT/HCPCS: 11721; 99213 ==

== ENCOUNTER 2024-08-01 09:00 | Observation (INO) | payer OTHER, MEDICAID, SELFPAY ==
[2024-08-01] VITALS (21 sets, daily range): BP systolic 143–213; BP diastolic 80–126; PULSE 82–110; RESP 4–20; TEMP 36.4–36.8; O2SAT 92–96; BMI 22.7
--- NOTE | 2024-08-01 09:04 | CT_ITS ---
WS: [id number] CT HEAD NONCONTRAST HISTORY: Symptoms of acute stroke, left-sided weakness. TECHNIQUE: Contiguous axial imaging performed through the brain. Bone and soft tissue windows. Sagittal and coronal reformats reviewed. All CT scans at [facility] use at least one of these dose optimization techniques: automated exposure control; mA and/or kV adjustment per patient size (includes targeted exams where dose is matched to clinical indication); or iterative reconstruction. DLP: 1200.23 mGy COMPARISON: 06/07/2023 No acute intracranial hemorrhage, midline shift or mass effect. Severe cerebral atrophy and small vessel ischemic changes. New area of decreased attenuation involving the RIGHT basal ganglia. New area of ischemia extends into the RIGHT sanchez radiata. Smaller lacunar infarcts in the LEFT insular ribbon. Ventricles: Mildly dilated ventricles and extra-axial spaces on the basis of atrophy. No inferior displacement of the cerebellar tonsils. Calcification in the distal vertebral and intracranial carotid arteries. Paranasal sinuses: As visualized are clear. Mastoid air cells: Well pneumatized. Calvarium and scalp: Skull is intact with no soft tissue edema or swelling. CT/CT head thrombolytic 18361 IMPRESSION: 1. No acute intracranial hemorrhage or edema. 2. New large area of decreased attenuation in the RIGHT basal ganglia. New sin ce 06/07/2023. This is not an acute infarct. May be a subacute or remote infarct . 3. Progression of small vessel ischemic changes and atrophy since 06/07/2023. 4. Heavy calcifications in the distal vertebral and intracranial carotid arter ies. Notified Tomas Yu DO at 08/01/2024 9:20 AM.
[2024-08-01 09:14] LABS: Basophils # 0.1 10^3/uL (0.0-0.1); Basophils % 0.6 %; Eosinophils # 0.1 10^3/uL (0.0-0.8); Eosinophils % 0.6 %; Hematocrit 47.1 % (36-47); Lymphocytes # 1.7 10^3/uL (0.8-4.8); Lymphocytes % 19.3 %; Mean Corpuscular Hemoglobin 27.9 pg (27-33); Mean Corpuscular Volume 89.9 fl (85-98); Mean Platelet Volume 9.6 fL (7.4-10.4); Monocytes # 0.5 10^3/uL (0.2-0.9); Neutrophils # 6.31 10^3/uL (1.8-7.7); Neutrophils % 73.2 %; Nucleated Red Blood Cells % 0 %; Platelet Count 250 10^3/cmm (157-399); Red Blood Count 5.24 10^6/uL (3.85-5.65); Red Cell Distribution Width 15.9 % (12.1-15.1); White Blood Count 8.62 10^3/uL (3.29-11.43)
--- NOTE | 2024-08-01 09:16 | PC.NURSE ---
Patients glucose was taken at 0903 by this staff member. Patients glucose was 136
--- NOTE | 2024-08-01 09:20 | ECG_ITS ---
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 Measurements Intervals [place] Rate: 108 P: 110 AK: 169 QRS: -27 QRSD: 89 T: -17 QT: 359 QTc: 482 Interpretive Statements SINUS TACHYCARDIA INDETERMINATE AXIS PATTERN CONSISTENT WITH PULMONARY DISEASE INFERIOR MYOCARDIAL INFARCTION , OF INDETERMINATE AGE [40+ ms Q WAVE AND/OR ST/T ABNORMALITY IN II/aVF] Compared to ECG 09/17/2023 15:04:20 Myocardial infarct finding now present Sinus rhythm no longer present Left posterior fascicular block no longer present Electronically Signed On 08-01-2024 21:25:39 CDT by Dahiana Boyle M.D. [email or web address]
[2024-08-01 09:21] LABS: Glucose Point of Care 136 mg/dL (70-110)
--- NOTE | 2024-08-01 09:23 | W.ED.NEUROSD ---
HPI - Neuro Symptoms/Deficit General: Chief Complaint: Neuro Symptoms/Deficit Stated Complaint: Stroke Alert Time Seen by Provider: 08/01/24 09:03 History of Present Illness: 79-year-old female who presents to the emergency room with complaint of sudden onset of right left-sided weakness. Last known well was 830. 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 However on her CT there is an area of subacute infarct that is concerning for being just a few days old. She is willing to undergo thrombolysis however there is a concern that we may initiate a bleed because of the subacute area. I discussed Dr. Diop she advised further imaging reviewed with Dr. Guerra she advised CTA head and neck and MRI of head without as this would be the fastest imaging to keep us within the window of opportunity for thrombolysis if the patient wishes to proceed with that. See NIH scoring below. Associated symptoms: Deny chest pain Related Data Home Medications ?Medication ?Instructions ?Recorded ?Confirmed fluoxetine 20 mg capsule (Prozac) See Rx Instructions .Route .COMPLEX 04/06/21 08/01/24 clobetasol 0.05 % topical cream 1 applic topical BID 04/30/21 08/01/24 bisacodyl 10 mg rectal suppository 10 mg [place] DAILY PRN Constipation 06/06/23 08/01/24 (Dulcolax (bisacodyl)) magnesium hydroxide 400 mg/5 mL 30 ml PO DAILY PRN Constipation 06/06/23 08/01/24 oral suspension (Milk of Magnesia) magnesium oxide 400 mg PO DAILY 06/06/23 08/01/24 omeprazole 20 mg capsule,delayed 20 mg PO DAILY 06/06/23 08/01/24 release sodium phosphates 19 gram-7 118 ml [place] DAILY PRN Constipation 06/06/23 08/01/24 gram/118 mL enema (Fleet Enema) oxycodone myristate 9 mg capsule 9 mg PO BID 08/01/23 08/01/24 sprinkle extended release 12 hr(DON'T CRUSH) (Xtampza ER) aspirin 325 mg tablet,delayed 650 mg PO .Q4-6H 08/01/24 08/01/24 release calcipotriene 0.005 % topical cream 1 applic topical BID 08/01/24 08/01/24 loperamide 2 mg capsule 4 mg PO Q4H PRN Constipation 08/01/24 08/01/24 oxycodone 5 mg tablet 5 mg PO BID PRN Severe Pain 08/01/24 08/01/24 polyethylene glycol 3350 17 17 g PO DAILY 08/01/24 08/01/24 gram/dose oral powder Previous Rx's ?Medication ?Instructions ?Recorded docusate sodium 100 mg capsule 100 mg PO BID #60 caps 06/09/23 Allergies Allergy/AdvReac Type Severity Reaction Status Date / Time No Known Allergies Allergy Verified 06/04/24 10:51 Review of Systems Card: Denies: chest pain Resp: Denies: dyspnea GI: Denies: abdominal pain : Denies: dysuria, urinary frequency or urinary urgency PFSH ED PFSH: Medical History Contracture of muscle, left lower leg 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 (do not resuscitate) 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 Foot fracture, left Closed intertrochanteric fracture of left hip Fracture of greater tuberosity of left humerus Neurologic gait disorder Lumbar stenosis with neurogenic claudication Lacunar stroke Incomplete bladder emptying Recurrent UTI Tuberculosis Psoriasis GERD (gastroesophageal reflux disease) Hepatitis C without hepatic coma Depression with anxiety Ileus Sciatica Chronically on opiate therapy Hypertension Surgical History Status post lumbar laminectomy History of bladder suspension procedure History of cataract surgery Hx of LASIK H/O: hysterectomy History of appendectomy H/O bilateral breast reduction surgery Family History Grandmother Breast cancer Maternal Mother , IN HER 50'S No problems noted. Father , IN HIS 50'S Yellow fever Denies family history of Diabetes CAD (coronary artery disease) Clotting disorder Hyperlipidemia Chronic kidney disease (CKD) Bleeding disorder Hypertension Stroke Social History Smoking and tobacco/nicotine status: unknown if used tobacco/nicotine Alcohol intake: never Substance/Drug Use: never Lives independently: Yes Household members: spouse Marital status: Current occupational status: retired Do you think of yourself as: Straight/Heterosexual NIH stroke score NIHSS: Level Of Consciousness - 1a: 0 Level Of Consciousness Questions - 1b: Both Correct Level Of Consciousness Commands - 1c: Both Correct Best Gaze - 2: Forced Deviation Visual Sesay - 3: Complete Hemianopia Facial Palsy - 4: Partial Paralysis Motor Arm Right - 5: No Drift Motor Arm Left - 5: No Effort Against [place] Motor Leg Right - 6: No Drift Motor Leg Left - 6: No Effort Against [place] Limb Ataxia - 7: Present In Two Limbs Sensory - 8: Normal Best Language - 9: Mild/Moderate Aphasia Dysarthia - 10: Mild/Moderate Dysarthia Extinction And Inattention - 11: 1 Score: Total Score: 17 Physical Exam Const: GENERAL APPEARANCE: cooperative ORIENTATION/CONSCIOUSNESS: Yes awake, Yes oriented to person, Yes oriented to place and Yes oriented to time HENMT: COMMON NORMALS: normocephalic, atraumatic and hearing grossly normal bilaterally HEAD & SCALP: normocephalic and atraumatic Resp: COMMON NORMALS: normal respiratory effort, No retractions, No use of accessory muscles and clear to auscultation bilaterally AUSCULTATION: clear to auscultation bilaterally Cardio: COMMON NORMALS: regular rate, regular rhythm and No murmurs present (Cardio) RATE: regular rate RHYTHM: regular rhythm GI: COMMON NORMALS: Soft to palpation and No hepatosplenomegaly present AUSCULTATION: Yes normoactive bowel sounds PALPATION: Yes Soft to palpation, No Tenderness to palpation present (GI), No Guarding due to palpation present (GI) and Yes No hepatosplenomegaly present : OTHER: No presacral ulcer is noted on exam. Extremity: COMMON NORMALS: normal to inspection, capillary refill normal, no clubbing, cyanosis or edema, no calf tenderness and no pedal edema OTHER: Contracture at the left hip reported to be chronic. Neuro: SENSORIUM/ORIENTATION: Yes oriented to person, Yes oriented to place and Yes oriented to time Skin: COMMON NORMALS: no rashes or lesions noted GENERAL SKIN EXAM: no rashes or lesions noted Course Vital Signs: Vital signs: Vital Signs Temperature 97.6 F 08/01/24 15:31 Pulse Rate 89 08/01/24 15:31 Respiratory Rate 18 08/01/24 15:31 Blood Pressure 150/83 08/01/24 15:31 Pulse Oximetry 95 08/01/24 15:31 Oxygen Delivery Me thod Room Air 08/01/24 15:31 MDM - Neuro Symptoms/Deficit Medical Decision Making Initial information was at the last normal was 830. CT was done there is no bleeding but when I discussed Dr. Clinton she reports in subacute areas she is very concerned about we had planned on giving TNKase and then held off because of this finding. I discussed with Dr. Diop while she was not on-call today she was kind enough to review the case with me and make recommendations. This was done because we were able to expedite the issue more quickly and were hoping to stay within the window if patient was still going to be a candidate for TNKase. I also conferred with Dr. Guerra ultimately was recommended that we do a CTA of the head and neck and MRI of the head without contrast disease is a test that could most quickly be done and help determine whether or not patient be a TNKase candidate. Unfortunately it appears this is a subacute area and Dr. Krause recommended against TNKase feeling most likely would bleed if we gave the TNKase at this time. We contacted the retirement while we are in the process of getting the imaging done and found that there was a visual reviewed with patient and it was reported she appeared to be normal but when they actually went to feed the patient around 830 then she did not seem to be able to function well. On further questioning was found at the evening nursing staff at the retirement felt that something was not quite wiped right with the patient at bedtime the night before. This likely shows last known well into last evening which fits with the radiographic findings. CTA did not show any large vessel occlusion. Reviewed the findings again with Dr. Diop she agrees that at this point point the patient is not a candidate for any intervention either with thrombolytics or by embolectomy. She recommends admission for further workup and initiation of therapies. Additionally her blood pressure is elevated in the emergency room she was given labetalol x 2 and allowed permissive hypertension blood pressure will need to be controlled prior to discharge. Lab Data 08/01/24 09:02 08/01/24 09:[address] 08/01/24 09:04 IMPRESSION: 1. No acute intracranial hemorrhage or edema. 2. New large area of decreased attenuation in the RIGHT basal ganglia. New since 06/07/2023. This is not an acute infarct. May be a subacute or remote infarct. 3. Progression of small vessel ischemic changes and atrophy since 06/07/2023. 4. Heavy calcifications in the distal vertebral and intracranial carotid arteries. Notified Tomas Yu DO at 08/01/2024 9:20 AM. Head/Neck CTA 08/01/24 10:03 IMPRESSION: 1. No [place] occlusions or significant atherosclerotic disease. 2. Mild scattered plaque in the carotid cavernous sinuses with stenosis less than 50%. 3. LEFT cervical ICA stenosis calculated at 48%. 4. RIGHT cervical ICA stenosis less than 50%. 5. Small caliber LEFT transverse sinus. No thrombus is identified. This can be further evaluated on the follow-up MRI brain being obtained on the same day. Suspect this is normal variation in size. Similar appearance on the head CT of 03/23/2016. Head MRI 08/01/24 10:20 IMPRESSION: 1. Restricted diffusion in the RIGHT sanchez radiata compatible with acute to subacute ischemia measuring 3.5 x 1.5 cm. 2. Associated edema in the area of ischemia although no significant mass effect or midline shift. 3. Moderate small vessel changes with moderate parenchymal volume loss worse in the frontal lobes. 4. Chronic lacunar infarcts in the cerebellum. 5. Remainder of exam is extremely limited due to motion artifact Notified Tomas Yu DO at 08/01/2024 11:52 AM. Laboratory Results WBC 8.62 10^3/uL (3.29-11.43) 08/01/24 09:02 RBC 5.24 10^6/uL (3.85-5.65) 08/01/24 09:02 Hgb 14.60 g/dL (11.27-16.99) 08/01/24 09:02 Hct 47.1 % (36-47) H 08/01/24 09:02 MCV 89.9 fl (85-98) 08/01/24 09:02 MCH 27.9 pg (27-33) 08/01/24 09:02 MCHC 31.0 g/dL (30-55) 08/01/24 09:02 RDW 15.9 % (12.1-15.1) H 08/01/24 09:02 Plt Count 250 10^3/cmm (157-399) 08/01/24 09:02 MPV 9.6 fL (7.4-10.4) 08/01/24 09:02 Neut % (Auto) 73.2 % 08/01/24 09:02 Lymph % (Auto) 19.3 % 08/01/24 09:02 [place] % (Auto) 6.0 % 08/01/24 09:02 Eos % (Auto) 0.6 % 08/01/24 09:02 Baso % (Auto) 0.6 % 08/01/24 09:02 Neut # (Auto) 6.31 10^3/uL (1.8-7.7) 08/01/24 09:02 Lymph # (Auto) 1.7 10^3/uL (0.8-4.8) 08/01/24 09:02 [place] # (Auto) 0.5 10^3/uL (0.2-0.9) 08/01/24 09:02 Eos # (Auto) 0.1 10^3/uL (0.0-0.8) 08/01/24 09:02 Baso # (Auto) 0.1 10^3/uL (0.0-0.1) 08/01/24 09:02 Nucleated RBC % (auto) 0 % 08/01/24 09:02 Nucleated RBCs # 0.0 /100WBC 08/01/24 09:02 PT 14.90 SECONDS (12.1-14.9) 08/01/24 09:02 INR 1.09 (0.8-1.2) 08/01/24 09:02 APTT 28.7 SECONDS (23.9-36.7) 08/01/24 09:02 Sodium 141 mmol/L (136-145) 08/01/24 09:25 Potassium 3.6 mmol/L (3.5-5.1) 08/01/24 09:25 Chloride 101 mmol/L (98-107) 08/01/24 09:25 Carbon Dioxide 23 mmol/L (22-29) 08/01/24 09:25 Anion Gap 20.6 (5-19) H 08/01/24 09:25 BUN 14 mg/dL (8-23) 08/01/24 09:25 Creatinine 0.5 mg/dL (0.5-0.9) 08/01/24 09:25 GFR Calculation Not Reportable 08/01/24 09:25 Glucose 144 mg/dL (65-115) H 08/01/24 09:25 POC Glucose 136 mg/dL (70-110) H 08/01/24 09:03 Estimat Average Glucose 128 08/01/24 09:02 Hemoglobin A1c 6.1 % (4.0-6.0) H 08/01/24 09:02 Calculated Osmolality 295 mOsm/kg (285-295) 08/01/24:25 Calcium 9.4 mg/dL (8.5-10.5) 08/01/24 09:25 Iron 41 ug/dL (37-145) 08/01/24:25 TIBC 305 mcg/dl 08/01/24: % Saturation 13.4 % (20-50) L 08/01/24:25 Unsat Iron Binding 264 ug/dL (112-347) 08/01/24 09:25 Total Bilirubin 0.5 mg/dL (0.15-1.2) 08/01/24:25 AST 15 U/L (0-32) 08/01/24 09:25 ALT 9 U/L (0-33) 08/01/24 09:25 Alkaline Phosphatase 86 U/L (35-105) 08/01/24 09:25 Total Protein 8.3 g/dL (6.6-8.7) 08/01/24 09:25 Albumin 4.5 g/dL (3.5-5.2) 08/01/24 09:25 Globulin 3.8 g/dL (1.3-4.6) 08/01/24 09:25 Vitamin B12 440 pg/mL (232-1245) 08/01/24 09:25 Procalcitonin 0.05 ng/mL (0-0.5) 08/01/24 09:25 TSH 1.53 uIU/mL (0.27-4.20) 08/01/24 09:25 Urine Color Yellow (Yellow) 08/01/24 12:45 Urine Appearance Clear (CLEAR) 08/01/24 12:45 Urine pH 6.0 (5-7) 08/01/24 12:45 Ur Specific [place] 1.097 (1.005-1.030) H 08/01/24 12:45 Urine Protein 1+ (Negative) A 08/01/24 12:45 Urine Glucose (UA) Negative (Normal) 08/01/24 12:45 Urine Ketones Trace (Negative) 08/01/24 12:45 Urine Blood Non-haemolysed trace (Negative) 08/01/24 12:45 Urine Nitrate Positive (Negative) A 08/01/24 12:45 Urine Bilirubin Negative (Negative) 08/01/24 12:45 Urine Urobilinogen 1.0 mg/dL (Negative) 08/01/24 12:45 Ur Leukocyte Esterase Negative (Negative) 08/01/24 12:45 Urine RBC >100 /hpf (0-2) H 08/01/24 12:45 Urine WBC 6-10 /hpf (0-5) 08/01/24 12:45 Ur Squamous Epith Cells 6-10 /hpf (0-5) 08/01/24 12:45 Amorphous Sediment Not Reportable 08/01/24 12:45 Urine Bacteria Exceeds /hpf (NONE) 08/01/24 12:45 Hyaline Casts 0.89 /lpf 08/01/24 12:45 Urine Opiates Screen Negative ng/mL (Negative) 08/01/24 12:45 Ur Barbiturates Screen Negative ng/mL (Negative) 08/01/24 12:45 Ur Phencyclidine Scrn Negative ng/mL (Negative) 08/01/24 12:45 Ur Amphetamines Screen Negative ng/mL (Negative) 08/01/24 12:45 U Benzodiazepines Scrn Positive ng/mL (Negative) H 08/01/24 12:45 Urine Cocaine Screen Negative ng/mL (Negative) 08/01/24 12:45 U Marijuana (THC) Screen Negative ng/mL (Negative) 08/01/24 12:45 All radiology interpretation(s) finalized by discharge Discharge Plan Discharge Patient Disposition: Placed in Observation Admit Provider: Oskar Jones Clinical Impression: Cerebrovascular accident, Hypertension, DNR (do not resuscitate) Coding Level of Care Code ED Rotoprinter for Umair Sorto
[2024-08-01 09:26] LABS: INR 1.09 (0.8-1.2)
[2024-08-01 09:27] LABS: Partial Thromboplastin Time 28.7 SECONDS (23.9-36.7)
[2024-08-01 09:50] LABS: Alanine Aminotransferase 9 U/L (0-33); Albumin Level 4.5 g/dL (3.5-5.2); Alkaline Phosphatase 86 U/L (35-105); Anion Gap 20.6 (5-19); Aspartate Amino Transferase 15 U/L (0-32); Blood Urea Nitrogen 14 mg/dL (8-23); Calcium 9.4 mg/dL (8.5-10.5); Carbon Dioxide 23 mmol/L (22-29); Chloride 101 mmol/L (98-107); Creatinine Clr Calc Pharmacy 47.7515; Globulin 3.8 g/dL (1.3-4.6); Glucose 144 mg/dL (65-115); Osmolality Calculated 295 mOsm/kg (285-295); Potassium 3.6 mmol/L (3.5-5.1); Sodium 141 mmol/L (136-145); Total Bilirubin 0.5 mg/dL (0.15-1.2); Total Protein 8.3 g/dL (6.6-8.7)
--- NOTE | 2024-08-01 09:53 | PC.PHAR ---
PATIENT IS FROM [facility]
--- NOTE | 2024-08-01 10:03 | CT_ITS ---
WS: [id number] CT ANGIOGRAM CEREBRAL AND CAROTID ARTERIES HISTORY: FOLLOW STROKE LIKE SYMPTOMS TECHNIQUE: CT angiogram is performed of the carotid and cerebral arteries. During arterial injection imaging is obtained from the skull vertex to the aortic arch in 1.25 mm imaging. Coronal and sagittal reformats are submitted. Additional multi planar reformats of the carotid and cerebral arteries are submitted, MIP imaging also reviewed. NASCET criteria utilized. All CT scans at [facility] use at least one of these dose optimization techniques: automated exposure control; mA and/or kV adjustment per patient size (includes targeted exams where dose is matched to clinical indication); or iterative reconstruction. CONTRAST: Omnipaque 350; 100 mL IV. DLP: 1200.23 mGy COMPARISON: CT head 08/01/2024 Carotid Angiogram: Right carotid: Common carotid artery: Arises normally from the innominate artery. Calcified plaque and mild intimal thickening at the bifurcation. Artery is tortuous. Internal carotid artery: Small amount of plaque and intimal thickening at the bifurcation with no high-grade stenosis. External carotid artery: Patent. Left carotid: Common carotid artery: Bovine arch. Tortuous carotid artery with intimal thickening and calcification at the bifurcation. Focal stenosis estimated at 50% in the proximal ICA. Internal carotid artery: Focal stenosis proximal ICA estimated at 50%. Mild intimal thickening at the bifurcation and proximal ICA. External carotid artery: Patent. Right vertebral artery: Dominant and patent. Small amount of calcification in the foramen magnum. Left vertebral artery: Smaller caliber but widely patent. Subclavian arteries: No stenosis or significant abnormality. Upper thorax: LEFT upper lobe granuloma. Mildly ectatic thoracic aorta with calcification and ectasia. Thyroid gland: Densely calcified LEFT thyroid nodule is 10 mm. Osseous structures: Mild increase in cervical lordosis. No fracture or destructive bone lesions. CEREBRAL ANGIOGRAM: Intracranial vertebral arteries: Dominant RIGHT vertebral artery. Both vertebral arteries are patent. Basilar artery: No significant stenosis or occlusion. No aneurysm. Intracranial Internal carotid arteries: Mildly tortuous intracranial carotid arteries. There is scattered plaque but no high-grade stenosis through the cavernous carotid arteries or supraclinoid carotid arteries. Middle cerebral arteries: Normal. Anterior cerebral arteries and ACOM: Minimally smaller caliber LEFT A1 segment as compared to the RIGHT. Anterior communicating artery and A2 segments are normal. Posterior cerebral arteries and PCOM's: Normal. Small caliber LEFT transverse sinus but no thrombus is identified. This is probably normal variant. Mastoid air cells: Normal. Paranasal sinuses: Normal. Calvarium: Normal. CT/CT angio headneck* [id number] IMPRESSION: 1. No [place] occlusions or significant atherosclerotic disease. 2. Mild scattered plaque in the carotid cavernous sinuses with stenosis less t fitz[place] 50%. 3. LEFT cervical ICA stenosis calculated at 48%. 4. RIGHT cervical ICA stenosis less than 50%. 5. Small caliber LEFT transverse sinus. No thrombus is identified. This can be further evaluated on the follow-up MRI brain being obtained on the same day. S uspect this is normal variation in size. Similar appearance on the head CT of 1 05/24/2015.
[2024-08-01] MEDS: ondansetron 2 mg/ML SDV 2 mL 4 MG IVP (10:05)
--- NOTE | 2024-08-01 10:20 | MR_ITS ---
WS: [id number] MRI HEAD WITHOUT CONTRAST TECHNIQUE: Sagittal T1, T2 axial, T2 axial FLAIR, axial and coronal T1 images, axial susceptibility weighted imaging, axial diffusion weighted images, and coronal T2 images were obtained. CLINICAL INFORMATION: cva COMPARISON: Recent CT 08/01/2024 FINDINGS: Limited abbreviated study due to motion. The previously described area on CT demonstrates restricted diffusion compatible with acute to subacute ischemia in the RIGHT sanchez radiata extending into the basal ganglia. This area measures approximately 3.5 x 1.5 cm. No other foci of restricted diffusion. Remainder of the examination is very limited due to motion artifact. No significant hemosiderin on susceptibility weighted images. Moderate small vessel changes with moderate parenchymal volume loss. Chronic lacunar infarcts in the cerebellum. Paranasal sinuses and mastoid air cells are well aerated. No other acute findings. MR/MR head wo con* [id number] IMPRESSION: 1. Restricted diffusion in the RIGHT sanchez radiata compatible with acute to s ubacute ischemia measuring 3.5 x 1.5 cm. 2. Associated edema in the area of ischemia although no significant mass effec t or midline shift. 3. Moderate small vessel changes with moderate parenchymal volume loss worse i n the frontal lobes. 4. Chronic lacunar infarcts in the cerebellum. 5. Remainder of exam is extremely limited due to motion artifact Notified Tomas Yu DO at 08/01/2024 11:52 AM.
[2024-08-01] MEDS: labetalol 5 mg/mL SDV 20mL 10 MG IVP ×2 (10:26→12:11)
--- NOTE | 2024-08-01 11:07 | PC.NURSE ---
PT taken to MRI @1030
[2024-08-01 13:04] LABS: Bilirubin Urine Negative (Negative); Blood Urine Non-haemolysed trace (Negative); Glucose Urine UA Negative (Normal); Ketones Urine Trace (Negative); Leukocyte Esterase Urine Negative (Negative); Nitrate Urine Positive (Negative); Protein Urine 1+ (Negative); Urine Appearance Clear (CLEAR); Urine Color Yellow (Yellow)
[2024-08-01 13:06] LABS: Add Urine Microscopic? YES; Bacteria Urine EXCEEDS /hpf; Hyaline Casts Urine 0.89 /lpf; RBC Urine >100 /hpf (0-2)
[2024-08-01 13:09] LABS: Amphetamines Screen Urine Negative (Negative); Barbiturates Screen Urine Negative (Negative); Benzodiazepines Screen Urine Positive (Negative); Cocaine Screen Urine Negative (Negative); Opiate Screen Urine Negative (Negative); PCP Screen Urine Negative (Negative); THC Screen Urine Negative (Negative)
[2024-08-01 13:18] LABS: Specific Gravity, Urine 1.097 (1.005-1.030)
[2024-08-01 13:20] LABS: Add Urine Culture? Yes; UA Slide Review UA Slide Review Perf
--- NOTE | 2024-08-01 14:53 | PC.NURSE ---
Lashon from [facility] answers all admission questions. Patient able to speak, but very slowly and poor historian.
--- NOTE | 2024-08-01 15:02 | PM.HP ---
Providers/Chief Complaint Admitting Physician: Oskar Jones MD Primary Care Provider: Tonio Rubi DO Chief Complaint: Stroke Alert History of Present Illness History taken through chart review and with conversation with the nurse from [facility]. Kelsey Hall is a 79 year old female with past medical history of dementia, depression, left hip fracture after which she has been at a [facility] and has developed left leg contracture was sent into the ER today from [facility] when she was found to have weakness on the left side of her arm, slurred speech. As per the nurse who takes care of her at the [facility] patient has been having episodes of confusion and weakness on and off for last few days which has been attributed to her recently started oxycodone and oxycodone ER. She did receive a dose of oxycodone today morning but did not receive overnight. At around 815 she was noticed to have left-sided weakness with elevated blood pressure with slurred speech hence she was sent to the ER. As per the conversation with the ER physician code stroke was called. Patient had a CT head which showed a concern for a subacute area. Care were discussed between the ER physician and neurologist/Dr. Diop who advised further imaging with CTA head and neck and MRI. After conversation between ER physician, Dr. Diop and radiologist decision was made to hold off on thrombolysis given concerns for subacute infarct with high chances of hemorrhagic conversion. Review of Systems General: Reports: 10 or more systems reviewed and unremarkable except in HPI and below Const: Denies: fever(s), chills, body aches, change in appetite, change in weight, malaise, night sweats, diaphoresis, change in sleep pattern, daytime sleepiness or snoring Eyes: Denies: change in vision, blurry vision, photophobia, eye discomfort or eye discharge ENMT: Denies: throat pain, enlarged tonsils, hoarseness, mouth pain, oral sores, dry mouth, tinnitus, nasal congestion or post nasal drip Card: Denies: chest pain, palpitations, irregular heart rhythm, edema, swelling of feet/ankles, lightheadedness, syncope, pre-syncope, dyspnea on exertion, orthopnea, leg pain with exertion or acrocyanosis Resp: Denies: dyspnea, productive cough, non-productive cough, wheezing, stridor, pain on inspiration, change in phlegm color, hemoptysis or chest congestion GI: Denies: abdominal pain, nausea, vomiting, hematemesis, coffee ground emesis, dysphagia, heartburn, diarrhea, constipation, bloating, GI cramping, change in bowel habits, pain on defecation, hematochezia or melena : Denies: flank pain, dysuria, urinary frequency, urinary urgency, urinary hesitancy, nocturia or hematuria Musc: Denies: neck pain, back pain, extremity pain, joint pain, joint swelling, joint redness, joint stiffness or limited range of motion Neuro: Denies: headache(s), numbness in extremities, weakness in extremities, sensory changes, lack of coordination, difficulty walking, frequent falls, dizziness, vertigo, confusion, Slurred speech present, difficulty communicating thoughts or seizure-like activity Psych: Denies: anxiety, depression, mood swings, panic attacks, hopelessness or irritability Endo: Denies: polyuria, polydipsia, tired all the time, cold intolerance, excessive sweating, flushing or heat intolerance Go/Lymph: Denies: easy bruising or easy bleeding All/Imm: Denies: tongue swelling, facial swelling or acute wheezing Medications/Allergies Home Medications ?Medication ?Instructions ?Recorded ?Confirmed ?Last Taken ?Type fluoxetine 20 mg capsule (Prozac) See Rx Instructions .Route .COMPLEX 04/06/21 08/01/24 08/01/24 History clobetasol 0.05 % topical cream 1 applic topical BID 04/30/21 08/01/24 08/01/24 History bisacodyl 10 mg rectal suppository 10 mg VT DAILY PRN Constipation 06/06/23 08/01/24 Unknown History (Dulcolax (bisacodyl)) magnesium hydroxide 400 mg/5 mL 30 ml PO DAILY PRN Constipation 06/06/23 08/01/24 Unknown History oral suspension (Milk of Magnesia) magnesium oxide 400 mg PO DAILY 06/06/23 08/01/24 08/01/24 History omeprazole 20 mg capsule,delayed 20 mg PO DAILY 06/06/23 08/01/24 08/01/24 History release sodium phosphates 19 gram-7 118 ml VT DAILY PRN Constipation 06/06/23 08/01/24 08/01/24 History gram/118 mL enema (Fleet Enema) docusate sodium 100 mg capsule 100 mg PO BID #60 caps 06/09/23 08/01/24 08/01/24 Rx oxycodone myristate 9 mg capsule 9 mg PO BID 08/01/23 08/01/24 08/01/24 History sprinkle extended release 12 hr(DON'T CRUSH) (Xtampza ER) aspirin 325 mg tablet,delayed 650 mg PO .Q4-6H 08/01/24 08/01/24 08/01/24 History release calcipotriene 0.005 % topical cream 1 applic topical BID 08/01/24 08/01/24 08/01/24 History loperamide 2 mg capsule 4 mg PO Q4H PRN Constipation 08/01/24 08/01/24 Unknown History oxycodone 5 mg tablet 5 mg PO BID PRN Severe Pain 08/01/24 08/01/24 08/01/24 History polyethylene glycol 3350 17 17 g PO DAILY 08/01/24 08/01/24 Unknown History gram/dose oral powder Allergies Allergy/AdvReac Type Severity Reaction Status Date / Time No Known Allergies Allergy Verified 06/04/24 10:51 PFSH Acute PFSH: Medical History (Updated 08/01/24 @ 15:23 by Oskar Jones MD) Contracture of muscle, left lower leg DNR (do not resuscitate) half-way resident Foot fracture, left Closed intertrochanteric fracture of left hip Fracture of greater tuberosity of left humerus Neurologic gait disorder Lumbar stenosis with neurogenic claudication Lacunar stroke Incomplete bladder emptying Recurrent UTI Tuberculosis Psoriasis GERD (gastroesophageal reflux disease) Hepatitis C without hepatic coma Depression with anxiety Ileus Sciatica Chronically on opiate therapy Hypertension Surgical History (Updated 08/01/24 @ 15:18 by Oskar Jones MD) Status post lumbar laminectomy History of bladder suspension procedure History of cataract surgery Hx of LASIK H/O: hysterectomy History of appendectomy H/O bilateral breast reduction surgery Family History Grandmother Breast cancer Maternal Mother , IN HER 50'S No problems noted. Father , IN HIS 50'S Yellow fever Denies family history of Diabetes CAD (coronary artery disease) Clotting disorder Hyperlipidemia Chronic kidney disease (CKD) Bleeding disorder Hypertension Stroke Social History Smoking and tobacco/nicotine status: unknown if used tobacco/nicotine Alcohol intake: never Substance/Drug Use: never Lives independently: Yes Household members: spouse Marital status: Current occupational status: retired Do you think of yourself as: Straight/Heterosexual Vitals/I&O/Wt Last Vital Signs Temp 98.2 F 08/01/24 10:04 Pulse 82 08/01/24 14:36 Resp 15 08/01/24 14:00 BP 143/86 08/01/24 14:36 Pulse Ox 94 08/01/24 14:36 O2 Del Method Room Air 08/01/24 12:14 Weight last 48 hrs Weight 58.241 kg Weight 58.513 kg Physical Exam Narrative: General: No acute distress, AO x3 HEENT: PERRLA, pupils bilaterally equal and reactive Chest: Normal vesicular breath sounds, no added sounds, equal good air entry bilaterally CVS: S1-S2 regular, no murmurs, no tachycardia, no gallops, no rubs Abdomen: Soft, nontender, no organomegaly, bowel sounds present Neuro: No focal deficits, no facial deformity, AO x3, power 5/5 in all limbs Urinary Catheter Management: Black: Cath Placed During This Visit: yes Urinary Catheter Date of Insertion: 08/01/24 Data 08/01/24 09:02 08/01/24 09:25 Other Labs: Radiology Impressions Head CT 08/01/24 09:04 IMPRESSION: 1. No acute intracranial hemorrhage or edema. 2. New large area of decreased attenuation in the RIGHT basal ganglia. New since 06/07/2023. This is not an acute infarct. May be a subacute or remote infarct. 3. Progression of small vessel ischemic changes and atrophy since 06/07/2023. 4. Heavy calcifications in the distal vertebral and intracranial carotid arteries. Notified Tomas Yu DO at 08/01/2024 9:20 AM. Head/Neck CTA 08/01/24 10:03 IMPRESSION: 1. No [place] occlusions or significant atherosclerotic disease. 2. Mild scattered plaque in the carotid cavernous sinuses with stenosis less than 50%. 3. LEFT cervical ICA stenosis calculated at 48%. 4. RIGHT cervical ICA stenosis less than 50%. 5. Small caliber LEFT transverse sinus. No thrombus is identified. This can be further evaluated on the follow-up MRI brain being obtained on the same day. Suspect this is normal variation in size. Similar appearance on the head CT of 03/23/2016. Head MRI 08/01/24 10:20 IMPRESSION: 1. Restricted diffusion in the RIGHT sanchez radiata compatible with acute to subacute ischemia measuring 3.5 x 1.5 cm. 2. Associated edema in the area of ischemia although no significant mass effect or midline shift. 3. Moderate small vessel changes with moderate parenchymal volume loss worse in the frontal lobes. 4. Chronic lacunar infarcts in the cerebellum. 5. Remainder of exam is extremely limited due to motion artifact Notified Tomas Yu DO at 08/01/2024 11:52 AM. A&P Assessment and plan (1) Stroke: As seen on CT head, CT head and neck and MRI brain. Concern for acute to subacute ischemia. Decision made in the ER to hold off on tenecteplase with high concerns for hemorrhagic conversion. Permissible hypertension. PT/OT/speech evaluation. Start on oral medications after bedside swallow otherwise NPO. Aspirin 81 mg daily. Atorvastatin 20 mg daily. Check A1c, lipid panel. Check echocardiogram. Start on normal saline at 50 cc/h. (2) Hypertension: Permissible hypertension for now. Long-term goals with blood pressure of less than 140/90 MAG. Start on medications accordingly. (3) PVD (peripheral vascular disease): (4) Urinary tract infection: History of recurrent cystitis. Appreciate past culture history with UTI mostly with E. coli and Proteus. For now start with IV ceftriaxone. Follow-up blood culture and sputum culture. De-escalate as per culture studies. Qualifiers: Hematuria presence: with hematuria Urinary tract infection type: acute cystitis Qualified Code(s): N30.01 - Acute cystitis with hematuria (5) half-way resident: (6) DNR (do not resuscitate): (7) Contracture of muscle, left lower leg: (8) Goals of care, counseling/discussion: Plan Goals of care discussion: Discussed in detail with patient's son/DPOA over the phone. Mr. Coyle is the DPOA. DNR/DNI. As per son patient would not want any kind of heroic measures or artificial means including feeding tube if needed. If patient is not able to tolerate diet orally with high concerns for aspiration patient and son would prefer her to go hospice. DNR/DNI NPO. Protonix OPD prophylaxis Heparin for DVT prophylaxis. PDMP PDMP Reviewed: Not Reviewed Attestations Medical Necessity Statement*: Admit under observation for further evaluation and management of acute stroke with dense left-sided paralysis in a patient with chronic left lower limb contracture Diagnoses Stroke I63.9 Hypertension I10 PVD (peripheral vascular disease) I73.9 Urinary tract infection N30.01 Hematuria presence: with hematuria Urinary tract infection type: acute cystitis half-way resident Z78.9 DNR (do not resuscitate) Z66 Contracture of muscle, left lower leg M62.462 Goals of care, counseling/discussion Z71.89
[2024-08-01 15:42] LABS: Estmated Average Glucose 128; Hemoglobin A1C 6.1 % (4.0-6.0)
[2024-08-01 15:47] LABS: Procalcitonin 0.05 ng/mL (0-0.5); Thyroid Stimulating Hormone 1.53 uIU/mL (0.27-4.20); Vitamin B12 440 pg/mL (232-1245)
[2024-08-01] MEDS: pantoprazole 40 mg SDV IVP (15:55)
[2024-08-01] MEDS: heparin 5,000 unit/mL INJ 1 mL 5000 UNIT SUBCUT (15:55)
[2024-08-01] MEDS: cefTRIAXone 1,000 mg SDV 1000 MG IVP (15:55)
[2024-08-01] MEDS: sodium chloride 0.9% 1,000 ML 50 ML IV (15:56)
[2024-08-01 15:58] LABS: Iron 41 ug/dL (37-145); Percent Saturation 13.4 % (20-50); Total Iron Binding Capacity 305 mcg/dl; Unsaturated Iron Binding 264 ug/dL (112-347)
[2024-08-01] MEDS: docusate sodium 100 mg Capsule PO (17:20)
--- NOTE | 2024-08-01 17:44 | PC.NURSE ---
Black removed per Dr. Jones verbal order.
[2024-08-02] VITALS (9 sets, daily range): BP systolic 179–192; BP diastolic 73–99; PULSE 76–97; RESP 16–18; TEMP 36.4–36.9; O2SAT 93–96
--- NOTE | 2024-08-02 01:46 | PC.NURSE ---
PT MADE NO ATTEMPT TO OPEN HER EYES DURING THE NIHSS ASSESSMENT.
[2024-08-02] MEDS: heparin 5,000 unit/mL INJ 1 mL 5000 UNIT SUBCUT ×2 (02:45→14:22)
[2024-08-02 06:11] LABS: Basophils % 0.5 %; Eosinophils # 0.1 10^3/uL (0.0-0.8); Eosinophils % 1.1 %; Hematocrit 43.4 % (36-47); Lymphocytes # 1.6 10^3/uL (0.8-4.8); Lymphocytes % 19.2 %; Mean Corpuscular HGB Conc 31.8 g/dL (30-55); Mean Corpuscular Hemoglobin 28.6 pg (27-33); Mean Platelet Volume 9.9 fL (7.4-10.4); Monocytes # 0.6 10^3/uL (0.2-0.9); Monocytes % 7.5 %; Neutrophils # 5.78 10^3/uL (1.8-7.7); Neutrophils % 71.5 %; Nucleated Red Blood Cells % 0 %; Platelet Count 219 10^3/cmm (157-399); Red Blood Count 4.82 10^6/uL (3.85-5.65); Red Cell Distribution Width 16.1 % (12.1-15.1); White Blood Count 8.09 10^3/uL (3.29-11.43)
[2024-08-02 06:30] LABS: Alanine Aminotransferase 7 U/L (0-33); Alkaline Phosphatase 73 U/L (35-105); Anion Gap 18.4 (5-19); Aspartate Amino Transferase 13 U/L (0-32); Blood Urea Nitrogen 13 mg/dL (8-23); Calcium 8.8 mg/dL (8.5-10.5); Carbon Dioxide 24 mmol/L (22-29); Chloride 104 mmol/L (98-107); Creatinine Clr Calc Pharmacy 47.5937; Globulin 3.2 g/dL (1.3-4.6); Glucose 131 mg/dL (65-115); Magnesium 2.2 mg/dL (1.7-2.3); Osmolality Calculated 298 mOsm/kg (285-295); Potassium 3.4 mmol/L (3.5-5.1); Sodium 143 mmol/L (136-145); Total Bilirubin 0.4 mg/dL (0.15-1.2); Total Protein 7.2 g/dL (6.6-8.7)
[2024-08-02 06:45] LABS: Folate Level 8.5 ng/mL (4.8-37.3)
[2024-08-02 06:47] LABS: Cholesterol 197 mg/dL (0-200); HDL Cholesterol 41 mg/dL (60-100); LDL Cholesterol Calculated 131 mg/dL (50-129); Triglycerides 124 mg/dL (0-150)
[2024-08-02 06:54] LABS: Procalcitonin 0.06 ng/mL (0-0.5)
--- NOTE | 2024-08-02 10:56 | PC.NURSE ---
helper coordinator rounds- patient getting ready to work with PT
[2024-08-02] MEDS: sodium chloride 0.9% 1,000 ML 50 ML IV (11:28)
--- NOTE | 2024-08-02 13:30 | PM.PN ---
Subjective Subjective: No acute events overnight. Patient laying comfortably in bed. Continues to have significant flaccid paralysis of the left upper arm. Denies any nausea, vomiting. Complaining of pain in her back. Has remained hemodynamically stable. Blood pressure elevated. Vitals/I&O/Wt Last Vital Signs Temp 98.4 F 08/02/24 11:49 Pulse 88 08/02/24 11:49 Resp 16 08/02/24 11:49 BP 187/78 08/02/24 11:49 Pulse Ox 94 08/02/24 11:49 O2 Del Method Room Air 08/02/24 11:49 08/01/24 08/02/24 08/02/24 22:59 06:59 14:59 Intake Total 0 / 0 976.667 / 976.667 Balance 0 / 0 976.667 / 976.667 Weight last 48 hrs Weight 58.06 kg Weight 58.241 kg Weight 58.513 kg Physical Exam Narrative: General: No acute distress, AO x3 HEENT: PERRLA, pupils bilaterally equal and reactive Chest: Normal vesicular breath sounds, no added sounds, equal good air entry bilaterally CVS: S1-S2 regular, no murmurs, no tachycardia, no gallops, no rubs Abdomen: Soft, nontender, no organomegaly, bowel sounds present Neuro: Facial drooping on the left side, AO x 3, Left leg contracted, left arm 1/5 Right arm 3/5, right leg 3/5. Slurred speech. Urinary Catheter Management: Black: Cath Placed During This Visit: yes, but has since been removed by the nurse Reason for Continuing Indwelling Catheter: Decision to DC Catheter Urinary Catheter Date of Insertion: 08/01/24 Date Urinary Catheter Removed: 08/01/24 Time Urinary Catheter Discontinued: 17:44 Data 08/02/24 05:46 08/02/24 05:46 Micro: Microbiology 08/01/24 12:45 Urine Culture - Preliminary Urine,Clean Catch Gram Negative Rods A&P Assessment and plan (1) Stroke: As seen on CT head, CT head and neck and MRI brain. Concern for acute to subacute ischemia. Decision made in the ER to hold off on tenecteplase with high concerns for hemorrhagic conversion. PT/OT/speech evaluation. Start on oral medications after bedside swallow otherwise NPO. Aspirin per rectum. Milligram daily. Atorvastatin 20 mg daily. Appreciate A1c, lipid panel. Echocardiogram results pending. Continue with normal saline at 50 cc/h. (2) Hypertension: Long-term goals with blood pressure of less than 140/90 mmHg. start on IV hydralazine 10 mg every 4 hours as needed for systolic of more than 160 mmHg. Once patient is able to take orally we will start on oral antihypertensive. (3) PVD (peripheral vascular disease): (4) Urinary tract infection: History of recurrent cystitis. Appreciate past culture history with UTI mostly with E. coli and Proteus. For now start with IV ceftriaxone. Follow-up blood culture and sputum culture. De-escalate as per culture studies. Qualifiers: Hematuria presence: with hematuria Urinary tract infection type: acute cystitis Qualified Code(s): N30.01 - Acute cystitis with hematuria (5) penitentiary resident: (6) DNR (do not resuscitate): (7) Contracture of muscle, left lower leg: (8) Goals of care, counseling/discussion: Plan Goals of care discussion: Discussed in detail with patient's son/DPOA over the phone. Mr. Coyle is the DPOA. DNR/DNI. As per son patient would not want any kind of heroic measures or artificial means including feeding tube if needed. If patient is not able to tolerate diet orally with high concerns for aspiration patient and son would prefer her to go hospice. 08/02: Discussed the goals in detail with patient again. She is agreeable to the goals of care discussions as per the son. She does not want feeding tube. Plan for the day: Continue to monitor speech evaluation. For now patient is able to not maintain oral intake safely. Keep NPO. Continue with NS at 50 cc/h. Start on IV hydralazine 10 mg every 4 hours as needed for systolic of more than 160 mmHg. DNR/DNI NPO. Protonix OPD prophylaxis Heparin for DVT prophylaxis. PDMP PDMP Reviewed: Not Reviewed Attestations Medical Necessity Statement*: Requires further hospitalization for management of severe left-sided stroke, dysphagia while further goals of care discussions are done and final plan for ongoing nutrition supplementation is made. Diagnoses Stroke I63.9 Hypertension I10 PVD (peripheral vascular disease) I73.9 Urinary tract infection N30.01 Hematuria presence: with hematuria Urinary tract infection type: acute cystitis penitentiary resident Z78.9 DNR (do not resuscitate) Z66 Contracture of muscle, left lower leg M62.462 Goals of care, counseling/discussion Z71.89
--- NOTE | 2024-08-02 13:52 | PC.OT ---
OT NOTE; PER RECORDS, PATIENT IS TOTAL CARE FOR ADLS EXCEPT FEEDING. HOWEVER, PATIENT IS NPO AT THIS TIME PER S.T. HOLD OT EVALUATION UNTIL PATIENT IS ABLE TO EAT BY MOUTH AND ADDRESS FEEDING AT THAT TIME.
[2024-08-02] MEDS: morphine 4 mg/mL SDV 1 mL 2 MG IVP ×2 (14:18→17:45)
[2024-08-02] MEDS: pantoprazole 40 mg SDV IVP (14:21)
[2024-08-02] MEDS: cefTRIAXone 1,000 mg SDV 1000 MG IVP (14:22)
[2024-08-02] MEDS: aspirin 300 mg Supp PR (14:25)
--- NOTE | 2024-08-02 15:22 | USCV_ITS ---
Kelsey Hall Age: 79 Gender: F : 1945 Exam Date: 08/02/2024 00:38 Ordering Phys: Oskar Jones MD Technologist: TONA Exam Location: [facility] – [place] Indication: syncope, Patient has had a stroke, LEFT hemiparesis, and a LEFT hip fx. Patient is unresponsive in 269 BP: 114 / 62 HR: 82 Rhythm: Sinus Technical Quality: Adequate MEASUREMENTS (Male / Female) Normal Values 2D ECHO LV Diastolic Diameter PLAX 3.1 cm 4.2 - 5.9 / 3.9 - 5.3 cm IVS Diastolic Thickness 1.2 cm 0.6 - 1.0 / 0.6 - 0.9 cm IVS Systolic Thickness 1.5 cm LVPW Diastolic Thickness 1.1 cm 0.6 - 1.0 / 0.6 - 0.9 cm LVPW Systolic Thickness 1.5 cm LVOT Diameter 1.8 cm LV Ejection Fraction 2D Teich 56.4 % LV Ejection Fraction MOD 4C 61.6 % LV Ejection Fraction MOD 2C 66.1 % LV Ejection Fraction 2C AL 67.1 % LA Diameter 3.5 cm Aorta at Sinotubular Diameter 3.1 cm IVC Diameter 0.9 cm M-MODE LA Ao Ratio MM 1.2 AV Cusp Separation MM 1.6 cm DOPPLER AV Peak Velocity 120.0 cm/s LVOT Peak Velocity 113.0 cm/s AV Area Cont Eq vti 2.5 cm squared AV Area Cont Eq pk 2.4 cm squared MV Peak Velocity 135.0 cm/s MV Area PHT 4.3 cm squared Mitral E to A Ratio 0.6 TR Peak Velocity 248.0 cm/s TR Peak Gradient 24.6 mmHg TV Peak E Velocity 59.0 cm/s PV Peak Velocity 98.0 cm/s FINDINGS Left Ventricle Normal left ventricular size and systolic function, EF 60%. No regional wall motion abnormalities. Grade I/IV diastolic dysfunction (abnormal relaxation filling pattern), normal to mildly elevated filling pressures. Mild left ventricular hypertrophy. Right Ventricle The right ventricle is normal in size and function. Right Atrium The right atrium is normal in size. Left Atrium Mildly increased left atrial size. Mitral Valve Moderate mitral annular calcification. Trace mitral valve regurgitation. Aortic Valve Thickened aortic valve. Tricuspid Valve Trace tricuspid valve regurgitation. Pulmonic Valve Pulmonic valve not well visualized. Pericardium Normal pericardium without effusion. Aorta Normal aortic annulus size. IVC Normal inferior vena cava. CONCLUSIONS Normal left ventricular size and systolic function, EF 60%. No regional wall motion abnormalities. Grade I/IV diastolic dysfunction (abnormal relaxation filling pattern), normal to mildly elevated filling pressures. Mild left ventricular hypertrophy. Mildly increased left atrial size. Moderate mitral annular calcification. Trace mitral valve regurgitation. Thickened aortic valve. Trace tricuspid valve regurgitation. There is no pericardial effusion. There are no intracardiac masses. Dr Dahiana Boyle MD [facility] (Electronically Signed) Final Date: 02 August 2024 18:57 S
[2024-08-03] VITALS (8 sets, daily range): BP systolic 115–192; BP diastolic 74–103; PULSE 92–104; RESP 15–18; TEMP 36.3–36.9; O2SAT 92–94
[2024-08-03] MEDS: heparin 5,000 unit/mL INJ 1 mL 5000 UNIT SUBCUT (05:00)
[2024-08-03] MEDS: sodium chloride 0.9% 1,000 ML 50 ML IV (05:07)
[2024-08-03 06:24] LABS: Basophils % 0.5 %; Eosinophils # 0.1 10^3/uL (0.0-0.8); Eosinophils % 1.2 %; Hematocrit 43.1 % (36-47); Lymphocytes # 1.5 10^3/uL (0.8-4.8); Lymphocytes % 16.9 %; Mean Corpuscular HGB Conc 32.3 g/dL (30-55); Mean Corpuscular Hemoglobin 28.4 pg (27-33); Monocytes # 0.6 10^3/uL (0.2-0.9); Monocytes % 6.7 %; Neutrophils # 6.58 10^3/uL (1.8-7.7); Neutrophils % 74.4 %; Nucleated Red Blood Cells % 0 %; Platelet Count 240 10^3/cmm (157-399); Red Cell Distribution Width 15.9 % (12.1-15.1); White Blood Count 8.85 10^3/uL (3.29-11.43)
[2024-08-03 06:47] LABS: Alanine Aminotransferase 7 U/L (0-33); Albumin Level 4.1 g/dL (3.5-5.2); Alkaline Phosphatase 77 U/L (35-105); Aspartate Amino Transferase 17 U/L (0-32); Blood Urea Nitrogen 8 mg/dL (8-23); Calcium 8.6 mg/dL (8.5-10.5); Carbon Dioxide 22 mmol/L (22-29); Chloride 101 mmol/L (98-107); Creatinine Clr Calc Pharmacy 47.5937; Globulin 3.4 g/dL (1.3-4.6); Glucose 110 mg/dL (65-115); Osmolality Calculated 287 mOsm/kg (285-295); Phosphorus 2.4 mg/dL (2.5-4.5); Sodium 139 mmol/L (136-145); Total Bilirubin 0.5 mg/dL (0.15-1.2); Total Protein 7.5 g/dL (6.6-8.7)
[2024-08-03 06:49] LABS: Anion Gap 19.2 (5-19); Potassium 3.2 mmol/L (3.5-5.1)
[2024-08-03] MEDS: aspirin 300 mg Supp PR (08:28)
--- NOTE | 2024-08-03 10:35 | P.DS_ITS ---
Discharge Providers Date of Admission: 08/01/24 13:42 Date of Discharge: August 03, 2024 Attending Provider at Admission: Oskar Jones MD Attending Provider at Discharge: Oskar Jones MD Primary Care Provider: Tonio Rubi DO Diagnoses at Discharge Discharge Diagnosis (1) Stroke: Status: Acute (2) Hypertension: Status: Acute (3) PVD (peripheral vascular disease): Status: Acute (4) Urinary tract infection: Status: Acute Qualifiers: Hematuria presence: with hematuria Urinary tract infection type: acute cystitis Qualified Code(s): N30.01 - Acute cystitis with hematuria (5) detention resident: Status: Acute (6) DNR (do not resuscitate): Status: Acute (7) Contracture of muscle, left lower leg: Status: Acute (8) Goals of care, counseling/discussion: Status: Acute Reason for Visit Reason for Visit: Stroke Alert Hospital Course Hospital Course History taken through chart review and with conversation with the nurse from skilled nursing. Kelsey Hall is a 79 year old female with past medical history of dementia, depression, left hip fracture after which she has been at a skilled nursing and has developed left leg contracture was sent into the ER today from SNF when she was found to have weakness on the left side of her arm, slurred speech. As per the nurse who takes care of her at the skilled nursing patient has been having episodes of confusion and weakness on and off for last few days which has been attributed to her recently started oxycodone and oxycodone ER. She did receive a dose of oxycodone today morning but did not receive overnight. At around 815 she was noticed to have left-sided weakness with elevated blood pressure with slurred speech hence she was sent to the ER. As per the conversation with the ER physician code stroke was called. Patient had a CT head which showed a concern for a subacute area. Care were discussed between the ER physician and neurologist/Dr. Diop who advised further imaging with CTA head and neck and MRI. After conversation between ER physician, Dr. Diop and radiologist decision was made to hold off on thrombolysis given concerns for subacute infarct with high chances of hemorrhagic conversion. Patient was admitted to the hospital for further evaluation and management of dense left upper limb CVA. Patient unfortunately could not work well with physical therapy given her contracture from before, had significant deficit leading her to to be on high risk for aspiration. Patient was continuously followed up through speech therapy. As patient was not able to tolerate orally she is at a higher risk of malnutrition, dehydration, hypernatremia, KANU, multiorgan dysfunction. There was a concern for UTI for which she was started on IV ceftriaxone. Urine culture positive for E. coli. Blood culture remain negative. Goals of care discussions were done with patient and patient's son/DPOA at bedside. We discussed options of PEG tube placement versus hospice. Patient states she does not want any artificial feeding. As her oral intake was not improving safely and she will be at a risk of aspiration she has been transition to hospice care. She can continue to have her medications by mouth and meal as tolerated. She has been discharged back to SNF with hospice. Physical Exam Narrative: General: No acute distress, AO x3 HEENT: PERRLA, pupils bilaterally equal and reactive Chest: Normal vesicular breath sounds, no added sounds, equal good air entry bilaterally CVS: S1-S2 regular, no murmurs, no tachycardia, no gallops, no rubs Abdomen: Soft, nontender, no organomegaly, bowel sounds present Neuro: Facial drooping on the left side, AO x 3, Left leg contracted, left arm 1/5 Right arm 3/5, right leg 3/5. Slurred speech. Urinary Catheter Management: Black: Cath Placed During This Visit: yes, but has since been removed by the nurse Reason for Continuing Indwelling Catheter: Decision to DC Catheter Urinary Catheter Date of Insertion: 08/01/24 Date Urinary Catheter Removed: 08/01/24 Time Urinary Catheter Discontinued: 17:44 Discharge Data Studies Completed and Pending Completed Studies During Hospitalization Category Date Time Status CT angio headneck* [id number] Stat Cat Scan 08/01/24 10:[address] head thrombolytic [id number] Stat Cat Scan 08/01/24 09:04 Completed MR head wo con* [id number] Stat MRI 08/01/24 10:20 Completed CV. echo complete* [id number] Routine Ultrasound 08/02/24 15:22 Completed Pending at discharge Category Date Time Status Complete Blood Count w/Auto AM LABS Lab 08/04/24 04:00 Ordered Comprehensive Metabolic Panel AM LABS Lab 08/04/24 04:00 Ordered Magnesium AM LABS Lab 08/04/24 04:00 Ordered Phosphorus AM LABS Lab 08/04/24 04:00 Ordered Radiology Impressions Head CT 08/01/24 09:04 IMPRESSION: 1. No acute intracranial hemorrhage or edema. 2. New large area of decreased attenuation in the RIGHT basal ganglia. New since 06/07/2023. This is not an acute infarct. May be a subacute or remote infarct. 3. Progression of small vessel ischemic changes and atrophy since 06/07/2023. 4. Heavy calcifications in the distal vertebral and intracranial carotid arteries. Notified Tomas Yu DO at 08/01/2024 9:20 AM. Head/Neck CTA 08/01/24 10:03 IMPRESSION: 1. No [place] occlusions or significant atherosclerotic disease. 2. Mild scattered plaque in the carotid cavernous sinuses with stenosis less than 50%. 3. LEFT cervical ICA stenosis calculated at 48%. 4. RIGHT cervical ICA stenosis less than 50%. 5. Small caliber LEFT transverse sinus. No thrombus is identified. This can be further evaluated on the follow-up MRI brain being obtained on the same day. Suspect this is normal variation in size. Similar appearance on the head CT of 03/23/2016. Head MRI 08/01/24 10:20 IMPRESSION: 1. Restricted diffusion in the RIGHT sanchez radiata compatible with acute to subacute ischemia measuring 3.5 x 1.5 cm. 2. Associated edema in the area of ischemia although no significant mass effect or midline shift. 3. Moderate small vessel changes with moderate parenchymal volume loss worse in the frontal lobes. 4. Chronic lacunar infarcts in the cerebellum. 5. Remainder of exam is extremely limited due to motion artifact Notified Tomas Yu DO at 08/01/2024 11:52 AM. Laboratory Results WBC 8.85 10^3/uL (3.29-11.43) 08/03/24 05:48 RBC 4.90 10^6/uL (3.85-5.65) 08/03/24 05:48 Hgb 13.90 g/dL (11.27-16.99) 08/03/24 05:48 Hct 43.1 % (36-47) 08/03/24 05:48 MCV 88.0 fl (85-98) 08/03/24 05:48 MCH 28.4 pg (27-33) 08/03/24 05:48 MCHC 32.3 g/dL (30-55) 08/03/24 05:48 RDW 15.9 % (12.1-15.1) H 08/03/24 05:48 Plt Count 240 10^3/cmm (157-399) 08/03/24 05:48 MPV 10.0 fL (7.4-10.4) 08/03/24 05:48 Neut % (Auto) 74.4 % 08/03/24 05:48 Lymph % (Auto) 16.9 % 08/03/24 05:48 [place] % (Auto) 6.7 % 08/03/24 05:48 Eos % (Auto) 1.2 % 08/03/24 05:48 Baso % (Auto) 0.5 % 08/03/24 05:48 Neut # (Auto) 6.58 10^3/uL (1.8-7.7) 08/03/24 05:48 Lymph # (Auto) 1.5 10^3/uL (0.8-4.8) 08/03/24 05:48 [place] # (Auto) 0.6 10^3/uL (0.2-0.9) 08/03/24 05:48 Eos # (Auto) 0.1 10^3/uL (0.0-0.8) 08/03/24 05:48 Baso # (Auto) 0.0 10^3/uL (0.0-0.1) 08/03/24 05:48 Nucleated RBC % (auto) 0 % 08/03/24 05:48 Nucleated RBCs # 0.0 /100WBC 08/03/24 05:48 PT 14.90 SECONDS (12.1-14.9) 08/01/24 09:02 INR 1.09 (0.8-1.2) 08/01/24 09:02 APTT 28.7 SECONDS (23.9-36.7) 08/01/24 09:02 Sodium 139 mmol/L (136-145) 08/03/24 05:48 Potassium 3.2 mmol/L (3.5-5.1) L 08/03/24 05:48 Chloride 101 mmol/L (98-107) 08/03/24 05:48 Carbon Dioxide 22 mmol/L (22-29) 08/03/24 05:48 Anion Gap 19.2 (5-19) H 08/03/24 05:48 BUN 8 mg/dL (8-23) 08/03/24 05:48 Creatinine 0.4 mg/dL (0.5-0.9) L 08/03/24 05:48 GFR Calculation Not Reportable 08/03/24 05:48 Glucose 110 mg/dL (65-115) 08/03/24 05:48 POC Glucose 136 mg/dL (70-110) H 08/01/24 09:03 Estimat Average Glucose 128 08/01/24 09:02 Hemoglobin A1c 6.1 % (4.0-6.0) H 08/01/24 09:02 Calculated Osmolality 287 mOsm/kg (285-295) 08/03/24 05:48 Lactic Acid 2.0 mmol/L (0.5-2.2) 08/01/24 15:37 Calcium 8.6 mg/dL (8.5-10.5) 08/03/24 05:48 Phosphorus 2.4 mg/dL (2.5-4.5) L 08/03/24 05:48 Magnesium 2.0 mg/dL (1.7-2.3) 08/03/24 05:48 Iron 41 ug/dL (37-145) 08/01/24 09:25 TIBC 305 mcg/dl 08/01/24 09:25 % Saturation 13.4 % (20-50) L 08/01/24 09:25 Unsat Iron Binding 264 ug/dL (112-347) 08/01/24 09:25 Total Bilirubin 0.5 mg/dL (0.15-1.2) 08/03/24 05:48 AST 17 U/L (0-32) 08/03/24 05:48 ALT 7 U/L (0-33) 08/03/24 05:48 Alkaline Phosphatase 77 U/L (35-105) 08/03/24 05:48 Total Protein 7.5 g/dL (6.6-8.7) 08/03/24 05:48 Albumin 4.1 g/dL (3.5-5.2) 08/03/24 05:48 Globulin 3.4 g/dL (1.3-4.6) 08/03/24 05:48 Triglycerides 124 mg/dL (0-150) 08/02/24 05:46 Cholesterol 197 mg/dL (0-200) 08/02/24 05:46 LDL Cholesterol, Calc 131 mg/dL (50-129) H 08/02/24 05:46 HDL Cholesterol 41 mg/dL (60-100) L 08/02/24 05:46 LDL/HDL Ratio 3.20 RATIO (0.00-3.22) 08/02/24 05:46 Cholesterol/HDL Ratio 4.80 mg/dL (0.0-4.40) H 08/02/24 05:46 Vitamin B12 440 pg/mL (232-1245) 08/01/24 09:25 Folate 8.5 ng/mL (4.8-37.3) 08/02/24 05:46 Procalcitonin 0.06 ng/mL (0-0.5) 08/02/24 05:46 TSH 1.53 uIU/mL (0.27-4.20) 08/01/24 09:25 Urine Color Yellow (Yellow) 08/01/24 12:45 Urine Appearance Clear (CLEAR) 08/01/24 12:45 Urine pH 6.0 (5-7) 08/01/24 12:45 Ur Specific [place] 1.097 (1.005-1.030) H 08/01/24 12:45 Urine Protein 1+ (Negative) A 08/01/24 12:45 Urine Glucose (UA) Negative (Normal) 08/01/24 12:45 Urine Ketones Trace (Negative) 08/01/24 12:45 Urine Blood Non-haemolysed trace (Negative) 08/01/24 12:45 Urine Nitrate Positive (Negative) A 08/01/24 12:45 Urine Bilirubin Negative (Negative) 08/01/24 12:45 Urine Urobilinogen 1.0 mg/dL (Negative) 08/01/24 12:45 Ur Leukocyte Esterase Negative (Negative) 08/01/24 12:45 Urine RBC >100 /hpf (0-2) H 08/01/24 12:45 Urine WBC 6-10 /hpf (0-5) 08/01/24 12:45 Ur Squamous Epith Cells 6-10 /hpf (0-5) 08/01/24 12:45 Amorphous Sediment Not Reportable 08/01/24 12:45 Urine Bacteria Exceeds /hpf (NONE) 08/01/24 12:45 Hyaline Casts 0.89 /lpf 08/01/24 12:45 Urine Opiates Screen Negative ng/mL (Negative) 08/01/24 12:45 Ur Barbiturates Screen Negative ng/mL (Negative) 08/01/24 12:45 Ur Phencyclidine Scrn Negative ng/mL (Negative) 08/01/24 12:45 Ur Amphetamines Screen Negative ng/mL (Negative) 08/01/24 12:45 U Benzodiazepines Scrn Positive ng/mL (Negative) H 08/01/24 12:45 Urine Cocaine Screen Negative ng/mL (Negative) 08/01/24 12:45 U Marijuana (THC) Screen Negative ng/mL (Negative) 08/01/24 12:45 Vitals Last Vital Signs Temp 97.4 F L 08/03/24 07:43 Pulse 101 H 08/03/24 07:43 Resp 16 08/03/24 07:43 BP 183/93 08/03/24 07:43 Pulse Ox 93 08/03/24 07:43 O2 Del Method Room Air 08/03/24 07:43 Discharge Plan Discharge Patient Disposition: Home Condition: Stable Prescriptions: New amlodipine 10 mg tablet 10 mg PO DAILY Qty: 30 0RF levofloxacin 750 mg tablet 750 mg PO Q24H 7 Days Qty: 7 0RF Continued fluoxetine [Prozac] 20 mg capsule See Rx Instructions .ROUTE .COMPLEX Rx Instructions: 40 mg orally ;TAKE 2 CAPSULES (40 MG) IN THE MORNING AND 1 CAPSULE (20MG) AT BEDTIME. clobetasol 0.05 % cream 1 applic topical BID loperamide 2 mg Capsule 4 mg PO Q4H MDD 6 TABS PRN (Reason: Constipation) Rx Instructions: administer after each loose stool until symptoms controlled; do not exceed 8 mg per 24 hrs calcipotriene 0.005 % cream 1 applic TOPICAL BID polyethylene glycol 3350 17 gram/dose Powder 17 g PO DAILY aspirin 325 mg tablet,delayed release (DR/EC) 650 mg PO .Q4-6H oxycodone 5 mg tablet 5 mg PO BID PRN (Reason: Severe Pain) magnesium hydroxide [Milk of Magnesia] 400 mg/5 mL Suspension 30 ml PO DAILY PRN (Reason: Constipation) bisacodyl [Dulcolax (bisacodyl)] 10 mg Suppository 10 mg LA DAILY PRN (Reason: Constipation) Fleet Enema 19-7 gram/118 mL Enema 118 ml LA DAILY PRN (Reason: Constipation) omeprazole 20 mg Capsule,Delayed Release(Dr/Ec) 20 mg PO DAILY magnesium oxide 400 mg magnesium Tablet 400 mg PO DAILY docusate sodium 100 mg Capsule 100 mg PO BID Qty: 60 0RF Xtampza ER 9 mg Cap,Sprinkl,Er12hr(Dont Crush) 9 mg PO BID Rx Instructions: must administer with a meal/food Discharge Orders: Discharge Order (Routine); Ordered 08/03/24 Ordered By: Oskar Jones Referrals: Tonio Rubi DO [Primary Care Provider] - Discharge Diet: Advance as tolerated Patient Instructions: Self Care Measures After a Stroke (DC), Stroke (DC), Opioid Safety, Stroke Stoplight Activity Restrictions/Additional Instructions: Hospice care Discharge Attestations Time Spent in Discharge Care*: greater than 30 min Specific Discharge Activities: educating patient, educating and/or supporting family/caregiver, discussing with pcp/other providers, discussing with assistant case manager/social workers/dc planners, documenting/other paperwork and evaluating patient/reviewing data Quality Metrics Clinical Quality Measures [ No reported AMI, CVA or VTE this stay] Coding Level of Care Code 21678 Total time (in minutes) for Discharge: 60 Diagnoses Stroke I63.9 Hypertension I10 PVD (peripheral vascular disease) I73.9 Urinary tract infection N30.01 Hematuria presence: with hematuria Urinary tract infection type: acute cystitis detention resident Z78.9 DNR (do not resuscitate) Z66 Contracture of muscle, left lower leg M62.462 Goals of care, counseling/discussion Z71.89
[2024-08-03] MEDS: morphine 4 mg/mL SDV 1 mL IVP ×2 (11:32→15:04)
[2024-08-03 16:22] LABS: SARS Covid-2 Antigen Negative (Negative)
== END 2024-08-03 17:50 | disposition hospice, inpatient (51) ==
LOC: ER 09:33 → MEDSURG 16:22
PROVIDERS: Admitting Provider Student in an Organized Health Care Education/Training Program; Emergency Provider Family Medicine; PCP Internal Medicine; Visit Provider Student in an Organized Health Care Education/Training Program
DX: I63.9 Cerebral infarction, unspecified (principal); R29.717 NIHSS score 17; I10 Essential (primary) hypertension; I73.9 Peripheral vascular disease, unspecified; N30.01 Acute cystitis with hematuria; Z78.9 Other specified health status; Z66 Do not resuscitate; M62.462 Contracture of muscle, left lower leg; Z71.89 Other specified counseling; Z79.82 Long term (current) use of aspirin; K21.9 Gastro-esophageal reflux disease without esophagitis; F03.90 Unspecified dementia, unspecified severity, without behavioral disturbance, psychotic disturbance, mood disturbance, and anxiety; Z79.891 Long term (current) use of opiate analgesic; Z86.11 Personal history of tuberculosis; Z86.19 Personal history of other infectious and parasitic diseases
CPT/HCPCS: 36415; 36416; 51702; 70450; 70496; 70498; 70551; 80053; 80061; 80306; 81001; 82607; 82746; 82962; 83036; 83540; 83550; 83605; 83735; 84100; 84145; 84443; 85025; 85610; 85730; 87077; 87086; 87186; 87426; 92507; 92523; 92526; 92610; 93005; 93306; 94664; 96372; 96374; 96375; 96376; 97161; 99285; G0378; J0696; J1644; J2270; J2405; J2470; J3490; J7030; J9999